=== PATIENT | female | born 1950 | race African-American/Black ===

== ENCOUNTER 2022-04-07 16:56 | Inpatient (IN) | payer OTHER ==
--- NOTE | 2022-04-06 20:16 | R.PREADM ---
PRE-ADMISSION SCREENING FORM SCREENING DATE AND TIME 04/06/2022 10:05 (CDT) ANTICIPATED REHAB ADMISSION DATE 04/08/2022 REFERRING FACILITY [facility] REFERRAL DATE AND TIME 04/06/2022 10:05 (CDT) ACUTE ADMIT DATE 04/01/2022 Previous Rehabilitation(s): No. ACUTE MOLD CHANGER/DC Trudy Allen REFERRING PHYSICIAN Dax Horne REHAB FACILITY [facility] CLINICAL LIAISON Karina Coleman PHYSICIAN REVIEWER Dr. Nelson Milan M.D. MR# [id number] NAME OLIVER ROCHA ADDRESS [address] [place] [address] PHONE [facility] [id number] DATE OF 1950 AGE 71 SSN# [id number] GENDER female MARITAL STATUS unknown race ADMIT FROM 02 - [facility] PRE-HOSPITAL LIVING SETTING 01 - Home (private home/apt. board/care, assisted living, senior living, transitional living) HOME TYPE AND DETAILS Type of home: single family house # of levels in the residence: 1 # of steps within the residence: 0 # of steps to enter the residence: 0 PRE-HOSPITAL LIVING WITH Family/Relatives FAMILY SUPPORT Yes PRIMARY FAMILY CONTACT NAME Wilfrid Rocha PRIMARY FAMILY CONTACT PHONE PRIMARY FAMILY CONTACT RELATIONSHIP Spouse PHONE PRIMARY FAMILY CONTACT ON ADM.? no IS PRIMARY FAMILY CONTACT AUTH. REP.? no 1ST EMERGENCY CONTACT Wilfrid Rocha 1ST CONTACT PHONE 1ST CONTACT RELATIONSHIP Spouse PHONE 1ST CONTACT ON ADM. no IS 1ST CONTACT AUTH. REP.? no PHONE 2ND CONTACT ON ADM.? no PATIENT EMPLOYMENT STATUS Retired (for age) PATIENT EMPLOYER No Employer PAYOR INFORMATION: 1ST PAYOR NAME Frank [employer] 1ST PAYOR INJURY/ILLNESS DUE TO ACCIDENT? No ANOTHER [employer] RESPONSIBLE? No PRIMARY REHAB/ACUTE DIAGNOSIS: I69.398 Other sequelae of cerebral infarction ONSET DATE 04/01/2022 REHAB IMPAIRMENT CATEGORY (JUAN): 01 Stroke (STR) MEETS 60% rule PRIMARY DIAGNOSIS-RELATED SURGERIES: None COMORBID REHAB/ACUTE DIAGNOSES: - Tier 3 Unspecified diastolic (congestive) heart failure (I50.30) Acute respiratory failure with hypoxia (J96.01) - Non-Tiered Primary pulmonary hypertension (I27.0) Atrial fibrillation and flutter (I48) Hyperlipidemia, unspecified (E78.5) Essential (primary) hypertension (I10) Bacteremia (R78.81) Hypothyroidism, unspecified (E03.9) INTERVENTIONS: - Seizure Administer prescribed medications and monitor effectivness Assess/Monitor pt labs Provide safety measures - Acute hypoxemic respiratory failure Administer medications as indicated Provide emotional support to reduce anxiety Provide supplemental o2 and monitor for effectivness Reposition pt frequently to maximise lung expansion - Pulmonary Hypertension Administer prescribed medications Assess pt v/s regularly and observe for s/s of peripheral tissue perfusion Administer supplemental O2 as indicated - Hypertension Assess/ Monitor patient B/P and treat with prescribed medications Increase physical activity Implement healthy diet - Acute on chronic diastolic heart failure Administer medications as indicated by MD and monitor for effectiveness Assess/Monitor pt cardiac status Monitor pt labs daily - Afib Administer prescribed anticoagulants and monitor effectiveness Assess/Monitor pt cardiac and respiratory status regularly Monitor pt labs - Hyperlipidemia Regular physical activity Monitor and control blood pressure Implement healthy diet Monitor LDL level and treat with prescribed medications - Bacteriuria Increase fluid intake Administer medications as indicated by MD Manage pt pain RISK FOR COMPLICATIONS: - DVT Active and Passive ROM exercises Administer medications per MD order Assist patient with frequent position changes Elevate BLE - Skin Breakdown Encourage ambulation as tolerated Repositioning q 2 hours Use of pillows or foam wedges while in bed - Seizure Administer prescribed medications and supplemental O2 Identify risk factors Provide safety measures - Pain Administer prescribed pain medication as needed Anticipate the need for pain medication for optimal pain managment Assess pt for pain and Administer prescribed pain medication as needed Assist patient with frequent position changes at least every 2 hours - Cardiac Failure Assess/Monitor pt cardiac status - Respiratory Failure Assess/ Monitor pt O2 sats Administer supplemental O2 as needed - Stroke Assess/ Monitor and maintain patient pain level Assess/ Monitor patient blood pressure - Falls Assess for medication side effects Maintain call light within patient reach for easy access to nursing assistance Provide assistance getting out of bed and with ambulation Provide assistive devices SUMMARY OF ACUTE HOSPITALIZATION: Pt. is a 71 yo female of unknown race. On 04/01/2022 she was admitted to [facility] with diagnosis I69.398 Other sequelae of cerebral infarction. Her impairment category is Stroke 01 - Other Stroke (.9). Pre-morbidly, Pt. was independent/mod-I in Locomotion and Self-Care; and she had good Balance, Transf ers Control, and Endurance. Currently, she has deficits of Locomotion, Balance, Safety Awareness, Transfers Control, Self-Care, a nd Endurance. Pt. is now referred to [facility] for acute in-patient rehabilitation in order to maximize patient's functional independence in activities of daily living, strength, ROM, and mobi lity. Patient has realistic goal of being discharged at assistance level 6-Mumtaz to reside at Home with Fam sophia/Relatives. Pt is 71 yo female with hx of hemorrhagic CVA of the posterior fossa (2016), which caused obstructive hydrocephalus. She was treated by craniotomy for decompression subsequently developing Left frontotemporal seizures. These were controlled by anti-epileptic medications until patient was unable to maintain compliance with medication. This led to new break through seizures and re-exacerbates of cerebellar CVA symptoms including incoordination, postural and gait instability, which has impaired her functional mobility and self-cares. Re- continuation of medication has controlled seizures currently, however, patient is left with functional deficits of cerebellar nature. Per OT, pt presents with decline in basic ADLs, IADLs, and has decreased ROM, strength and endurance. PT noted deficits in bed mobility, transfer, gait and balance. Pt is at an increased risk for falls as well d/t decreased safety awareness. Prior to onset pt lived with spouse and 2 adult sons in mobile home and was independent with ambulation using AD and was MOD I with BADLs. Due to the decline in the patients condition she is not currently safe to remain in her current living arrangement due to reductions in balance, strength, endurance, and an inability to independently perform the necessary activities of daily living and self-care required. Pt is at risk for skin breakdown, DVT, pain, falls, stroke and seizures. Our goal is for the patient to become stronger in order for her to safely return home and live independently. Patient would most directly benefit from aggressive 3 hours of daily therapy split between physical therapy and occupational therapy as well as speech therapy if warranted in the acute inpatient rehab setting.She is medically stable with relatively stable labs. She will require 24 hour nursing, doctor supervision and oversight current medical condition and PHM. The patient is reasonably expected to participate in 3 hours of therapy a day/15 hours per week and receive care with an intensive interdisciplinary approach. COVID-19 screening performed; Patient denies new onset of fever, cough, difficulty breathing, sore throat, body aches and non-allergy nasal congestion in the past 24 hours. Patient denies travel outside of [place] in the past 14 days. Patient denies any contact with someone who has a confirmed diagnosis of or is under investigation for COVID-19 in the past 14 days. PAST MEDICAL HISTORY Acute respiratory failure with hypoxia (J96.01) Atrial fibrillation and flutter (I48) Bacteremia (R78.81) Essential (primary) hypertension (I10) Hyperlipidemia, unspecified (E78.5) Hypothyroidism, unspecified (E03.9) Primary pulmonary hypertension (I27.0) Unspecified diastolic (congestive) heart failure (I50.30) PAST SURGICAL HISTORY: Craniotomy MEDICATION ALLERGIES: No Known Drug Allergies (NKDA) ENVIRONMENTAL ALLERGIES: - Substance Allergies None Known - Other Allergies None Known CODE STATUS: Full code WEIGHT/HEIGHT/BMI: WEIGHT unknown lbs HEIGHT 5' unknown" BMI N/A DIET: - Diet Type Regular - Diet - Solid Texture Regular - Diet - Liquid Texture Regular - Tube Feed N/A SKIN DIAGRAM: Busby Cath on Genitalia; extent - small; stage - NS(Not Stageable). Treatment - Per Physician's Order s. IV on Right arm; extent - small; stage - NS(Not Stageable). Treatment - Per Physician's Orders. Arterial Line on Left arm; extent - small; stage - NS(Not Stageable). Treatment - Per Physician's Ord ers. REVIEW OF SYSTEMS: - Gen Alert and awake Lying in bed No apparent distress Oriented to: person, time, and place - Vital Signs Temperature: 99.2 F SBP/DBP: 154/97 Pulse: 72 Resp: 20 Vital signs stable, afebrile - CVS RRR VITAL SIGNS Temperature: 99.2 F SBP/DBP: 154/97 Pulse: 72 Resp: 20 Vital signs stable, afebrile MEDICATIONS/TREATMENT: Other- See attached MAR (Medication Administration Record). CURRENT SPHINCTER CONTROL: Pre-hospital bladder status: unspecified # of bladder accidents in the last 7 days prior to screenin Pre-hospital bowel status: unspecified # of bowel accidents in the last 7 days prior to screenin Last Bowel Movement Date: 04/06/2022 CURRENT LOCOMOTION STATUS: distance walked 0 feet DETAILED CURRENT FUNCTIONAL STATUS: - Bladder accident frequency: 7-Ind - No accidents in the past 7 days - Bowel accident frequency: 7-Ind - No accidents in the past 7 days - Walking score based on distance walked: 0(N/A) - Wheelchair score based on distance traveled: 0(N/A) QI SCORES: - Self-Care A. Eating 06-Independent B. Oral hygiene 04-Supervision or touching assistance C. Toileting hygiene 02-Substantial/maximal assistance E. Shower/bathe self 04-Supervision or touching assistance F. Upper body dressing 04-Supervision or touching assistance G. Lower body dressing 02-Substantial/maximal assistance H. Putting on/taking off footwear 02-Substantial/maximal assistance - Mobility A. Roll left and right 03-Partial/moderate assistance B. Sit to lying 03-Partial/moderate assistance C. Lying to sitting on side of bed 03-Partial/moderate assistance D. Sit to stand 03-Partial/moderate assistance E. Chair/hkh-fn-oghvv transfer 03-Partial/moderate assistance F. Toilet transfer 03-Partial/moderate assistance G. Car transfer 88-Not attempted due to medical condition or safety concerns I. Walk 10 feet 88-Not attempted due to medical condition or safety concerns J. Walk 50 feet with two turns 88-Not attempted due to medical condition or safety concerns K. Walk 150 feet 88-Not attempted due to medical condition or safety concerns L. Walking 10 feet on uneven surfaces 88-Not attempted due to medical condition or safety concerns M. 1 step (curb) 88-Not attempted due to medical condition or safety concerns N. 4 steps 88-Not attempted due to medical condition or safety concerns O. 12 steps 88-Not attempted due to medical condition or safety concerns P. Picking up object 88-Not attempted due to medical condition or safety concerns R. Wheel 50 feet with two turns 09-Not applicable S. Wheel 150 feet 09-Not applicable - Bladder and Bowel Bladder continence 9-Not applicable Bowel continence 1-Occasionally incontinent - Endurance Fair - Balance Fair - Safety Awareness Fair CURRENT FUNC. DEFICITS: Mobility, Endurance, Balance, Safety Awareness, and Self-Care CURRENT / PREVIOUS ASSISTIVE DEVICES: Rolling Walker HISTORY OF FALLS. HAS THE PATIENT HAD TWO OR MORE FALLS IN THE PAST YEAR OR ANY FALL WITH INJURY IN T HE PAST YEAR?: No PRIOR SURGERY. DID THE PATIENT HAVE MAJOR SURGERY DURING THE 100 DAYS PRIOR TO ADMISSION?: No THERAPY NOTES FROM ACUTE CARE: Attached. SPECIAL NEEDS: - Safety Concerns Skin breakdown and Fall precautions needed due to skin breakdown risk, Poor balance, Risk of injury, and High fall risk - IV IVF inserted on unknown - Respiratory Supplemental oxygen: 2 liters Nasal Canula - Fall Precautions Due to poor balance PRECAUTIONS: - Fall Precaution Bed alarm TABS alarm Wheel chair alarm - Bleeding Risk Eliquis - DVT Risk due to restricted mobility and age - Incontinence Bowel Incontinence - Skin Breakdown Risk Routine Wound care due to restricted mobility and age - Seizure Precaution Padding of bed rails, bed alarm, monitor seizure medication levels as necessary PATIENT NEEDS ACTIVE AND ONGOING THERAPEUTIC INTERVENTION OF MULTIPLE THERAPY DISCIPLINES, INCLUDING: - Dietary and Nutrition Adequate Nutrition. Nutritional Education. Nutritional Supplements. - Occupational Therapy Cognitive Retraining. Patient needs Occupational Therapy for a daily minimum of 1.5 hours at least 5 out of 7 days, to improve Activities of Daily Living, including: Eating, Grooming, Bathing, Dressing, Toileting, Toilet Transfers, Community Reintegration, Higher functional activities, Adaptive Equipme nt, Splinting, Household Tasks, and Other activities as determined. Visual Perceptual Training. - Speech Therapy Cognitive Training. Expressive Language Skills. Memory Strategies. Patient needs Speech Therapy for a daily minimum of 1.5 hours at least 5 out of 7 days, to improve: Swallowing, Cognition, Language Ski lls, and Compensatory Strategies. Receptive Language Skills. Speech Intelligibility Training. - Physical Therapy Patient needs Physical Therapy for a daily minimum of 1.5 hours at least 5 out of 7 days, to improve: Mobility, Strengthening, Transfers, Stretching, ROM, Endurance, Ability to manage stairs, Gait, and Balance. PATIENT NEEDS CLOSE MEDICAL SUPERVISION BY A REHABILITATION PHYSICIAN FOR: Coordination of Treatment Team Medical and Co-Morbidity Management Respiratory/Airway Management Wound Care Bowel and Bladder Management Pain Management PATIENT REQUIRES 24X7 REHAB NURSING FOR MEDICAL AND FUNCTIONAL MGT. OF THE FOLLOWING DEFICITS: Patient requires 24x7 Rehabilitation Nursing for: Pain Issues, Identifying and preventing risk factor s, Monitoring and reporting current medical conditions, Assisting with ambulation and transfer, Yanet ting with all ADL-s, Teaching patients about disease process and medications, Family teaching, Provid ing safe environment, Bowel and Bladder Issues, Skin Integrity, and Medication Management PATIENT REQUIRES INTENSIVE, COORDINATED INTERDISCIPLINARY APPROACH TO REHAB: Patient needs Dietary and Nutrition Services for: Adequate Nutrition, Nutritional Supplements, and Nu tritional Education Patient needs Skiver Machine Operator and/or Case Management for: Discharge Planning, Arranging Home Equipmen t or Services, and Family Interventions PATIENT REHAB POTENTIAL: Ifrah ROCHA is able and expected to receive 3 hours of individualized therapy daily on at least 5 of every 7 days Ifrah BOOTHEs prognosis for significant practical improvement within a reasonable period of time appe ars Good Expected level of measurable improvement will be of a practical value to Ifrah BOOTHEs functional cap acity or adaptations to impairments Has a viable Discharge Plan Medically appropriate; condition is sufficiently stable to participate in intensive rehab program DISCHARGE PLAN: - Estimated Length of Stay (days) 17. - Consensus on plan Discharge plan has been discussed with primary caregiver. Patient/Family is in agreement with the ag n. Primary caregiver is in agreement with the plan. - Patient/Family Goals Return home independently. - Potential barriers to discharge Any lines must be removed or patient/caregiver needs to be educated on line care. - Planned Living Setting Upon Discharge Home, to live with Family/Relatives. Transitional Living. RECOMMENDED CARE LEVEL: IRF RECOMMENDATION DETAILS: Recommended Admission to Comprehensive Rehabilitation Program to Increase Functional Riley SCREENER'S COMPLETENESS CONFIRMATION: - Screening Confirmation The patient data collection on this preadmission screening form is finished PHYSICIANS REVIEW AND ADMISSION DETERMINATION Admit - Based on my review of the Pre-Admission Screening results, in my medical judgment and experie nce, I concur with the findings and recommend admission to [facility], as this patient requires an IRF level of care. SIGNATURE PANEL: Clinical Liaison - [electronically] signed by Karina Coleman on 04/06/2022 at 15:47 (CDT) Physician Reviewer - [electronically] signed by Dr. Nelson Milan M.D. on 04/06/2022 at 20:15 (CDT )
[2022-04-07] MEDS ORDERED: NIFEdipine 10 MG CAP PO ONE (19:33)
[2022-04-07] MEDS ORDERED: CODEINE 30MG/APAP 300MG TAB PO PRN (19:33)
[2022-04-07] MEDS ORDERED: PHENYTOIN ER 100 MG CAP PO SCH (20:00)
[2022-04-07] MEDS ORDERED: CEPHALEXIN 250 MG CAP PO SCH (20:00)
[2022-04-07] MEDS ORDERED: NIFEdipine 10 MG CAP ONE (21:24)
[2022-04-07] MEDS ORDERED: CEPHALEXIN 250 MG CAP ONE (21:25)
[2022-04-07] MEDS: carvediloL 25 MG TAB PO SCH (21:28)
[2022-04-07] MEDS: APIXABAN 5 MG TABLET PO SCH (21:29)
[2022-04-07] MEDS: ATORVASTATIN 40 MG TAB PO SCH (21:29)
[2022-04-07] MEDS ORDERED: PHENYTOIN ER 100 MG CAP PO ONE (22:58)
[2022-04-07] MEDS: PHENYTOIN ER 100 MG CAP PO SCH (23:06)
[2022-04-08] MEDS: CEPHALEXIN 500 MG CAP PO SCH ×3 (00:57→16:43)
[2022-04-08 04:41] LABS: Absolute Lymphocytes (CBC) 1.5 K/uL (0.7-4.9); Hematocrit 40.1 % (36.0-45.0); MCV 81.4 fL (80-100); RBC Red Blood Cell Count 4.93 M/uL (3.86-4.86)
[2022-04-08 05:09] LABS: Albumin 2.4 g/dL (3.4-5.0); Magnesium 2.3 mg/dL (1.8-2.4); Phenytoin (Dilantin) Level 5.7 ug/mL (10.0-20.0); Potassium 4.1 mmol/L (3.5-5.1); Prealbumin 15.9 mg/dL (20-40)
[2022-04-08] MEDS: carvediloL 25 MG TAB PO SCH ×2 (05:18→16:43)
[2022-04-08] MEDS: FUROSEMIDE 40 MG TABLET PO SCH (07:33)
[2022-04-08] MEDS: SPIRONOLACTONE 25 MG TABLET PO SCH (07:34)
[2022-04-08] MEDS: APIXABAN 5 MG TABLET PO SCH ×2 (07:35→19:52)
[2022-04-08] MEDS: PHENYTOIN ER 100 MG CAP PO SCH ×2 (07:41→19:52)
[2022-04-08 10:28] LABS: Urine Appearance Clear (Clear); Urine Bilirubin Negative (Negative); Urine Blood Negative (Negative); Urine Color Yellow (Yellow); Urine Glucose Negative (Negative); Urine Protein 3+ (Negative); Urine Specific Gravity 1.025 (1.005-1.030); Urine Urobilinogen 0.2 mg/dL (0.2-1.0)
[2022-04-08 10:38] LABS: Urine Bacteria NONE SEEN /HPF (<20); Urine RBC <5 /HPF (NONE SEEN)
--- NOTE | 2022-04-08 17:40 | R.HP ---
HISTORY AND PHYSICAL FACILITY: [facility] ENCOUNTER DATE AND TIME: 04/08/2022 17:34 (CDT) MR#: [id number] NAME OLIVER ROCHA ADDRESS: [address] [place] [address] CITY: [place]IP [id number] PHONE: DATE OF : 1950 AGE: 71 SSN# [id number] GENDER: Female DEXTERITY Unknown dexterity MARITAL STATUS Unknown race PRE-HOSPITAL LIVING SETTING 01 - Home (private home/apt. board/care, assisted living, senior living, transitional living) PRE-HOSPITAL LIVING WITH Family/Relatives ENCOUNTER PHYSICIAN: Dr. Nelson Milan M.D. REFERRING DOCTOR: shi Horne DATE OF ADMISSION: 04/07/2022 18:59 (CDT) REFERRING FACILITY [facility] HOME TYPE AND DETAILS: Type of home: single family house # of levels in the residence: 1 # of steps within the residence: 0 # of steps to enter the residence: 0 ONSET DATE: 04/01/2022 PRIMARY DIAGNOSIS-RELATED SURGERIES: None SECONDARY/COMORBID DIAGNOSES (TIERED): - Non-Tiered Primary pulmonary hypertension (I27.0) Atrial fibrillation and flutter (I48) Hyperlipidemia, unspecified (E78.5) Essential (primary) hypertension (I10) Bacteremia (R78.81) Hypothyroidism, unspecified (E03.9) - Tier 3 Unspecified diastolic (congestive) heart failure (I50.30) Acute respiratory failure with hypoxia (J96.01) HISTORY OF PRESENT ILLNESS (HPI): Pt. is a 71 yo female of unknown race. On 04/01/2022 she was admitted to [facility] with diagnosis I69.398 Other sequelae of cerebral infarction. Her impairment category is Stroke 01 - Other Stroke (01.9). Pre-morbidly, Pt. was independent/mod-I in Locomotion and Self-Care; and she had good Balance, Transf ers Control, and Endurance. Currently, she has deficits of Locomotion, Balance, Safety Awareness, Transfers Control, Self-Care, a nd Endurance. Pt. is now referred to [facility] for acute in-patient rehabilitation in order to maximize patient's functional independence in activities of daily living, strength, ROM, and mobi lity. Patient has realistic goal of being discharged at assistance level 6-Mumtaz to reside at Home with Fam sophia/Relatives. Pt is 71 yo female with hx of hemorrhagic CVA of the posterior fossa (2016), which caused obstructive hydrocephalus. She was treated by craniotomy for decompression subsequently developing Left frontotemporal seizures. These were controlled by anti-epileptic medications until patient was unable to maintain compliance with medication. This led to new break through seizures and re-exacerbates of cerebellar CVA symptoms including incoordination, postural and gait instability, which has impaired her functional mobility and self-cares. Re- continuation of medication has controlled seizures currently, however, patient is left with functional deficits of cerebellar nature. Per OT, pt presents with decline in basic ADLs, IADLs, and has decreased ROM, strength and endurance. PT noted deficits in bed mobility, transfer, gait and balance. Pt is at an increased risk for falls as well d/t decreased safety awareness. Prior to onset pt lived with spouse and 2 adult sons in mobile home and was independent with ambulation using AD and was MOD I with BADLs. Due to the decline in the patients condition she is not currently safe to remain in her current living arrangement due to reductions in balance, strength, endurance, and an inability to independently perform the necessary activities of daily living and self-care required. Pt is at risk for skin breakdown, DVT, pain, falls, stroke and seizures. Our goal is for the patient to become stronger in order for her to safely return home and live independently. Patient would most directly benefit from aggressive 3 hours of daily therapy split between physical therapy and occupational therapy as well as speech therapy if warranted in the acute inpatient rehab setting.She is medically stable with relatively stable labs. She will require 24 hour nursing, doctor supervision and oversight current medical condition and PHM. The patient is reasonably expected to participate in 3 hours of therapy a day/15 hours per week and receive care with an intensive interdisciplinary approach. COVID-19 screening performed; Patient denies new onset of fever, cough, difficulty breathing, sore throat, body aches and non-allergy nasal congestion in the past 24 hours. Patient denies travel outside of [place] in the past 14 days. Patient denies any contact with someone who has a confirmed diagnosis of or is under investigation for COVID-19 in the past 14 days. MEDICATION ALLERGIES: No Known Drug Allergies (NKDA) ENVIRONMENTAL ALLERGIES: - Substance Allergies None Known - Other Allergies None Known PAST MEDICAL HISTORY: Acute respiratory failure with hypoxia (J96.01) Atrial fibrillation and flutter (I48) Bacteremia (R78.81) Essential (primary) hypertension (I10) Hyperlipidemia, unspecified (E78.5) Hypothyroidism, unspecified (E03.9) Primary pulmonary hypertension (I27.0) Unspecified diastolic (congestive) heart failure (I50.30) PAST SURGICAL HISTORY: Craniotomy SOCIAL HISTORY: - Home Living Family/Relatives REVIEW OF SYSTEMS: - Gen No Chills Fatigue No Fever - Eyes No Double Vision No itchiness - ENMT No Difficulty Swallowing - CVS No Chest Discomfort No Chest Pain Fatigue No Weight Gain - Resp No Cough Shortness of Breath - GI Continent No Abdominal Pain No Constipation No Diarrhea - Continent No Kidney Pain No Painful Urination No Urinary Urgency - MSK Joint Pain Muscle Cramps No Stiffness - Skin No Itching No Rash No Suspicious Lesions - Neuro Coordination Difficulty No Difficulty with Concentration No Memory Loss Seizures No Weakness - Psych No Anxiety No Depression No HIV Exposure No Persistent Infections No Seasonal Allergies - Endo No Cold/Heat Intolerance No Excessive Hunger No Excessive Thirst No Excessive Urination PHYSICAL EXAM - Gen Alert and awake Lying in bed No apparent distress Oriented to: person, time, and place - Skin No skin breakdown. Normacephalic - Eyes No abnormalities - ENMT No abnormalities - Neck No abnormalities - CVS RRR - Chest No abnormalities - Resp No wheezing - Abd Soft - GI + bowel sounds Deferred - No abnormalities - Ext No significant edema - MSK 4+/5 weakness in both lower extremities. - Neuro 4/5 strength bilaterally lower extremities. - Psych No abnormalities VITAL SIGNS Temperature: 97.8 F SBP/DBP: 149/72 Pulse: 79 Resp: 16 NURSING: - Shower allowing shower - Bladder care per protocol - Skin care per protocol PRECAUTIONS: - Fall Precaution Bed alarm TABS alarm Wheel chair alarm - Bleeding Risk Eliquis - Incontinence Bowel Incontinence - DVT Risk due to restricted mobility and age - Skin Breakdown Risk Routine Wound care due to restricted mobility and age - Seizure Precaution Padding of bed rails, bed alarm, monitor seizure medication levels as necessary ACTIVITIES OOB only with supervision QI SCORES: - Self-Care A. Eating 06-Independent B. Oral hygiene 04-Supervision or touching assistance C. Toileting hygiene 02-Substantial/maximal assistance E. Shower/bathe self 04-Supervision or touching assistance F. Upper body dressing 04-Supervision or touching assistance G. Lower body dressing 02-Substantial/maximal assistance H. Putting on/taking off footwear 02-Substantial/maximal assistance - Mobility A. Roll left and right 03-Partial/moderate assistance B. Sit to lying 03-Partial/moderate assistance C. Lying to sitting on side of bed 03-Partial/moderate assistance D. Sit to stand 03-Partial/moderate assistance E. Chair/[id number]-[id number] transfer 03-Partial/moderate assistance F. Toilet transfer 03-Partial/moderate assistance G. Car transfer 88-Not attempted due to medical condition or safety concerns I. Walk 10 feet 88-Not attempted due to medical condition or safety concerns J. Walk 50 feet with two turns 88-Not attempted due to medical condition or safety concerns K. Walk 150 feet 88-Not attempted due to medical condition or safety concerns L. Walking 10 feet on uneven surfaces 88-Not attempted due to medical condition or safety concerns M. 1 step (curb) 88-Not attempted due to medical condition or safety concerns N. 4 steps 88-Not attempted due to medical condition or safety concerns O. 12 steps 88-Not attempted due to medical condition or safety concerns P. Picking up object 88-Not attempted due to medical condition or safety concerns R. Wheel 50 feet with two turns 09-Not applicable S. Wheel 150 feet 09-Not applicable - Bladder and Bowel Bladder continence 9-Not applicable Bowel continence 1-Occasionally incontinent - Endurance Fair - Balance Fair - Safety Awareness Fair CURRENT FUNC. DEFICITS: Mobility, Endurance, Balance, Safety Awareness, and Self-Care MEDICATIONS: - Other See attached MAR (Medication Administration Record) ASSESSMENT: Pt. is a 71 yo female of unknown race.On 04/01/2022 she was admitted to [facility] with diagnosis I69.398 O ther sequelae of cerebral infarction.Her impairment category is Stroke 01 - Other Stroke (.9).Pre- morbidly, Pt. was independent/mod-I in Locomotion and Self-Care; and she had good Balance, Transfers Control, and Endurance.Currently, she has deficits of Locomotion, Balance, Safety Awareness, Transfer s Control, Self-Care, and Endurance.Pt. is now referred to [facility] for acut e in-patient rehabilitation in order to maximize patient's functional independence in activities of d aily living, strength, ROM, and mobility.- Rehab Goal Patient has realistic goal of being discharged at assistance level 6-Mumtaz to reside at Home with Fam sophia/Relatives. Pt is 71 yo female with hx of hemorrhagic CVA of the posterior fossa (2016), which caused obstructive hydrocephalus. She was treated by craniotomy for decompression subsequently developing Left frontotemporal seizures. These were controlled by anti-epileptic medications until patient was unable to maintain compliance with medication. This led to new break through seizures and re-exacerbates of cerebellar CVA symptoms including incoordination, postural and gait instability, which has impaired her functional mobility and self-cares. Re- continuation of medication has controlled seizures currently, however, patient is left with functional deficits of cerebellar nature. Per OT, pt presents with decline in basic ADLs, IADLs, and has decreased ROM, strength and endurance. PT noted deficits in bed mobility, transfer, gait and balance. Pt is at an increased risk for falls as well d/t decreased safety awareness. Prior to onset pt lived with spouse and 2 adult sons in mobile home and was independent with ambulation using AD and was MOD I with BADLs. Due to the decline in the patients condition she is not currently safe to remain in her current living arrangement due to reductions in balance, strength, endurance, and an inability to independently perform the necessary activities of daily living and self-care required. Pt is at risk for skin breakdown, DVT, pain, falls, stroke and seizures. Our goal is for the patient to become stronger in order for her to safely return home and live independently. Patient would most directly benefit from aggressive 3 hours of daily therapy split between physical therapy and occupational therapy as well as speech therapy if warranted in the acute inpatient rehab setting.She is medically stable with relatively stable labs. She will require 24 hour nursing, doctor supervision and oversight current medical condition and PHM. The patient is reasonably expected to participate in 3 hours of therapy a day/15 hours per week and receive care with an intensive interdisciplinary approach. COVID-19 screening performed; Patient denies new onset of fever, cough, difficulty breathing, sore throat, body aches and non-allergy nasal congestion in the past 24 hours. Patient denies travel outside of [place] in the past 14 days. Patient denies any contact with someone who has a confirmed diagnosis of or is under investigation for COVID-19 in the past 14 days.REHAB PLAN: for Dementia, TBI, Stroke, or others - Physical Therapy Gait dysfunction - to improve, our physical therapists will perform initial evaluation of pt's status upon admission and devise an individualized program for Gait Training, and Wheel Chair mobility Inability to transfer - to improve, our physical therapists will perform initial evaluation of pt's s tatus upon admission and devise an individualized program for Bed mobility Need for home safety evaluation - to improve, our physical therapists will perform initial evaluation of pt's status upon admission and devise an individualized program for Home Evaluation Need in caregiver upon discharge - to improve, our physical therapists will perform initial evaluatio n of pt's status upon admission and devise an individualized program for Caregiver Training New precaution - to improve, our physical therapists will perform initial evaluation of pt's status u lacey admission and devise an individualized program for Patient precaution education Edema - to improve, our physical therapists will perform initial evaluation of pt's status upon admi ssion and devise an individualized program for Elevation Training, and Lymphedema Therapy Poor balance - to improve, our physical therapists will perform initial evaluation of pt's status upo n admission and devise an individualized program for Balance Training Poor endurance - to improve, our physical therapists will perform initial evaluation of pt's status u lacey admission and devise an individualized program for Endurance Training Weakness - to improve, our physical therapists will perform initial evaluation of pt's status upon ad mission and devise an individualized program for Aquatic Therapy, Neuromuscular Reeducation, and Stre ngthening Achieving independence - to improve, our physical therapists will perform initial evaluation of pt's status upon admission and devise an individualized program for Community Reintegration Activities - Occupational Therapy ADL deficits - to improve, our occupation therapists will perform initial evaluation of pt's status u lacey admission and devise an individualized program for Bathing, Bed mobility, Community Reintegration , Cooking, Dressing, Eating, Fine Motor Skills, Grooming, Homemaking, Kitchen Mobility, Laundry, Vanita ent Education, Safety Awareness, Splinting - Positioning, Transfers(Toilet, Tub, Shower), and Wheel C hair Management Need for early breastfeeding care specialist - to improve, our occupation therapists will perform initial evaluation of pt's s tatus upon admission and devise an individualized program for Caregiver Training Weakness - to improve, our occupation therapists will perform initial evaluation of pt's status upon admission and devise an individualized program for Aquatic Therapy, Balance, Endurance, UE ROM, and U E strengthening MEDICAL PLAN: - Diet Type Start Regular - Diet - Liquid Texture Start Regular - Tube Feed Start N/A - Incontinence Bowel Incontinence - Bleeding Risk Eliquis - Bladder care per protocol - DVT Risk due to restricted mobility and age - Skin Breakdown Risk Routine Wound care due to restricted mobility and age - Seizure Precaution Padding of bed rails, bed alarm, monitor seizure medication levels as necessary - Fall Precaution Bed alarm TABS alarm Wheel chair alarm - Skin care per protocol - Other See attached MAR (Medication Administration Record) - Diet - Solid Texture Regular - Shower shower DISCHARGE PLAN: - Estimated Length of Stay (days) 17. - Consensus on plan Discharge plan has been discussed with primary caregiver. Patient/Family is in agreement with the ag n. Primary caregiver is in agreement with the plan. - Patient/Family Goals Return home independently. - Potential barriers to discharge Any lines must be removed or patient/caregiver needs to be educated on line care. - Planned Living Setting Upon Discharge Home, to live with Family/Relatives. Transitional Living. SIGNATURE PANEL: (CDT)
--- NOTE | 2022-04-08 17:42 | PAPE ---
POST ADMISSION PHYSICIAN EVALUATION PATIENT: [facility] MR# [id number] REFERRING DOCTOR shi Horne EVALUATION DATE AND TIME 04/08/2022 17:39 (CDT) NAME OLIVER ROCHA DATE OF 1950 AGE 71 PHONE N# [id number] GENDER female EVALUATING PHYSICIAN Dr. Nelson Milan M.D. ADMISSION DIAGNOSIS: I69.398 Other sequelae of cerebral infarction ONSET DATE 04/01/2022 SECONDARY/COMORBID DIAGNOSES TIERED: - Non-Tiered Primary pulmonary hypertension (I27.0) Atrial fibrillation and flutter (I48) Hyperlipidemia, unspecified (E78.5) Essential (primary) hypertension (I10) Bacteremia (R78.81) Hypothyroidism, unspecified (E03.9) - Tier 3 Unspecified diastolic (congestive) heart failure (I50.30) Acute respiratory failure with hypoxia (J96.01) POST-ADMISSION FUNCTIONAL/MEDICAL STATUS: - Bladder Same accident frequency: 7-Ind - No accidents in the past 7 days - Bowel Same accident frequency: 7-Ind - No accidents in the past 7 days - Walking Same score based on distance walked: 0(N/A) - Wheelchair Same score based on distance traveled: 0(N/A) STATUS CHANGE EVALUATION: No change in Functional or Medical Status is identified compared with Pre-Admission screening. PATIENT NEEDS CLOSE MEDICAL SUPERVISION BY A REHABILITATION PHYSICIAN FOR: Coordination of Treatment Team Medical and Co-Morbidity Management Respiratory/Airway Management Wound Care Bowel and Bladder Management Pain Management PATIENT REQUIRES 24X7 REHAB NURSING FOR MEDICAL AND FUNCTIONAL MGT. OF THE FOLLOWING DEFICITS: Patient requires 24x7 Rehabilitation Nursing for: Pain Issues, Identifying and preventing risk factor s, Monitoring and reporting current medical conditions, Assisting with ambulation and transfer, Yanet ting with all ADL-s, Teaching patients about disease process and medications, Family teaching, Provid ing safe environment, Bowel and Bladder Issues, Skin Integrity, and Medication Management PATIENT REQUIRES INTENSIVE, COORDINATED INTERDISCIPLINARY APPROACH TO REHAB: Patient needs Dietary and Nutrition Services for: Adequate Nutrition, Nutritional Supplements, and Nu tritional Education Patient needs Glassware Selector and/or Case Management for: Discharge Planning, Arranging Home Equipmen t or Services, and Family Interventions LIST OF IDENTIFIED AND POTENTIAL PROBLEMS: Alteration in air exchange Alteration in leisure activities Bladder, Incontinence Blood Pressure, Hypertension/hypotension Issues Bowel, Incontinence Falls, Actual or Potential Infection, Actual or Potential Mobility Impaired Pain, Alteration in Comfort Self Care Deficit Skin Integrity, Actual or Potential Urinary Tract Infection (UTI), Actual or Potential RISK FOR COMPLICATIONS - DVT Active and Passive ROM exercises. Administer medications per MD order. Assist patient with frequent p osition changes. Elevate BLE. - Skin Breakdown Encourage ambulation as tolerated. Repositioning q 2 hours. Use of pillows or foam wedges while in be d. - Seizure Administer prescribed medications and supplemental O2. Identify risk factors. Provide safety measures . - Pain Administer prescribed pain medication as needed. Anticipate the need for pain medication for optimal pain managment. Assess pt for pain and Administer prescribed pain medication as needed. Assist patien t with frequent position changes at least every 2 hours. - Cardiac Failure Assess/Monitor pt cardiac status. - Respiratory Failure Assess/ Monitor pt O2 sats. Administer supplemental O2 as needed. - Stroke Assess/ Monitor and maintain patient pain level. Assess/ Monitor patient blood pressure. - Falls Assess for medication side effects. Maintain call light within patient reach for easy access to [employer] assistance. Provide assistance getting out of bed and with ambulation. Provide assistive devices. INTERVENTIONS - Seizure Administer prescribed medications and monitor effectivness. Assess/Monitor pt labs. Provide safety me asures. - Acute hypoxemic respiratory failure Administer medications as indicated. Provide emotional support to reduce anxiety. Provide supplementa l o2 and monitor for effectivness. Reposition pt frequently to maximise lung expansion. - Pulmonary Hypertension Administer prescribed medications. Assess pt v/s regularly and observe for s/s of peripheral tissue p erfusion. Administer supplemental O2 as indicated. - Hypertension Assess/ Monitor patient B/P and treat with prescribed medications. Increase physical activity. Implem ent healthy diet. - Acute on chronic diastolic heart failure Administer medications as indicated by MD and monitor for effectiveness. Assess/Monitor pt cardiac st atus. Monitor pt labs daily. - Afib Administer prescribed anticoagulants and monitor effectiveness. Assess/Monitor pt cardiac and respira tory status regularly. Monitor pt labs. - Hyperlipidemia Regular physical activity. Monitor and control blood pressure. Implement healthy diet. Monitor LDL le kelley and treat with prescribed medications. - Bacteriuria Increase fluid intake. Administer medications as indicated by MD. Manage pt pain. PATIENT COULD BE AT RISK FOR COMPLICATIONS FROM ADVERSE MEDICAL CONDITIONS DUE TO HIS/HER COMORBIDITI ES AND THE RIGORS OF THE INTENSIVE REHABILLITATION PROGRAM. METHODS OR INTERVENTIONS TO AVOID COMPLIC ATIONS INCLUDE: - Bleeding Assess lab values and manage abnormalities. Nursing to teach precautions for anti-coagulation therapy . Stroke patients assessed for lethargy or change in status. Wound to be assessed every shift. - Infection Clinical staff to assess and manage the signs and symptoms of infection including fever, redness, war mth, etc. - Urinary Tract Infection - Aspiration Clinical staff will assess and manage coughing, drooling, congestion. - Falls Patient will be evaluated for Fall Precautions and will be placed on Fall Precautions as indicated pe r protocol. - Skin Breakdown Nursing will assess skin daily using assessment tool and will place on Skin Breakdown Precautions as indicated per protocol. - Pain Clinical staff may employ non-medication methods such as massage, distraction, decrease stimulus, etc . as needed. Clinical staff will assess patient's pain level every shift per protocol to assess and e nsure pain management effectiveness. Medications will be given and the pain level re-assessed. PRELIMINARY PLAN OF CARE: - Physical Therapy Patient needs Physical Therapy for a daily minimum of 1.5 hours at least 5 out of 7 days, to improve: Mobility, Strengthening, Transfers, Stretching, ROM, Endurance, Ability to manage stairs, Gait, and Balance. - Speech Therapy Patient needs Speech Therapy for a daily minimum of 0.5 hours at least 5 out of 7 days, to improve: S wallowing, Cognition, Language Skills, and Compensatory Strategies. - Rehabilitation Nursing Patient requires 24x7 Rehabilitation Nursing for: Pain Issues, Identifying and preventing risk factor s, Monitoring and reporting current medical conditions, Assisting with ambulation and transfer, Yanet ting with all ADL-s, Teaching patients about disease process and medications, Family teaching, Provid ing safe environment, Bowel and Bladder Issues, Skin Integrity, and Medication Management. Patient needs Glassware Selector and/or Case Management for: Discharge Planning, Arranging Home Equipmen t or Services, and Family Interventions. - Dietary and Nutrition Services Patient needs Dietary and Nutrition Services for: Adequate Nutrition, Nutritional Supplements, and Nu tritional Education. - Occupational Therapy Patient needs Occupational Therapy for a daily minimum of 1.5 hours at least 5 out of 7 days, to impr ove Activities of Daily Living, including: Eating, Grooming, Bathing, Dressing, Toileting, Toilet Tra nsfers, Community Reintegration, Higher functional activities, Adaptive Equipment, Splinting, Househo ld Tasks, and Other activities as determined. QI SCORES: - Self-Care A. Eating 06-Independent B. Oral hygiene 04-Supervision or touching assistance C. Toileting hygiene 02-Substantial/maximal assistance E. Shower/bathe self 04-Supervision or touching assistance F. Upper body dressing 04-Supervision or touching assistance G. Lower body dressing 02-Substantial/maximal assistance H. Putting on/taking off footwear 02-Substantial/maximal assistance - Mobility A. Roll left and right 03-Partial/moderate assistance B. Sit to lying 03-Partial/moderate assistance C. Lying to sitting on side of bed 03-Partial/moderate assistance D. Sit to stand 03-Partial/moderate assistance E. Chair/mse-zr-lgyff transfer 03-Partial/moderate assistance F. Toilet transfer 03-Partial/moderate assistance G. Car transfer 88-Not attempted due to medical condition or safety concerns I. Walk 10 feet 88-Not attempted due to medical condition or safety concerns J. Walk 50 feet with two turns 88-Not attempted due to medical condition or safety concerns K. Walk 150 feet 88-Not attempted due to medical condition or safety concerns L. Walking 10 feet on uneven surfaces 88-Not attempted due to medical condition or safety concerns M. 1 step (curb) 88-Not attempted due to medical condition or safety concerns N. 4 steps 88-Not attempted due to medical condition or safety concerns O. 12 steps 88-Not attempted due to medical condition or safety concerns P. Picking up object 88-Not attempted due to medical condition or safety concerns R. Wheel 50 feet with two turns 09-Not applicable S. Wheel 150 feet 09-Not applicable - Bladder and Bowel Bladder continence 9-Not applicable Bowel continence 1-Occasionally incontinent - Endurance Fair - Balance Fair - Safety Awareness Fair POTENTIAL FUNCTIONAL GOALS FOR PATIENT TO ACHIEVE BY DISCHARGE: - Safety Precaution Patient will remain free from falls or injury at time of discharge. - Bed Mobility Patient will perform bed mobility at 4-Felipe level of assistance. - Transfers Patient will complete transfers from bed to chair at 4-Felipe level of assistance. - Mobility Patient will ambulate 150 ft with 4-Felipe level of assistance with RW. PATIENT REHAB POTENTIAL Ifrah ROCHA is able and expected to receive 3 hours of individualized therapy daily on at least 5 of every 7 days Ifrah ROCHA's prognosis for significant practical improvement within a reasonable period of time appe ars Good Expected level of measurable improvement will be of a practical value to Ifrah ROCHA's functional cap acity or adaptations to impairments Has a viable Discharge Plan Medically appropriate; condition is sufficiently stable to participate in intensive rehab program DISCHARGE PLAN: - Estimated Length of Stay (days) 17. - Consensus on plan Discharge plan has been discussed with primary caregiver. Patient/Family is in agreement with the ag n. Primary caregiver is in agreement with the plan. - Patient/Family Goals Return home independently. - Potential barriers to discharge Any lines must be removed or patient/caregiver needs to be educated on line care. - Planned Living Setting Upon Discharge Home, to live with Family/Relatives. Transitional Living. CONCLUSION ON REHABILITATION NECESSITY: I have evaluated patient's pre-admission functional status and, comparing it to the patient's post-ad mission functional status now, I conclude that the pre-admission assessment was accurate. Patient's c ondition on admission supports the medical necessity of admission to IRF. It is safe to proceed with patient's therapy program. SIGNATURE PANEL: (CDT)
[2022-04-08] MEDS: ATORVASTATIN 40 MG TAB PO SCH (19:52)
[2022-04-08] MEDS: ENSURE HIGH PROTEIN 237 ML CAN PO SCH (19:53)
[2022-04-08] MEDS ORDERED: NIFEdipine 10 MG CAP ONE (20:42)
[2022-04-08] MEDS ORDERED: NIFEdipine 10 MG CAP PO SCH (21:00)
[2022-04-09] MEDS: carvediloL 25 MG TAB PO SCH ×2 (05:23→17:10)
[2022-04-09] MEDS: APIXABAN 5 MG TABLET PO SCH ×2 (07:55→19:59)
[2022-04-09] MEDS: PHENYTOIN ER 100 MG CAP PO SCH ×2 (08:49→19:59)
[2022-04-09] MEDS: FUROSEMIDE 40 MG TABLET PO SCH (08:50)
[2022-04-09] MEDS: SPIRONOLACTONE 25 MG TABLET PO SCH (08:50)
--- NOTE | 2022-04-09 09:52 | P.RH.PN ---
Estimated Length of Stay: 14 Expected Discharge Date: 04/21/22 Discharge Disposition Plan: Home Family Support: Yes Care Home Goal: Mobility, Transfers, Self Care Vital Signs: Last Vital Signs Temp 97.6 F 04/09/22 07:35 Pulse 68 04/09/22 08:50 Resp 18 04/09/22 07:35 BP 136/61 04/09/22 08:50 Pulse Ox 91 04/09/22 07:35 Laboratory: Laboratory Last Values WBC 9.1 K/uL (4.3-10.9) 04/08/22 04:04 RBC 4.93 M/uL (3.86-4.86) H 04/08/22 04:04 Hgb 13.4 g/dL (12.0-15.0) 04/08/22 04:04 Hct 40.1 % (36.0-45.0) 04/08/22 04:04 MCV 81.4 fL (80-100) D 04/08/22 04:04 MCH 27.2 pg (27.0-35.0) 04/08/22 04:04 MCHC 33.4 g/dL (32.0-36.0) 04/08/22 04:04 RDW 18.3 % (12.1-15.2) H 04/08/22 04:04 Plt Count 582 K/uL (152-406) H 04/08/22 04:04 MPV 7.0 fL (7.6-11.3) L 04/08/22 04:04 Neutrophils % 69.4 % (41.7-73.7) 04/08/22 04:04 Lymphocytes % 16.0 % (15.3-44.8) 04/08/22 04:04 Monocytes % 9.0 % (3.3-12.3) 04/08/22 04:04 Eosinophils % 4.3 % (0-4.4) 04/08/22 04:04 Basophils % 1.3 % (0-1.3) 04/08/22 04:04 Absolute Neutrophils 6.3 K/uL (1.8-8.0) 04/08/22 04:04 Absolute Lymphocytes 1.5 K/uL (0.7-4.9) 04/08/22 04:04 Absolute Monocytes 0.8 K/uL (0.1-1.3) 04/08/22 04:04 Absolute Eosinophils 0.4 K/uL (0-0.5) 04/08/22 04:04 Absolute Basophils 0.1 K/uL (0-0.5) 04/08/22 04:04 Sodium 143 mmol/L (136-145) 04/08/22 04:04 Potassium 4.1 mmol/L (3.5-5.1) 04/08/22 04:04 Chloride 112 mmol/L (98-107) H 04/08/22 04:04 Carbon Dioxide 26 mmol/L (21-32) 04/08/22 04:04 Anion Gap 9.1 mEq/L (5.0-15.0) 04/08/22 04:04 BUN 43 mg/dL (7-18) H 04/08/22 04:04 Creatinine 1.17 mg/dL (0.55-1.3) 04/08/22 04:04 Est GFR (CKD-EPI) 50 ml/min (=/>90) L 04/08/22 04:04 Glucose 111 mg/dL (74-106) H 04/08/22 04:04 POC Glucose 104 mg/dL (65-120) 04/08/22 16:31 Calcium 8.7 mg/dL (8.5-10.1) 04/08/22 04:04 Magnesium 2.3 mg/dL (1.8-2.4) 04/08/22 04:04 Albumin 2.4 g/dL (3.4-5.0) L 04/08/22 04:04 Prealbumin 15.9 mg/dL (20-40) L 04/08/22 04:04 Urine Color Yellow (Yellow) 04/08/22 10:26 Urine Appearance Clear (Clear) 04/08/22 10:26 Urine pH 6.0 (5.0-7.0) 04/08/22 10:26 Ur Specific Tingley 1.025 (1.005-1.030) 04/08/22 10:26 Glucose (UA)(Auto) Negative (Negative) 04/08/22 10:26 Urine Ketones Negative (Negative) 04/08/22 10:26 Urine Blood Negative (Negative) 04/08/22 10:26 Urine Nitrite Negative (Negative) 04/08/22 10:26 Urine Bilirubin Negative (Negative) 04/08/22 10:26 Urine Urobilinogen 0.2 mg/dL (0.2-1.0) 04/08/22 10:26 Ur Leukocyte Esterase Negative (Negative) 04/08/22 10:26 Urine RBC <5 /HPF (NONE SEEN) 04/08/22 10:26 Urine WBC <5 /HPF (<5) 04/08/22 10:26 Ur Squamous Epith Cells 5-10 /HPF (NONE SEEN) H 04/08/22 10:26 Ur Urothelial Cells Cancelled 04/08/22 09:15 Calcium Oxalate Crystal Cancelled 04/08/22 09:15 Uric Acid Crystals Cancelled 04/08/22 09:15 Triple Phos Crystals Cancelled 04/08/22 09:15 Other Crystals Cancelled 04/08/22 09:15 Amorphous Sediment Cancelled 04/08/22 09:15 Glitter Cells Cancelled 04/08/22 09:15 Urine Bacteria None seen /HPF (<20) 04/08/22 10:26 Hyaline Casts Cancelled 04/08/22 09:15 Fine Granular Casts Cancelled 04/08/22 09:15 Coarse Granular Casts Cancelled 04/08/22 09:15 Waxy Casts Cancelled 04/08/22 09:15 RBC Casts Cancelled 04/08/22 09:15 WBC Casts Cancelled 04/08/22 09:15 Urine Mucus Cancelled 04/08/22 09:15 Urine Other Cancelled 04/08/22 09:15 Urine Trichomonas Cancelled 04/08/22 09:15 Urine Yeast Cancelled 04/08/22 09:15 Ur Yeast w Hyphae Cancelled 04/08/22 09:15 Urine Yeast (Budding) Cancelled 04/08/22 09:15 Urine Sperm Cancelled 04/08/22 09:15 Urine Culture Reflexed Not needed 04/08/22 10:26 Urine Total Volume Cancelled 04/08/22 09:15 Urine Total Protein 3+ (Negative) H 04/08/22 10:26 Phenytoin 5.7 ug/mL (10.0-20.0) L 04/08/22 04:04 SARS-CoV-2 Rap RNA(RT-PCR) Negative (NEGATIVE) 04/07/22 19:15 Weight: 200 lb Wound Present: Yes Closed Surgical Incision Present: No Negative Pressure Wound Therapy Present: No Physician Update: Bed mobility is SBA, sit to stand CGA, min assist for trans fers. May have left side neglect. Walked 100' with RW SBA, WC 150' with SBA. Will be evaluated today. She need queing. Comment: noted abrasion rt temporal 1x1 cm Summary: Patient's care plan and fpc goals have been reviewed and revised as necessary. Please see the Rehabilitation Signature page for all necessary signatures.
[2022-04-09] MEDS: NIFEdipine 10 MG CAP PO SCH ×3 (10:36→20:00)
[2022-04-09] MEDS: ENSURE HIGH PROTEIN 237 ML CAN PO SCH ×2 (12:06→20:00)
[2022-04-09] MEDS: ATORVASTATIN 40 MG TAB PO SCH (19:59)
[2022-04-09] MEDS: DOCUSATE NA/SENNA CONC 1 TAB PO PRN (20:00)
[2022-04-09] MEDS: MELATONIN 3 MG TABLET PO PRN (20:02)
[2022-04-10] MEDS: carvediloL 25 MG TAB PO SCH ×2 (05:28→17:10)
[2022-04-10] MEDS: PHENYTOIN ER 100 MG CAP PO SCH ×2 (07:31→20:50)
[2022-04-10] MEDS: SPIRONOLACTONE 25 MG TABLET PO SCH (07:31)
[2022-04-10] MEDS: APIXABAN 5 MG TABLET PO SCH ×2 (07:31→20:49)
[2022-04-10] MEDS: FUROSEMIDE 40 MG TABLET PO SCH (07:32)
[2022-04-10] MEDS: NIFEdipine 10 MG CAP PO SCH ×3 (07:33→20:50)
[2022-04-10] MEDS: ENSURE HIGH PROTEIN 237 ML CAN PO SCH ×2 (07:34→20:49)
[2022-04-10] MEDS: ATORVASTATIN 40 MG TAB PO SCH (20:49)
[2022-04-11] MEDS: carvediloL 25 MG TAB PO SCH ×2 (05:02→17:01)
[2022-04-11] MEDS: SPIRONOLACTONE 25 MG TABLET PO SCH (08:26)
[2022-04-11] MEDS: APIXABAN 5 MG TABLET PO SCH ×2 (08:27→20:17)
[2022-04-11] MEDS: FUROSEMIDE 40 MG TABLET PO SCH (08:27)
[2022-04-11] MEDS: PHENYTOIN ER 100 MG CAP PO SCH ×2 (08:28→20:17)
[2022-04-11] MEDS: ENSURE HIGH PROTEIN 237 ML CAN PO SCH ×2 (08:29→20:18)
[2022-04-11] MEDS: NIFEdipine 10 MG CAP PO SCH ×3 (10:10→20:17)
[2022-04-11] MEDS: ATORVASTATIN 40 MG TAB PO SCH (20:18)
[2022-04-12 04:49] LABS: Absolute Lymphocytes (CBC) 1.3 K/uL (0.7-4.9); Hematocrit 39.3 % (36.0-45.0); Lymphocytes % 16.3 % (15.3-44.8); MCV 82.9 fL (80-100); RBC Red Blood Cell Count 4.74 M/uL (3.86-4.86)
[2022-04-12 05:05] LABS: Potassium 4.5 mmol/L (3.5-5.1)
[2022-04-12] MEDS: carvediloL 25 MG TAB PO SCH ×2 (05:14→17:10)
[2022-04-12] MEDS: APIXABAN 5 MG TABLET PO SCH ×2 (07:22→19:29)
[2022-04-12] MEDS: SPIRONOLACTONE 25 MG TABLET PO SCH (08:32)
[2022-04-12] MEDS: FUROSEMIDE 40 MG TABLET PO SCH (08:33)
[2022-04-12] MEDS: PHENYTOIN ER 100 MG CAP PO SCH ×2 (08:33→19:29)
[2022-04-12] MEDS: ENSURE HIGH PROTEIN 237 ML CAN PO SCH ×2 (08:33→19:30)
[2022-04-12] MEDS: NIFEdipine 10 MG CAP PO SCH ×3 (09:37→19:29)
--- NOTE | 2022-04-12 17:54 | R.PN ---
PROGRESS NOTES ENCOUNTER DATE AND TIME: 04/12/2022 17:45 (CDT) NAME OLIVER ROCHA DATE OF : 1950 DATE OF ADMISSION: 04/07/2022 18:59 (CDT) I69.398 Other sequelae of cerebral infarctionCHIEF COMPLAINT: Stroke with left sided residual weakness. SUBJECTIVE: Pt denied any Shortness of Breath. Pt denied any depression. CBC with differential shows elevated Plt of 603. Prealbumin 15.9, glucose 115, Automatic Presser 1.2. Phenytoin lev el is low at 5.7. Phenytoin was increased to 200 mg twice daily. Ambulated 300' with SBA using a rolling walker. VITAL SIGNS Temperature: 97.8 F SBP/DBP: 149/72 Pulse: 79 Resp: 16 MEDICATION ALLERGIES: No Known Drug Allergies (NKDA) ENVIRONMENTAL ALLERGIES: - Substance Allergies None Known - Other Allergies None Known NURSING: - Shower allowing shower - Bladder care per protocol - Skin care per protocol PRECAUTIONS: - Fall Precaution Bed alarm TABS alarm Wheel chair alarm - Bleeding Risk Eliquis - Incontinence Bowel Incontinence - DVT Risk due to restricted mobility and age - Skin Breakdown Risk Routine Wound care due to restricted mobility and age - Seizure Precaution Padding of bed rails, bed alarm, monitor seizure medication levels as necessary ACTIVITIES OOB only with supervision THERAPIES: - Dietary and Nutrition Adequate Nutrition. Nutritional Education. Nutritional Supplements. - Occupational Therapy Cognitive Retraining. Patient needs Occupational Therapy for a daily minimum of 1.5 hours at least 5 out of 7 days, to improve Activities of Daily Living, including: Eating, Grooming, Bathing, Dressing, Toileting, Toilet Transfers, Community Reintegration, Higher functional activities, Adaptive Equipme nt, Splinting, Household Tasks, and Other activities as determined. Visual Perceptual Training. - Speech Therapy Cognitive Training. Expressive Language Skills. Memory Strategies. Patient needs Speech Therapy for a daily minimum of 1.5 hours at least 5 out of 7 days, to improve: Swallowing, Cognition, Language Ski lls, and Compensatory Strategies. Receptive Language Skills. Speech Intelligibility Training. - Physical Therapy Patient needs Physical Therapy for a daily minimum of 1.5 hours at least 5 out of 7 days, to improve: Mobility, Strengthening, Transfers, Stretching, ROM, Endurance, Ability to manage stairs, Gait, and Balance. PHYSICAL EXAM - Gen Alert and awake Lying in bed No apparent distress Oriented to: person, time, and place - Skin No skin breakdown. Normacephalic - Eyes No abnormalities - ENMT No abnormalities - Neck No abnormalities - CVS RRR - Chest No abnormalities - Resp No wheezing - Abd Soft - GI + bowel sounds Deferred - No abnormalities - Ext No significant edema - MSK 4+/5 weakness in both lower extremities. - Neuro 4/5 strength bilaterally lower extremities. - Psych No abnormalities ASSESSMENT: Pt. is a 71 yo female of unknown race.On 04/01/2022 she was admitted to [facility] with diagnosis I69.398 O ther sequelae of cerebral infarction.Her impairment category is Stroke 01 - Other Stroke (01.9).Pre- morbidly, Pt. was independent/mod-I in Locomotion and Self-Care; and she had good Balance, Transfers Control, and Endurance.Currently, she has deficits of Locomotion, Balance, Safety Awareness, Transfer s Control, Self-Care, and Endurance.Pt. is now referred to [facility] for acut e in-patient rehabilitation in order to maximize patient's functional independence in activities of d aily living, strength, ROM, and mobility.- Rehab Goal Patient has realistic goal of being discharged at assistance level 6-Mumtaz to reside at Home with Fam sophia/Relatives. MDM/PLAN: - Physical Therapy Gait dysfunction - to improve, our physical therapists will perform initial evaluation of pt's statu s upon admission and devise an individualized program for Gait Training, and Wheel Chair mobility Inability to transfer - to improve, our physical therapists will perform initial evaluation of pt's status upon admission and devise an individualized program for Bed mobility Need for home safety evaluation - to improve, our physical therapists will perform initial evaluatio n of pt's status upon admission and devise an individualized program for Home Evaluation Need in caregiver upon discharge - to improve, our physical therapists will perform initial evaluati on of pt's status upon admission and devise an individualized program for Caregiver Training New precaution - to improve, our physical therapists will perform initial evaluation of pt's status upon admission and devise an individualized program for Patient precaution education Edema - to improve, our physical therapists will perform initial evaluation of pt's status upon admis foreign and devise an individualized program for Elevation Training, and Lymphedema Therapy Poor balance - to improve, our physical therapists will perform initial evaluation of pt's status up on admission and devise an individualized program for Balance Training Poor endurance - to improve, our physical therapists will perform initial evaluation of pt's status upon admission and devise an individualized program for Endurance Training Weakness - to improve, our physical therapists will perform initial evaluation of pt's status upon a dmission and devise an individualized program for Aquatic Therapy, Neuromuscular Reeducation, and Str engthening Achieving independence - to improve, our physical therapists will perform initial evaluation of pt's status upon admission and devise an individualized program for Community Reintegration Activities - Occupational Therapy ADL deficits - to improve, our occupation therapists will perform initial evaluation of pt's status upon admission and devise an individualized program for Bathing, Bed mobility, Community Reintegratio n, Cooking, Dressing, Eating, Fine Motor Skills, Grooming, Homemaking, Kitchen Mobility, Laundry, Pat ient Education, Safety Awareness, Splinting - Positioning, Transfers(Toilet, Tub, Shower), and Wheel Chair Management Need for manager of care - to improve, our occupation therapists will perform initial evaluation of pt's status upon admission and devise an individualized program for Caregiver Training Weakness - to improve, our occupation therapists will perform initial evaluation of pt's status upon admission and devise an individualized program for Aquatic Therapy, Balance, Endurance, UE ROM, and UE strengthening - Other See attached MAR (Medication Administration Record) - Diet Type Continue Regular - Diet - Liquid Texture Continue Regular - Tube Feed Continue N/A - Incontinence Bowel Incontinence - Bleeding Risk Eliquis - Bladder care per protocol - DVT Risk due to restricted mobility and age - Skin Breakdown Risk Routine Wound care due to restricted mobility and age - Seizure Precaution Padding of bed rails, bed alarm, monitor seizure medication levels as necessary - Fall Precaution Bed alarm TABS alarm Wheel chair alarm - Skin care per protocol - Diet - Solid Texture Continue Regular - Shower allowing shower for Dementia, TBI, Stroke, or others FUNCTIONAL STATUS: UPDATED AT WEEKLY TEAM CONFERENCE - Bladder Same accident frequency: 7-Ind - No accidents in the past 7 days - Bowel Same accident frequency: 7-Ind - No accidents in the past 7 days - Walking Same score based on distance walked: 0(N/A) - Wheelchair Same score based on distance traveled: 0(N/A) FUNCTIONAL STATUS: - Self-Care A. Eating Ind B. Grooming Ind C. Bathing Mumtaz D. Dressing - Upper sup E. Dressing - Lower modA F. Toileting Mumtaz - Sphincter Control G. Bladder control Mumtaz H. Bowel control Mumtaz - Transfers Control I. Bed/Chair/Wheelchair sup J. Toilet Mumtaz K. Tub/Shower Felipe - Locomotion L. Walk/Wheelchair (B) Felipe M. Stairs modA - Communication N. Comprehension (B) sup O. Expression (B) sup - Social Cognition P. Social Interaction Ind Q. Problem Solving sup R. Memory sup - Endurance Good - Balance Fair - Safety Awareness Fair QI SCORES: - Self-Care A. Eating 06-Independent B. Oral hygiene 04-Supervision or touching assistance C. Toileting hygiene 02-Substantial/maximal assistance E. Shower/bathe self 04-Supervision or touching assistance F. Upper body dressing 04-Supervision or touching assistance G. Lower body dressing 02-Substantial/maximal assistance H. Putting on/taking off footwear 02-Substantial/maximal assistance - Mobility A. Roll left and right 03-Partial/moderate assistance B. Sit to lying 03-Partial/moderate assistance C. Lying to sitting on side of bed 03-Partial/moderate assistance D. Sit to stand 03-Partial/moderate assistance E. Chair/[id number] transfer 03-Partial/moderate assistance F. Toilet transfer 03-Partial/moderate assistance G. Car transfer 88-Not attempted due to medical condition or safety concerns I. Walk 10 feet 88-Not attempted due to medical condition or safety concerns J. Walk 50 feet with two turns 88-Not attempted due to medical condition or safety concerns K. Walk 150 feet 88-Not attempted due to medical condition or safety concerns L. Walking 10 feet on uneven surfaces 88-Not attempted due to medical condition or safety concerns M. 1 step (curb) 88-Not attempted due to medical condition or safety concerns N. 4 steps 88-Not attempted due to medical condition or safety concerns O. 12 steps 88-Not attempted due to medical condition or safety concerns P. Picking up object 88-Not attempted due to medical condition or safety concerns R. Wheel 50 feet with two turns 09-Not applicable S. Wheel 150 feet 09-Not applicable - Bladder and Bowel Bladder continence 9-Not applicable Bowel continence 1-Occasionally incontinent - Endurance Fair - Balance Fair - Safety Awareness Fair CURRENT FUNC. DEFICITS: Mobility, Endurance, Balance, Safety Awareness, and Self-Care SIGNATURE PANEL: (CDT)
[2022-04-12] MEDS: ATORVASTATIN 40 MG TAB PO SCH (19:29)
[2022-04-13] MEDS: carvediloL 25 MG TAB PO SCH ×2 (05:06→17:39)
[2022-04-13] MEDS: PHENYTOIN ER 100 MG CAP PO SCH ×2 (08:36→19:57)
[2022-04-13] MEDS: APIXABAN 5 MG TABLET PO SCH ×2 (08:36→19:58)
[2022-04-13] MEDS: FUROSEMIDE 40 MG TABLET PO SCH (08:37)
[2022-04-13] MEDS: SPIRONOLACTONE 25 MG TABLET PO SCH (08:37)
[2022-04-13] MEDS: ENSURE HIGH PROTEIN 237 ML CAN PO SCH ×2 (08:38→19:58)
[2022-04-13] MEDS: NIFEdipine 10 MG CAP PO SCH ×3 (10:17→19:57)
--- NOTE | 2022-04-13 17:20 | R.PN ---
PROGRESS NOTES ENCOUNTER DATE AND TIME: 04/13/2022 17:17 (CDT) NAME OLIVER ROCHA DATE OF : 1950 DATE OF ADMISSION: 04/07/2022 18:59 (CDT) I69.398 Other sequelae of cerebral infarctionCHIEF COMPLAINT: Stroke with left sided residual weakness. SUBJECTIVE: Pt denied any Shortness of Breath. Pt denied any depression. CBC with differential shows elevated Plt of 603. Prealbumin 15.9, glucose 115, Carpet Layer 1.2. Phenytoin lev el is low at 5.7. Phenytoin was increased to 200 mg twice daily. Ambulated 125' with SBA using a rolling walker. Self-propelled wheelchair 125' with standby assistanc e. VITAL SIGNS Temperature: 98.1 F SBP/DBP: 138/68 Pulse: 80 Resp: 16 MEDICATION ALLERGIES: No Known Drug Allergies (NKDA) ENVIRONMENTAL ALLERGIES: - Substance Allergies None Known - Other Allergies None Known NURSING: - Shower allowing shower - Bladder care per protocol - Skin care per protocol PRECAUTIONS: - Fall Precaution Bed alarm TABS alarm Wheel chair alarm - Bleeding Risk Eliquis - Incontinence Bowel Incontinence - DVT Risk due to restricted mobility and age - Skin Breakdown Risk Routine Wound care due to restricted mobility and age - Seizure Precaution Padding of bed rails, bed alarm, monitor seizure medication levels as necessary ACTIVITIES OOB only with supervision THERAPIES: - Dietary and Nutrition Adequate Nutrition. Nutritional Education. Nutritional Supplements. - Occupational Therapy Cognitive Retraining. Patient needs Occupational Therapy for a daily minimum of 1.5 hours at least 5 out of 7 days, to improve Activities of Daily Living, including: Eating, Grooming, Bathing, Dressing, Toileting, Toilet Transfers, Community Reintegration, Higher functional activities, Adaptive Equipme nt, Splinting, Household Tasks, and Other activities as determined. Visual Perceptual Training. - Speech Therapy Cognitive Training. Expressive Language Skills. Memory Strategies. Patient needs Speech Therapy for a daily minimum of 1.5 hours at least 5 out of 7 days, to improve: Swallowing, Cognition, Language Ski lls, and Compensatory Strategies. Receptive Language Skills. Speech Intelligibility Training. - Physical Therapy Patient needs Physical Therapy for a daily minimum of 1.5 hours at least 5 out of 7 days, to improve: Mobility, Strengthening, Transfers, Stretching, ROM, Endurance, Ability to manage stairs, Gait, and Balance. PHYSICAL EXAM - Gen Alert and awake Lying in bed No apparent distress Oriented to: person, time, and place - Skin No skin breakdown. Normacephalic - Eyes No abnormalities - ENMT No abnormalities - Neck No abnormalities - CVS RRR - Chest No abnormalities - Resp No wheezing - Abd Soft - GI + bowel sounds Deferred - No abnormalities - Ext No significant edema - MSK 4+/5 weakness in both lower extremities. - Neuro 4/5 strength bilaterally lower extremities. - Psych No abnormalities ASSESSMENT: Pt. is a 71 yo female of unknown race.On 04/01/2022 she was admitted to [facility] with diagnosis I69.398 O ther sequelae of cerebral infarction.Her impairment category is Stroke 01 - Other Stroke (01.9).Pre- morbidly, Pt. was independent/mod-I in Locomotion and Self-Care; and she had good Balance, Transfers Control, and Endurance.Currently, she has deficits of Locomotion, Balance, Safety Awareness, Transfer s Control, Self-Care, and Endurance.Pt. is now referred to [facility] for acut e in-patient rehabilitation in order to maximize patient's functional independence in activities of d aily living, strength, ROM, and mobility.- Rehab Goal Patient has realistic goal of being discharged at assistance level 6-Mumtaz to reside at Home with Fam sophia/Relatives. MDM/PLAN: - Physical Therapy Gait dysfunction - to improve, our physical therapists will perform initial evaluation of pt's statu s upon admission and devise an individualized program for Gait Training, and Wheel Chair mobility Inability to transfer - to improve, our physical therapists will perform initial evaluation of pt's status upon admission and devise an individualized program for Bed mobility Need for home safety evaluation - to improve, our physical therapists will perform initial evaluatio n of pt's status upon admission and devise an individualized program for Home Evaluation Need in caregiver upon discharge - to improve, our physical therapists will perform initial evaluati on of pt's status upon admission and devise an individualized program for Caregiver Training New precaution - to improve, our physical therapists will perform initial evaluation of pt's status upon admission and devise an individualized program for Patient precaution education Edema - to improve, our physical therapists will perform initial evaluation of pt's status upon admi ssion and devise an individualized program for Elevation Training, and Lymphedema Therapy Poor balance - to improve, our physical therapists will perform initial evaluation of pt's status up on admission and devise an individualized program for Balance Training Poor endurance - to improve, our physical therapists will perform initial evaluation of pt's status upon admission and devise an individualized program for Endurance Training Weakness - to improve, our physical therapists will perform initial evaluation of pt's status upon a dmission and devise an individualized program for Aquatic Therapy, Neuromuscular Reeducation, and Str engthening Achieving independence - to improve, our physical therapists will perform initial evaluation of pt's status upon admission and devise an individualized program for Community Reintegration Activities - Occupational Therapy ADL deficits - to improve, our occupation therapists will perform initial evaluation of pt's status upon admission and devise an individualized program for Bathing, Bed mobility, Community Reintegratio n, Cooking, Dressing, Eating, Fine Motor Skills, Grooming, Homemaking, Kitchen Mobility, Laundry, Pat ient Education, Safety Awareness, Splinting - Positioning, Transfers(Toilet, Tub, Shower), and Wheel Chair Management Need for human services care specialist - to improve, our occupation therapists will perform initial evaluation of pt's status upon admission and devise an individualized program for Caregiver Training Weakness - to improve, our occupation therapists will perform initial evaluation of pt's status upon admission and devise an individualized program for Aquatic Therapy, Balance, Endurance, UE ROM, and UE strengthening - Other See attached MAR (Medication Administration Record) - Diet Type Continue Regular - Diet - Liquid Texture Continue Regular - Tube Feed Continue N/A - Incontinence Bowel Incontinence - Bleeding Risk Eliquis - Bladder care per protocol - DVT Risk due to restricted mobility and age - Skin Breakdown Risk Routine Wound care due to restricted mobility and age - Seizure Precaution Padding of bed rails, bed alarm, monitor seizure medication levels as necessary - Fall Precaution Bed alarm TABS alarm Wheel chair alarm - Skin care per protocol - Diet - Solid Texture Continue Regular - Shower allowing shower for Dementia, TBI, Stroke, or others FUNCTIONAL STATUS: UPDATED AT WEEKLY TEAM CONFERENCE - Bladder Same accident frequency: 7-Ind - No accidents in the past 7 days - Bowel Same accident frequency: 7-Ind - No accidents in the past 7 days - Walking Same score based on distance walked: 0(N/A) - Wheelchair Same score based on distance traveled: 0(N/A) FUNCTIONAL STATUS: - Self-Care A. Eating Ind B. Grooming Ind C. Bathing Mumtaz D. Dressing - Upper sup E. Dressing - Lower modA F. Toileting Mumtaz - Sphincter Control G. Bladder control Mumtaz H. Bowel control Mumtaz - Transfers Control I. Bed/Chair/Wheelchair sup J. Toilet Mumtaz K. Tub/Shower Fleipe - Locomotion L. Walk/Wheelchair (B) Felipe M. Stairs modA - Communication N. Comprehension (B) sup O. Expression (B) sup - Social Cognition P. Social Interaction Ind Q. Problem Solving sup R. Memory sup - Endurance Good - Balance Fair - Safety Awareness Fair QI SCORES: - Self-Care A. Eating 06-Independent B. Oral hygiene 04-Supervision or touching assistance C. Toileting hygiene 02-Substantial/maximal assistance E. Shower/bathe self 04-Supervision or touching assistance F. Upper body dressing 04-Supervision or touching assistance G. Lower body dressing 02-Substantial/maximal assistance H. Putting on/taking off footwear 02-Substantial/maximal assistance - Mobility A. Roll left and right 03-Partial/moderate assistance B. Sit to lying 03-Partial/moderate assistance C. Lying to sitting on side of bed 03-Partial/moderate assistance D. Sit to stand 03-Partial/moderate assistance E. Chair/[id number] transfer 03-Partial/moderate assistance F. Toilet transfer 03-Partial/moderate assistance G. Car transfer 88-Not attempted due to medical condition or safety concerns I. Walk 10 feet 88-Not attempted due to medical condition or safety concerns J. Walk 50 feet with two turns 88-Not attempted due to medical condition or safety concerns K. Walk 150 feet 88-Not attempted due to medical condition or safety concerns L. Walking 10 feet on uneven surfaces 88-Not attempted due to medical condition or safety concerns M. 1 step (curb) 88-Not attempted due to medical condition or safety concerns N. 4 steps 88-Not attempted due to medical condition or safety concerns O. 12 steps 88-Not attempted due to medical condition or safety concerns P. Picking up object 88-Not attempted due to medical condition or safety concerns R. Wheel 50 feet with two turns 09-Not applicable S. Wheel 150 feet 09-Not applicable - Bladder and Bowel Bladder continence 9-Not applicable Bowel continence 1-Occasionally incontinent - Endurance Fair - Balance Fair - Safety Awareness Fair CURRENT [facility]. DEFICITS: Mobility, Endurance, Balance, Safety Awareness, and Self-Care SIGNATURE PANEL: (CDT)
[2022-04-13] MEDS: ATORVASTATIN 40 MG TAB PO SCH (19:57)
[2022-04-14] MEDS: carvediloL 25 MG TAB PO SCH ×2 (05:24→17:26)
[2022-04-14] MEDS: NIFEdipine 10 MG CAP PO SCH ×3 (07:48→20:08)
[2022-04-14] MEDS: PHENYTOIN ER 100 MG CAP PO SCH ×2 (07:49→20:07)
[2022-04-14] MEDS: SPIRONOLACTONE 25 MG TABLET PO SCH (07:49)
[2022-04-14] MEDS: FUROSEMIDE 40 MG TABLET PO SCH (07:49)
[2022-04-14] MEDS: ENSURE HIGH PROTEIN 237 ML CAN PO SCH ×2 (07:50→20:07)
[2022-04-14] MEDS: APIXABAN 5 MG TABLET PO SCH ×2 (07:50→20:07)
[2022-04-14] MEDS: ATORVASTATIN 40 MG TAB PO SCH (20:07)
[2022-04-14] MEDS: DOCUSATE NA/SENNA CONC 1 TAB PO PRN (20:08)
[2022-04-14] MEDS: MELATONIN 3 MG TABLET PO PRN (20:09)
--- OUTSIDE RECORDS SUMMARY | 2022-04-15 03:22 | XMS REPORT | Continuity of Care Document ---
:1950 Author Organization [facility] Address [address] Dan [address] [place] [id number] Care Team Providers Name Role Phone Asked, Given Primary Care Physician Unavailable Hudson THAKKAR Attending Clinician Unavailable ADAN FERREIRA Attending Clinician Unavailable Singer MOROCHO Attending Clinician Jose Eduardo SHARP Attending Clinician Adan Ferreira MD Attending Clinician Raymundo PT, T Attending Clinician Unavailable Bijan SHRAP, L Attending Clinician Mila VÁSQUEZ, A Attending Clinician Unavailable Hawkins MD Attending Clinician Doctor Unassigned, Name Attending Clinician Unavailable Janie CHAVEZ Attending Clinician Unavailable Neda MALDONADO Attending Clinician Unavailable Glenn SHARP Attending Clinician Daya SHARP Attending Clinician Neda Maldonado MD Attending Clinician Krystian FARRAR Attending Clinician Unavailable Krystian Farrar MD Attending Clinician Vanita SHARP Attending Clinician CAITLYN Attending Clinician Unavailable Heath SHARP Attending Clinician Willis SHARP Attending Clinician Shaikh LILA Attending Clinician Jeevan MOROCHO Attending Clinician Caitlyn SHARP Attending Clinician [place] Mendoza MD Attending Clinician Craig SHARP Attending Clinician [place] MENDOZA Attending Clinician Unavailable SARAH BETH Attending Clinician Unavailable Ige-Oddeion_J_AH Attending Clinician Unavailable JOSE EDUARDO Admitting Clinician Unavailable Jose Eduardo SHARP Admitting Clinician DAYA Admitting Clinician Unavailable Daya SHARP Admitting Clinician Krystian FARRAR Admitting Clinician Unavailable WILLIS Admitting Clinician Unavailable Willis SHARP Admitting Clinician Ige-Oddeion_J_AH Admitting Clinician Unavailable Payers Payer Name Policy Type Policy Number Effective Date Expiration Date S chavez [place] [place] [id number] 2021 CLASSIC NO PREMIUM 00:00:00 HMO AETNA MEDICARE ADV [id number] 2015 00:00:00 [place] - [id number] [place] 00:00:00 (MEDICARE REPLACEMENT/ADVANT AGE - HMO) Problems Condition Condition Condition Status Onset Resolution Last Treating Co mments Source Name Details Category Date Date Treatment Clinician Date Status Status Disease Active Univers epilepticu epilepticu 7-07 it y of s s 00:00: [address] Weakness Weakness Disease Active Unive rs due to due to 6-10 ity of acute acute 00:00: [place] cerebrovas cerebrovas 00 Me dical cular cular Branch accident accident (CVA) (CVA) Impaired Impaired Disease Active Unive rs mobility mobility 6-10 ity of and ADLs and ADLs 00:00: [address] Poor Poor Disease Active Univers balance balance 6-10 ity of 00:00: [address] Breakthrou Breakthrou Disease Active U nivers gh seizure gh seizure 4-28 it y of 00:00: [address] Nonintract Nonintract Disease Recurre Univers able able nce 4-28 ity of generalize generalize [place] Medical idiopathic idiopathic Br anch epilepsy epilepsy without without status status epilepticu epilepticu s s COVID-19 COVID-19 Disease Active 2020-09 Unive rs 2-16 ity of 00:00: [place] 00 Medical Branch AMS AMS Disease Active Univers (altered (altered 5-15 ity of mental mental 00:00: [place] status) status) 00 Medical Branch SUBDURAL Diagnosis Active 2016-08-11 M emoria HEMATOMA 06-09 11:04:00 l SUBDURAL 00:00: [place] n HEMATOMA 00 Active 06/09/2016 [facility] HYPERPARAT Diagnosis Active 2016-07-15 Memoria HYROIDISM 06-09 22:16:00 l 00:00: [place] HYPERPARAT 00 HYROIDISM Active 06/09/2016 [facility] HYPERPARAT Diagnosis Active 2016-06-22 Memoria HYRODISM 06-09 14:57:00 l 00:00: [place] HYPERPARAT 00 HYRODISM Active 06/09/2016 [facility] Constipati Constipati Disease Active U nivers on on 05-18 ity of 00:00: [place] 00 Medical Branch Dysphagia Dysphagia Disease Active Uni vers 05-17 ity of 00:00: [place] 00 Medical Branch Cerebellar Cerebellar Disease Active Overview : Univers hemorrhage hemorrhage 05-16 Formattin ity of , , 00:00: g of this [place] nontraumat nontraumat 00 note Me dical ic ic might be Branch different from the original. acute IVH IVH Disease Active Univers (intravent (intravent 05-16 it y of ricular ricular 00:00: [place] hemorrhage hemorrhage 00 Me dical ) ) Branch Compressio Compressio Disease Active Overview : Univers n of n of 05-16 Formattin ity of brainstem brainstem 00:00: [place] of this [place] 00 note Medical might be Branch different from the original. Acute from cerebella r hemorrhag e Cerebral Cerebral Disease Active Unive rs edema edema 05-16 ity of 00:00: [place] 00 Medical Branch Respirator Respirator Disease Active U nivers y failure y failure 05-16 ity of requiring requiring 00:00[place] intubation intubation 00 Me dical Branch Aftercare Aftercare Disease Active Uni vers following following 8-21 ity of surgery of surgery of [place] the the 00 Medical nervous nervous Branch system system At high At high Disease Active Univers risk for risk for 8-21 ity of hemodynami hemodynami 00:[place] c [place] 00 Medical instabilit instabilit Br anch y y Posterior Posterior Disease Active Uni vers fossa fossa 8-20 ity of hemorrhage hemorrhage [place] Hypertensi Hypertensi Disease Active Overview : Methodi on on 04-[address] 00:00: g of this Hospita note l might be different from the original. On beta blockade for rhythm control with benefit for control of bp which has bee Usually 150/88. Had been on norvasc and clonidine (the latter) which made her bp very labile. 04/13/2016 BP definitel y poorly controlle d.She needs to augment her therapy. Not sure if she is not taking her medicatio ns. Previousl y patient was requiring two or three meds to control her BP but now just on low dose atenolol. Her BP in clinic was SBP>200La st Assessmen t & Plan: Formattin g of this note might be different from the original. Poorly controlle d. Referring her back to Dr Omalley to reassess her for further modificat ion of her regimenRe commended salt ( 2g/day) and water restricti on 91.5 L/day) Dermatomyo Dermatomyo Disease Recurre Alexis w: Methodi sitis sitis nce 04-[address] 00:00: g of this Hospita 00 note l might be different from the original. Patient with longtandi ng dermatomy ositis who had been on multiple immunosup pressives ( mtx, Imuran, adri lcept andpredni sone, ) first seen by us in 2012. 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 04/13/2016 Currently not on any medicatio ns for dermatomy ositis.Sh e states that her disease has disappear ed and she was told not to take any medicatio ns. Interesti ngly she denies any skin rashes on fingers or chest/nec k. Denies any muscle or joint pain. Not following up with any rheumatol ogist.Las t Assessmen t & Plan: Formattin g of this note might be different from the original. Not sure if her disease has gone into remission - Will get a CK, aldolase, LDH, LATRICE to screen her for any autoimmun e process. May require further work up based on the results of initial screening . LEAKING Diagnosis Active 2016-10-06 Me moria PEG TUBE - 10:08:00 l LEAKING 00:00: [place] PEG TUBE 00 Active 10/04/2015 [facility] Pulmonary Pulmonary Disease Active Uni vers hypertensi hypertensi 3-18 it y of on on 00:00: [place] 00 Medical Branch Obesity Obesity Disease Active Univers 3-18 ity of 00:00: [place] Medical Branch Essential Essential Disease Active Uni vers hypertensi hypertensi 3-12 it y of on, benign on, benign 00:[place] Atrial Atrial Disease Active Univers fibrillati fibrillati 3-12 it y of on on 00:00: [place] [facility] Vitamin D Vitamin D Disease Active Overview: Univers deficiency deficiency 3-12 Formattin ity of 00:00: g of this [place] 00 note Medical might be Branch different from the original. 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 Due either to dermatomy ositis or due to drugs for its treatment ( had previusly been on mtx and imuran). These were stopped. 04/13/2016 Unclear current statusPat ient complains abdominal distensio nOn exam: protubera nt abdomen, may have small to moderate ascites. But havent required any intervent ion in last couple of years. Not following with any hepatolog istTakes lasix to keep fluid off her abdomenLa st Assessmen t & Plan: Formattin g of this note might be different from the original. Continue lasixChec k hepatic panelWill need further w/u starting with liver USWill discuss with her during her next visit History of History of Disease Active M ethodi [place] 04-06 st (myocardia (myocardia 00:00: Ho spita l l 00 l infarction infarction ) ) Atrial Atrial Disease Active Overview: Method i fibrillati fibrillati 04-[address] on on 00:00: g of this Hospita 00 note l might be different from the original. Patient Was treated for arrhythia with cardiover foreign by Dr. Omalley. She was treated also with betablock paul. She has been in fib and fib/flutt er and Is seen by Dr. Omalley. Last Assessmen t & Plan: Formattin g of this note might be different from the original. Currently on atenololA ppeared to have rate control but was in AFIB rhythm.Al so on coumadin Pulmonary Pulmonary Disease Active Overview: Methodi hypertensi hypertensi 04-[address] on on 00:00: g of this Hospita 00 note l might be different from the original. Dermatomy ositis, Also had cirrhsosi associate d with either the dermatomy ositis or the therapy thereof. Had a slightly elevated wedge pressure of 1 6, on heart cath Which at diagnosis showed a PA Pressure of 70/30. She was Started on revatio 20 tid. With symptomat ic improveme nt. We have not seen her since move to [facility]. We switched her to adcirca. Once off clonidine . Last echo EF 60-64% RV normal size and function. It is Not clear to me that this patient has been seen since 2013. This echo was done 2012. 04/13/2016 Patient came to clinic today for follow up on PH. She has not followed up with us or with anyone else for PH in the last two years. She states that she is doing well on sildenafi l and doesn't feel the need to come earlier than this. Her previous evaluatio n has indicated that her PH may be multifact orial. Her previous cath done by cardiolog ist which revealed PA pressures of 70/30 with wedge of 16 ( which was an underesti mate)For a period of two years she has not visited our clinic for any further evaluatio n of PH.As per patient she sees Dr Omalley, cardiolog ist in [place] . He is managing her Hypertens ion and Atrial fibrillat ion. I feel, she is noncompli ant with her medicatio ns and follow ups. Today in clinic her BP was 207/116!! She currently denied any symptoms associate d with high BP and stated that she missed her morning dose. She had her meds with her and I asked her to take them while in clinic.My impressio n is that she may have DD or left heart related disease to explain her PH.At this time she needs a thorough and complete evaluatio n for PHLast Assessmen t & Plan: Formattin g of this note might be different from the original. She is definitel y not doing well. She doesn't have an active life styles. She stops to take rest in doing activitie s of daily living. She appears deconditi oned.Does n't do much to exert herselfI requested her to get routine lab work - CBC, CMP, BNP, LATRICE, Aldolase, CK, LDHShe will need an echo, PFT, CT chest and 6MWT.If she agrees to get the work up done then in next step she will need VQ scan and R+LHCShe appeared reluctant to get any further evaluatio n. I suspect if she will return to clinic with test results. Ascites Problem Active 2011-092016-10-07 Kishan neelima (disorder) - 03:41:47 l Ascites 00:00: [place] (disorder) 00 Active 08/03/2012 Problem 10/07/2016 Data migrated from [employer] on 02/24/15. [facility], [facility] Anasarca Problem Active 2011-2016-10-07 Mem oria (finding) 05-19 03:41:47 l Anasarca 00:00: [place] tolentino (finding) 00 Active 05/19/2012 Problem 10/07/2016 Data migrated from [employer] on 02/24/15. [facility] Chronic Problem Active 2016-10-07 Kishan neelima diastolic 8 03:41:47 l heart Chronic 00:00: [place] failure diastolic 00 (disorder) heart failure (disorder) Active 05/19/2012 Problem 10/07/2016 Data migrated from [employer] on 02/24/15. [facility] Mammograph Problem Active 2016-10-07 M emoria y abnormal 05-19 03:41:47 l (finding) 00:00: [place] Mammograph 00 y abnormal (finding) Active 05/19/2012 Problem 10/07/2016 Data migrated from [employer] on 02/24/15. [facility] Proteinuri Problem Active 2016-10-07 M emoria a 8- 03:41:47 l (finding) 00:00: [place] Proteinuri 00 a (finding) Active 05/19/2012 Problem 10/07/2016 Data migrated from [employer] on 02/24/15. [facility] Edema of Problem Active 2016-10-07 Mem oria lower 03-21 03:41:47 l extremity Edema of 00:00: Her damon (finding) lower 00 extremity (finding) Active 03/21/2012 Problem 10/07/2016 Data migrated from [employer] on 02/24/15. [facility] Hypercalce Problem Active 2016-10-07 M emoria symone 6-26 03:41:47 l (disorder) 00:00: [place] Hypercalce 00 symone (disorder) Active 03/21/2012 Problem 10/07/2016 Data migrated from [employer] on 02/24/15. [facility] Cardiomega Problem Active 2016-10-07 M emoria ly 4-03 03:41:47 l (disorder) 00:00: [place] Cardiomega 00 ly (disorder) Active 12/28/2011 Problem 10/07/2016 Data migrated from [employer] on 02/24/15. [facility] Systemic Problem Active 2016-10-07 Mem oria lupus 4-03 03:41:47 l erythemato Systemic 00:00: He rmann indy lupus 00 (disorder) erythemato indy (disorder) Active 12/28/2011 Problem 10/07/2016 Data migrated from [employer] on 02/24/15. [facility] Dermatomyo Problem Active 2016-10-07 M emoria sitis 2- 03:41:47 l (disorder) 00:00: [place] n Dermatomyo 00 sitis (disorder) Active 11/16/2011 Problem 10/07/2016 Data migrated from [employer] on 02/24/15. [facility] Fatigue Problem Active 2016-10-07 Kishan neelima (finding) 10-12 03:41:47 l Fatigue 00:00: [place] (finding) 00 Active 10/12/2011 Problem 10/07/2016 Data migrated from [employer] on 02/24/15. [facility] Antinuclea Problem Active 2010-092016-10-07 M emoria r antibody 10-24 03:41:47 l above 00:00: [place] reference Antinuclea 00 range r antibody (finding) above reference range (finding) Active 08/24/2011 Problem 10/07/2016 Data migrated from [employer] on 02/24/15. [facility] Benign Problem Active 2010-092016-10-07 Memor ia hypertensi 1- 03:41:47 l on Benign 00:00: [place] (disorder) hypertensi 00 on (disorder) Active 07/27/2011 Problem 10/07/2016 Data migrated from [employer] on 02/24/15. 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 ependent disorder category) (context-d ependent category) Active Problem 10/07/2016 [facility] Impaired Problem Active 2016-10-07 Mem oria cognition 03:41:47 l (finding) Impaired Her damon cognition (finding) Active Problem 10/07/2016 [facility] Irregular Problem Active 2016-10-07 Me moria heart beat 03:41:47 l (finding) [place] Irregular heart beat (finding) Active Problem 10/07/2016 History of atrial fibrillati on [facility] Cerebrovas Problem Active 2016-10-07 M emoria cular 03:41:47 l accident [place] (disorder) Cerebrovas cular accident (disorder) Active Problem 10/07/2016 hemorrhag i stroke. [facility] SUBDURAL Diagnosis Active 2016-08-11 M emoria HEMORRHAGE 11:04:00 l DUE TO SUBDURAL Marvin tolentino HEMORRHAGE INJURY DUE TO INJURY Active [facility] ILLNESS, Diagnosis Active 2016-07-15 M emoria UNSPECIFIE 22:16:00 l D ILLNESS, Marvin n UNSPECIFIE D Active [facility] History of Problem Resolve 2016-10-07 2016-10-07 Memoria - surgery d 06-14 03:41:47 03:41:47 l (context-d History 00:00: Her damon ependent of - 00 category) surgery (context-d ependent category) Resolved 06/14/2016 Problem 10/07/2016 [facility] Cellulitis Problem Resolve 2010-092016-10-07 2016-10-07 Memoria (disorder) d 09-26 03:41:47 03:41:47 l 00:00: [place] Cellulitis 00 (disorder) Resolved 07/27/2011 Problem 10/07/2016 [facility] [employer] [facility] [facility] on 04/11/15. [facility] History of Past Illness Condition Condition Condition Status Onset Resolution Last Treating Co mments Source Name Details Category Date Date Treatment Clinician Date Discharge Problem 2016-10-07 2016-10-07 Memoria Diagnosis: 10-04 03:41:47 03:41:47 l Gastrostom 06:00: [place] n y tube Discharge 00 dysfunctio Diagnosis: n Gastrostom y tube dysfunctio n 10/04/2016 10/07/2016 [facility] Allergies, Adverse Reactions, Alerts Allergy Allergy Status Severity Reaction(s) Onset Inactive Treating Comm ents Source Name Type Date Date Clinician LEVETIRA DRUG Active Unknown-Cmnt Un bonita CETAM INGREDI 04-01 ity of 00:00: [place] 00 Medical Branch Levetira Propensi Active Unknown - Reported U nivers cetam ty to See comments 04-01 by EMS ity of adverse 00:00: [place] reaction 00 Medical s Branch MONOSODI DRUG Active Unknown-Cmnt Un bonita UM INGREDI 5-15 ity of GLUTAMAT 00:00: [place] E 00 Medical Branch BARIUM DRUG Active Other-Cmnt Univer s IODIDE INGREDI 5-15 ity of 00:00: [place] 00 Medical Branch Barium Propensi Active Other - See Hypotensi Univers Iodide ty to comments 5-15 on ity of adverse 00:00: [place] reaction 00 Medical s Branch Monosodi Propensi Active Unknown - Uni vers um ty to See comments 5-15 ity of Glutamat adverse 00:00: [place] e reaction 00 Medical s Branch Lisinopr Propensi Active Method i il ty to 6-10 st adverse 00:00: Hospita reaction 00 l s to drug LISINOPR DRUG Active Rash Univers IL INGREDI 3-12 ity of 00:00: [place] 00 Medical Branch Lisinopr Propensi Active Swelling Univ ers il ty to 3-12 ity of adverse 00:00: [place] reaction 00 Medical s Branch lisinopr lisinopr Active Memori a il il l Flo Social History Social Habit Start Date Stop Date Quantity Comments Source Exposure to 2022-03-22 2022-04-01 Unable to assess Univers ity of SARS-CoV-2 00:00:00 15:06:00 [place] [facility] Social History 2016-05-29 2016-05-29 [facility] [place]ano santiago 23:38:10 23:38:10 Alcohol intake 2016-04-13 2016-04-13 [facility] 00:00:00 00:00:00 non-drinker of alcohol (finding) Tobacco use and 2014-12-05 2014-12-05 Smokeless tobacco Un iversity of exposure 00:00:00 00:00:00 non-user [facility] [facility] Sex Assigned At [address] [facility] 00:00:00 00:00:00 Smoking Status Start Date Stop Date Source Never smoked tobacco [facility] Medications Ordered Filled Start Stop Current Ordering Indication Dosage Frequency Signature Comments Components Source Medication Medication Date Date Medication? Clinician (SIG) Name Name atorvastati Yes 40mg Take 40 mg Univers n 40 mg 13 by mouth ity of tablet 18:07: at [place] 13 bedtime. Medical Branch spironolact Yes 50mg 50 mg, Univ ers one - Oral, ity of (CAROSPIR) 14:00: DAILY, [place] 25 mg/5 mL 00 First dose Med ical oral on Tue Branch suspension 04/07/22 at 50 mg 0900, Until Discontinu ed, Routine carvedilol Yes [id number] 25mg Take 20 mL Univers 1.25 mg/mL 04-07 by mouth ity o f oral 00:00: every 12 [place] suspension 00 (twelve) Medic al hours. Branch NIFEdipine Yes 20mg 20 mg, Unive rs 4 mg/mL 04-06 Oral, TID, ity of oral 19:00: First dose [place] suspension 00 (after Medical 20 mg last Branch modificati on) on Tue04/06/22 at 1400, Until Discontinu ed, Routine NIFEdipine 2021- Yes [id number] 20mg Take 1 Univers 20 mg 04-06 08-12 capsule by ity of capsule 00:00: 04:59 mouth in [place] 00 :00 the Medical morning Branch and 1 capsule at noon and 1 capsule in the evening. Do all this for 30 days. cephALEXin 2021- Yes [id number] 500mg Take 2 Univers 250 mg 04-06 07-15 capsules ity of capsule 00:00: 04:59 by mouth [place] 00 :00 every 8 Medical (eight) Branch hours for 2 days. carvedilol 2021- No [id number] 25mg Take 20 mL Univers 1.25 mg/mL 7-12 07-13 by mouth ity of oral 00:00: 00:00 every 12 [place] suspension 00 :00 (twelve) Medic al hours for Branch 30 days. carvedilol Yes 25mg 25 mg, Unive rs (COREG) 04-05 Oral, ity of 1.25 mg/mL 11:00: Q12HA2, [place] oral 00 First dose Medical suspension (after Branch 25 mg last modificati on) on 04/05/22 at 0600, Until Discontinu ed, Routine carvedilol 2021- No 12.5mg 12.5 mg, Univers (COREG) 04-05 Oral, ONCE ity o f 1.25 mg/mL 04:45: 04:05 NOW, 1 [place] oral 00 :00 dose, On Medical suspension Sun Branch 12.5 mg 04/04/22 at 2345, Routine labetaloL Yes 10mg 10 mg, Univer s (NORMODYNE) 04-05 Slow IV ity o f injection 03:41: Push, [place] 10 mg 04 Q20MIN Medical PRN, 5 Branch doses, Starting on 04/04/22 at 2241, Until Discontinu ed, Routine, MAP > 100 phenytoin 2021- Yes [id number] 150mg Take 5 Extended 30 04-04 08-10 capsules ity of mg capsule 00:00: 04:59 by mouth 2 [place] 00 :00 (two) Medical times Branch daily for 30 days. carvedilol 2021- No 12.5mg 12.5 mg, Univers (COREG) 04-03 Oral, ity of 1.25 mg/mL 23:00: 03:43 Q12HA2, Baldev as oral 00 :18 First dose Medical suspension (after Branch 12.5 mg last modificati on) on 04/03/22 at 1800, Until Discontinu ed, Routine sennosides- Yes 1{tbl} 1 tablet, Univers docusate 04-03 Oral, ity of sodium 14:00: DAILY, [place] (SENOKOT-S) 00 First dose Me dical 8.6-50 mg (after Branch per tablet last 1 tablet modificati on) on 04/03/22 at 0900, Until Discontinu ed, Routine pantoprazol Yes 40mg 40 mg, Univ ers e 04-03 Oral, ity of (PROTONIX) 14:00: DAILY, [place] 2 mg/mL 00 First dose Medica l oral (after Branch suspension last 40 mg modificati on) on 04/03/22 at 0900, Until Discontinu ed, Routine phenytoin 0 Yes 150mg 150 mg, Univ ers Extended 04-03 Oral, ity of (DILANTIN) 13:00: Q12H, [place] capsule 150 00 First dose Me dical mg on Sat Branch 04/03/22 at 0800, Until Discontinu ed, Routine ipratropium Yes 3mL 3 mL, Unive rs -albuteroL 04-03 Inhalation ity of (DUONEB) 13:00: , QID, [place] 0.5 mg-3 00 First dose Medic al mg(2.5 mg on Sat Branch base)/3 mL 04/03/22 at nebulizer 0800, solution 3 Until mL Discontinu ed, Routine cefTRIAXone Yes 1000mg 1,000 mg, Univers (ROCEPHIN) 04-03 Intravenou ity of 1,000 mg in 12:30: s, Q24H Baldev as NaCl 0.9% 00 ABX, First Medi mary (NS) 50 mL dose Branch MINI-BAG (after last modificati on) on 04/03/22 at 0730, Until Discontinu ed, Administer over 30 Minutes, 50 mL
Reas on for Anti-Infec tive: Empiric Therapy for Suspected Infection< br>Empiric Therapy Site: Urine
D uration of therapy: 72 hours acetaminoph 2021- No 1000mg 1,000 mg, Univers en ADULT 04-03 IV ity of (OFIRMEV) 12:30: 13:02 Infusion, [place] injection 00 :00 at 400 Medical 1,000 mg mL/hr Branch Administer over 15 Minutes, ONCE, 1 dose, On 04/03/22 at 0730, Routine
Indicatio n: Non-periop erative Patient
Approved by: Per Policy (NPO Status) acetaminoph 0 Yes 650mg 650 mg, [facility] bonita en 04-03 Oral, ity of (TYLENOL) 11:26: Q6HPRN, [place] 160 mg/5 mL 16 Starting Medi mary oral liquid on Sat Branch 650 mg 04/03/22 at 0626, Until Discontinu ed, Routine, Pain (scale 4-6), Temp > 38.5 C atorvastati Yes 40mg 40 mg, Univ ers n (LIPITOR) 04-03 Oral, QHS, it y of tablet 40 02:00: First dose [place] mg 00 on Tue Medical 04/02/22 at Branch 2100, Until Discontinu ed, Routine labetaloL 2021- No 10mg 10 mg, Unive rs (NORMODYNE) 04-03 Slow IV ity of injection 01:16: 03:28 Push, [place] 10 mg 10 :00 Q20MIN Medical PRN, 5 Branch doses, Starting on Tue04/02/22 at 2016, Until Discontinu ed, Routine, MAP > 100 carvedilol No 12.5mg 12.5 mg, Univers (COREG) 04-02 Enteral, ity of 1.25 mg/mL 23:00: 11:25 Q12HA2, [place] as oral 00 :59 First dose Medical suspension on Tue Branch 12.5 mg 04/02/22 at 1800, Until Discontinu ed, Routine NIFEdipine No 10mg 10 mg, Univ ers 4 mg/mL 04-02 Oral, TID, ity o f oral 21:15: 17:20 First dose [place] suspension 00 :06 (after Medical 10 mg last Branch modificati on) on Tue04/02/22 at 1615, Until Discontinu ed, Routine hydralAZINE 2021- No 10mg 10 mg, Uni vers (APRESOLINE 04-02 Slow IV ity of ) injection 17:00: 11:25 Push, Q4H, [place] 10 mg 00 :59 First dose Medical (after Branch last modificati on) on Tue04/02/22 at 1200, Until Discontinu ed, Routine acetaminoph No 650mg 650 mg, U nivers en 04-02 Enteral, ity of (TYLENOL) 16:12: 21:57 Q6HPRN, [place] 160 mg/5 mL 18 :23 Starting Medi mary oral liquid on Tue Branch 650 mg 04/02/22 at 1112, Until Tue04/02/22 at 1657, Routine, Temp > 38.5 C sulfur 2021- No [id number] 5mL 5 mL, [place] [facility] ers hexafluorid 04-02 Intravenou i ty of e microsphr 15:00: 15:00 s, ONCE, 1 [place] (LUMASON) 00 :00 dose, On Medica l injection 5 Tue04/02/22 Br anch mL at 1000, Routine
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 approving Restricted medication : GOVINDKARLA INGA furosemide Yes 20mg 20 mg, Unive rs (LASIX) 04-02 Slow IV ity of injection 14:00: Push, [place] 20 mg 00 DAILY, Medical First dose Branch on Tue04/02/22 at 0900, Until Discontinu ed, Routine sennosides- 2021- No 1{tbl} 1 tablet, [facility] docusate 04-02 Enteral, ity of sodium 14:00: 11:25 DAILY, [place] (SENOKOT-S) 00 :59 First dose Me dical 8.6-50 mg on Tue Branch per tablet 04/02/22 at 1 tablet 0900, Until Discontinu ed, Routine amLODIPine 2021- No 10mg 10 mg, [place] [facility] ers (NORVASC) 1 04-02 Enteral, ity of mg/mL oral 14:00: 19:42 DAILY, [place] suspension 00 :10 First dose Med ical 10 mg on Tue Branch 04/02/22 at 0900, Until Discontinu ed, Routine apixaban Yes 5mg 5 mg, Univers (ELIQUIS) 04-02 Oral, BID, ity of tablet 5 mg 13:00: First dose [place] 00 on Tue Medical 04/02/22 at Branch 0800, Until Discontinu ed, Routine
Indicatio ns: Non-Valvul ar Atrial Fibrillati on phenytoin 2021- No 150mg 150 mg, Uni vers (DILANTIN) 04-02 Intravenou it y of injection 13:00: 11:25 s, Q12H, [place] as 150 mg 00 :59 First dose Medical (after [facility] last modificati on) on Tue04/02/22 at 0800, Until Discontinu ed, Routine hydralAZINE 2021- No 5mg 5 mg, Slow Univers (APRESOLINE 04-02 IV Push, ity of ) injection 11:49: 15:56 Q4HPRN, [place] 5 mg 12 :13 Starting Medical on Tue04/02/22 at 0649, Until Tue04/02/22 at 1056, Routine, Other, MAP > 100 furosemide 2021- No 10mg 10 mg, Univ ers (LASIX) 04-02 Slow IV ity of injection 10:30: 09:24 Push, [place] 10 mg 00 :00 ONCE, 1 Medical dose, On Branch Tue04/02/22 at 0530, Routine heparin 2021- No 15U/kg/ 15 Univer s 25,000 04-02 h Units/kg/h ity of Units/250 02:59: 11:29 r ?96.2 kg [place] mL in NS 38 :24 (14.43 Medical mL/hr), IV Branch Infusion, TITRATE, Parameters in Admin. Instr., Starting on Tue04/01/22 at 2159
CA UTION - Must program rate using programmab le infusion pump. Check with the ordering provider first prior to any administra tion should the patient be on existing/a dditional anticoagul ant therapy.&n bsp; Range, Dosing and Testing: FOR [place], [facility], AND [facility] ONLY - aPTT < 35: Increase rate by 400 units/hr - aPTT 35-49: Increase rate by 200 units/hr - aPTT 50-70: NO CHANGE&nbs p;- aPTT 71-100: Decrease rate by 100 units/hr - aPTT 101-150: Hold 30 minutes, decrease rate by 300 units/hr - aPTT > 150: Hold 60 minutes, decrease rate by 400 units/hr If aPTT > 100 twice, notify HO HEMAL YBi &n bsp;Check aPTT 4 hours after initiation , then Q4H after every change, when therapeuti c range of aPTT of 50-70 reached, check Q4H until 2 consecutiv e values within therapeuti c range, then check Q12H.
LORazepam 2021- No 2mg 2 mg, Slow U nivers (ATIVAN) 04-02 IV Push, ity of injection 2 02:15: 02:15 ONCE, 1 [place] mg 00 :00 dose, On Medical [place] 04/01/22 Branch at 2115, STAT
Is the medication being used for status epilepticu s? Yes labetaloL 2021- No 20mg 20 mg, Unive rs (NORMODYNE) 04-02 Slow IV ity of injection 02:04: 11:29 Push, [place] 20 mg 46 :25 Q20MIN Medical PRN, Branch Starting on Tue04/01/22 at 2104, Until Tue04/02/22 at 0629, Routine, Only if SBP > 190 or Diastolic > 100 mm of Hg NaCl 0.9% 2021- No 1000mL at 999 Uni vers (NS) bolus 04-01 mL/hr, ity of infusion 23:52: 23:52 1,000 mL, [place] as 1,000 mL 00 :00 IV Medical Piggyback, Branch ONCE, 1 dose, On [place] 04/01/22 at 1900, STAT glycopyrrol No .2mg 0.2 mg, Un bonita ate 04-01 Slow IV ity of (ROBINUL) 22:00: 20:54 Push, [place] injection 00 :00 ONCE, 1 Medical 0.2 mg dose, On Branch [facility] 04/01/22 at 1700, Routine fentaNYL PF 2021- No 25ug/h 25-200 U nivers (SUBLIMAZE) 04-01 mcg/hr ity o f STD 2,500 21:32: 02:37 (2.5-20 [place] mcg in NaCl 46 :56 mL/hr), IV Me dical 0.9% (NS) Infusion, Branc h 250 mL TITRATE, infusion CPOT/Pain RTU Scale Goals Determined by Provider, Starting on [place] 04/01/22 at 1632
In itiate infusion at 25 mcg/hr. Titrate by 50 mcg/hr every 1 minute to 15 minutes to identified goal pain and/or sedation scores. Maximum dose = 300 mcg/hr. If goal not maintained at maximum allowed dose, contact prescriber .
FENTanyl PF No 100ug 100 mcg, Univers (SUBLIMAZE 04-01 Slow IV ity o f (PF)) 21:30: 20:29 Push, [place] injection 00 :00 ONCE, 1 Medical 100 mcg dose, On Branch [place] 04/01/22 at 1630, Routine propofoL IV No 60mg 60 mg, Uni vers infusion 60 04-01 Slow IV ity of mg 21:30: 20:32 Push, [place] 00 :00 ONCE, On Medical [place] 04/01/22 Branch at 1630, For 1 dose propofoL IV No 5ug/kg/ 5-50 Un bonita infusion 04-01 min mcg/kg/min ity of 21:24: 19:46 ?96.2 kg [place] 14 :29 (2.886-28. Medical 86 mL/hr, Branch rounded to 2.89-28.86 mL/hr), IV Infusion, TITRATE, Sedation-R ASS score (0 to -1), Starting on [place] 04/01/22 at 1624
In itiate infusion at 5 mcg/kg/min and titrate by 5 mcg/kg/min every 30 seconds to 10 minutes to goal sedation score. Maximum dose = 50 mcg/kg/min . If goal not maintained at maximum allowed dose, contact prescriber . &nbs p;Tubing and unused portions of vials should be discarded after 12 hours.
fosphenytoi 2021- No 20mg{ph 1,924 mg Univers n (CEREBYX) 04-01 enytoin PE (20 mg ity of 1,924 mg PE 20:45: 21:01 'equiva PE/kg [place] in NaCl 00 :00 lent}/k ?96.2 kg), Med ical 0.9% (NS) g Slow IV Branch 100 mL [place], ONCE, 1 dose, On [place] 04/01/22 at 1545, EDGAR etomidate 2021- No 30mg 30 mg, Unive rs (AMIDATE) 04-01 Slow IV ity of injection 20:15: 20:14 Push, [place] 30 mg 00 :00 ONCE, 1 Medical dose, On Branch [place] 04/01/22 at 1515, STAT succinylcho 2021- No 100mg 100 mg, IV Univers line 04-01 Push, ity of (QUELICIN) 20:15: 20:15 ONCE, 1 [place] injection 00 :00 dose, On Medica l 100 mg [facility] 04/01/22 Branch at 1515, STAT furosemide 2021- Yes [id number] 40mg Take 1 Univers (LASIX) 40 02-25-30 tablet by ity of mg tablet 00:00: 05:59 mouth [place] 00 :00 daily for Medical 180 days. Branch furosemide 2021- Yes [id number] 40mg Take 1 Univers (LASIX) 40 02-25-30 tablet by ity of mg tablet 00:00: 05:59 mouth [place] 00 :00 daily for Medical 180 days. Branch furosemide 2021- Yes [id number] 40mg Take 1 Univers (LASIX) 40 6- 11-30 tablet by ity of mg tablet 00:00: 05:59 mouth [place] 00 :00 daily for Medical 180 days. Branch furosemide 2021- Yes [id number] 40mg Take 1 Univers (LASIX) 40 6- 11-30 tablet by ity of mg tablet 00:00: 05:59 mouth [place] 00 :00 daily for Medical 180 days. Branch furosemide 2021- Yes [id number] 40mg Take 1 Univers (LASIX) 40 6- 11-30 tablet by ity of mg tablet 00:00: 05:59 mouth [place] 00 :00 daily for Medical 180 days. Branch furosemide 2021- Yes [id number] 40mg Take 1 Univers (LASIX) 40 6- 11-30 tablet by ity of mg tablet 00:00: 05:59 mouth [place] 00 :00 daily for Medical 180 days. Branch furosemide 2021- Yes [id number] 40mg Take 1 Univers (LASIX) 40 602 11-30 tablet by ity of mg tablet 00:00: 05:59 mouth [place] 00 :00 daily for Medical 180 days. Branch spironolact 0 Yes 50mg 50 mg, Univ ers one 5-07 Oral, ity of (ALDACTONE) 14:00: DAILY, [place] tablet 50 00 First dose Medi mary mg (after Branch last modificati on) on 01/30/22 at 0900, Until Discontinu ed, Routine phenytoin Yes [id number] 300mg Take 6 Univers 50 mg 5-07 tablets by ity of chewable 00:00: mouth [place] tablet 00 daily. [facility] phenytoin Yes [id number] 300mg Take 6 Univers 50 mg 5-07 tablets by ity of chewable 00:00: mouth [place] tablet 00 daily. [facility] phenytoin 2021-0 Yes [id number] 300mg Take 6 Univers 50 mg 5-07 tablets by ity of chewable 00:00: mouth [place] tablet 00 daily. [facility] phenytoin 0 Yes [id number] 300mg Take 6 Univers 50 mg 5-07 tablets by ity of chewable 00:00: mouth [place] tablet 00 daily. [facility] phenytoin 0 Yes [id number] 300mg Take 6 Univers 50 mg 5-07 tablets by ity of chewable 00:00: mouth [place] tablet 00 daily. [facility] phenytoin 2021-0 Yes [id number] 300mg Take 6 Univers 50 mg 5-07 tablets by ity of chewable 00:00: mouth [place] tablet 00 daily. [facility] phenytoin 0 Yes [id number] 300mg Take 6 Univers 50 mg 5-07 tablets by ity of chewable 00:00: mouth [place] tablet 00 daily. [facility] phenytoin 2021-0 Yes [id number] 300mg Take 6 Univers 50 mg 5-07 tablets by ity of chewable 00:00: mouth [place] tablet 00 daily. [facility] phenytoin 2021-0 Yes [id number] 300mg Take 6 Univers 50 mg 5-07 tablets by ity of chewable 00:00: mouth [place] tablet 00 daily. [facility] phenytoin 2021-0 Yes [id number] 300mg Take 6 Univers 50 mg 5-07 tablets by ity of chewable 00:00: mouth [place] tablet 00 daily. Medical Branch spironolact 2021- Yes [id number] 50mg Take 1 Univers one 50 mg 5-07 08-06 tablet by ity of tablet 00:00: 04:59 mouth [place] 00 :00 daily for Medical 90 days. Branch spironolact 2021- Yes [id number] 50mg Take 1 Univers one 50 mg 5-07 08-06 tablet by ity of tablet 00:00: 04:59 mouth [place] 00 :00 daily for Medical 90 days. Branch spironolact 2021- Yes [id number] 50mg Take 1 Univers one 50 mg 5-07 08-06 tablet by ity of tablet 00:00: 04:59 mouth [place] 00 :00 daily for Medical 90 days. Branch spironolact 2021- Yes [id number] 50mg Take 1 Univers one 50 mg 5-07 08-06 tablet by ity of tablet 00:00: 04:59 mouth [place] 00 :00 daily for Medical 90 days. Branch spironolact 2021- Yes [id number] 50mg Take 1 Univers one 50 mg 5-07 08-06 tablet by ity of tablet 00:00: 04:59 mouth [place] 00 :00 daily for Medical 90 days. Branch spironolact 2021- Yes [id number] 50mg Take 1 Univers one 50 mg 5-07 08-06 tablet by ity of tablet 00:00: 04:59 mouth [place] 00 :00 daily for Medical 90 days. Branch spironolact 2021- Yes [id number] 50mg Take 1 Univers one 50 mg 5-07 08-06 tablet by ity of tablet 00:00: 04:59 mouth [place] 00 :00 daily for Medical 90 days. Branch spironolact 2021- Yes [id number] 50mg Take 1 Univers one 50 mg 5-07 08-06 tablet by ity of tablet 00:00: 04:59 mouth [place] 00 :00 daily for Medical 90 days. Branch spironolact 2021- Yes [id number] 50mg Take 1 Univers one 50 mg 5-07 08-06 tablet by ity of tablet 00:00: 04:59 mouth [place] 00 :00 daily for Medical 90 days. Branch spironolact 2021- Yes [id number] 50mg Take 1 Univers one 50 mg 5- 08-06 tablet by ity of tablet 00:00: 04:59 mouth [place] 00 :00 daily for Medical 90 days. Branch spironolact 2021- Yes [id number] 50mg Take 1 Univers one 50 mg 5- 08-06 tablet by ity of tablet 00:00: 04:59 mouth [place] 00 :00 daily for Medical 90 days. Branch phenytoin 2021-2021- No [id number] 300mg Take 6 Univers 50 mg 5- 07-10 tablets by ity of chewable 00:00: 00:00 mouth [place] tablet 00 :00 daily. Medical Branch phenytoin 2021-2021- No [id number] 300mg Take 6 Univers 50 mg 5- 05-06 tablets by ity of chewable 00:00: 00:00 mouth [place] tablet 00 :00 daily for Medical 180 days. Branch spironolact 2021- No 25mg 25 mg, Uni vers one 5-06 05-06 Oral, ONCE ity of (ALDACTONE) 19:30: 20:35 NOW, 1 [facility] [facility] tablet 25 00 :00 dose, On Medica l mg 01/29/22 Branch at 1430, Routine atorvastati Yes 40mg Take 40 mg Univers n 40 mg 5-06 by mouth ity of tablet 19:28: at [place] [address] bedtime. Medical Branch atorvastati Yes 40mg Take 40 mg Univers n 40 mg 5-06 by mouth ity of tablet 19:28: at [place] [address] bedtime. Medical Branch atorvastati 0 Yes 40mg Take 40 mg Univers n 40 mg 5-06 by mouth ity of tablet 19:28: at [place] [address] bedtime. Medical Branch atorvastati 0 Yes 40mg Take 40 mg Univers n 40 mg 5-06 by mouth ity of tablet 19:28: at [place] [address] bedtime. Medical Branch atorvastati 0 Yes 40mg Take 40 mg Univers n 40 mg 5-06 by mouth ity of tablet 19:28: at [place] [address] bedtime. Medical Branch atorvastati Yes 40mg Take 40 mg Univers n 40 mg 5-06 by mouth ity of tablet 19:28: at [place] 16 bedtime. Medical Branch atorvastati Yes 40mg Take 40 mg Univers n 40 mg 5-06 by mouth ity of tablet 19:28: at [place] 16 bedtime. Medical Branch atorvastati Yes 40mg Take 40 mg Univers n 40 mg 5-06 by mouth ity of tablet 19:28: at [place] 16 bedtime. Medical Branch atorvastati Yes 40mg Take 40 mg Univers n 40 mg 5-06 by mouth ity of tablet 19:28: at [place] 16 bedtime. Medical Branch atorvastati Yes 40mg Take 40 mg Univers n 40 mg 5-06 by mouth ity of tablet 19:28: at [place] 16 bedtime. Medical Branch naproxen Yes 250mg 250 mg, Unive rs (NAPROSYN) 5-04 Oral, BID ity of tablet 250 22:00: MEALS, [place] mg 00 First dose Medical on Tue01/27/22 at 1700, Until Discontinu ed, Routine phenytoin Yes 300mg 300 mg, Univ ers (DILANTIN) 5- Oral, ity of chewable 14:00: DAILY, [place] tablet 300 00 First dose Med ical mg on Tue01/27/22 at 0900, Until Discontinu ed, Routine spironolact 2021- No [id number] 25mg Take 1 Univers one 25 mg 01-27 05-06 tablet by ity of tablet 00:00: 00:00 mouth [place] 00 :00 daily for Medical 180 days. Branch levETIRAcet No 500mg 500 mg, U nivers am (KEPPRA) 01-26-03 Oral, BID, i ty of tablet 500 13:00: 22:33 First dose [place] mg 00 :46 (after Medical last Branch modificati on) on Tue01/26/22 at 0800, Until Discontinu ed, Routine levETIRAcet 2021- No 500mg 500 mg, U nivers am (KEPPRA) 01-26 05-03 Oral, ity of tablet 500 02:15: 01:18 ONCE, 1 [facility] mg 00 :00 dose, On Medical 01/25/22 Branch at 2115, Routine phenytoin 0 Yes [id number] 300mg Take 6 Univers 50 mg 5-03 tablets by ity of chewable 00:00: mouth [place] tablet 00 daily. [facility] phenytoin 2021-0 Yes [id number] 300mg Take 6 Univers 50 mg 5-03 tablets by ity of chewable 00:00: mouth [place] tablet 00 daily. [facility] phenytoin 0 Yes [id number] 300mg Take 6 Univers 50 mg 5-03 tablets by ity of chewable 00:00: mouth [place] tablet 00 daily. [facility] phenytoin 0 Yes [id number] 300mg Take 6 Univers 50 mg 5-03 tablets by ity of chewable 00:00: mouth [place] tablet 00 daily. [facility] phenytoin 0 Yes [id number] 300mg Take 6 Univers 50 mg 5-03 tablets by ity of chewable 00:00: mouth [place] tablet 00 daily. [facility] phenytoin 0 Yes [id number] 300mg Take 6 Univers 50 mg 5-03 tablets by ity of chewable 00:00: mouth [place] tablet 00 daily. [facility] phenytoin 0 Yes [id number] 300mg Take 6 Univers 50 mg 5-03 tablets by ity of chewable 00:00: mouth [place] tablet 00 daily. [facility] phenytoin 0 Yes [id number] 300mg Take 6 Univers 50 mg 5-03 tablets by ity of chewable 00:00: mouth [place] tablet 00 daily. [facility] phenytoin 2021-0 Yes [id number] 300mg Take 6 Univers 50 mg 5-03 tablets by ity of chewable 00:00: mouth [place] tablet 00 daily. [facility] phenytoin 2021-0 Yes [id number] 300mg Take 6 Univers 50 mg 5-03 tablets by ity of chewable 00:00: mouth [place] tablet 00 daily. [facility] phenytoin 2021- No [id number] 300mg Take 6 Univers 50 mg 5-03 07-10 tablets by ity of chewable 00:00: 00:00 mouth [place] tablet 00 :00 daily. [facility] iopamidol 2021-2021- No [id number] 100mL 100 mL, Univers (ISOVUE 5-02 05-02 Intravenou ity o f 370-500 mL) 18:53: 18:53 s, ONCE, 1 [place] injection 00 :00 dose, On Medica l 100 mL [facility] 01/25/22 Branch at 1415, Routine melatonin 2021- No 3mg 3 mg, Univer s (MELATIN) 01-25 Oral, ity of tablet 3 mg 06:30: 05:21 ONCE, 1 [place] 00 :[place] dose, On [facility] 01/25/22 Branch at 0130, Routine levETIRAcet No 500mg 500 mg, U nivers am (KEPPRA) 01-25 Oral, ONCE i ty of tablet 500 02:45: 02:07 NOW, 1 [place] mg 00 :00 dose, On [facility] 01/24/22 Branch at 2145, Routine carvediloL Yes 25mg 25 mg, Unive rs (COREG) 01-24 Oral, BID ity of tablet 25 22:00: MEALS, [place] mg 00 First dose Medical (after Branch last modificati on) on [place] 01/24/22 at 1700, Until Discontinu ed, Routine gadoteridol 2021- No [id number] .2mL/kg 19.24 mL Univers (PROHANCE-2 01-24 (0.2 mL/kg i ty of 0 mL) 19:45: 19:13 ?96.2 kg), [place] injection 00 :00 Intravenou Medi mary 19.24 mL s, ONCE, 1 Branc h dose, On [place] 01/24/22 at 1445, Routine levETIRAcet 2021- No 750mg 750 mg, U nivers am (KEPPRA) 01-24 0503 Oral, BID, i ty of tablet 750 14:15: 11:49 First dose [place] mg 00 :14 on [facility] 01/24/22 at Branch 0915, Until Discontinu ed, Routine carvediloL No 12.5mg 12.5 mg, Univers (COREG) 01-24 Oral, BID ity of tablet 12.5 13:00: 19:58 MEALS, [facility] mg 00 :29 First dose Medical (after Branch last modificati on) on 01/24/22 at 0800, Until Discontinu ed, Routine hydralAZINE Yes 10mg 10 mg, Univ ers (APRESOLINE 01-24 Slow IV ity o f ) injection 02:24: Push, [place] 10 mg 04 Q6HPRN, Medical Starting Branch on 01/23/22 at 2124, Until Discontinu ed, Routine, DBP=>10 0; SBP=>180 furosemide Yes 40mg 40 mg, Unive rs (LASIX) 01-23 Oral, ity of tablet 40 14:00: DAILY, [place] mg 00 First dose Medical on Sat Branch 01/23/22 at 0900, Until Discontinu ed, Routine spironolact No 25mg 25 mg, Uni vers one 01-2306 Oral, ity of (ALDACTONE) 14:00: 18:17 DAILY, [facility] tablet 25 00 :11 First dose Medi mary mg on Sat Branch 01/23/22 at 0900, Until Discontinu ed, Routine apixaban Yes 5mg 5 mg, Univers (ELIQUIS) 01-23 Oral, BID, ity of tablet 5 mg 01:00: First dose [place] 00 on Tue Medical 01/22/22 at Branch 2000, Until Discontinu ed, Routine
Indicatio ns: Non-Valvul ar Atrial Fibrillati on amLODIPine Yes 10mg 10 mg, Unive rs (NORVASC) 01-22 Oral, ity of tablet 10 22:00: DAILY AT [place] mg 00 1700, Medical First dose Branch on Tue01/22/22 at 1700, Until Discontinu ed, Routine carvediloL 2021- No 6.25mg 6.25 mg, Univers (COREG) 01-22 Oral, BID ity of tablet 6.25 22:00: 02:24 MEALS, [place] mg 00 :42 First dose Medical on Fri Branch 01/22/22 at 1700, Until Discontinu ed, Routine magnesium 2021- No 4g 4 g, IV Univ ers sulfate in 01-22 Piggyback, it y of water 4 12:00: 11:41 ONCE, 1 [place] gram/50 mL 00 :00 dose, On Medic al (8 %) IV Fri Branch Piggyback 4 01/22/22 at g 0700, Routine chlorhexidi Yes 15mL 15 mL, [facility] ers ne 01-21 Oral ity of (PERIDEX) 17:00: ([place] 0.12 % 00 Spit Out), Medical mouthwash Q6H, First Bran ch 15 mL dose on [place] 01/21/22 at 1200, Until Discontinu ed, Routine enoxaparin 2021- No 1mg/kg 111 mg [facility] (LOVENOX) 01-21 (rounded ity o f injection 14:30: 21:11 from 108.9 [place] 111 mg 00 :20 mg = 1 Medical mg/kg Branch ?108.9 kg), Subcutaneo us, DAILY, First dose (after last modificati on) on [place] 01/21/22 at 0930, Until Discontinu ed, Routine furosemide 2021- No 40mg 40 mg, [place] [facility] ers (LASIX) 01-21 Slow IV ity of injection 14:00: 21:10 Push, [place] 40 mg 00 :04 DAILY, Medical First dose Branch on [place] 01/21/22 at 0900, Until Discontinu ed, Routine NaCl 0.9% 2021- No 1000mL at 100 Uni vers (NS) IV 01-21 05-01 mL/hr, IV ity of infusion 13:15: 19:57 Infusion, [facility] 1,000 mL 00 :26 CONTINUOUS Medic al , Starting Branch on [place] 01/21/22 at 0815, Until 01/24/22 at 1457, Routine pantoprazol Yes 40mg 40 mg, [place] [facility] ers e 01-21 Slow IV ity of (PROTONIX) 13:00: Push, [place] injection 00 Q12H, Medical 40 mg First dose Branch on [place] 01/21/22 at 0800, Until Discontinu ed phenytoin 2021- No 200mg 200 mg, Uni vers (DILANTIN) 01-21 Intravenou it y of injection 13:00: 21:40 s, Q12H, [place] 200 mg 00 :59 First dose Medical on [place] Branch 01/21/22 at 0800, Until Discontinu ed, Routine LORazepam No 1mg 1 mg, Slow U nivers (ATIVAN) 01-21 IV Push, ity of injection 1 09:33: 09:35 ONCE, 1 [place] mg 00 :00 dose, On [facility] 01/21/22 at 0445, STAT levETIRAcet 2021- No 500mg 500 mg, IV Univers am (KEPPRA) 01-21 Piggyback, i ty of in NACL 09:30: 09:02 ONCE, 1 [place] (ISO-OS) 00 :00 dose, On Medical 500 mg/100 [place] Branch mL RTU 01/21/22 at 0430, Administer over 15 Minutes, 100 mL LORazepam No 1mg 1 mg, Slow U nivers (ATIVAN) 01-21 IV Push, ity of injection 1 09:15: 08:13 ONCE, 1 [place] mg 00 :00 dose, On [facility] 01/21/22 at 0415, STAT levETIRAcet 2021- No 1500mg 1,500 mg, Univers am (KEPPRA) 01-21 IV ity of in NACL 09:15: 08:41 Piggyback, [facility] as (ISO-OS) 00 :00 ONCE, 1 Medical 1,500 dose, On Branch mg/100 mL [place] RTU 01/21/22 at 0415, Administer over 15 Minutes, 100 mL FENTanyl PF No 50ug 50 mcg, [facility] (SUBLIMAZE 01-10 Slow IV ity o f (PF)) 11:00: 10:45 Push, [place] injection 00 :00 ONCE, 1 Medical 50 mcg dose, On [facility] 01/10/22 at 0600, Routine furosemide No 40mg 40 mg, IV U nivers (LASIX) 01-10 Push, ity of injection 10:30: 10:47 ONCE, 1 [place] 40 mg 00 :00 dose, On [facility] 01/10/22 at 0545, EDGAR acetaminoph Yes 4647 1{tbl} Take 1 [facility] en-codeine 4-17 tablet by ity of (TYLENOL-CO 00:00: mouth [place] DEINE #3) 00 every 4 Medical 300-30 mg (four) Branch tablet hours as needed for Pain (scale 7-10). Indication s: acute pain acetaminoph 2022-0 Yes 4647 1{tbl} Take 1 [place] en-codeine 4-17 tablet by ity of (TYLENOL-CO 00:00: mouth [place] DEINE #3) 00 every 4 Medical 300-30 mg (four) Branch tablet hours as needed for Pain (scale 7-10). Indication s: acute pain acetaminoph 2-0 Yes 4647 1{tbl} Take 1 [facility] [place] en-codeine 4-17 tablet by ity of (TYLENOL-CO 00:00: mouth [place] DEINE #3) 00 every 4 Medical 300-30 mg (four) Branch tablet hours as needed for Pain (scale 7-10). Indication s: acute pain acetaminoph 2021-0 Yes 4647 1{tbl} Take 1 [facility] [place] en-codeine 4-17 tablet by ity of (TYLENOL-CO 00:00: mouth [place] DEINE #3) 00 every 4 Medical 300-30 mg (four) Branch tablet hours as needed for Pain (scale 7-10). Indication s: acute pain acetaminoph 2-0 Yes 4647 1{tbl} Take 1 [facility] en-codeine 4-17 tablet by ity of (TYLENOL-CO 00:00: mouth [place] DEINE #3) 00 every 4 Medical 300-30 mg (four) Branch tablet hours as needed for Pain (scale 7-10). Indication s: acute pain acetaminoph 2-0 Yes 4647 1{tbl} Take 1 [facility] en-codeine 4-17 tablet by ity of (TYLENOL-CO 00:00: mouth [place] DEINE #3) 00 every 4 Medical 300-30 mg (four) Branch tablet hours as needed for Pain (scale 7-10). Indication s: acute pain furosemide 2-0 Yes [id number] 40mg Take 1 Univers (LASIX) 40 4-17 tablet by ity of mg tablet 00:00: mouth [place] 00 daily. Medical Branch acetaminoph 2022-0 Yes [id number] 1{tbl} Take 1 [facility] en-codeine 4-17 tablet by ity of (TYLENOL-CO 00:00: mouth [place] DEINE #3) 00 every 4 Medical 300-30 mg (four) Branch tablet hours as needed for Pain (scale 7-10). Indication s: acute pain furosemide Yes [id number] 40mg Take 1 [facility] (LASIX) 40 4-17 tablet by ity of mg tablet 00:00: mouth [place] 00 daily. Medical Branch acetaminoph Yes 4647 1{tbl} Take 1 [facility] en-codeine 4-17 tablet by ity of (TYLENOL-CO 00:00: mouth [place] DEINE #3) 00 every 4 Medical 300-30 mg (four) Branch tablet hours as needed for Pain (scale 7-10). Indication s: acute pain furosemide Yes [id number] 40mg Take 1 [facility] (LASIX) 40 4-17 tablet by ity of mg tablet 00:00: mouth [place] 00 daily. Medical Branch acetaminoph Yes 4647 1{tbl} Take 1 [facility] en-codeine 4-17 tablet by ity of (TYLENOL-CO 00:00: mouth [place] DEINE #3) 00 every 4 Medical 300-30 mg (four) Branch tablet hours as needed for Pain (scale 7-10). Indication s: acute pain furosemide Yes [id number] 40mg Take 1 [facility] (LASIX) 40 4-17 tablet by ity of mg tablet 00:00: mouth [place] 00 daily. Medical Branch acetaminoph Yes 4647 1{tbl} Take 1 [facility] en-codeine 4-17 tablet by ity of (TYLENOL-CO 00:00: mouth [place] DEINE #3) 00 every 4 Medical 300-30 mg (four) Branch tablet hours as needed for Pain (scale 7-10). Indication s: acute pain acetaminoph Yes 4647 1{tbl} Take 1 [facility] en-codeine 4-17 tablet by ity of (TYLENOL-CO 00:00: mouth [place] DEINE #3) 00 every 4 Medical 300-30 mg (four) Branch tablet hours as needed for Pain (scale 7-10). Indication s: acute pain acetaminoph Yes 4647 1{tbl} Take 1 [facility] en-codeine 4-17 tablet by ity of (TYLENOL-CO 00:00: mouth [place] DEINE #3) 00 every 4 Medical 300-30 mg (four) Branch tablet hours as needed for Pain (scale 7-10). Indication s: acute pain furosemide 2021- No [id number] 40mg Take 1 [facility] (LASIX) 40 4-17 06-02 tablet by ity of mg tablet 00:00: 00:00 mouth [place] 00 :00 daily. Medical Branch amLODIPine 0 Yes [id number] 10mg Take 1 [facility] nivers 10 mg 1-01 tablet by ity of tablet 00:00: mouth [place] 00 daily. Medical Branch amLODIPine 0 Yes [id number] 10mg Take 1 U nivers 10 mg 1-01 tablet by ity of tablet 00:00: mouth [place] 00 daily. Medical Branch amLODIPine 2021-0 Yes [id number] 10mg Take 1 U nivers 10 mg 1-01 tablet by ity of tablet 00:00: mouth [place] 00 daily. Medical Branch amLODIPine 0 Yes [id number] 10mg Take 1 U nivers 10 mg 1-01 tablet by ity of tablet 00:00: mouth [place] 00 daily. Medical Branch amLODIPine 2021-0 Yes [id number] 10mg Take 1 U nivers 10 mg 1-01 tablet by ity of tablet 00:00: mouth [place] 00 daily. Medical Branch furosemide 2021-0 Yes [id number] 40mg Take 1 U nivers 40 mg 1-01 tablet by ity of tablet 00:00: mouth [place] 00 daily. Medical Branch amLODIPine 2021-0 Yes [id number] 10mg Take 1 U nivers 10 mg 1-01 tablet by ity of tablet 00:00: mouth [place] 00 daily. Medical Branch furosemide 2021-0 Yes [id number] 40mg Take 1 [facility] 40 mg 1-01 tablet by ity of tablet 00:00: mouth [place] 00 daily. Medical Branch amLODIPine 2021-0 Yes [id number] 10mg Take 1 U nivers 10 mg 1-01 tablet by ity of tablet 00:00: mouth [place] 00 daily. Medical Branch furosemide 2021-0 Yes [id number] 40mg Take 1 [facility] 40 mg 1-01 tablet by ity of tablet 00:00: mouth [place] 00 daily. Medical Branch amLODIPine 2021-0 Yes [id number] 10mg Take 1 U nivers 10 mg 1-01 tablet by ity of tablet 00:00: mouth [place] 00 daily. Medical Branch furosemide 2021-0 Yes [id number] 40mg Take 1 U n[facility] 40 mg 1-01 tablet by ity of tablet 00:00: mouth [place] 00 daily. Medical Branch amLODIPine 2021-0 Yes [id number] 10mg Take 1 U nivers 10 mg 1-01 tablet by ity of tablet 00:00: mouth [place] 00 daily. Medical Branch amLODIPine 2021-0 Yes [id number] 10mg Take 1 U nivers 10 mg 1-01 tablet by ity of tablet 00:00: mouth [place] 00 daily. Medical Branch amLODIPine 2021-0 Yes [id number] 10mg Take 1 U nivers 10 mg 1-01 tablet by ity of tablet 00:00: mouth [place] 00 daily. Medical Branch amLODIPine 2021-0 Yes [id number] 10mg Take 1 U nivers 10 mg 1-01 tablet by ity of tablet 00:00: mouth [place] 00 daily. Medical Branch amLODIPine 2021-0 Yes [id number] 10mg Take 1 U nivers 10 mg 1-01 tablet by ity of tablet 00:00: mouth [place] 00 daily. Medical Branch amLODIPine 0 Yes [id number] 10mg Take 1 U nivers 10 mg 1-01 tablet by ity of tablet 00:00: mouth [place] 00 daily. Medical Branch amLODIPine 2021-0 2021- No [id number] 10mg Take 1 [facility] 10 mg 1-01 07-12 tablet by ity of tablet 00:00: 00:00 mouth [place] 00 :00 daily. Medical Branch furosemide 2021-0 2021- No [id number] 40mg Take 1 [facility] 40 mg 1-01 05-03 tablet by ity of tablet 00:00: 00:00 mouth [place] 00 :00 daily. Medical Branch amLODIPine 2021-0 2020- No [id number] 10mg Take 1 [facility] 10 mg 1-01 12-31 tablet by ity of tablet 00:00: 00:00 mouth [place] 00 :00 daily for Medical 30 days. Branch furosemide 2021-0 2020- No [id number] 40mg Take 1 [facility] 40 mg 09-26 tablet by ity of tablet 00:00: 00:00 mouth [place] 00 :00 daily for Medical 30 days. Branch pneumococca 2020-09- No .5mL 0.5 mL, [facility] l vac 09-25 Intramuscu ity of polyvalent 21:00: 21:12 lar, ONCE, [place] (PNEUMOVAX- 00 :00 1 dose, On Me dical 23) Fri Branch injection 09/25/21 0.5 mL at 1500, Routine atorvastati 2020-09 Yes 40mg Take 40 mg [facility] n 40 mg 2-31 by mouth ity of tablet 18:46: at [place] 57 bedtime. Medical Branch atorvastati 2020-09 Yes 40mg Take 40 mg [facility] n 40 mg 2-31 by mouth ity of tablet 18:46: at [place] 57 bedtime. Medical Branch atorvastati 2020-09 Yes 40mg Take 40 mg [facility] n 40 mg 2-31 by mouth ity of tablet 18:46: at [place] 57 bedtime. Medical Branch atorvastati 2020-09 Yes 40mg Take 40 mg [facility] n 40 mg 2-31 by mouth ity of tablet 16:46: at [place] 54 bedtime. Medical Branch NIFEdipine 2020-09- No 90mg Take 90 mg [facility] ER 30 mg 09-25 by mouth ity of tablet 09:24: 00:00 daily. [place] 19 :00 Medical Branch cloNIDine 2020-09- No .1mg Take 0.1 Uni vers 0.1 mg - 12-31 mg by ity of tablet 09:24: 00:00 mouth [place] 19 :00 now. Medical Branch furosemide 2020-09- No 20mg Take 20 mg [facility] 20 mg - 12- by mouth ity of tablet 09:24: 00:00 daily. [place] 19 :00 Medical Branch KCL 10 mEq 2020-09- No 20meq Take 20 [facility] tablet 12-31 mEq by ity of 09:24: 00:00 mouth [place] 19 :00 daily. Medical Branch methIMAzole 2020-09- No 5mg Take 5 mg [facility] 5 mg tablet 09-25 by mouth 3 i ty of 09:24: 00:00 (three) [place] 19 :00 times Medical daily. Branch apixaban 2020-09 Yes 1358 5mg Take 1 Unive rs mg tablet 2-31 tablet by ity o f 00:00: mouth (two) Medical times Branch daily. Indication s: atrial fibrillati on carvediloL 2020-09 Yes [id number] 12.5mg Take 1 [facility] 12.5 mg 2-31 tablet by ity of tablet 00:00: mouth (two) Medical times Branch daily with meals. apixaban 2020-09 Yes 1358 5mg Take 1 [facility] rs mg tablet 2-31 tablet by ity o f 00:00: mouth (two) Medical times Branch daily. Indication s: atrial fibrillati on carvediloL 2020-09 Yes [id number] 12.5mg Take 1 [facility] 12.5 mg 2-31 tablet by ity of tablet 00:00: mouth (two) Medical times Branch daily with meals. apixaban 2020-09 Yes 1358 5mg Take 1 [facility] rs mg tablet 2-31 tablet by ity o f 00:00: mouth (two) Medical times Branch daily. Indication s: atrial fibrillati on carvediloL 2020-09 Yes [id number] 12.5mg Take 1 [facility] 12.5 mg 2-31 tablet by ity of tablet 00:00: mouth (two) Medical times Branch daily with meals. apixaban 2020-09 Yes 1358 5mg Take 1 [facility] rs mg tablet 2-31 tablet by ity o f 00:00: mouth (two) Medical times Branch daily. Indication s: atrial fibrillati on carvediloL 2020-09 Yes [id number] 12.5mg Take 1 [facility] 12.5 mg 2-31 tablet by ity of tablet 00:00: mouth (two) Medical times Branch daily with meals. apixaban 2020-09 Yes 1358 5mg Take 1 [facility] rs mg tablet 2-31 tablet by ity o f 00:00: mouth 2 (two) Medical times Branch daily. Indication s: atrial fibrillati on carvediloL 2020-09 Yes [id number] 12.5mg Take 1 [facility] 12.5 mg 2-31 tablet by ity of tablet 00:00: mouth 2 (two) Medical times Branch daily with meals. apixaban 5 2020-09 Yes 1358 5mg Take 1 [facility] rs mg tablet 2-31 tablet by ity o f 00:00: mouth 2 (two) Medical times Branch daily. Indication s: atrial fibrillati on levETIRAcet 2020-09 Yes [id number] 750mg Take 1 [facility] am 750 mg 2-31 tablet by ity o f tablet 00:00: mouth 2 (two) Medical times Branch daily. apixaban 5 2020-09 Yes 1358 5mg Take 1 [facility] rs mg tablet 2-31 tablet by ity o f 00:00: mouth 2 (two) Medical times Branch daily. Indication s: atrial fibrillati on carvediloL 2020-09 Yes [id number] 12.5mg Take 1 [facility] 12.5 mg 2-31 tablet by ity of tablet 00:00: mouth 2 (two) Medical times Branch daily with meals. phenytoin 2020-09 Yes [id number] 200mg Take 4 [facility] 50 mg 2-31 tablets by ity of chewable 00:00: mouth 2 [place] tablet 00 (two) Medical times Branch daily. levETIRAcet 2020-09 Yes [id number] 750mg Take 1 [facility] am 750 mg 2-31 tablet by ity o f tablet 00:00: mouth 2 (two) Medical times Branch daily. apixaban 2020-09 Yes 1358 5mg Take 1 [facility] rs mg tablet 2-31 tablet by ity o f 00:00: mouth 2 (two) Medical times Branch daily. Indication s: atrial fibrillati on carvediloL 2020-09 Yes [id number] 12.5mg Take 1 [facility] 12.5 mg 2-31 tablet by ity of tablet 00:00: mouth 2 (two) Medical times Branch daily with meals. phenytoin 2020-09 Yes [id number] 200mg Take 4 [facility] 50 mg 2-31 tablets by ity of chewable 00:00: mouth 2 [place] tablet 00 (two) Medical times Branch daily. levETIRAcet 2020-09 Yes [id number] 750mg Take 1 [facility] am 750 mg 2-31 tablet by ity o f tablet 00:00: mouth 2 (two) Medical times Branch daily. apixaban 2020-09 Yes 1358 5mg Take 1 [facility] rs mg tablet 2-31 tablet by ity o f 00:00: mouth 2 (two) Medical times Branch daily. Indication s: atrial fibrillati on carvediloL 2020-09 Yes [id number] 12.5mg Take 1 [facility] 12.5 mg 2-31 tablet by ity of tablet 00:00: mouth 2 (two) Medical times Branch daily with meals. phenytoin 2020-09 Yes [id number] 200mg Take 4 [facility] 50 mg 2-31 tablets by ity of chewable 00:00: mouth 2 [place] tablet 00 (two) Medical times Branch daily. levETIRAcet 2020-09 Yes [id number] 750mg Take 1 [facility] am 750 mg 2-31 tablet by ity o f tablet 00:00: mouth 2 (two) Medical times Branch daily. apixaban 2020-09 Yes 1358 5mg Take 1 [facility] rs mg tablet 2-31 tablet by ity o f 00:00: mouth (two) Medical times Branch daily. Indication s: atrial fibrillati on carvediloL 2020-09 Yes [id number] 12.5mg Take 1 [facility] 12.5 mg 2-31 tablet by ity of tablet 00:00: mouth (two) Medical times Branch daily with meals. phenytoin 2020-09 Yes [id number] 200mg Take 4 [facility] 50 mg 2-31 tablets by ity of chewable 00:00: mouth 2 [place] tablet 00 (two) Medical times Branch daily. apixaban 2020-09 Yes 1358 5mg Take 1 [facility] rs mg tablet 2-31 tablet by ity o f 00:00: mouth 2 (two) Medical times Branch daily. Indication s: atrial fibrillati on carvediloL 2020-09 Yes [id number] 12.5mg Take 1 [facility] 12.5 mg 2-31 tablet by ity of tablet 00:00: mouth 2 (two) Medical times Branch daily with meals. apixaban 2020-09 Yes 1358 5mg Take 1 [facility]ive rs mg tablet 2-31 tablet by ity o f 00:00: mouth 2 [place] 00 (two) Medical times Branch daily. Indication s: atrial fibrillati on carvediloL 2020-09 Yes [id number] 12.5mg Take 1 [facility] 12.5 mg 2-31 tablet by ity of tablet 00:00: mouth (two) Medical times Branch daily with meals. apixaban 5 2020-09 Yes 1358 5mg Take 1 [facility] rs mg tablet 2-31 tablet by ity o f 00:00: mouth 2 (two) Medical times Branch daily. Indication s: atrial fibrillati on carvediloL 2020-09 Yes [id number] 12.5mg Take 1 [facility] 12.5 mg 2-31 tablet by ity of tablet 00:00: mouth (two) Medical times Branch daily with meals. apixaban 5 2020-09 Yes 1358 5mg Take 1 [facility] rs mg tablet 2-31 tablet by ity o f 00:00: mouth (two) Medical times Branch daily. Indication s: atrial fibrillati on carvediloL 2020-09 Yes [id number] 12.5mg Take 1 [facility] 12.5 mg 2-31 tablet by ity of tablet 00:00: mouth (two) Medical times Branch daily with meals. apixaban 5 2020-09 Yes 1358 5mg Take 1 [facility] rs mg tablet 2-31 tablet by ity o f 00:00: mouth (two) Medical times Branch daily. Indication s: atrial fibrillati on carvediloL 2020-09 Yes [id number] 12.5mg Take 1 [facility] 12.5 mg 2-31 tablet by ity of tablet 00:00: mouth (two) Medical times Branch daily with meals. carvediloL 2020-09- No [id number] 12.5mg Take 1 [facility] 12.5 mg 2-31 07-13 tablet by ity of tablet 00:00: 00:00 mouth 2 [place] 00 :00 (two) Medical times Branch daily with meals. levETIRAcet 2020-09- No [id number] 750mg Take 1 [facility] am 750 mg 2-31 05-03 tablet by ity of tablet 00:00: 00:00 mouth 2 [place] 00 :00 (two) Medical times Branch daily. phenytoin 2020-09- No [id number] 200mg Take 4 [facility] 50 mg 2- 05-03 tablets by ity of chewable 00:00: 00:00 mouth 2 [place] tablet 00 :00 (two) Medical times Branch daily. phenytoin 2020-09- No [id number] 200mg Take 4 [facility] 50 mg -25 09- tablets by ity of chewable 00:00: 00:00 mouth 2 [place] tablet 00 :00 (two) Medical times Branch daily for 30 days. carvediloL 2020-09- No [id number] 12.5mg Take 1 [facility] 12.5 mg 09-25 tablet by ity of tablet 00:00: 00:00 mouth 2 [place] 00 :00 (two) Medical times Branch daily with meals for 30 days. levETIRAcet 2020-09- No [id number] 750mg Take 1 [facility] am 750 mg 09-25 tablet by ity of tablet 00:00: 00:00 mouth 2 [place] 00 :00 (two) Medical times Branch daily for 30 days. apixaban 5 2020-09- No 1358 5mg Take 1 Univ ers mg tablet 09-25 tablet by ity of 00:00: 00:00 mouth 2 [place] 00 :00 (two) Medical times Branch daily. Indication s: atrial fibrillati on dexAMETHaso 2020-09- No 6mg 6 mg, Univ ers ne 11-20 Oral, ity of (DECADRON) 13:52: 17:15 QNOON, 3 [place] tablet 6 mg 22 :00 doses, Medica l First dose Branch (after last modificati on) on 09/19/21 at 1200, Last dose on 09/21/21 at 1200, Routine furosemide 2020-09 Yes 40mg 40 mg, Unive rs (LASIX) 2-24 Oral, ity of tablet 40 15:00: DAILY, [place] mg 00 First dose Medical on Fri Branch 09/18/21 at 0900, Until Discontinu ed, Routine carvediloL 2020-09 Yes 12.5mg 12.5 mg, U nivers (COREG) 2-23 Oral, BID ity of tablet 12.5 23:00: MEALS, [place] mg 00 First dose Medical on [place] Branch 09/17/21 at 1700, Until Discontinu ed, Routine apixaban 2020-09 Yes 5mg 5 mg, [facility] (ELIQUIS) 11-18 Oral, BID, ity of tablet 5 mg 02:00: First dose [place] 00 on Tue Medical 09/16/21 Branch at 2000, Until Discontinu ed, Routine
Indicatio ns: VTE Prophylaxi s (For Total Hip Arthroplas ty Only) furosemide 2020-09- No 40mg 40 mg, Univ ers (LASIX) 11-18 Slow IV ity of injection 02:00: 16:27 Push, [place] 40 mg 00 :30 Q12H, Medical First dose Branch (after last modificati on) on Tue09/16/21 at 2000, Until Discontinu ed, Routine metoprolol 2020-09- No 25mg 25 mg, Univ ers tartrate 11-17 Oral, Q8H, ity of (LOPRESSOR) 16:45: 16:27 First dose [place] tablet 25 00 :30 on Tue Medical mg 09/16/21 Branch at 1045, Until Discontinu ed, Routine remdesivir 2020-09- No 100mg 100 mg, IV [facility] 100 mg in 11-16 Infusion, ity of NaCl 0.9% 22:00: 13:40 DAILY AT [place] as (NS) 100 mL 00 :46 1600, 5 Medic al MINI-BAG doses, Branch First dose (after last reorder) on Tue09/15/21 at 1600, Last dose on Tue09/19/21 at 1600, Administer over 60 Minutes, 100 mL
Is the patient mechanical ly ventilated ? NO
Is the patient requiring supplement al oxygen? YES phenytoin 2020-09 Yes 200mg 200 mg, Univ ers (DILANTIN) 11-16 Oral, BID, ity of chewable 19:30: First dose [place] tablet 200 00 on Tue Medical mg 09/15/21 Branch at 1330, Until Discontinu ed, Routine furosemide 2020-09- No 40mg 40 mg, Univ ers (LASIX) 11-16 Slow IV ity of injection 14:00: 16:18 Push, [place] 40 mg 00 :11 Q12H, Medical First dose Branch on Tue09/15/21 at 0800, Until Discontinu ed, Routine levETIRAcet 2020-09 Yes 750mg 750 mg, Un bonita am (KEPPRA) 220 Oral, BID, it y of tablet 750 02:00: First dose [place] mg 00 on [facility] 09/13/21 Branch at 2000, Until Discontinu ed, Routine amLODIPine 2020-09 Yes 10mg 10 mg, Unive rs (NORVASC) 11-14 Oral, ity of tablet 10 15:00: DAILY, [place] mg 00 First dose Medical on [place] Branch 09/13/21 at 0900, Until Discontinu ed, Routine magnesium 2020-09- No 1g 1 g, IV Univ ers sulfate in 11-12 Piggyback, it y of D5W 1 17:15: 19:19 ONCE, 1 [place] gram/100 mL 00 :00 dose, On [facility] RTU IV Fri Branch Piggyback 1 09/11/21 g at 1115, Administer over 60 Minutes, 100 mL enoxaparin 2020-09- No 1mg/kg 90 mg Uni vers (LOVENOX) 11-12 (rounded ity o f injection 02:00: 18:56 from 90.7 [place] 90 mg 00 :48 mg = 1 Medical mg/kg Branch ?90.7 kg), Subcutaneo us, Q12H, First dose on [facility] 09/10/21 at 2000, Until Discontinu ed, Routine dexAMETHaso 2020-09- No 6mg 6 mg, Univ ers ne 11-11 Oral, ity of (DECADRON) 21:15: 13:52 QNOON, 10 [place] tablet 6 mg 00 :34 doses, Medica l First dose Branch on [place] 09/10/21 at 1515, Last dose on 09/19/21 at 1200, Routine hydralAZINE 2020-09 Yes 10mg 10 mg, Univ ers (APRESOLINE 11-11 Slow IV ity o f ) injection 18:08: Push, [place] 10 mg 40 Q6HPRN, Medical Starting Branch on [facility] 09/10/21 at 1208, Until Discontinu ed, Routine, DBP=>10 0; SBP=>180<b r>Indicati on: Hypertensi ve Emergency levETIRAcet 2020-09- No 1000mg 1,000 mg, Univers am (KEPPRA) 11-11 IV ity of in NACL 16:45: 15:56 Infusion, [place] (ISO-OS) 00 :00 ONCE, 1 Medical 1,000 dose, On Branch mg/100 mL [place] RTU 09/10/21 at 1045, Administer over 15 Minutes, 100 mL levoFLOXaci 2020-09- No 750mg 750 mg, IV Univers n in D5W 11-11 Piggyback, ity of (LEVAQUIN) 13:15: 13:53 ONCE, 1 [place] 750 mg/150 00 :00 dose, On Medic al mL [place] Branch Piggyback 09/10/21 750 mg at 0715, Administer over 90 Minutes, 150 mL
Reas on for Anti-Infec tive: Documented Infection< br>Documen lazaro Infection Site: Respirator y
Du ration of Therapy: Other (see Comments) iopamidol 2020-09- No [id number] 100mL 100 mL, Univers (ISOVUE 11-11 Intravenou ity o f 370-500 mL) 11:45: 10:31 s, ONCE, 1 [place] injection 00 :00 dose, On Medica l 100 mL [place] Branch 09/10/21 at 0545, Routine NaCl 0.9% 2020-09 Yes 5mL 5 mL, Slow Un bonita (NS) 11-11 IV Push, ity of injection 5 10:08: PRN - SEE [place] mL 02 [facility] Medical NS, Branch Starting on [place] 09/10/21 at 0408, Until Discontinu ed, 10 mL amLODIPine Yes [id number] 10mg Take 1 U nivers 10 mg 5-22 tablet ity of tablet 00:00: through [place] 00 enteral Medical tube Branch daily. amLODIPine Yes [id number] 10mg Take 1 U nivers 10 mg 5-22 tablet ity of tablet 00:00: through [place] 00 enteral Medical tube Branch daily. amLODIPine 2020- No [id number] 10mg Take 1 [facility] 10 mg 5-22 09-10 tablet ity of tablet 00:00: 00:00 through [place] 00 :00 enteral Medical tube Branch daily. apixaban 5 Yes 1358 5mg Take 1 Unive rs mg tablet 5-19 tablet by ity o f 00:00: mouth 2 [place] 00 (two) Medical times Branch daily. Indication s: atrial fibrillati on apixaban 5 Yes 1358 5mg Take 1 Unive rs mg tablet 5-19 tablet by ity o f 00:00: mouth 2 [place] 00 (two) Medical times Branch daily. Indication s: atrial fibrillati on levETIRAcet 2021- No [id number] 750mg Take 1 [facility] am 750 mg 5-19 05-20 tablet by ity of tablet 00:00: 04:59 mouth 2 [place] 00 :00 (two) Medical times Branch daily. levETIRAcet 2020-2021- No [id number] 750mg Take 1 [facility] am 750 mg 5-19 05-20 tablet by ity of tablet 00:00: 04:59 mouth 2 [place] 00 :00 (two) Medical times Branch daily. apixaban 5 2020- No 1358 5mg Take 1 Univ ers mg tablet 5-19 12-31 tablet by ity of 00:00: 00:00 mouth 2 [place] 00 :00 (two) Medical times Branch daily. Indication s: atrial fibrillati on levETIRAcet 2020- No [id number] 750mg Take 1 [facility] am 750 mg 5-19 12-31 tablet by ity of tablet 00:00: 00:00 mouth 2 [place] 00 :00 (two) Medical times Branch daily. torsemide 2015-09 No Notes: Memori a -18 (Same As: l 14:30: Demadex) Warfarin 2015-09 No Notes: [place] 1-17 Nurse to l 23:00: ensure documentat ion of patient education per anticoagul ation policy. Avoid large intake of vitamin-K containing foods diet. WASTE: F/P - P Waste Black; E - P Waste Black (Same As: Coumadin) sildenafil 2015-09 Yes 20 mg = 1 Me moria 20 MG Oral 1-17 tab, PEG, l Tablet 22:41: TID, # 90 Marvin n 00 tab, 2 Refill(s) modafinil 2015-09 Yes 50 mg = Memor ia 100 mg oral 1-17 0.5 tab, l tablet 22:41: PO, QAM, # Indira nn 00 15 tab, 2 Refill(s) Hydralazine 2015-09 Yes 100 mg = 1 Memoria Hydrochlori 1-17 tab, PO, l de 100 MG 22:41: Q8H, # 90 Her damon Oral Tablet 00 tab, 2 Refill(s) enoxaparin 2015-09 Yes 30 mg = Kishan neelima 30 mg/0.3 -17 0.3 mL, l mL 22:41: SUB-Q, Flo subcutaneou 00 Daily, # 9 s solution mL, 1 Refill(s) torsemide 2015-09 Yes 100 mg = 5 Me moria 20 mg oral 1-17 tab, PO, l tablet 22:41: BID, # 60 [place] n 00 tab, 2 Refill(s) Clonidine 2015-09 Yes 0.1 mg = 1 Me moria Hydrochlori -17 tab, PO, l de 0.1 MG 22:41: TID, # 90 Her damon Oral Tablet 00 tab, 2 Refill(s) Vitamin D3 2015-09 Yes 1,000 Memori a 1000 intl -17 IntlUnit = l units oral 22:41: 1 tab, PO, H ermann tablet 00 Daily, # 30 tab, 3 Refill(s) polyethylen 2015-09 Yes 17 gm, PO, Memoria e glycol -17 Daily, # l 3350 oral 22:41: 527 gm, 0 Her damon powder for 00 Refill(s) reconstitut ion simethicone 2015-09 Yes 80 mg = 1 M emoria 80 mg oral 1-17 tab, PO, l tablet, 22:41: TID-After Indira nn chewable 00 Meals, # 90 tab, 1 Refill(s) Potassium 2015-09 Yes 20 mEq = 1 Me moria Chloride 20 1-17 tab, PO, l MEQ 22:41: Daily, # [place] Extended 00 30 tab, 2 Release Refill(s) Tablet Docusate 2015-09 Yes 2 tab, Memoria Sodium 50 1-17 PEG, l MG / 22:41: Daily-12N, Flo sennosides, 00 # 60 tab, [facility] 8.6 MG 1 Oral Tablet Refill(s) Atenolol 50 2015-09 Yes 50 mg = 1 M emoria MG Oral -17 tab, PEG, l Tablet 22:41: BID, # 60 Marvin n [Tenormin] 00 tab, 2 Refill(s) 24 HR 2015-09 Yes 90 mg = 1 Memoria Nifedipine -17 tab, PO, l 90 MG 22:41: Bedtime, # Marvin n Extended 00 30 tab, 2 Release Refill(s) Tablet ocular 2015-09 Yes 1 drp, Memoria lubricant 10-12 BOTH EYES, l solution 22:41: PRN, PRN Indira nn 00 as needed for dry eyes, # 15 mL, 0 Refill(s) amantadine 2015-09 Yes 100 mg = Mem oria 50 mg/5 mL 17 10 mL, PO, l oral syrup 22:41: Q48H, # Herm wesley 00 1,500 mL, 0 Refill(s) warfarin 5 2015-09 Yes 10 mg = 2 Me moria mg oral -17 tab, PO, l tablet 22:41: Q5PM, # 60 Indira nn 00 tab, 2 Refill(s) ubiquinone 2015-09 Yes 200 mg = 1 M emoria 200 mg oral -17 tab, PO, l tablet 22:41: Daily, # [place] 00 30 tab, 0 Refill(s) benzocaine- 2015-09 Yes 5 mL, [place], M emoria docusate 20 10-12 Bedtime, # l mg-283 mg 22:41: 30 ea, 0 Herm wesley rectal 00 Refill(s) enema [place] Enema 2015-09 No 133 mL, Mem oria Extra 10-12 Route: [place], l 02:00: Drug Form: [place] 00 LILLIE, Dosing Weight 99.773, kg, ONCE, Start date: 08/11/16 20:00:00 JANITORIAL TECH, Stop date: 08/11/16 20:00:00 JANITORIAL TECH Albuterol 2015-09 No Notes: Memori a 0.833 MG/ML 10-11 (Same as: l / 01:30: Duoneb) Flo Ipratropium 00 [place] 0.167 MG/ML Inhalant Solution [DuoNeb] Coumadin 2015-09 No Notes: Memoria -15 Nurse to l 23:00: ensure [place] 00 documentat ion of patient education per anticoagul ation policy. Avoid large intake of vitamin-K containing foods diet. WASTE: F/P - P Waste Black; E - P Waste Black (Same As: Coumadin) Warfarin 2015-09 No 7 mg, Memoria 1-15 Route: PO, l 23:00: Drug form: [place] 00 TAB, Q5PM, Dosing Weight 99.773, kg, Start date: 08/10/16 17:00:00 JANITORIAL TECH, Duration: 60 day, Stop date: 10/08/16 17:00:00 JANITORIAL TECH Albuterol 2015-09 No Notes: Memori a 0.833 MG/ML 1-15 (Same as: l 18:30: Duoneb) Flo Ipratropium 00 [place] 0.167 MG/ML Inhalant Solution [DuoNeb] 24 HR 2015-09 No Notes: Memoria Nifedipine 1-15 (Same as: l 30 MG 03:00: Procardia [place] Extended 00 XL) "Do Release Not Crush" Tablet "Avoid grapefruit and grapefruit juice" Potassium 2015-09 No Notes: Memori a Chloride 20 1-15 (Same as: l MEQ 02:01: K-Dur 20) [place] Extended 00 "Do Not Release Crush" Tablet With food and full glass of water Albuterol 2015-09 No Notes: Memori a 0.833 MG/ML 1-12 (Same as: l / 01:30: Duoneb) [place] Ipratropium 00 [place] 0.167 MG/ML Inhalant Solution [DuoNeb] Warfarin 2015-09 No Notes: Memoria 1-11 Nurse to l 23:00: ensure [place] 00 documentat ion of patient education per anticoagul ation policy. Avoid large intake of vitamin-K containing foods diet. (Same As: Coumadin) WASTE: F/P - P Waste Black; E - P Waste Black 24 HR 2015-09 No Notes: Memoria Nifedipine 1-11 (Same as: l 30 MG 03:00: Procardia [place] Extended 00 XL) "Do Release Not Crush" Tablet "Avoid grapefruit and grapefruit juice" Miralax 2015-09 No Notes: Memoria 1-10 Dissolve l 14:30: in 8 oz of [place] 00 water or juice. (Same as: Miralax) Potassium 2015-09 No Notes: Memori a Chloride 20 1-10 (Same as: l MEQ 14:04: K-Dur 20) Flo Extended 00 "Do Not Release Crush" Tablet With food and full glass of water torsemide 2015-09 No Notes: Memori a 1-10 (Same As: l 03:00: Demadex) [place] 00 Potassium 2015-09 No Notes: Memori a Chloride 20 -09 (Same as: l MEQ 15:11: K-Dur 20) [place] Extended 00 "Do Not Release Crush" Tablet With food and full glass of water Potassium 2015-09 No Notes: Memori a Chloride 20 -09 (Same as: l MEQ 01:02: K-Dur 20) Flo Extended 00 "Do Not Release Crush" Tablet With food and full glass of water torsemide 2015-09 No Notes: Memori a 1-08 (Same As: l 14:30: Demadex) [place] 00 24 HR 2015-09 No Notes: Memoria Nifedipine -08 (Same as: l 30 MG 03:00: Procardia Flo Extended 00 XL) "Do Release Not Crush" Tablet "Avoid grapefruit and grapefruit juice" 24 HR 2015-09 No Notes: Memoria Nifedipine 1-07 (Same as: l 30 MG 22:08: Procardia Flo Extended 00 XL) "Do Release Not Crush" Tablet "Avoid grapefruit and grapefruit juice" Clonidine 2015-09 No Notes: Memori a Hydrochlori -06 (Same As: l de 0.1 MG 19:00: Catapres) Her damon Oral Tablet 00 Atenolol 25 2015-09 No Notes: Kishan neelima MG Oral 05 (Same l Tablet 14:43: As:Tenormi Indira nn 00 n) Iohexol 2015-09 No Notes: Memoria -03 (Same l 18:29: as:Omnipaq Flo 00 ue 300). WASTE: F/P - Black; E - Municipal Trash Bin pancrelipas 2015-09 No Notes: Kishan neelima e 09-28 Lipase l 17:21: 15,000, Flo 00 Protease 51,000, Amylase 82,000 units Same as: Zenpep Dexamethaso 2015-09 No Notes: Kishan neelima ne 09-28 Give with l 04:00: food. [place] 00 (Same As: Decadron) Lasix 2015-09 No Notes: Memoria - (Same as: l 13:30: Lasix) [place] 00 May cause GI upset. Give with food or milk. Provigil 2015-09 No Notes: Memoria 09-27 (Same l 11:30: as:Provigi [place] 00 l) Irrigation 2015-09 No Notes: For M frankyria w/ Normal 09-26 irrigation l Saline 01:00: only. [place] 00 Lasix 2015-09 No Notes: Memoria 0-31 (Same as: l 20:57: Lasix) [place] MEDICATION WASTE Product Size: 40 mg Product Wasted: ___ mg sodium 2015-09 No Notes: Memoria chloride 0-31 (sodium l 0.9% 1000 20:54: bicarb Marvin n ml INJ 00 8.4% (1 1,000 mL + mEq/ml) 50 sodium ml bicarbonate syringe) 8.4% additive 100 mEq Kayexalate 2015-09 No Notes: Memor ia 0-31 (sodium l 18:57: polystyren [place] 00 e sulfonate 15 gm/60 ml INDY) Shake well before use. (Same as: Kayexalate , SPS) Symmetrel 2015-09 No Notes: Memori a 0-31 (Same as: l 12:00: Symmetrel) [place] Amoxicillin 2015-09 No Notes: Kishan neelima 500 MG / 0-29 With food. l Clavulanate 19:00: (Same as: H ermann 125 MG Oral 00 Augmentin Tablet 500) [Augmentin 500-mg] Sodium 2015-09 No 500 mL, Memoria Chloride 0-29 500 ml/hr, l 0.154 18:46: Infuse Flo MEQ/ML 00 Over: 1 Injectable hr, Route: Solution IV, 500, Drug form: INJ, ONCE, Priority: STAT, Dosing Weight 99.773 kg, Start date: 07/24/16 13:46:00 CDT, Duration: 1 doses or times, Stop date: 07/24/16 13:46:00 CDT Minoxidil 2015-09 No Notes: Memori a 0-29 (Same l 13:30: as:Loniten [place] 00 ) Lovenox 2015-09 No Notes: Memoria 0-29 (Same as: l 13:30: Lovenox) Flo Zofran 2015-09 No Notes: Memoria 0-29 (Same as: l 03:27: Zofran) [place] 00 Warfarin 2015-09 No Notes: Memoria 0-28 Nurse to l 22:00: ensure documentat ion of patient education per [facility] ation policy. Avoid large intake of vitamin-K containing foods diet. WASTE: F/P - P Waste Black; E - P Waste Black (Same As: Coumadin) Furosemide 2015-09 No Notes: Memor ia 20 MG Oral 0-26 (Same as: l Tablet 13:30: Lasix) [place] [Lasix] 00 May cause GI upset. Give with food or milk. Coenzyme 2015-09 No Notes: Memoria Q10 0-26 (Same As: l 13:30: Co-Enzyme Q10) Non-Formul malika Drug Iohexol 2015-09 No Notes: Memoria 0-26 (same l 12:54: as:Omnipaq [place] 00 ue 350). WASTE: F/P - Black; E - Municipal Trash Bin Symmetrel 2015-09 No Notes: Memori a 0-26 (Same as: l 12:00: Symmetrel) Flo Minoxidil 2015-09 No Notes: Memori a 0-26 (Same l 02:00: as:Loniten Flo ) Clonidine 2015-09 No Notes: Memori a Hydrochlori 0-25 (Same As: l de 0.1 MG 02:00: Catapres) Her damon Oral Tablet 00 Levetiracet 2015-09 No Notes: Kishan neelima am 500 MG 0-24 Same as: l Oral Tablet 02:00: Keppra [facility] [Keppra] 00 Nystatin 2015-09 No Notes: Memoria 100 UNT/MG 0-24 (Same l Topical 02:00: as:Mycosta [facility] w[facility]ley Powder 00 tin, Nilstat) For external use only. Furosemide 2015-09 No Notes: Memor ia 20 MG Oral 0-23 (Same as: l Tablet 02:00: Lasix) [place] [Lasix] 00 May cause GI upset. Give with food or milk. Aldactone 2015-09 No 25 mg, Memori a 0-22 Route: PO, l 16:50: Drug form: Flo 00 TAB, Daily, Dosing Weight 99.773, kg, Start date: 07/17/16 11:50:00 CDT, Duration: 30 day, Stop date: 08/16/16 8:30:00 JANITORIAL TECH Provigil 2015-09 No Notes: Memoria 0-20 (Same l 18:00: as:Provigi [place] 00 l) Clonidine 2015-09 No Notes: Memori a Hydrochlori 0-18 (Same As: l de 0.1 MG 20:47: Catapres) Her damon Oral Tablet 00 Clonidine 2015-09 No Notes: Memori a Hydrochlori 0-18 (Same As: l de 0.1 MG 14:00: Catapres) Her damon Oral Tablet 00 Albuterol 2015-09 No Notes: Memori a 0.833 MG/ML 0-18 (Same as: l / 00:30: Duoneb) Flo Ipratropium 00 [place] 0.167 MG/ML Inhalant Solution [DuoNeb] Zofran 2015-09 No Notes: Memoria 0-17 (Same as: l 21:00: Zofran) [place] 00 Levetiracet 2015-09 No Notes: Kishan neelima am 500 MG 0-15 Same as: l Oral Tablet 02:00: Keppra [facility] [Keppra] 00 Vitamin D3 2015-09 No Notes: Memor ia 1000 intl 0-14 Same as : l units oral 13:30: Vitamin D3 H ermann tablet 00 Valium 2015-09 No Notes: Memoria 0-12 (Same as: l 23:00: Valium) [place] 00 chlorhexidi 2015-09 No Notes: Kishan neelima ne 0-12 (Same As: l gluconate 02:00: Peridex) [facility] 1.2 MG/ML 00 Mouthwash Levetiracet 2015-09 No Notes: Kishan neelima am 500 MG 0-12 (Same l Oral Tablet 02:00: as:Keppra) Flo [Keppra] 00 Furosemide 2015-09 No Notes: Memor ia 20 MG Oral 0-10 (Same as: l Tablet 21:00: Lasix) Flo [Lasix] 00 May cause GI upset. Give with food or milk. Hydralazine 2015-09 No Notes: Kishan neelima Hydrochlori 0-10 (Same as: l de 25 MG 02:00: Apresoline Her damon Oral Tablet 00 ) May interfere w/enteral feedings - Take With Food Furosemide 2015-09 No Notes: Memor ia 20 MG Oral 0-08 (Same as: l Tablet 16:30: Lasix) [place] [Lasix] 00 May cause GI upset. Give with food or milk. Levetiracet 2015-09 No Notes: Kishan neelima am 500 MG 0-08 (Same l Oral Tablet 14:00: as:Keppra) [place] [Keppra] 00 benzocaine- 2015-09 No Notes: Kishan neelima docusate 0-05 Same as: l 02:00: (Enemeez Flo 00 Plus) benzocaine -docusate 20 mg-283 mg tube Non Formulary Valium 2015-09 No Notes: Memoria 0-04 (Same as: l 23:00: Valium) [place] 00 sodium 2015-09 No 1,000 mL, Memori a chloride 0-03 Rate: 100 l 0.9% 1000 22:00: ml/hr, Marvin n ml INJ 00 Infuse 1,000 mL over: 10 hr, Route: IV, Dosing Weight 99.773 kg, Total Volume: 1,000, Start date: 06/28/16 17:00:00 CDT, Duration: 1 doses or times, Stop date: 06/29/16 2:59:00 CDT Provigil 2015-09 No Notes: Memoria 0-01 (Same l 13:00: as:Provigi [place] 00 l) Simethicone No Notes: Kishan neelima 9-30 (Same as: l 23:00: Mylicon) [place] 00 Nystatin No Notes: Memoria [id number] 9-30 (Same l UNT/ML Oral 18:00: as:Mycosta [place] Suspension 00 tin) Shake well. Albuterol No Notes: Memori a 0.833 MG/ML 9-30 (Same as: l / 00:30: Duoneb) [place] Ipratropium 00 [place] 0.167 MG/ML Inhalant Solution [DuoNeb] Zofran No Notes: Memoria 06-24 (Same as: l 18:41: Zofran) [place] 00 MEDICATION WASTE Product Size: 4 mg Product Wasted: ___ mg Provigil No Notes: Memoria 06-24 (Same l 13:00: as:Provigi [place] 00 l) Lovenox No Notes: Memoria 06-23 (Same as: l 13:30: Lovenox) [place] 00 Norvasc No Notes: Memoria 06-23 (Same as: l 13:30: Norvasc) [place] 00 Hydralazine No Notes: Kishan neelima Hydrochlori 06-23 (Same as: l de 25 MG 05:00: Apresoline Her damon Oral Tablet ) May interfere w/enteral feedings Take With Food. Tylenol No Notes: Max Kishan neelima 06-23 acetaminop l 05:00: hen = [place] 00 4000mg/day (4 gm/day). (Same as: Tylenol) Albuterol No Notes: Memori a 0.833 MG/ML 06-23 (Same as: l / 02:00: Duoneb) Ipratropium 00 [place] 0.167 MG/ML Inhalant Solution [DuoNeb] Atenolol 50 No Notes: Kishan neelima MG Oral 06-23 (Same l Tablet 02:00: As:Tenormi Indira nn [Tenormin] 00 n) SENOKOT-S No Notes: Memori a 06-23 (Same as l 02:00: Senokot-S) [place] 00 Equiv. to [place] e. Miralax No Notes: Memoria - Dissolve l 02:00: in 8 oz of [place] 00 water or juice. (Same as: Miralax) sildenafil No Notes: Memor ia 20 MG Oral 06-23 (Same as: l Tablet 02:00: Revatio) [place] 00 heparin No 5,000 Memoria - unit, l 02:00: Route: [place] 00 SUB-Q, Q12H, Dosing Weight 100.909, kg, Start date: 06/22/16 21:00:00 CDT, Duration: 30 day, Stop date: 07/22/16 9:00:00 CDT Tylenol No Notes: Max Kishan neelima 06-23 acetaminop l 00:44: hen = [place] 00 4000mg/day (4 gm/day). (Same as: Tylenol) Methocarbam No Notes: Kishan neelima ol 06-23 (Same l 00:26: as:Robaxin ) Trazodone No Notes: Memori a Hydrochlori 06-23 (Same As: l de 50 MG 00:25: Desyrel) Indira nn Oral Tablet 00 Dulcolax No Notes: Memoria Laxative 06-23 (Same As: l 00:24: Dulcolax, [place]isco-Lax) Artificial No 1 drp, Memor ia Tears 06-23 Route: l 00:24: BOTH EYES, PRN, Drug form: SOLN, PRN as needed for dry eyes, Start date: 06/22/16 19:24:00 CDT, Duration: 60 day, Stop date: 09/17/16 15:14:00 JANITORIAL TECH Midazolam No 40 kg Memori a 06-23 l 00:17: Levetiracet No Notes: Kishan neelima am 06-23 Same as l 00:17: Keppra Mix with 100 mL NS, LR or D5W MEDICATION WASTE Product Size: 500 mg Product Wasted: ___ mg Saline No Notes: Memoria Flush 0.9% 06-23 (Same as: l 00:17: BD [place] 00 Posiflush) Hydralazine Yes 50 mg = 2 M emoria Hydrochlori 06-22 tab, PO, l de 25 MG 20:23: Q6H, # 240 Her damon Oral Tablet 00 tab, 0 Refill(s) Atenolol 50 Yes 100 mg = 2 Memoria MG Oral 06-22 tab, PEG, l Tablet 20:23: BID, # 120 Indira nn [Tenormin] 00 tab, 0 Refill(s) Metoclopram 2016-0 Yes 5 mg = 1 Me moria thomas 5 MG 06-22 tab, PO, l Oral Tablet 20:23: TID-Before [place] [Reglan] 00 Meals, X 30 day, # 90 tab, 0 Refill(s) Trazodone Yes 50 mg = 1 Mem oria Hydrochlori -27 tab, PO, l de 50 MG 20:23: Bedtime, Indira nn Oral Tablet 00 PRN Insomnia, # 30 tab, 0 Refill(s) methocarbam Yes 1,000 mg = Memoria ol 500 mg 06-22 2 tab, PO, l oral tablet 20:23: Q8H, PRN [place] 00 Muscle Spasms, X 14 day, # 84 tab, 0 Refill(s) pneumococca No Notes: Kishan neelima l 13-valent 06-19 Lightly l vaccine 14:00: roll vial Indira nn 00 (DO NOT SHAKE) before administra tion. (Same as: Prevnar 13) pneumococca No Notes: Kishan neelima l 13-valent 06-18 Lightly l vaccine 14:00: roll vial Indira nn 00 (DO NOT SHAKE) before administra tion. (Same as: Prevnar 13) Ondansetron No 4 mg, Memor ia 06-14 Route: l 19:31: IVP, ONCE, Dosing Weight 94.091, kg, PRN Nausea & Vomiting, Start date: 06/14/16 14:31:00 CDT Flumazenil No 0.2 mg, Kishan neelima 06-14 Route: l 19:31: IVP, PRN, Dosing Weight 94.091, kg, PRN Benzodiaze pine Reversal, Initial dose, Start date: 06/14/16 14:31:00 CDT, Duration: 30 day, Stop date: 07/14/16 14:30:00 CDT Naloxone No 0.4 mg, Memori a 06-14 Route: l 19:31: IVP, [place] 00 Q2MIN, Dosing Weight 94.091, kg, PRN Narcotic Reversal, Start date: 06/14/16 14:31:00 CDT, Duration: 8 doses or times, Stop date: Limited # of times Labetalol No 10 mg, Memori a 06-14 Route: l 19:31: IVP, [place] 00 Q5Min, Dosing Weight 94.091, kg, PRN Elevated BP, Start date: 06/14/16 14:31:00 CDT, Duration: 5 doses or times, Stop date: Limited # of times Hydralazine No 10 mg, Kishan neelima 06-14 Route: l 19:31: IVP, [place] 00 Q20Min, Dosing Weight 94.091, kg, PRN Elevated BP, Start date: 06/14/16 14:31:00 CDT, Duration: 2 doses or times, Stop date: Limited # of times Acetaminoph No 1,000 mg, M emoria en 06-14 Route: PO, l 19:31: Drug form: [place] 00 TAB, ONCE, Dosing Weight 94.091, kg, PRN Pain Score 1-3, Start date: 06/14/16 14:31:00 CDT, Duration: 1 doses or times, Stop date: Limited # of times Ancef 0 No 2 gm, Memoria 06-14 Route: l 17:15: IVPB, [place] 00 ONCE, Dosing Weight 94.091, kg, Start date: 06/14/16 12:15:00 CDT, Duration: 1 doses or times, Stop date: 06/14/16 12:15:00 CDT, Surgical Prophylaxi s Only; For patients < 120 kg Hydralazine 2015-0 No Notes: Kishan neelima 06-13 (Same as: l 01:24: Apresoline ) Push over 5 minutes Trazodone 0 No Notes: Memori a 06-12 (Same As: l 06:20: Desyrel) [place] 00 25 mg = 1/2 x 50 mg TAB cinacalcet 2015-0 No 60 mg, Memor ia 06-11 Route: PO, l 22:00: Drug form: [place] 00 TAB, BID, Dosing Weight 94.091, kg, Start date: 06/11/16 17:00:00 CDT, Duration: 30 day, Stop date: 07/11/16 9:00:00 CDT cinacalcet 2016-0 No Notes: Memor ia 06-11 Non-Formul l 19:30: malika Drug. [place] 00 (Same as: Sensipar) cinacalcet No Notes: Memor ia 16 (Same as: l 15:37: Sensipar) iodixanol No Notes: Memori a 16 (Same as: l 13:54: Visipaque) . WASTE: F/P - Black; E - Municipal Trash Bin sodium No 1,000 mL, Memori a chloride 06-11 Rate: 100 l 0.9% 1000 13:17: ml/hr, Marvin n ml INJ 00 Infuse 1,000 mL over: 10 hr, Route: IV, Dosing Weight 94.091 kg, Total Volume: 1,000, Start date: 06/11/16 8:17:00 CDT, Stop date: 07/11/16 8:16:00 CDT Beneprotein No Notes: Kishan neelima 7 gm pkt 06-10 (Same as: l 22:00: Beneprotei [place] 00 n) Furosemide No Notes: Memor ia 20 MG Oral 15 (Same as: l Tablet 14:00: Lasix) [place] [Lasix] 00 May cause GI upset. Give with food or milk. SENOKOT-S No Notes: Memori a -15 (Same as l 14:00: Senokot-S) Equiv. to [place] e. Atenolol 50 No Notes: Kishan neelima MG Oral 15 (Same l Tablet 14:00: As:Tenormi Indira nn [Tenormin] 00 n) POLYETHYLEN No 17 gm, Kishan neelima E GLYCOL 15 Route: PO, l 3350 14:00: Daily, Dosing Weight 94.091, kg, Start date: 06/10/16 9:00:00 CDT, Duration: 30 day, Stop date: 07/09/16 9:00:00 CDT Docusate No 100 mg, Memori a 15 Route: PO, l 14:00: Drug form: CAP, BID, Dosing Weight 94.091, kg, Start date: 06/10/16 9:00:00 CDT, Duration: 30 day, Stop date: 07/09/16 17:00:00 CDT Norvasc No Notes: Memoria 9-15 (Same as: l 14:00: Norvasc) Albuterol No 3 mL, Memoria 0.833 MG/ML -15 Route: l / 14:00: INHALATION Flo Ipratropium 00 , Drug [place] Form: 0.167 MG/ML SOLN, Inhalant Dosing Solution Weight [DuoNeb] 94.091, kg, QID, Start date: 06/10/16 9:00:00 CDT, Duration: 30 day, Stop date: 07/09/16 21:00:00 CDT Streptococc Yes Notes: Kishan neelima us 9-15 Lightly l pneumoniae 14:00: roll vial He rmann serotype 1 00 (DO NOT capsular SHAKE) antigen before diphtheria administra [id number] tion. protein (Same as: conjugate Prevnar vaccine / 13) Streptococc us pneumoniae serotype 14 capsular antigen diphtheria [id number] protein conjugate vaccine / Streptococc us pneumoniae serotype 18C capsular antigen d sildenafil No Notes: Memor ia 20 MG Oral 9-15 (Same as: l Tablet 14:00: Revatio) Miralax No Notes: Memoria 9-15 Dissolve l 14:00: in 8 oz of [place] 00 water or juice. (Same as: Miralax) Metoclopram No Notes: Kishan neelima thomas 5 MG 9-15 (Same as: l Oral Tablet 12:30: Reglan) Her damon [Reglan] 00 Take 30 min before meals Lovenox No Notes: Memoria 9-15 (Same as: l 11:00: Lovenox) Glucose 50 No 1,000 mL, Me moria MG/ML / -15 Rate: 40 l Sodium 10:16: ml/hr, Chloride 00 Infuse 0.0769 over: 25 MEQ/ML hr, Route: Injectable IV, Dosing Solution Weight 94.091 kg, Total Volume: 1,000, Start date: 06/10/16 5:16:00 CDT, Duration: 30 day, Stop date: 07/10/16 5:15:00 CDT Hydralazine No Notes: Kishan neelima Hydrochlori 06-10 (Same as: l de 25 MG 05:00: Apresoline Her damon Oral Tablet 00 ) May interfere w/enteral feedings Take With Food. Albuterol No Notes: Memori a 0.833 MG/ML 06-10 (Same as: l / 03:18: Duoneb) Ipratropium 00 [place] 0.167 MG/ML Inhalant Solution [DuoNeb] Artificial No Notes: Memor ia Tears 06-10 (Same as: l 03:14: Aquasite) Flo 00 Al No Notes: Memoria hydroxide/M 06-10 (aluminum l g 03:11: hydroxide- Flo hydroxide/s 00 magnesium imethicone hyd-simeth 200 mg-200 icone mg-20 mg/5 200-200-20 mL oral mg/5ml 30 suspension ml ud INDY) Bisacodyl No Notes: Memori a 06-10 (Same As: l 03:11: Dulcolax, [place] 00 Bisco-Lax) Methocarbam No Notes: Kishan neelima ol 06-10 (Same l 03:11: as:Robaxin ) Trazodone No Notes: Memori a 06-10 (Same As: l 03:11: Desyrel) Diphenhydra No Notes: Kishan neelima mine 06-10 (Same as: l 03:11: Benadryl) Acetaminoph No Notes: Do M emoria en 06-10 not exceed l 03:11: 4 gm/day. [place] 00 (Same as: Tylenol) Ondansetron No Notes: Kishan neelima 06-10 (Same as: l 03:11: Zofran) MEDICATION WASTE Product Size: 4 mg Product Wasted: ___ mg furosemide Yes 40mg Q.5D Take 40 mg M ethodi (LASIX) 40 6-[address] MG tablet 14:17: (two) [facility]osp[facility] 38 times a l day. sildenafil Yes 20mg Q.[id number] Take 20 mg [facility] (REVATIO) 6-10 [id number] [address] mouth [address] 20 mg 14:17: 3D (three) [facility]ospita tablet 38 times a l day. warfarin 2016-0 Yes 5mg QD Take 5 mg Meth aleisha (COUMADIN) 6-[address] 5 MG tablet 14:17: daily. Hosp zion 38 Take 1 l tablet (5mg) by mouth daily for 30 days. folic acid 2016-0 Yes 1mg QD Take 1 mg Me thodi (FOLVITE) 1 6-[address] MG tablet 14:17: daily. Hospit a 38 l clonAZEPAM 2016-0 Yes 1mg Q.5D Take 1 mg Me thodi (KlonoPIN) 6-[address] 1 MG tablet 14:17: (two) Hospi ta 38 times a l day as needed for seizures. furosemide 2016-0 Yes 40mg Q.5D Take 40 mg M ethodi (LASIX) 40 6-[address] MG tablet 14:17: (two) [facility]ospita 38 times a l day. sildenafil 2016-0 Yes 20mg Q.[id number] Take 20 mg [facility] (REVATIO) 6-10 [id number] mouth [address] 20 mg 14:17: 3D (three) [facility]ospita tablet 38 times a l day. warfarin 2016-0 Yes 5mg QD Take 5 mg Meth aleisha (COUMADIN) 6-[address] 5 MG tablet 14:17: daily. Hosp zion 38 Take 1 l tablet (5mg) by mouth daily for 30 days. folic acid 2016-0 Yes 1mg QD Take 1 mg Me thodi (FOLVITE) 1 6-[address] MG tablet 14:17: daily. Hospit a 38 l clonAZEPAM 2016-0 Yes 1mg Q.5D Take 1 mg Me thodi (KlonoPIN) 6-[address] 1 MG tablet 14:17: (two) Hospi ta 38 times a l day as needed for seizures. Immunizations Ordered Filled Immunization Date Status Comments [facility] e Immunization Name Name Pneumococcal 2021-09-25 Completed [place] o f Polysaccharide, 00:00:00 [facility] ica PPSV23 (PNEUMOVAX) Branch Pneumococcal 2021-09-25 Completed [place] o f Polysaccharide, 00:00:00 [place] [facility] PPSV23 (PNEUMOVAX) Branch Pneumococcal 2021-09-25 Completed [facility] o f Polysaccharide, 00:00:00 [place] [facility] PPSV23 (PNEUMOVAX) Branch Pneumococcal 2021-09-25 Completed [facility] o f Polysaccharide, 00:00:00 [place] [facility] PPSV23 (PNEUMOVAX) Branch Pneumococcal 2021-09-25 Completed [facility] o f Polysaccharide, 00:00:00 [place] [facility] PPSV23 (PNEUMOVAX) Branch Pneumococcal 2021-09-25 Completed [facility] o f Polysaccharide, 00:00:00 [place] [facility] PPSV23 (PNEUMOVAX) Branch Pneumococcal 2021-09-25 Completed [facility] o f Polysaccharide, 00:00:00 [place] [facility] PPSV23 (PNEUMOVAX) Branch Pneumococcal 2021-09-25 Completed [facility] o f Polysaccharide, 00:00:00 [place] [facility] PPSV23 (PNEUMOVAX) Branch Pneumococcal 2021-09-25 Completed [facility] o f Polysaccharide, 00:00:00 [place] [facility] PPSV23 (PNEUMOVAX) Branch Pneumococcal 2021-09-25 Completed [facility] o f Polysaccharide, 00:00:00 [place] [facility] PPSV23 (PNEUMOVAX) Branch Pneumococcal 2021-09-25 Completed [facility] o f Polysaccharide, 00:00:00 [place] [facility] PPSV23 (PNEUMOVAX) Branch Pneumococcal 2021-09-25 Completed [facility] o f Polysaccharide, 00:00:00 [place] [facility] PPSV23 (PNEUMOVAX) Branch Pneumococcal 2021-09-25 Completed [facility] o f Polysaccharide, 00:00:00 [place] [facility] PPSV23 (PNEUMOVAX) Branch Pneumococcal 2021-09-25 Completed [facility] o f Polysaccharide, 00:00:00 [place] [facility] PPSV23 (PNEUMOVAX) Branch Pneumococcal 2021-09-25 Completed [facility] o f Polysaccharide, 00:00:00 [place] [facility] PPSV23 (PNEUMOVAX) Branch Vital Signs Vital Name Observation Time Observation Value Comments Source Systolic blood 2022-04-07 21:30:00 152 mm[Hg] Un[facility] of pressure [facility] Diastolic blood 2022-04-07 21:30:00 90 mm[Hg] Unive rsity of pressure [facility] Heart rate 2022-04-07 21:30:00 65 /min [facility] Respiratory rate 2022-04-07 21:30:00 20 /min [facility] Body temperature 2022-04-07 20:54:00 37.5 Adri [facility] Oxygen saturation in 2022-04-07 20:54:00 91 /min [facility] of Arterial blood by [place] [employer] mayr Pulse oximetry Branch Body height 2022-04-02 01:35:00 162.6 cm [facility] Body weight 2022-04-02 01:35:00 95.2 kg [facility] BMI 2022-04-02 01:35:00 36.03 kg/m2 [facility] Systolic blood 2022-01-29 20:03:00 142 mm[Hg] [facility] pressure [facility] Diastolic blood 2022-01-29 20:03:00 70 mm[Hg] Unive rsity of pressure [facility] Heart rate 2022-01-29 20:03:00 63 /min [facility] Body temperature 2022-01-29 20:03:00 36.39 Adri [facility] Respiratory rate 2022-01-29 20:03:00 18 /min [facility] Oxygen saturation in 2022-01-29 20:03:00 98 /min [facility] Arterial blood by [facility] Pulse oximetry Branch Body height 2022-01-22 21:56:00 162.6 cm [facility] Body weight 2022-01-22 21:56:00 96.163 kg [facility] BMI 2022-01-22 21:56:00 36.39 kg/m2 [facility] Systolic blood 2022-01-10 10:00:00 140 mm[Hg] [facility] of pressure [facility] Diastolic blood 2022-01-10 10:00:00 82 mm[Hg] Unive rsity of pressure [facility] Heart rate 2022-01-10 10:00:00 73 /min [facility] Respiratory rate 2022-01-10 10:00:00 19 /min [facility] Oxygen saturation in 2022-01-10 10:00:00 96 /min [facility] Arterial blood by [facility] Pulse oximetry Branch Body temperature 2022-01-10 07:48:00 36.83 Adri [facility] ersity of [facility] Body height 2022-01-10 07:48:00 162.6 cm [facility] ty of [facility] Body weight 2022-01-10 07:48:00 108.863 kg Universi ty [facility] BMI 2022-01-10 07:48:00 41.20 kg/m2 Univers[facility] ty [facility] Systolic blood 2021-09-25 17:24:00 143 mm[Hg] Univer sity of pressure [facility] Diastolic blood 2021-09-25 17:24:00 80 mm[Hg] Unive rsity of pressure [facility] Heart rate 2021-09-25 17:24:00 85 /min Universi ty [facility] Body temperature 2021-09-25 17:24:00 36.94 Adri [facility] Respiratory rate 2021-09-25 17:24:00 18 /min [facility] Oxygen saturation in 2021-09-25 17:24:00 93 /min [place] of Arterial blood by [facility] Pulse oximetry [place] Body weight 2021-09-25 09:58:00 99.973 kg [facility] BMI 2021-09-25 09:58:00 39.04 kg/m2 [facility] Body height 2021-09-18 22:02:00 160 cm [facility] Weight 2016-10-04 11:24:00 [facility] [place] BMI Calculated 2016-10-04 11:24:00 [facility] [place] Heart Rate 2016-10-04 11:24:00 [facility] Respitory Rate 2016-10-04 11:24:00 [facility] al [place] Systolic (mm Hg) 2016-10-04 11:24:00 Kishan snider [place] Diastolic (mm Hg) 2016-10-04 11:24:00 [facility] [place] Height 2016-10-04 11:24:00 162.56 cm [facility] [place] Temperature Oral (F) 2016-10-04 11:24:00 97.8 F [facility] [place] Heart Rate 2016-08-13 19:30:00 [facility] [place] Systolic (mm Hg) 2016-08-13 19:30:00 Kishan rial [place] Respitory Rate 2016-08-13 19:30:00 [facility] [place] Diastolic (mm Hg) 2016-08-13 19:30:00 Mem o[facility] Systolic (mm Hg) 2016-08-13 18:35:00 Kishan rial [place] Diastolic (mm Hg) 2016-08-13 18:35:00 [facility] [place] Systolic (mm Hg) 2016-08-13 17:58:00 Kishan rial Flo Diastolic (mm Hg) 2016-08-13 17:58:00 [facility] [place] Heart Rate 2016-08-13 13:30:00 [facility] [place] Respitory Rate 2016-08-13 13:30:00 Memori al [facility] Heart Rate 2016-08-13 10:45:00 [facility] [place] Respitory Rate 2016-08-13 01:30:00 [facility] [place] Height 2016-07-14 13:40:00 162.56 cm [facility] Weight 2016-06-26 00:21:00 [facility] [place] Weight 2016-06-22 22:55:00 [facility] [place] BMI Calculated 2016-06-22 22:55:00 [facility] [place] Height 2016-06-22 22:55:00 162.56 cm [facility] [place] Respitory Rate 2016-06-22 20:52:00 [facility] [place] Heart Rate 2016-06-22 20:52:00 [facility] [place] Systolic (mm Hg) 2016-06-22 20:52:00 Kishan rial Flo Diastolic (mm Hg) 2016-06-22 20:52:00 Mem [facility] Heart Rate 2016-06-22 17:06:00 [facility] Respitory Rate 2016-06-22 17:06:00 [facility] [place] Systolic (mm Hg) 2016-06-22 17:06:00 Kishan rial Flo Diastolic (mm Hg) 2016-06-22 17:06:00 Mem orial [place] Heart Rate 2016-06-22 12:53:00 [facility] [place] Respitory Rate 2016-06-22 12:53:00 [facility] [place] Systolic (mm Hg) 2016-06-22 12:53:00 Kishan rial Flo Diastolic (mm Hg) 2016-06-22 12:53:00 [facility] [place] Temperature Oral (F) 2016-06-21 04:30:00 99.1 F [facility] Temperature Oral (F) 2016-06-21 00:48:00 99.6 F [facility] [place] Temperature Oral (F) 2016-06-20 16:59:00 99.0 F [facility] Flo BMI Calculated 2016-06-10 02:36:00 Hiram Courtney Weight 2016-06-10 02:36:00 [facility] 2016-06-10 02:36:00 162.56 cm [facility] Procedures Procedure Date / Time Performing Source Performed Clinician COVID-19 (ID NOW RAPID 2022-04-07 Dorota Curtis [facility] TESTING) 20:49:00 Medical Branch LAB ONLY COVID INTERPRETATION 2022-04-07 Dorota Curtis [facility] 20:49:00 Medical Branch AC PANEL 20 + LACTIC ACID 2022-04-03 [facility] 13:41:00 [facility] MAGNESIUM 2022-04-03 [facility] 09:03:00 [facility] BASIC METABOLIC PANEL (NA, K, 2022-04-03 Julia Ayala, [facility] CL, CO2, GLUCOSE, BUN, 09:03:00 [facility] CREATININE, CA) CBC WITH DIFF 2022-04-03 [facility] 09:03:00 [facility] FREE T3 2022-04-03 seth [facility] 09:03:00 Medical Branch AC PANEL 20 + LACTIC ACID 2022-04-02 [facility] 23:38:00 [facility] ACUTE CARE ARTERIAL BLOOD GAS 2022-04-02 Li Plata [facility] 20:44:00 Medical Branch FREE T4 2022-04-02 Patricia [facility] 20:03:00 [facility] PHENYTOIN 2022-04-02 Mariia [facility] 20:03:00 Medical Branch PHENYTOIN FREE 2022-04-02 [facility] 20:03:00 [facility] URINALYSIS 2022-04-[address] [facility] exas 18:00:00 [facility] URINE CULTURE 2022-04-02 [facility] 18:00:00 [facility] TRANSTHORACIC ECHO (TTE) 2022-04-02 Sherlyn [facility] COMPLETE W/ CONTRAST 14:56:08 Medical Bra nch XR KUB 2022-04-02 [facility] 12:06:00 [facility] ACTIVATED PARTIAL THRMPLAS 2022-04-02 [facility] 11:19:00 Medical Branch XR CHEST 1 VW 2022-04-02 Sherlyn [facility] xas 07:37:00 Medical Branch PHOSPHORUS 2022-04-02 Sherlyn [facility] xas 07:13:00 Medical Branch MAGNESIUM 2022-04-02 Sherlyn [facility] xas 07:13:00 Medical Branch BASIC METABOLIC PANEL (NA, K, 2022-04-02 Sherlyn [facility] CL, CO2, GLUCOSE, BUN, 07:13:00 Medical ran CREATININE, CA) CBC WITH DIFF 2022-04-02 Sherlyn [facility] xas 07:13:00 Medical Branch ACTIVATED PARTIAL THRMPLAS 2022-04-02 [facility] 07:13:00 Medical Branch XR KUB 2022-04-02 Sherlyn [facility] xas 03:45:00 Medical Branch HB ECG ROUTINE & RHYTHM STRIP 2022-04-02 Sherlyn [facility] 03:15:37 Medical Branch MAGNESIUM 2022-04-02 [facility] 02:58:00 Medical Branch FREE T4 2022-04-02 Sherlyn [facility] xas 02:58:00 Medical Branch THYROID STIMULATING HORMONE 2022-04-02 [facility] 02:58:00 Medical Branch HEPATIC FUNCTION PANEL 2022-04-02 [facility] ([id number]) (ALB,T.PRO,BILI 02:58:00 Medical Branch T,BU/BC,ALT,AST,ALK PHOS) BASIC METABOLIC PANEL (NA, K, 2022-04-02 Li Plata [facility] CL, CO2, GLUCOSE, BUN, 02:58:00 [facility] CREATININE, CA) PHENYTOIN 2022-04-02 [facility] ex[facility] 02:58:00 Veronica [facility] PHENYTOIN FREE 2022-04-02 Sherlyn [facility] xas 02:58:00 Medical Branch AMMONIA, PLASMA 2022-04-02 Sherlyn [facility] xas 02:57:00 [facility] ACUTE CARE ARTERIAL BLOOD GAS 2022-04-02 [facility] 02:57:00 Medical Branch CBC WITH DIFF 2022-04-02 Sherlyn [facility] xas 02:57:00 Medical Branch SPUTUM CULTURE 2022-04-02 Sherlyn [facility] xas 02:57:00 Medical Branch MRSA / MSSA SCREEN BY PCR, 2022-04-02 Li Plata [facility] NARES 02:57:00 Medical Branch ELECTROENCEPHALOGRAM 2022-04-02 Sherlyn [facility] 00:00:00 Medical Branch BLOOD CULTURE SCREEN 2022-04-01 Rani Guo [facility] 22:14:00 Medical Branch COVID-19 (ID NOW RAPID 2022-04-01 [facility] TESTING) 22:13:00 Medical Branch LAB ONLY COVID INTERPRETATION 2022-04-01 [facility] 22:13[facility] CERVICAL SPINE WO CONTRAST 2022-04-01 [facility] 21[facility]27:[address] HEAD WO CONTRAST 2022-04-01 Rani Guo [facility] 21:27:35 Medical Branch HB ECG ROUTINE & RHYTHM STRIP 2022-04-01 [facility] 20:56:53 Medical Branch AC PANEL 20 + LACTIC ACID 2022-04-01 [facility] 20:55:00 Medical Branch URINALYSIS 2022-04-01 Rani Guo [facility] 20:47:00 [facility] URINE CULTURE 2022-04-01 Rani Guo [facility] 20:47:00 Medical Branch XR CHEST 1 VW 2022-04-01 Rani Guo [facility] 20:44:21 [facility] [place] INSERT EMERGENCY ENDOTRACH 2022-04-01 [facility] AIRWAY 20:34:06 [facility] CONSENT/REFUSAL FOR DIAGNOSIS 2022-04-01 Doctor Unassigned, [facility] AND TREATMENT 20:21:20 [place] [facility] LACTIC ACID WHOLE BLOOD 2022-04-01 Rani Guo [facility] 20:21:00 [facility] BLOOD CULTURE SCREEN 2022-04-01 Rani Guo [facility] 20:20:00 [facility] TROPONIN I 2022-04-01 Rani Guo [facility] 20:20:00 [facility] COMP. METABOLIC PANEL ([id number]) 2022-04-01 Rani Guo [facility] 20:20:00 [facility] PHENYTOIN 2022-04-01 Singer [facility] xas 20:20:00 [facility] CBC WITH DIFF 2022-04-01 Rani Guo [facility] 20:20:00 [facility] PROTHROMBIN TIME / INR 2022-04-01 Rani Guo [facility] 20:20:00 [facility] ACTIVATED PARTIAL THRMPLAS 2022-04-01 Rani Guo [facility] FRANCA 20:20:00 [facility] N-TERMINAL PRO-BNP 2022-04-01 Rani Guo [facility] 20:20:00 [facility] CRITICAL CARE 2022-04-01 Singer [facility] xas 20:03:00 [facility] AGREEMENTS AUTHORIZATIONS AND 2022-04-01 Doctor Nhi, [facility] IRREVOCABLE ASSIGNMENTS (FORM 05:01:00 [place] Id dical Branch 2000) REFERRAL- REQUEST/RESPONSE 2022-02-16 Doctor Paytonsschitra, [facility] 05:01:00 [place] [facility] DUPLEX VENOUS LEGS BILATERAL 2022-01-26 Jacey Hawkins [facility] - BY VASCULAR LAB 14:42:[address] [facility]GIOGRAM HEAD 2022-01-25 [facility] 18:59:[address] ANGIOGRAM NECK 2022-01-25 [facility] 18:59:42 [facility] MR BRAIN W WO CONTRAST 2022-01-24 [facility] 19:22:00 [facility] Branch MAGNESIUM 2022-01-23 [facility] 08:28:00 [facility] BASIC METABOLIC PANEL (NA, K, 2022-01-23 [facility], CO2, GLUCOSE, BUN, 08:28:00 Medical B ran CREATININE, CA) AC PANEL 20 + LACTIC ACID 2022-01-23 Ruma [facility] 07:30:00 Medical Branch CBC WITH DIFF 2022-01-23 [facility] 07:19:00 [facility] TRANSTHORACIC ECHO (TTE) 2022-01-22 [facility] COMPLETE 19:56:00 Medical Branch AC PANEL 20 + LACTIC ACID 2022-01-22 Ruma [facility] 08:57:00 Medical Branch MAGNESIUM 2022-01-22 [facility] 08:04:00 [facility] BASIC METABOLIC PANEL (NA, K, 2022-01-22 [facility], CO2, GLUCOSE, BUN, 08:04:00 Medical B ran CREATININE, CA) PHENYTOIN FREE 2022-01-22 Sherlyn [facility] xa 08:04:00 Medical Branch CBC WITH DIFF 2022-01-22 [facility] 08:04:00 [facility] N-TERMINAL PRO-BNP 2022-01-22 [facility] 08:04:00 [facility] AC PANEL 20 + LACTIC ACID 2022-01-22 [facility] 02:00:00 [facility] BLOOD CULTURE SCREEN 2022-01-21 [facility] 22:52:00 Medical Branch PHOSPHORUS 2022-01-21 [facility] 19:05:00 Medical Branch MAGNESIUM 2022-01-21 Sherlyn [facility] xas 19:05:00 Medical Branch AMMONIA, PLASMA 2022-01-21 Sherlyn [facility] xas 19:05:00 Medical Branch TROPONIN I 2022-01-21 Sherlyn [facility] xas 19:05:00 Medical Branch THYROID STIMULATING HORMONE 2022-01-21 Sherlyn [facility] 19:05:00 Medical Branch HEPATIC FUNCTION PANEL 2022-01-21 [facility] ([id number]) (ALB,T.PRO,BILI 19:05:00 Medical Branch T,BU/BC,ALT,AST,ALK PHOS) BASIC METABOLIC PANEL (NA, K, 2022-01-21 Sherlyn [facility] CL, CO2, GLUCOSE, BUN, 19:05:00 Medical ran CREATININE, CA) BLOOD CULTURE SCREEN 2022-01-21 Sherlyn [facility] 17:35:00 Medical Branch FREE T4 2022-01-21 Sherlyn [facility] xas 17:11:00 Medical Branch PHENYTOIN FREE 2022-01-21 Sherlyn [facility] xas 17:11:00 Medical Branch CBC WITH DIFF 2022-01-21 Sherlyn [facility] xas 16:54:00 Medical Branch MRSA / MSSA SCREEN BY PCR, 2022-01-21 Sherlyn [facility] NARES 16:52:[address] HEAD WO CONTRAST 2022-01-21 Sherlyn [facility] [place] 15:01:17 [facility] ACUTE CARE ARTERIAL BLOOD GAS 2022-01-21 Li Plata [facility] 12:07:00 Medical Branch XR CHEST 1 VW 2022-01-21 Sherlyn [facility] xas 11:51:55 Medical Branch HB ECG ROUTINE & RHYTHM STRIP 2022-01-21 Li Plata [facility] 11:26:36 Medical Branch KEPPRA (LEVETIRACETAM) 2022-01-21 Glenn [facility] 08:17:00 Medical Branch XR CHEST 1 VW 2022-01-21 Glenn [facility] xa 06:49:00 Medical Branch TROPONIN I 2022-01-21 Glenn [facility] xa 06:05:00 Medical Branch COMP. METABOLIC PANEL ([id number]) 2022-01-21 Tony Elizabeth [facility] 06:05:00 Medical Branch N-TERMINAL PRO-BNP 2022-01-21 Glenn [facility] 06:05:00 [facility] URINALYSIS 2022-01-21 Glenn [facility] xa 04:54:00 [facility] URINE CULTURE 2022-01-21 Glenn [facility] xa 04:54:00 Medical Branch CBC WITH DIFF 2022-01-21 Glenn [facility] 04:53:00 [facility] HB ECG ROUTINE & RHYTHM STRIP 2022-01-21 Tony Elizabeth [facility] 04:43:38 [facility] POCT GLUCOSE (AUTOMATED) 2022-01-21 Doctor Unassigned, [facility] 04:43:00 [place] [facility] ELECTROENCEPHALOGRAM 2022-01-21 Li Plata [facility] 00:00:00 [facility] EMERGENCY DEPARTMENT 2022-01-20 Doctor Unassigned, [facility] DOCUMENTS 05:01:00 [place] [facility] HOSPITAL ADMISSION 2022-01-20 Doctor Unassigned, [facility] 05:01:00 [place] [facility] XR CHEST 1 VW 2022-01-[address] [facility] ex 08:31:58 Medical Branch LIPASE 2022-01-10 Owen Farrar [facility] ex 08:27:00 Medical Branch TROPONIN I 2022-01-10 [facility] ex 08:27:00 Medical Branch COMP. METABOLIC PANEL ([id number]) 2022-01-10 Owen Farrar [facility] 08:27:00 Medical Branch CBC WITH DIFF 2022-01-[address] [facility] ex 08:27:00 Medical Branch PROTHROMBIN TIME / INR 2022-01-10 Owen Farrar [facility] 08:27:00 Medical Branch ACTIVATED PARTIAL THRMPLAS 2022-01-10 [facility] FRANCA 08:27:00 Medical Branch N-TERMINAL PRO-BNP 2022-01-10 Owen Farrar [facility] [place] 08:27:00 Medical Branch BASIC METABOLIC PANEL (NA, K, 2021-09-23 Laith T[facility]a [facility], CO2, GLUCOSE, BUN, 20:00:00 Medical B ranch CREATININE, CA) CBC WITH DIFF 2021-09-23 Ayse [facility] xas 20:00:00 Medical Branch COVID-19 (MOLECULAR TESTING 2021-09-21 [facility] NUCLEIC [facility]PLIFICATION) 19:22:00 Med ical Branch LAB ONLY COVID INTERPRETATION 2021-09-21 Laith Tavera [facility] 19:22:00 Medical Branch BASIC METABOLIC PANEL (NA, K, 2021-09-20 AleksJesika hanson Un [facility] CL, CO2, GLUCOSE, BUN, 08:17:00 Medical B ran CREATININE, CA) BASIC METABOLIC PANEL (NA, K, 2021-09-17 Jorge Aj [facility] CL, CO2, GLUCOSE, BUN, 10:06:00 Medical B ran CREATININE, CA) US RETROPERITONEAL COMPLETE 2021-09-16 Jorge Aj [facility] 21:51:27 [facility] ELECTROPHORESIS, SERUM 2021-09-16 Jorge Aj [facility] 21:36:00 [facility] HEPATITIS B SURFACE ANTIBODY 2021-09-16 Jorge Aj [facility] 21:36:00 [facility] HBC ANTIBODY (IGM & IGG) 2021-09-[address] [facility] 21:36:00 [facility] RPR (QUANTITATIVE) 2021-09-16 Jorge Aj [facility] 21:36:00 [facility] HEPATITIS C VIRUS (HCV) BY 2021-09-16 Jorge Aj [facility] QUANTITATIVE NAAT 21:36:00 [facility] MICROALBUMIN URINE 2021-09-16 Kourtney [facility] 11:24:00 Medical Branch PHOSPHORUS 2021-09-16 Sparks [facility] ex 11:17:00 Medical Branch PROTEIN TOTAL 2021-09-16 [facility] 11:17:00 [facility] ALBUMIN 2021-09-16 [facility] 11:17:00 [facility] LACTATE DEHYDROGENASE 2021-09-16 [facility] 11:17:00 Medical Branch MAGNESIUM 2021-09-16 [facility] 11:17:00 Medical Branch FERRITIN SERUM 2021-09-16 [facility] ex 11:17:00 [facility] C-REACTIVE PROTEIN 2021-09-16 [facility] [place] 11:17:00 [facility] HEPATIC FUNCTION PANEL 2021-09-16 Luis [facility] ([id number]) (ALB,T.PRO,BILI 11:17:00 [facility] T,BU/BC,ALT,AST,ALK PHOS) BASIC METABOLIC PANEL (NA, K, 2021-09-16 [facility] CL, CO2, GLUCOSE, BUN, 11:17:00 [facility] ranch CREATININE, CA) CBC WITH DIFF 2021-09-16 [facility] exas 11:17:00 [facility] GLYCOSYLATED HEMOGLOBIN (A1C) 2021-09-16 Jorge Aj [facility] 11:17:00 [facility] D-DIMER 2021-09-16 [facility] 11:17:00 [facility] HEPATITIS B SURFACE ANTIGEN 2021-09-16 Jorge Aj [facility] 11:17:00 [facility] HCV ANTIBODY 2021-09-16 Jean Marie [facility] xas 11:17:00 [facility] HIV 1/2 AG-AB WITH REFLEX 2021-09-16 Jorge Aj [facility] 11:17:00 [facility] MAGNESIUM 2021-09-15 [facility] 11:22:00 Medical Branch PROTEIN CREAT RATIO URINE 2021-09-15 [facility] RANDOM 03:14:00 [facility] PHOSPHORUS 2021-09-14 [facility] 18:31:00 Medical Branch BASIC METABOLIC PANEL (NA, K, 2021-09-14 [facility] CL, CO2, GLUCOSE, BUN, 18:31:00 Medical B ranch CREATININE, CA) CBC WITH DIFF 2021-09-14 [facility] 18:31:00 Medical Branch LACTATE DEHYDROGENASE 2021-09-14 [facility], [facility] 11:11:00 Medical Branch FERRITIN SERUM 2021-09-14 [facility] 11:11:00 [facility] C-REACTIVE PROTEIN 2021-09-14 [facility] 11:11:00 [facility] D-DIMER 2021-09-14 [facility] 11:11:00 [facility] N-TERMINAL PRO-BNP 2021-09-14 [facility] 11:11:00 Medical Branch XR CHEST 1 VW 2021-09-13 [facility] 16:07:00 Medical Branch URINALYSIS 2021-09-13 [facility] 15:40:00 Medical Branch CREATININE, URINE RANDOM 2021-09-13 [facility] 15:40:00 Medical Branch SODIUM, URINE RANDOM 2021-09-13 [facility] 15:40:00 Medical Branch MAGNESIUM 2021-09-13 [facility] xas 10:44:00 Medical Branch BASIC METABOLIC PANEL (NA, K, 2021-09-13 [facility], CO2, GLUCOSE, BUN, 10:44:00 [facility] CREATININE, CA) CBC WITH DIFF 2021-09-13 Joe [facility] xas 10:44:00 Medical Branch PHOSPHORUS 2021-09-12 [facility] 09:43:00 Medical Branch MAGNESIUM 2021-09-12 [facility] 09:43:00 Medical Branch BASIC METABOLIC PANEL (NA, K, 2021-09-12 Jacqueline Shyam [facility] CL, CO2, GLUCOSE, BUN, 09:43:00 [facility] CREATININE, CA) CBC WITH DIFF 2021-09-12 Rehanaenrike [facility] xas 09:43:00 Medical Branch ACUTE CARE ARTERIAL BLOOD GAS 2021-09-11 [facility] 11:29:21 Medical Branch PHENYTOIN FREE 2021-09-11 [facility] 10:49:00 Medical Branch ANTI-NUCLEAR ANTIBODY SCREEN 2021-09-11 Jean Marie Txchad [facility] 10:49:00 [facility] ANTI-NUCLEAR ANTIBODY TITER 2021-09-11 Jean Marie Txchad [facility] 10:49:00 Medical Branch PHOSPHORUS 2021-09-11 [facility] 10:44:00 [facility] LACTATE DEHYDROGENASE 2021-09-11 [facility], [facility] 10:44:00 Medical Branch MAGNESIUM 2021-09-11 [facility], [facility] 10:44:00 Medical Branch FERRITIN SERUM 2021-09-11 [facility], [facility] 10:44:00 [facility] C-REACTIVE PROTEIN 2021-09-11 [facility] 10:44:00 [facility] BASIC METABOLIC PANEL (NA, K, 2021-09-11 [facility] CL, CO2, GLUCOSE, BUN, 10:44:00 [facility] CREATININE, CA) CBC WITH DIFF 2021-09-11 [facility] 10:44:00 [facility] D-DIMER 2021-09-11 [facility] 10:44:00 [facility] URINE CULTURE 2021-09-11 [facility], [facility] 08:59:00 [facility] MRSA / MSSA SCREEN BY PCR, 2021-09-11 [facility] NARES 08:59:00 [facility] TRANSTHORACIC ECHO (TTE) 2021-09-10 [facility] COMPLETE 21:40:56 Medical Branch BLOOD CULTURE SCREEN 2021-09-10 [facility] 21:35:00 Medical Branch BLOOD CULTURE SCREEN 2021-09-10 [facility] 21:34:00 Medical Branch KEPPRA (LEVETIRACETAM) 2021-09-10 [facility] 21:34:[address] HEAD WO CONTRAST 2021-09-[address] 19:20:[address] THORAX WO CONTRAST 2021-09-10 [facility] 19:20:49 [facility] D-DIMER 2021-09-10 [facility] 18:54:00 Medical Branch POCT GLUCOSE (AUTOMATED) 2021-09-10 [facility] 18:12:00 [facility] INTERLEUKIN 6 2021-09-10 [facility] 18:10:00 [facility] LACTATE DEHYDROGENASE 2021-09-10 [facility] 18:09:00 [facility] C-REACTIVE PROTEIN 2021-09-10 [facility] 18:08:00 [facility] HB ECG ROUTINE & RHYTHM STRIP 2021-09-10 Laith Tavera [facility] 17:56:02 [facility] AC ABG + LACTIC ACID 2021-09-[facility] 17:53:00 [facility] DUPLEX VENOUS LEGS BILATERAL 2021-09-10 [facility] - BY VASCULAR LAB 17:06:00 [facility] URINALYSIS 2021-09-10 Owen Farrar [facility] 12:01:00 [facility] ACUTE CARE ARTERIAL BLOOD GAS 2021-09-10 Owen Farrar [facility] 11:27:00 Medical Branch POCT GLUCOSE (AUTOMATED) 2021-09-10 Owen Farrar [facility] 11:27:00 [facility] XR STROKE CHEST 1 VW 2021-09-10 Owen Farrar [facility] 11:10:00 [facility] LACTIC ACID WHOLE BLOOD 2021-09-[address] [facility] 11:04:00 [facility] PHOSPHORUS 2021-09-10 [facility] 11:01:00 Medical Branch MAGNESIUM 2021-09-10 [facility] 11:01:00 [facility] FERRITIN SERUM 2021-09-10 [facility] 11:01:00 Medical Branch TROPONIN I 2021-09-10 Owen Farrar [facility] exas 11:01:00 Medical Branch BASIC METABOLIC PANEL (NA, K, 2021-09-10 Owen Farrar [facility] CL, CO2, GLUCOSE, BUN, 11:01:00 [facility] ran CREATININE, CA) CBC WITHOUT DIFF 2021-09-10 Owen Farrar [facility] 11:01:00 Medical Branch PROTHROMBIN TIME / INR 2021-09-10 Owen Farrar [facility] 11:01:00 Medical Branch ACTIVATED PARTIAL THRMPLAS 2021[facility] Branch N-TERMINAL PRO-BNP 2021-09-10 Owen Farrar [place] [facility] 11:01:00 Medical Branch COVID-19 (ID NOW RAPID 2021-09-10 Owen Farrar [facility] TESTING) 11:01:00 Medical Branch LAB ONLY COVID INTERPRETATION 2021-09-10 Owen Farrar [facility] 11:01:00 Medical Branch HB ECG ROUTINE & RHYTHM STRIP 2021-09-10 Owen Farrar [facility] 10:48:[address] STROKE ANGIOGRAM HEAD 2021-09-10 Owen Farrar [facility] 10:37:[address] STROKE ANGIOGRAM NECK 2021-09-10 Owen Farrar [facility] 10:37:[address] STROKE HEAD WO CONTRAST 2021-09-10 [facility] 10:19:00 Medical Branch NOTICE OF PRIVACY PRACTICES 2021-09-10 Doctor Unassigned, [facility] 10:01:42 [place] [facility] CONSENT/REFUSAL FOR DIAGNOSIS 2021-09-10 Doctor Unassigned, [facility] AND TREATMENT 10:01:14 [place] [facility] EMERGENCY DEPARTMENT 2021-09-10 Doctor Unassigned, [facility] DOCUMENTS 06:01:00 [place] [facility] Parathyroid extract 2016-06-09 Josephine damon 05:00:00 Craniotomy [facility] Plan of Care Planned Activity Planned Date Details Comments Source Future Scheduled 2021-09-16 COVID-19 VACCINE (1) Met [facility] Test 06:00:37 [code = COVID-19 VACCINE (1)] Future Scheduled 2021-09-16 BREAST CANCER [facility] Hospital Test 06:00:37 SCREENING [code = BREAST CANCER SCREENING] Future Scheduled 2021-09-16 COLONOSCOPY SCREENING [facility] Test 06:00:37 [code = COLONOSCOPY SCREENING] Future Scheduled 2021-09-16 SHINGLES VACCINES (#1) M [facility] Hospital Test 06:00:37 [code = SHINGLES VACCINES (#1)] Future Scheduled 2021-09-16 65+ [facility]OCOCCAL [facility] Test 06:00:37 VACCINE (1 of 1 - PPSV23) [code = 65+ PNEUMOCOCCAL VACCINE (1 of 1 - PPSV23)] Future Scheduled 2021-09-16 INFLUENZA VACCINE [facility] Test 06:00:37 [code = INFLUENZA VACCINE] Future Scheduled 2021-09-16 COVID-19 VACCINE (1) Met [facility] Hospital Test 06:00:37 [code = COVID-19 VACCINE (1)] Future Scheduled 2021-09-16 BREAST CANCER [facility] Hospital Test 06:00:37 SCREENING [code = BREAST CANCER SCREENING] Future Scheduled 2021-09-16 COLONOSCOPY SCREENING [facility] Test 06:00:37 [code = COLONOSCOPY SCREENING] Future Scheduled 2021-09-16 SHINGLES VACCINES (#1) M [facility] Hospital Test 06:00:37 [code = SHINGLES VACCINES (#1)] Future Scheduled 2021-09-16 65+ PNEUMOCOCCAL [facility] Test 06:00:37 VACCINE (1 of 1 - PPSV23) [code = 65+ PNEUMOCOCCAL VACCINE (1 of 1 - PPSV23)] Future Scheduled 2021-09-16 INFLUENZA VACCINE [facility] Test 06:00:37 [code = INFLUENZA VACCINE] Encounters Start End Encounter Admission Attending Care Care Encounter Source Date/Time Date/Time Type Type Clinicians Facility Department ID 2022-04-15 2022-04-15 Outpatient R [facility] [id number] Univers 15:15:00 15:15:00 [id number] ity of [facility] 2022-04-15 2022-04-15 Outpatient R BIJAN [facility] [id number] Univers 15:15:00 15:15:00 JESSICA ity of [facility] 2022-04-13 2022-04-13 Outpatient R [facility] [id number] Univers 15:15:00 15:15:00 [id number] ity of [facility] 2022-04-08 2022-04-08 Outpatient [facility] [id number] Univers 15:15:00 15:15:00 [id number] ity of [facility] 2022-04-01 2022-04-07 [facility] [id number] Univers 15:05:00 17:45:00 [facility] it o f [facility] 2022-04-01 2022-04-07 Hospital [facility] 1.2.840.1 14 [id number] Univers 15:05:00 17:45:00 Encounter Alverto Stern 350.1.13.10 ity of [facility] 4.2.7.2.686 [place] [id number] [facility] 0[address] Pavilion 2022-04-06 2022-04-06 Outpatient R [facility] [id number] Univers 15:15:00 15:15:00 [id number] ity of [facility] 2022-04-01 2022-04-01 Outpatient R [facility] [id number] Univers 15:15:00 15:15:00 [id number] ity of [facility] 2022-03-30 2022-03-30 Ancillary Kamini Fonseca [facility] 1.2.84 0.114 [id number] Univers 15:15:00 15:56:19 Visit Jessica Thakkar 350.1.13.10 ity of [place] 4.2.7.2.686 [facility] krystian PROFESSIO [id number] Id dical NAL 179 Branch [facility] 2022-03-30 2022-03-30 Outpatient R [facility] [id number] Univers 15:15:00 15:15:00 [id number] ity [facility] 2022-03-18 2022-03-18 Ancillary Aidee Zaragoza [facility] 1.2. 840.114 [id number] Univers 15:15:00 16:00:00 Visit Jessica Thakkar 350.1.13.10 ity of [facility] [place] [id number] Id dical NAL 179 [facility] 2022-03-18 2022-03-18 Outpatient [facility] [id number] Univers 15:15:00 15:15:00 [id number] ity of [facility] 2022-03-18 2022-03-18 [facility] [id number] Univers 15:15:00 15:15:00 [facility]22-[facility]-16 2022-03-16 Ancillary Aidee Zaragoza [facility] 1.2. 840.114 [id number] Univers 15:15:00 16:00:00 Visit Jessica Thakkar 350.1.13.10 ity of [facility] [place] [id number] Id dical NAL 179 [facility] 2022-03-16 2022-03-16 Outpatient [facility] [id number] Univers 15:15:00 15:15:00 [id number] ity [facility] 2022-03-11 2022-03-11 Ancillary Kamini Fonseca [facility] 1.2.84 0.114 [id number] Univers 14:30:00 15:15:00 Visit Jessica Thakkar 350.1.13.10 ity of [facility] [place] [id number] Id dical NAL 179 [facility] 2022-03-11 2022-03-11 Outpatient [facility] [id number] Univers 14:30:00 14:30:00 [id number] ity [facility] 2022-03-09 2022-03-09 Outpatient R [facility] [id number] Univers 16:00:00 16:00:00 [id number] ity of [facility] 2022-03-04 2022-03-04 Ancillary Kamini Fonseca [facility] 1.2.84 0.114 [id number] Univers 15:15:00 17:15:21 Visit ThakkarJessica 350.1.13.10 ity of [place] [id number] Id dical NAL 179 [facility] 2022-03-04 2022-03-04 Outpatient R [facility] [id number] Univers 15:15:00 15:15:00 [id number] ity of [facility] 2022-02-25 2022-02-25 Telephone KRISTI Hawkins 1.2.840.114 [id number] Univers 00:00:00 00:00:00 Jacey MCCULLOUGH 350.1.13.10 i ty of HOSPITAL 4.2.7.2.686 Baldev as [id number] [facility] 012 Branch 2022-02-23 2022-02-23 [facility] 1.2.408.438 [id number] Univers 00:00:00 00:00:00 Dax PRIMARY 350.1.13.10 i ty of [facility] [place] [phone] Id dical 092 Branch 2022-02-16 2022-02-16 Orders Doctor KRISTI 1.2.840.114 [id number] Univers 00:00:00 00:00:00 Only Unassigned, SADIA 350.1.13.10 ity of [place] [facility] 4.2.7.2.686 Baldev as [id number] [facility] 009 Branch 2022-02-01 2022-02-01 Transition SHERI Lima 1.2.840.114 [id number] Univers 00:00:00 00:00:00 of Care Kesha DOBSON 350.1.13.10 [place] [id number] [facility] 403 Branch 2022-01-20 2022-01-29 Inpatient X CHRISTIANO MALDONADO [facility] [place] [id number] Univers 23:55:00 19:27:00 ity of [facility] 2022-01-20 2022-01-29 Hospital Tony Elizabeth 1.2.840.1 14 [id number] Univers 23:55:00 19:27:00 Encounter Derrick Stapleton 350.1.13.10 ity of Christiano Maldonado [facility] 4.2.7.2.686 [place] [id number] [facility] 098 Branch 2022-01-10 2022-01-10 Emergency X [facility] ERT [id number] Univers 02:47:00 06:46:00 IDFRED [facility] 2022-01-10 2022-01-10 Emergency [facility] 1.2.138.151 [id number] Univers 02:47:00 06:46:00 [facility] MAGNO 350.1.13.10 ity of [place] 4.2.7.2.686 [facility] [id number] [facility] 084 Branch 2021-11-02 2021-11-02 [facility] 1.2.840.114 [id number] Univers 00:00:00 00:00:00 Kishan HEALTH 350.1.13.10 it y of CANCER 4.2.7.2.686 [facility] - [id number] Med ical [facility] 196 Branch 2021-09-28 2021-09-28 Transition SHERI Lima 1.2.840.114 [id number] Univers 00:00:00 00:00:00 of Care Kesha DOBSON 350.1.13.10 it y of [place] 4.2.7.2.686 [facility] [id number] [facility] 403 Branch 2021-09-10 2021-09-25 Inpatient X VALDERRAMA, [facility] ANA [id number] Univers 04:02:00 16:46:00 LAVELLE ity of [facility] 2021-09-10 2021-09-25 [facility] GricelalOwen [facility] 1.2.840. 114 [id number] Univers 04:02:00 16:46:00 Encounter Jose Alfredo Joe [facility] 350.1.13.10 ity of [place] 4.2.7.2.686 [facility] [id number] [facility] 113 [facility] ([facility]) 2021-06-29 2021-06-29 [facility]phone [facility] 1.2.840.114 [id number] Univers 00:00:00 00:00:00 Kip [facility] 350.1.13.10 it y of [place] 4.2.7.2.686 Baldev as Puneet?Blea [id number] Id shielaramesh waters [address] [facility] 2021-06-22 2021-06-22 Telephone [facility] 1.2.840.114 [id number] Univers 00:00:00 00:00:00 [facility] 350.1.13.10 it y of Wing 4.2.7.2.686 Baldev as Puneet?Blea [id number] Id deandre davey 044 [facility] Office [facility] 2021-06-15 2021-06-15 Outpatient Mikie MENDOZA [facility] [id number] Univers 15:00:00 15:00:00 KIP [id number] [facility] 2021-06-15 2021-06-15 Outpatient Mikie MENDOZA [facility] [id number] Univers 00:00:00 00:00:00 KIP coleman [facility] 2021-06-08 2021-06-08 Outpatient Mikie MENDOZA [facility] [id number] Univers 00:00:00 00:00:00 KIP [id number] mark [facility] 2021-06-08 2021-06-08 Outpatient Mikie MENDOZA [facility] [id number] Univers 00:00:00 00:00:00 KIP coleman [facility] 2021-05-29 2021-05-29 Outpatient Mikie MENDOZA [facility] [id number] Univers 14:00:00 14:00:00 KIP coleman [facility] 2021-02-14 2021-02-14 Emergency X [facility] ERT [id number] Univers 18:01:00 18:01:00 ity [facility] 2021-02-07 2021-02-07 Emergency X BURLESON, [facility] ERT [id number] Univers 01:01:00 01:01:00 DILAN itmark [facility] 2019-11-14 2019-11-14 Outpatient Ige-Odunandrea [facility] [id number] [facility] 07:14:00 07:14:00 _J_ [id number] Family Practic e 2016-11-29 2016-11-29 Outpatient MHIE MHIE [id number] Memoria 15:00:00 15:00:00 00 l [place] 2016-10-04 2016-10-04 Emergency [facility] [id number] [facility] 11:10:00 12:54:00 r [place] 02 l [facility] 2016-06-22 2016-08-14 Inpatient nullFlavo TIRR [id number] Memoria 22:37:00 01:20:00 Rehab r [facility] 01 l [facility] 2016-06-10 2016-06-22 Inpatient [facility]Flavo [facility] [id number] Memoria 02:20:00 22:20:00 r [place] 58 [facility] Results Test Description Test Time Test Comments Results Result Comments Source BLOOD CULTURE SCREEN 2022-04-06 23:01:48 Test Item Value Reference Range Interpretation Comme nts Blood Culture-Aerobic (test No organisms isolated No growth Previous preliminary code = 12337-4) verified res ult was Culture In Prog ress on 04/01/2022 at 210 2 CDTPrevious pre liminary verified result was No growth at 24 ho urs on 04/02/2022 at 180 1 CDTPrevious pre liminary verified result was No growth at 48 ho urs on 04/03/2022 at 180 1 CDTPrevious pre liminary verified result was No growth at 72 ho urs on 04/04/2022 at 18 01 CDT Blood Culture-Anaerobic No organisms isolated No growth Previous preliminary (test code = 97412-8) verifi ed result was Culture In Prog ress on 04/01/2022 at 210 2 CDTPrevious pre liminary verified result was No growth at 24 ho urs on 04/02/2022 at 180 1 CDTPrevious pre liminary verified result was No growth at 48 ho urs on 04/03/2022 at 180 1 CDTPrevious pre liminary verified result was No growth at 72 ho urs on 04/04/2022 at 18 01 CDT Lab Interpretation (test Normal code = 92577-6) [facility] [id number] 21:01:45 Test Item Value Reference Range Interpretation Comments Blood Culture-Aerobic No organisms No growth Previo us (test code = 04342-6) isolated prelim inary verified result was Culture In Progress on 04/01/2022 at 190 1 CDTPrevious preliminary verified result was No growth a t 24 hours on 04/02/2022 at 160 1 CDTPrevious preliminary verified result was No growth a t 48 hours on 04/03/2022 at 160 1 CDTPrevious preliminary verified result was No growth a t 72 hours on 04/04/2022 at 16 01 CDT Blood No organisms No growth Previous Culture-Anaerobic isolated preliminar y (test code = 90943-1) verifi ed result was Culture In Progress on 04/01/2022 at 190 1 CDTPrevious preliminary verified result was No growth a t 24 hours on 04/02/2022 at 160 1 CDTPrevious preliminary verified result was No growth a t 48 hours on 04/03/2022 at 160 1 CDTPrevious preliminary verified result was No growth a t 72 hours on 04/04/2022 at 16 01 CDT Lab Interpretation Normal (test code = 11157-1) [id number] 12:41:08 Test Item Value Reference Range Interpretation Comments SPUTUM CULTURE 2+ Respiratory martha: (test code = 622-1) Commensal upper respiratory microorganisms only. Gram stain (test Few Epithelial cells code = 664-3) PANKAJ (test code = Bacterial pathogens PANKAJ) associated with lower respiratory infections were not identified, which include Pseudomonas aeruginosa and Staphylococcus aureus (MRSA or MSSA). General acute hospital [id number] 20:51:28 Test Item Value Reference Range Interpretation Comments FREE T3 (test code = 5393351543) 3.42 pg/mL 2.77-5.27 Lab Interpretation (test code = Normal 48212-0) General acute hospital [id number] 15:56:06 Test Item Value Reference Range Interpretation Comments FREE T4 (test code = See_Comment [Autom ated message] 1483608636) The system whic h generated this result transmitted ref erence range: 0.78 - 2 .20 ng/dL:. The ref erence range was not u sed to interpret this result as normal/abnor mal. Lab Interpretation (test Normal code = 51004-7) [facility] 20 + Lactic [id number] 13:47:01 Test Item Value Reference Range Interpretation Comments PH (test code = 2) 7.35-7.45 PCO2 (test code = See_Comment [Automat ed 8712692442) message] The sy stem which generated this result transmitted reference range : 35 - 45 mmHg. The reference range was not used to interpret this result as normal/abnormal . PO2 (test code = See_Comment H [Automated 2601713456) message] The sy stem which generated this result transmitted reference range : 80 - 100 mmHg. The reference range was not used to interpret this result as normal/abnormal . HCO3 (test code = See_Comment [Automate d 0867876210) message] The sy stem which generated this result transmitted reference range : 22 - 26 mEq/L. The reference range was not used to interpret this result as normal/abnormal . BE (test code = See_Comment [Automated 6311401550) message] The sy stem which generated this result transmitted reference range : -3.0 - 3.0 mEq/ L. The reference r coty was not used to interpret this result as normal/abnormal . THB (test code = 14.7 g/dL 12-16 6196863488) %O2HB (test code = 97.6 % 94-99 8626383390) %COHB ART (test code = 0.8 % 0-1.5 1046182974) %METHB ART (test code = 0.1 % 0.4-1.5 L 1251125726) VOL%O2 ART (test code = 20.3 % 15-23 5854211332) NA (test code = 141 mmol/L 135-145 5407903929) K+ (test code = 3.9 mmol/L 3.5-5 4643882245) AC CA IONZ (test code = 4.70 mg/dL 4.5-5.3 5122315004) GLUCOSE (test code = 127 mg/dL 70-110 H 2302209765) LACTIC ACID (test code 1.19 mmol/L 0.5-2.2 = 1921909986) Lab Interpretation Abnormal (test code = 01033-0) [facility] METABOLIC PANEL (NA, K, CL, CO2, GLUCOSE, BUN, CREATININE, CA)2022-04-03 10:01:00 Test Item Value Reference Range Interpretation Comments NA (test code = 143 mmol/L 135-145 1338893316) K (test code = 3.8 mmol/L 3.5-5 0013392628) CL (test code = 111 mmol/L 98-108 H 1537001043) CO2 TOTAL (test code = 28 mmol/L 23-31 0957063542) AGAP (test code = 2-16 0226644164) BUN (test code = 22 mg/dL 7-23 2001285259) GLUCOSE (test code = 144 mg/dL 70-110 H 1847528538) CREATININE (test code = 1.14 mg/dL 0.5-1.04 H 8435821056) CALCIUM (test code = 8.4 mg/dL 8.6-10.6 L 2382155318) eGFR (test code = mL/min/1.73m2 1268493821) PANKAJ (test code = PANKAJ) Association of Glomerular Filtration Rate (GFR) and Staging of Kidney Disease* + --+ --+ ------+| GFR (mL/min/1.73 m2) ?| With Kidney Damage ?| ?Without Kidney Damage+ --------+ --------+ +| ?>90 ?| ?Stage one ?| ? Normal ?+ ---+ ---+ -------+| ?60-89 ?| ?Stage two ?| ? Decreased GFR ? + --+ --+ ------+| ?30-59 ?| ?Stage three ?| ? Stage three ? + --+ --+ ------+| ?15-29 ?| ?Stage four ? | ? Stage four ?+ ---+ ---+ -------+| ?<15 (or dialysis) ? ?| ?Stage five ? | ? Stage five ?+ ---+ ---+ -------+ *Each stage assumes the associated GFR level has been in effect for at least three months. ?Stages 1 to 5, with or without kidney disease, indicate chronic kidney disease. Notes: Determination of stages one and two (with eGFR >59mL/min/1.73 m2) requires estimation of kidney damage for at least three months as defined by structural or functional abnormalities of the kidney, manifested by either:Pathological abnormalities or Markers of kidney damage (including abnormalities in the composition of the blood or urine or abnormalities in imaging tests). Lab Interpretation Abnormal (test code = 30019-8) [facility] 10:01:00 Test Item Value Reference Range Interpretation Comments MAGNESIUM (test code = 0466372775) 2.0 mg/dL 1.7-2.4 Lab Interpretation (test code = Normal 21744-9) [facility] WITH [id number] 09:44:18 Test Item Value Reference Range Interpretation Comments WBC (test code = See_Comment H [Automated 6690-2) message] The system which generated this result transmit lazaro reference range : 4.30 - 11.10 10*3/?L. The reference range was not used to interpret this result as normal/abnormal . RBC (test code = See_Comment H [Automated 789-8) message] The system which generated this result transmit lazaro reference range : 3.93 - 5.25 10*6/?L. The reference range was not used to interpret this result as normal/abnormal . HGB (test code = 14.7 g/dL 11.6-15 718-7) HCT (test code = 46.1 % 35.7-45.2 H 4544-3) MCV (test code = 83.8 fL 80.6-95.5 787-2) MCH (test code = 26.7 pg 25.9-32.8 785-6) MCHC (test code = 31.9 g/dL 31.6-35.1 786-4) RDW-SD (test code = 54.5 fL 39-49.9 H 40313-2) RDW-CV (test code = 18.6 % 12-15.5 H 788-0) PLT (test code = See_Comment H [Automated 777-3) message] The system which generated this result transmit lazaro reference range : 166 - 358 10*3/ ?L. The reference range was not u sed to interpret th is result as normal/abnormal . MPV (test code = 9.4 fL 9.5-12.9 L 88335-9) NRBC/100 WBC (test See_Comment [Automat ed code = 4292507411) message] The system which generated this result transmit lazaro reference range : 0.0 - 10.0 /100 WBCs. The reference range was not used to interpret this result as normal/abnormal . NRBC x10^3 (test code See_Comment [Auto mated = 9535600610) message] The system which generated this result transmit lazaro reference range : 10*3/?L. The reference range was not used to interpret this result as normal/abnormal . GRAN MAT (NEUT) % 80.5 % (test code = 770-8) IMM GRAN % (test code 0.60 % = 1753785667) LYMPH % (test code = 8.7 % 736-9) MONO % (test code = 8.8 % 5905-5) EOS % (test code = 0.8 % 713-8) BASO % (test code = 0.6 % 706-2) GRAN MAT x10^3(ANC) 10.41 10*3/uL 1.88-7.09 H (test code = 1543645659) IMM GRAN x10^3 (test 0.08 10*3/uL 0-0.06 H code = 9715855953) LYMPH x10^3 (test code 1.13 10*3/uL 1.32-3.29 L = 731-0) MONO x10^3 (test code 1.14 10*3/uL 0.33-0.92 H = 742-7) EOS x10^3 (test code = 0.10 10*3/uL 0.03-0.39 711-2) BASO x10^3 (test code 0.08 10*3/uL 0.01-0.07 H = 704-7) Lab Interpretation Abnormal (test code = 53369-9) [facility] 20 + Lactic [id number] 01:11:18 Test Item Value Reference Range Interpretation Comments PH (test code = 2) 7.35-7.45 PCO2 (test code = See_Comment [Automat ed 5391039238) message] The sy stem which generated this result transmitted reference range : 35 - 45 mmHg. The reference range was not used to interpret this result as normal/abnormal . PO2 (test code = See_Comment [Automated 4068473615) message] The sy stem which generated this result transmitted reference range : 80 - 100 mmHg. The reference range was not used to interpret this result as normal/abnormal . HCO3 (test code = See_Comment [Automate d 1801010811) message] The sy stem which generated this result transmitted reference range : 22 - 26 mEq/L. The reference range was not used to interpret this result as normal/abnormal . BE (test code = See_Comment [Automated 2051951496) message] The sy stem which generated this result transmitted reference range : -3.0 - 3.0 mEq/ L. The reference r coty was not used to interpret this result as normal/abnormal . THB (test code = 17.8 g/dL 12-16 H 8673026122) %O2HB (test code = 95.0 % 94-99 4962106743) %COHB ART (test code = 0.3 % 0-1.5 9652120833) %METHB ART (test code = 0.1 % 0.4-1.5 L 5006140812) VOL%O2 ART (test code = 23.8 % 15-23 H 6933974674) NA (test code = 143 mmol/L 135-145 7563213932) K+ (test code = 3.5 mmol/L 3.5-5 5415950189) AC CA IONZ (test code = 4.80 mg/dL 4.5-5.3 9704357851) GLUCOSE (test code = 141 mg/dL 70-110 H 3434348115) LACTIC ACID (test code 2.41 mmol/L 0.5-2.2 H = 2546713432) Lab Interpretation Abnormal (test code = 59483-5) [facility] 00:36:17 Test Item Value Reference Range Interpretation Comments PHENYTOIN (test code = 21.1 ug/mL 10-20 H 2902923014) PANKAJ (test code = PANKAJ) Toxic Range: ? 0-3 Months ? Greater than 14 ug/mL ? ? 3 Months - 150 Years ? ? Greater than 20 ug/mL Lab Interpretation (test Abnormal code = 86735-1) [facility] [id number] 00:31:14 Test Item Value Reference Range Interpretation Comments PHENY FREE (test code 2.0 ug/mL 1-2 = 6344297497) PANKAJ (test code = PANKAJ) Toxic Range: ? Greater than 2.5 ug/mL Test developed and characteristics determined by [facility] Laboratory Services. Lab Interpretation Normal (test code = 91348-6) [facility] [id number] 00:24:55 Test Item Value Reference Range Interpretation Comments PHENY FREE (test code 2.9 ug/mL 1-2 H = 3912334092) PANKAJ (test code = PANKAJ) Toxic Range: ? Greater than 2.5 ug/mL Test developed and characteristics determined by [facility] Laboratory Services. Lab Interpretation Abnormal (test code = 86580-5) [facility] 21:43:05 Test Item Value Reference Range Interpretation Comments PHENYTOIN (test code = 16.4 ug/mL 10-20 7399714313) PANKAJ (test code = PANKAJ) Toxic Range: ? 0-3 Months ? Greater than 14 ug/mL ? ? 3 Months - 150 Years ? ? Greater than 20 ug/mL Lab Interpretation (test Normal code = 68144-8) [facility] Ar[facility]ial Blood Gas. [id number] 20:47:43 Test Item Value Reference Range Interpretation Comments PH (test code = 2) 7.35-7.45 PCO2 (test code = See_Comment [Automat ed message] 8259435724) The system [employer] h generated this result transmitted ref erence range: 35 - 45 mmHg. The reference r coty was not used to interpret this result as normal/abnor mal. PO2 (test code = See_Comment [Automated message] 4599424861) The system [employer] h generated this result transmitted ref erence range: 80 - 100 mmHg. The reference r coty was not used to interpret this result as normal/abnor mal. HCO3 (test code = See_Comment [Automate d message] 8899073724) The system [employer] generated this result transmitted ref erence range: 22 - 26 mEq/L. The reference r coty was not used to interpret this result as normal/abnor mal. BE (test code = See_Comment [Automated message] 0677561875) The system [employer] generated this result transmitted ref erence range: -3.0 - 3 .0 mEq/L. The refe rence range was not u sed to interpret this result as normal/abnor mal. Lab Interpretation (test Normal code = 39802-5) [facility] (TTE)2022-04-02 17:36:36 Test Item Value Reference Range Interpretation Comments Height (test code = in 5251073486) Weight (test code = lbs 8977903095) Systolic BP (test code = mmHg 2065172481) Diastolic BP (test code mmHg = 7790487514) Heart Rate (test code = bpm 0763630822) LVOT stroke volume (test 45.40 cm3 code = 6357311949) EF(Teich) (test code = 51.90 % 0024805841) LVIDD (test code = 4.70 cm 6606029962) LVIDS (test code = 3.50 cm 0242948406) IVS (test code = 1.18 cm 0897755284) LVPWD (test code = 1.21 cm 6773279905) LVOT diameter (test code 2.19 cm = 9310682539) FS (test code = 27 % 4086317375) MV Peak E Kelley (test code 101.5 cm/s = 6893574626) E wave decelartion time 0.13 s (test code = 6644474363) MV E/e' septal (test 6.3 cm/s code = 1729371173) LA Volume Index (BP) 88.8 mL/m2 (test code = 8595513325) LA volume (BP) (test 177.3 mL code = 8655237913) LVOT peak kelley (test code 67.7 cm/s = 2735044690) LVOT mn grad (test code mmHg = 8076382313) BSA (test code = 2.00 m2 3879793423) LA size (test code = 5.6 cm 3521019331) LAV(MOD-sp2) (test code 200.50 mL = 8236061923) LAV(MOD-sp4) (test code 147.90 mL = 7884126792) Tapse (test code = 1.75 cm 7043154294) AV LVOT peak gradient mmHg (test code = 8984733514) LVOT peak VTI (test code 12.0 cm = 5028700356) LV V1 mean (test code = 45.70 cm/s 3320816820) MV Prop V (test code = 66.90 cm/s 6440115102) TR Peak Kelley (test code = 446.1 cm/s 0594353431) Triscuspid Valve mmHg Regurgitation Peak Gradient (test code = 8439815151) Ao root annulus (test 3.4 cm code = 9467725915) Ao root diam (test code 3.40 cm = 7753131316) Aortic root (test code = 3.4 cm 6443295591) PW (test code = 1.21 cm 0.6-1.3 6174502658) EF - 2D (test code = 51.90 % 72086548) Interventricular Septum 1.18 cm Diastolic Thickness by 2D (test code = 5254668) PV PHT (test code = 504.5 ms 1151244159) PV mean gradient (test mmHg code = 0019106353) PV PEAK VELOCITY (test 245.7 cm/s code = 5370011284) PV peak gradient (test mmHg code = 1761108529) Pulmonic Valve Systolic 99.1 cm Velocity Time Integral (test code = 8840324) PV Mean Kelley (test code = 194.4 cm/s 7328436480) Radiology Study observation (narrative) (test code = 33959-1) PANKAJ (test code = PANKAJ) ?Left?Ventricle: Left ventricle size is normal. Normal wall thickness. There is severe concentric hypertrophy. Reduced systolic function with a visually estimated EF of 55 - 60%. Diastolic dysfunction. Elevated left ventricular filling pressure. DD cannot be graded due to afib ?Pulmonic?Valve: Pulmonic valve is normal in structure and function. ?Tricuspid?Valve: Tricuspid valve is normal size and function. Left VentricleLeft ventricle size is normal. Normal wall thickness. There is severe concentric hypertrophy. Moderate global hypokinesis present. Reduced systolic function with a visually estimated EF of 55 - 60%. Diastolic dysfunction. Elevated left ventricular filling pressure. DD cannot be graded due to afibRight VentricleRight ventricle is severely dilated. Reduced systolic function. TAPSE is 1.75 cm. mildly reduced by TAPSE by eyeballing at least moderately reduced.Left AtriumLeft atrium is severely dilated.Right AtriumRight atrium is dilated.IVC/SVCIVC diameter is greater than 21 mm and decreases less than 50% during inspiration; therefore the estimated right atrial pressure is elevated (~15 mmHg).Mitral ValveMild mitral annular calcification. Mild transvalvular regurgitation.Tricusp id ValveTricuspid valve is normal size and function. Mild transvalvular regurgitation. There is severe pulmonary hypertension. Right ventricular systolic pressure is greater than 60 mmHg.Aortic ValveAortic valve structure is normal.Pulmonic ValveNot well visualized. Pulmonic valve is normal in structure and function. Mild transvalvular regurgitation.Ascendi ng AortaAorta is normal in size.PericardiumThe pericardium is normal.Study DetailsA complete echocardiogram was performed using 2D, color flow Doppler and spectral Doppler. 5 mL of Lumason ultrasound enhancing agent used. [facility]aP[facility] (for use with heparin drip)2022-04-02 11:59:34 Test Item Value Reference Range Interpretation Comments APTT Patient (test code See_Comment H [Au tomated message] = 3173-2) The system [employer] generated this result transmitted ref erence range: 26 - 36 Seconds. The reference range was not used to int erpret this result as normal/abnormal . Lab Interpretation (test Abnormal code = 42318-5) [facility]osph[facility]2022-07-08 08:03:14 Test Item Value Reference Range Interpretation Comments PHOSPHORUS (test code = 0376632475) 3.4 mg/dL 2.5-5 Lab Interpretation (test code = Normal 50895-4) [facility]ownBasi Metabolic Panel (BMP) (NA, K, CL, CO2, GLUCOSE, BUN, CREATININE, CA)2022-04-02 08:03:14 Test Item Value Reference Range Interpretation Comments NA (test code = 142 mmol/L 135-145 5053931787) K (test code = 3.9 mmol/L 3.5-5 9049580966) CL (test code = 113 mmol/L 98-108 H 8580881186) CO2 TOTAL (test code = 23 mmol/L 23-31 0295534440) AGAP (test code = 2-16 3470404552) BUN (test code = 21 mg/dL 7-23 9745593034) GLUCOSE (test code = 118 mg/dL 70-110 H 0143144839) CREATININE (test code = 1.15 mg/dL 0.5-1.04 H 2901028747) CALCIUM (test code = 8.7 mg/dL 8.6-10.6 2270113683) eGFR (test code = mL/min/1.73m2 4342218844) PANKAJ (test code = PANKAJ) Association of Glomerular Filtration Rate (GFR) and Staging of Kidney Disease* + --+ --+ ------+| GFR (mL/min/1.73 m2) ?| With Kidney Damage ?| ?Without Kidney Damage+ --------+ --------+ +| ?>90 ?| ?Stage one ?| ? Normal ?+ ---+ ---+ -------+| ?60-89 ?| ?Stage two ?| ? Decreased GFR ? + --+ --+ ------+| ?30-59 ?| ?Stage three ?| ? Stage three ? + --+ --+ ------+| ?15-29 ?| ?Stage four ? | ? Stage four ?+ ---+ ---+ -------+| ?<15 (or dialysis) ? ?| ?Stage five ? | ? Stage five ?+ ---+ ---+ -------+ *Each stage assumes the associated GFR level has been in effect for at least three months. ?Stages 1 to 5, with or without kidney disease, indicate chronic kidney disease. Notes: Determination of stages one and two (with eGFR >59mL/min/1.73 m2) requires estimation of kidney damage for at least three months as defined by structural or functional abnormalities of the kidney, manifested by either:Pathological abnormalities or Markers of kidney damage (including abnormalities in the composition of the blood or urine or abnormalities in imaging tests). Lab Interpretation Abnormal (test code = 98702-5) [facility] [id number] 08:03:14 Test Item Value Reference Range Interpretation Comments MAGNESIUM (test code = 6204596292) 1.9 mg/dL 1.7-2.4 Lab Interpretation (test code = Normal 74572-1) [facility] (for use with heparin drip)2022-04-02 07:55:51 Test Item Value Reference Range Interpretation Comments APTT Patient (test code See_Comment H [Au tomated message] = 9223-2) The system [employer] generated this result transmitted ref erence range: 26 - 36 Seconds. The reference range was not used to int erpret this result as normal/abnormal . Lab Interpretation (test Abnormal code = 78737-6) [facility]ownCB With [id number] 07:36:08 Test Item Value Reference Range Interpretation Comments WBC (test code = See_Comment [Automated 3690-2) message] The sy stem which generated this result transmitted reference range : 4.30 - 11.10 10*3/?L. The reference range was not used to interpret this result as normal/abnormal . RBC (test code = See_Comment H [Automated 789-8) message] The sy stem which generated this result transmitted reference range : 3.93 - 5.25 10*6/?L. The reference range was not used to interpret this result as normal/abnormal . HGB (test code = 14.9 g/dL 11.6-15 718-7) HCT (test code = 45.7 % 35.7-45.2 H 4544-3) MCV (test code = 82.3 fL 80.6-95.5 787-2) MCH (test code = 26.8 pg 25.9-32.8 785-6) MCHC (test code = 32.6 g/dL 31.6-35.1 786-4) RDW-SD (test code = 51.8 fL 39-49.9 H 31302-1) RDW-CV (test code = 17.9 % 12-15.5 H 788-0) PLT (test code = See_Comment H [Automated 777-3) message] The sy stem which generated this result transmitted reference range : 166 - 358 10*3/ ?L. The reference r coty was not used to interpret this result as normal/abnormal . MPV (test code = 9.3 fL 9.5-12.9 L 19154-3) NRBC/100 WBC (test See_Comment [Automat ed code = 4656182301) message] The system which generated this result transmitted reference range : 0.0 - 10.0 /100 WBCs. The refer ence range was not u sed to interpret th is result as normal/abnormal . NRBC x10^3 (test code See_Comment [Auto mated = 7209762457) message] The s ystem which generated this result transmitted reference range : 10*3/?L. The reference range was not used to interpret this result as normal/abnormal . GRAN MAT (NEUT) % 80.2 % (test code = 770-8) IMM GRAN % (test code 0.20 % = 6578100521) LYMPH % (test code = 9.5 % 736-9) MONO % (test code = 8.5 % 5905-5) EOS % (test code = 0.8 % 713-8) BASO % (test code = 0.8 % 706-2) GRAN MAT x10^3(ANC) 6.73 10*3/uL 1.88-7.09 (test code = 2994978932) IMM GRAN x10^3 (test 0-0.06 code = 7062535820) LYMPH x10^3 (test code 0.80 10*3/uL 1.32-3.29 L = 731-0) MONO x10^3 (test code 0.71 10*3/uL 0.33-0.92 = 742-7) EOS x10^3 (test code = 0.07 10*3/uL 0.03-0.39 711-2) BASO x10^3 (test code 0.07 10*3/uL 0.01-0.07 = 704-7) Lab Interpretation Abnormal (test code = 99875-8) [facility]ownThyroid Stimulating [id number] 05:07:16 Test Item Value Reference Range Interpretation Comments TSH (test code = See_Comment [Automated message] 1644374436) The system whic h generated this result transmitted ref erence range: 0.45 - 4 .70 mIU/L. The refe rence range was not u sed to interpret this result as normal/abnor mal. Lab Interpretation (test Normal code = 29059-0) [place] [address] [id number] 04:53:36 Test Item Value Reference Range Interpretation Comments FREE T4 (test code = See_Comment [Autom ated message] 3460663938) The system [employer] generated this result transmitted ref erence range: 0.78 - 2 .20 ng/dL:. The ref erence range was not u sed to interpret this result as normal/abnor mal. Lab Interpretation (test Normal code = 94283-4) [facility] Metabolic Panel (NA, K, CL, CO2, GLUCOSE, BUN, CREATININE, CA)2022-04-02 04:37:15 Test Item Value Reference Range Interpretation Comments NA (test code = 143 mmol/L 135-145 5547755934) K (test code = 4.3 mmol/L 3.5-5 7792749059) CL (test code = 114 mmol/L 98-108 H 1628242408) CO2 TOTAL (test code = 25 mmol/L 23-31 5791471893) AGAP (test code = 2-16 0272102427) BUN (test code = 21 mg/dL 7-23 9732063457) GLUCOSE (test code = 91 mg/dL 70-110 4827431118) CREATININE (test code = 1.21 mg/dL 0.5-1.04 H 4552050208) CALCIUM (test code = 8.6 mg/dL 8.6-10.6 4223435834) eGFR (test code = mL/min/1.73m2 4271556605) PANKAJ (test code = PANKAJ) Association of Glomerular Filtration Rate (GFR) and Staging of Kidney Disease* + --+ --+ ------+| GFR (mL/min/1.73 m2) ?| With Kidney Damage ?| ?Without Kidney Damage+ --------+ --------+ +| ?>90 ?| ?Stage one ?| ? Normal ?+ ---+ ---+ -------+| ?60-89 ?| ?Stage two ?| ? Decreased GFR ? + --+ --+ ------+| ?30-59 ?| ?Stage three ?| ? Stage three ? + --+ --+ ------+| ?15-29 ?| ?Stage four ? | ? Stage four ?+ ---+ ---+ -------+| ?<15 (or dialysis) ? ?| ?Stage five ? | ? Stage five ?+ ---+ ---+ -------+ *Each stage assumes the associated GFR level has been in effect for at least three months. ?Stages 1 to 5, with or without kidney disease, indicate chronic kidney disease. Notes: Determination of stages one and two (with eGFR >59mL/min/1.73 m2) requires estimation of kidney damage for at least three months as defined by structural or functional abnormalities of the kidney, manifested by either:Pathological abnormalities or Markers of kidney damage (including abnormalities in the composition of the blood or urine or abnormalities in imaging tests). Lab Interpretation Abnormal (test code = 16223-4) [facility]ownMagnesium2022-07-08 04:37:15 Test Item Value Reference Range Interpretation Comments MAGNESIUM (test code = 5527544811) 1.9 mg/dL 1.7-2.4 Lab Interpretation (test code = Normal 31726-6) [facility]ownHEPATIC FUNCTION PANEL (43496) (ALB,T.PRO,BILI T,BU/BC,ALT,AST,ALK PHOS)2022-04-02 04:37:15 Test Item Value Reference Range Interpretation Comments TOTAL BILI (test code = 5837151064) 0.4 mg/dL 0.1-1.1 BILI UNCON (test code = 6398768738) 0.3 mg/dL 0.1-1.1 BILI CONJ (test code = 9547197213) 0.0 mg/dL 0-0.3 T PROTEIN (test code = 7716807973) 5.7 g/dL 6.3-8.2 L ALBUMIN (test code = 4744962629) 3.2 g/dL 3.5-5 L ALK PHOS (test code = 7864351910) 122 U/L 34-122 ALTv (test code = 1742-6) 25 U/L 5-35 AST(SGOT) (test code = 1834014586) 37 U/L 13-40 Lab Interpretation (test code = Abnormal 99069-1) [facility]ownAmmonia2022-07-08 03:32:38 Test Item Value Reference Range Interpretation Comments AMMONIA (test code = 5575205484) 9-33 L Lab Interpretation (test code = Abnormal 48190-2) [facility] Care Arterial Blood Gas. [id number] 03:15:27 Test Item Value Reference Range Interpretation Comments PH (test code = 2) 7.35-7.45 PCO2 (test code = See_Comment [Automat ed message] 4963919285) The system [employer] generated this result transmitted ref erence range: 35 - 45 mmHg. The reference r coty was not used to interpret this result as normal/abnor mal. PO2 (test code = See_Comment H [Automated message] 9420240438) The system [employer] generated this result transmitted ref erence range: 80 - 100 mmHg. The reference r coty was not used to interpret this result as normal/abnor mal. HCO3 (test code = See_Comment [Automate d message] 9490550968) The system [employer] generated this result transmitted ref erence range: 22 - 26 mEq/L. The reference r coty was not used to interpret this result as normal/abnor mal. BE (test code = See_Comment [Automated message] 6731977337) The system [employer] generated this result transmitted ref erence range: -3.0 - 3 .0 mEq/L. The refe rence range was not u sed to interpret this result as normal/abnor mal. Lab Interpretation (test Abnormal code = 20382-2) [facility] With [id number] 03:10:31 Test Item Value Reference Range Interpretation Comments WBC (test code = See_Comment [Automated 6690-2) message] The sy stem which generated this result transmitted reference range : 4.30 - 11.10 10*3/?L. The reference range was not used to interpret this result as normal/abnormal . RBC (test code = See_Comment H [Automated 889-8) message] The sy stem which generated this result transmitted reference range : 3.93 - 5.25 10*6/?L. The reference range was not used to interpret this result as normal/abnormal . HGB (test code = 14.6 g/dL 11.6-15 718-7) HCT (test code = 44.5 % 35.7-45.2 4544-3) MCV (test code = 82.7 fL 80.6-95.5 787-2) MCH (test code = 27.1 pg 25.9-32.8 785-6) MCHC (test code = 32.8 g/dL 31.6-35.1 786-4) RDW-SD (test code = 51.8 fL 39-49.9 H 29040-2) RDW-CV (test code = 17.7 % 12-15.5 H 788-0) PLT (test code = See_Comment H [Automated 777-3) message] The sy stem which generated this result transmitted reference range : 166 - 358 10*3/ ?L. The reference r coty was not used to interpret this result as normal/abnormal . MPV (test code = 9.1 fL 9.5-12.9 L 55798-5) NRBC/100 WBC (test See_Comment [Automat ed code = 0555163062) message] The system which generated this result transmitted reference range : 0.0 - 10.0 /100 WBCs. The refer ence range was not u sed to interpret th is result as normal/abnormal . NRBC x10^3 (test code See_Comment [Auto mated = 6979185761) message] The s ystem which generated this result transmitted reference range : 10*3/?L. The reference range was not used to interpret this result as normal/abnormal . GRAN MAT (NEUT) % 73.2 % (test code = 770-8) IMM GRAN % (test code 0.20 % = 2421977391) LYMPH % (test code = 16.1 % 736-9) MONO % (test code = 8.0 % 5905-5) EOS % (test code = 1.4 % 713-8) BASO % (test code = 1.1 % 706-2) GRAN MAT x10^3(ANC) 5.88 10*3/uL 1.88-7.09 (test code = 7888776935) IMM GRAN x10^3 (test 0-0.06 code = 6090327596) LYMPH x10^3 (test code 1.29 10*3/uL 1.32-3.29 L = 731-0) MONO x10^3 (test code 0.64 10*3/uL 0.33-0.92 = 742-7) EOS x10^3 (test code = 0.11 10*3/uL 0.03-0.39 711-2) BASO x10^3 (test code 0.09 10*3/uL 0.01-0.07 H = 704-7) Lab Interpretation Abnormal (test code = 20919-3) [facility] 21:09:14 Test Item Value Reference Range Interpretation Comments PHENYTOIN (test code = 4.2 ug/mL 10-20 L 6250025996) PANKAJ (test code = PANKAJ) Toxic Range: ? 0-3 Months ? Greater than 14 ug/mL ? ? 3 Months - 150 Years ? ? Greater than 20 ug/mL Lab Interpretation (test Abnormal code = 11842-5) [facility]ownTROPONIN [id number] 21:00:32 Test Item Value Reference Interpretation Comments Range TROPONIN I (test 0.029 ng/mL See_Comment [Automated code = 7019296044) message] The system which generated this result transmitted reference range : <=0.034. The reference range was not used to interpret this result as normal/abnormal . PANKAJ (test code = Reference (Normal) PANKAJ) Range (defined by the 99th percentile reference limit): <= 0.034 ng/mL Note: Cardiac troponin begins to rise 3-4 hours after the onset of ischemia. Repeat in 4-6 hours if the sample was drawn within 3-4 hours of the onset of the symptom and found normal. Diagnosis of myocardial injury is made with acute changes in cTn concentrations with at least one serial sample above the 99th percentile upper reference limit (URL), taken together with the patient's clinical presentation. Biotin has been reported to cause a negative bias, interpret results relative to patient's use of biotin. Lab Interpretation Normal (test code = 90730-3) [facility]ownN-TERMINAL [id number] 20:57:10 Test Item Value Reference Range Interpretation Comments NT-proBNP (test code 4720 pg/mL See_Comment H [Autom ated = 3572596378) message] The system which generated this result transmitted reference range : <=125. The reference range was not used to interpret this result as normal/abnormal . PANKAJ (test code = PANKAJ) Biotin has been reported to cause a negative bias, interpret results relative to patient's use of biotin. Lab Interpretation Abnormal (test code = 12141-3) [facility]. METABOLIC PANEL (73985)2022-04-01 20:49:11 Test Item Value Reference Range Interpretation Comments NA (test code = 143 mmol/L 135-145 5414561190) K (test code = 4.5 mmol/L 3.5-5 7494127906) CL (test code = 107 mmol/L 98-108 5732946640) CO2 TOTAL (test code = 26 mmol/L 23-31 5313927789) AGAP (test code = 2-16 7798692405) BUN (test code = 21 mg/dL 7-23 3862432752) GLUCOSE (test code = 150 mg/dL 70-110 H 4426309933) CREATININE (test code = 1.04 mg/dL 0.5-1.04 7258426721) TOTAL BILI (test code = 0.4 mg/dL 0.1-1.4 3999343908) CALCIUM (test code = 9.0 mg/dL 8.6-10.6 2344022939) T PROTEIN (test code = 6.5 g/dL 6.3-8.2 8561219667) ALBUMIN (test code = 3.9 g/dL 3.5-5 2135280380) ALK PHOS (test code = 137 U/L 34-122 H 2112741464) ALTv (test code = 30 U/L 5-35 1742-6) AST(SGOT) (test code = 36 U/L 13-40 3458688108) eGFR (test code = mL/min/1.73m2 1080363165) PANKAJ (test code = PANKAJ) Association of Glomerular Filtration Rate (GFR) and Staging of Kidney Disease* + --+ --+ ------+| GFR (mL/min/1.73 m2) ?| With Kidney Damage ?| ?Without Kidney Damage+ --------+ --------+ +| ?>90 ?| ?Stage one ?| ? Normal ?+ ---+ ---+ -------+| ?60-89 ?| ?Stage two ?| ? Decreased GFR ? + --+ --+ ------+| ?30-59 ?| ?Stage three ?| ? Stage three ? + --+ --+ ------+| ?15-29 ?| ?Stage four ? | ? Stage four ?+ ---+ ---+ -------+| ?<15 (or dialysis) ? ?| ?Stage five ? | ? Stage five ?+ ---+ ---+ -------+ *Each stage assumes the associated GFR level has been in effect for at least three months. ?Stages 1 to 5, with or without kidney disease, indicate chronic kidney disease. Notes: Determination of stages one and two (with eGFR >59mL/min/1.73 m2) requires estimation of kidney damage for at least three months as defined by structural or functional abnormalities of the kidney, manifested by either:Pathological abnormalities or Markers of kidney damage (including abnormalities in the composition of the blood or urine or abnormalities in imaging tests). Lab Interpretation Abnormal (test code = 58764-5) [facility]ownACTIVATED PARTIAL THRMPLAS [id number] 20:48:30 Test Item Value Reference Range Interpretation Comments APTT Patient (test See_Comment [Automat ed code = 3173-2) message] The system which generated this result transmitted reference range : 23 - 38 Seconds . The reference range was not used to interpr et this result as normal/abnormal . PANKAJ (test code = PANKAJ) The [facility] patient population mean normal value for aPTT is 30 seconds. Lab Interpretation Normal (test code = 13555-9) [facility]ownProthrombin Time / [id number] 20:46:10 Test Item Value Reference Range Interpretation Comments PROTIME PATIENT (test See_Comment [Auto mated message] code = 5964-2) The system wh ich generated this result transmitted ref erence range: 12.0 - 1 4.7 Seconds. The re ference range was not u sed to interpret this result as normal/abnor mal. INR (test code = 6301-6) Nor mal INR <1.1; Warfarin Therap eutic range 2.0 to 3. 0 or 2.5 to 3.5, dep ending upon the indica tions. Lab Interpretation (test Normal code = 90822-5) [facility] WITH [id number] 20:37:07 Test Item Value Reference Range Interpretation Comments WBC (test code = See_Comment [Automated 6690-2) message] The sy stem which generated this result transmitted reference range : 4.30 - 11.10 10*3/?L. The reference range was not used to interpret this result as normal/abnormal . RBC (test code = See_Comment H [Automated 789-8) message] The sy stem which generated this result transmitted reference range : 3.93 - 5.25 10*6/?L. The reference range was not used to interpret this result as normal/abnormal . HGB (test code = 16.0 g/dL 11.6-15 H 718-7) HCT (test code = 50.8 % 35.7-45.2 H 4544-3) MCV (test code = 84.8 fL 80.6-95.5 787-2) MCH (test code = 26.7 pg 25.9-32.8 785-6) MCHC (test code = 31.5 g/dL 31.6-35.1 L 786-4) RDW-SD (test code = 52.8 fL 39-49.9 H 84498-6) RDW-CV (test code = 18.0 % 12-15.5 H 788-0) PLT (test code = See_Comment H [Automated 777-3) message] The sy stem which generated this result transmitted reference range : 166 - 358 10*3/ ?L. The reference r ctoy was not used to interpret this result as normal/abnormal . MPV (test code = 9.3 fL 9.5-12.9 L 03579-3) NRBC/100 WBC (test See_Comment [Automat ed code = 0008794189) message] The system which generated this result transmitted reference range : 0.0 - 10.0 /100 WBCs. The refer ence range was not u sed to interpret th is result as normal/abnormal . NRBC x10^3 (test code See_Comment [Auto mated = 7846856298) message] The s ystem which generated this result transmitted reference range : 10*3/?L. The reference range was not used to interpret this result as normal/abnormal . GRAN MAT (NEUT) % 80.7 % (test code = 770-8) IMM GRAN % (test code 0.50 % = 1335032702) LYMPH % (test code = 8.6 % 736-9) MONO % (test code = 4.5 % 5905-5) EOS % (test code = 4.5 % 713-8) BASO % (test code = 1.2 % 706-2) GRAN MAT x10^3(ANC) 6.28 10*3/uL 1.88-7.09 (test code = 3655008331) IMM GRAN x10^3 (test 0.04 10*3/uL 0-0.06 code = 1595573753) LYMPH x10^3 (test code 0.67 10*3/uL 1.32-3.29 L = 731-0) MONO x10^3 (test code 0.35 10*3/uL 0.33-0.92 = 742-7) EOS x10^3 (test code = 0.35 10*3/uL 0.03-0.39 711-2) BASO x10^3 (test code 0.09 10*3/uL 0.01-0.07 H = 704-7) Lab Interpretation Abnormal (test code = 04109-4) [facility] [id number] 20:25:20 Test Item Value Reference Range Interpretation Comments LACTIC ACID (test code = 1.32 mmol/L 0.5-2.2 6921321016) Lab Interpretation (test code = Normal 01930-2) [facility] [id number] 00:01:34 Test Item Value Reference Range Interpretation Comments Blood Culture-Aerobic No organisms No growth Previo us (test code = 72464-7) isolated prelim inary verified result was Culture In Progress on 01/21/2022 at 22 01 CDTPrevious preliminary verified result was No growth a t 24 hours on 01/22/2022 at 19 01 CDTPrevious preliminary verified result was No growth a t 48 hours on 01/23/2022 at 19 01 CDTPrevious preliminary verified result was No growth a t 72 hours on 01/24/2022 at 190 1 CDT Blood No organisms No growth Previous Culture-Anaerobic isolated preliminar y (test code = 88834-0) verifi ed result was Culture In Progress on 01/21/2022 at 22 01 CDTPrevious preliminary verified result was No growth a t 24 hours on 01/22/2022 at 19 01 CDTPrevious preliminary verified result was No growth a t 48 hours on 01/23/2022 at 19 01 CDTPrevious preliminary verified result was No growth a t 72 hours on 01/24/2022 at 190 1 CDT Lab Interpretation Normal (test code = 50917-1) [facility] [id number] 19:01:29 Test Item Value Reference Range Interpretation Comments Blood Culture-Aerobic No organisms No growth Previo us (test code = 49076-6) isolated prelim inary verified result was Culture In Progress on 01/21/2022 at 17 01 CDTPrevious preliminary verified result was No growth a t 24 hours on 01/22/2022 at 14 01 CDTPrevious preliminary verified result was No growth a t 48 hours on 01/23/2022 at 14 01 CDTPrevious preliminary verified result was No growth a t 72 hours on 01/24/2022 at 140 1 CDT Blood No organisms No growth Previous Culture-Anaerobic isolated preliminar y (test code = 20090-3) verifi ed result was Culture In Progress on 01/21/2022 at 17 01 CDTPrevious preliminary verified result was No growth a t 24 hours on 01/22/2022 at 14 01 CDTPrevious preliminary verified result was No growth a t 48 hours on 01/23/2022 at 14 01 CDTPrevious preliminary verified result was No growth a t 72 hours on 01/24/2022 at 140 1 CDT Lab Interpretation Normal (test code = 09289-8) [facility] MET[facility]OLIC PANEL (NA, K, CL, CO2, GLUCOSE, BUN, CREATININE, CA)2022-01-23 09:19:54 Test Item Value Reference Range Interpretation Comments NA (test code = 141 mmol/L 135-145 5441409214) K (test code = 3.6 mmol/L 3.5-5.0 2108291599) CL (test code = 107 mmol/L 98-108 1224151400) CO2 TOTAL (test code = 27 mmol/L 23-31 1460397866) AGAP (test code = 2-16 4577978632) BUN (test code = 22 mg/dL 7-23 8735567005) GLUCOSE (test code = 77 mg/dL 70-110 7039308127) CREATININE (test code = 1.01 mg/dL 0.50-1.04 7184331835) CALCIUM (test code = 8.3 mg/dL 8.6-10.6 L 9705976463) eGFR (test code = mL/min/1.73m2 5672180396) PANKAJ (test code = PANKAJ) Association of Glomerular Filtration Rate (GFR) and Staging of Kidney Disease* + --+ --+ ------+| GFR (mL/min/1.73 m2) ?| With Kidney Damage ?| ?Without Kidney Damage+ --------+ --------+ +| ?>90 ?| ?Stage one ?| ? Normal ?+ ---+ ---+ -------+| ?60-89 ?| ?Stage two ?| ? Decreased GFR ? + --+ --+ ------+| ?30-59 ?| ?Stage three ?| ? Stage three ? + --+ --+ ------+| ?15-29 ?| ?Stage four ? | ? Stage four ?+ ---+ ---+ -------+| ?<15 (or dialysis) ? ?| ?Stage five ? | ? Stage five ?+ ---+ ---+ -------+ *Each stage assumes the associated GFR level has been in effect for at least three months. ?Stages 1 to 5, with or without kidney disease, indicate chronic kidney disease. Notes: Determination of stages one and two (with eGFR >59mL/min/1.73 m2) requires estimation of kidney damage for at least three months as defined by structural or functional abnormalities of the kidney, manifested by either:Pathological abnormalities or Markers of kidney damage (including abnormalities in the composition of the blood or urine or abnormalities in imaging tests). Lab Interpretation Abnormal (test code = 57535-7) [facility]MAGN[facility]IUM2022-04-30 09:19:54 Test Item Value Reference Range Interpretation Comments MAGNESIUM (test code = 9784147606) 2.0 mg/dL 1.7-2.4 Lab Interpretation (test code = Normal 79190-7) [facility] WITH [id number] 07:28:12 Test Item Value Reference Range Interpretation Comments WBC (test code = See_Comment [Automated 6690-2) message] The sy stem which generated this result transmitted reference range : 4.30 - 11.10 10*3/?L. The reference range was not used to interpret this result as normal/abnormal . RBC (test code = See_Comment [Automated 789-8) message] The sy stem which generated this result transmitted reference range : 3.93 - 5.25 10*6/?L. The reference range was not used to interpret this result as normal/abnormal . HGB (test code = 13.5 g/dL 11.6-15.0 718-7) HCT (test code = 42.8 % 35.7-45.2 4544-3) MCV (test code = 82.9 fL 80.6-95.5 787-2) MCH (test code = 26.2 pg 25.9-32.8 785-6) MCHC (test code = 31.5 g/dL 31.6-35.1 L 786-4) RDW-SD (test code = 44.8 fL 39.0-49.9 03932-8) RDW-CV (test code = 15.0 % 12.0-15.5 788-0) PLT (test code = See_Comment H [Automated 777-3) message] The sy stem which generated this result transmitted reference range : 166 - 358 10*3/ ?L. The reference r coty was not used to interpret this result as normal/abnormal . MPV (test code = 9.3 fL 9.5-12.9 L 07614-1) NRBC/100 WBC (test See_Comment [Automat ed code = 6554008030) message] The system which generated this result transmitted reference range : 0.0 - 10.0 /100 WBCs. The refer ence range was not u sed to interpret th is result as normal/abnormal . NRBC x10^3 (test code <0.01 See_Comment [Auto mated = 9402683922) message] The s ystem which generated this result transmitted reference range : 10*3/?L. The reference range was not used to interpret this result as normal/abnormal . GRAN MAT (NEUT) % 72.4 % (test code = 770-8) IMM GRAN % (test code 0.30 % = 2367650172) LYMPH % (test code = 14.6 % 736-9) MONO % (test code = 7.4 % 5905-5) EOS % (test code = 4.5 % 713-8) BASO % (test code = 0.8 % 706-2) GRAN MAT x10^3(ANC) 5.74 10*3/uL 1.88-7.09 (test code = 8015128096) IMM GRAN x10^3 (test <0.03 0.00-0.06 code = 8175856135) LYMPH x10^3 (test code 1.16 10*3/uL 1.32-3.29 L = 731-0) MONO x10^3 (test code 0.59 10*3/uL 0.33-0.92 = 742-7) EOS x10^3 (test code = 0.36 10*3/uL 0.03-0.39 711-2) BASO x10^3 (test code 0.06 10*3/uL 0.01-0.07 = 704-7) Lab Interpretation Abnormal (test code = 11120-1) [facility]ownTransthoracic echo (TTE)2022-01-22 22:47:07 Test Item Value Reference Range Interpretation Comments LVOT stroke volume (test 49.70 cm3 code = 6609392368) EF(Teich) (test code = 56.40 % 0590637169) LVIDD (test code = 4.80 cm 3409334226) LVIDS (test code = 3.40 cm 5537955197) IVS (test code = 1.42 cm 7092535467) LVPWD (test code = 1.39 cm 3004627760) LVOT diameter (test code 2.35 cm = 0147944533) FS (test code = 30 % 1746359998) MV Peak E Kelley (test code 93.8 cm/s = 8847672857) E wave decelartion time 0.17 s (test code = 2352323291) LA Volume Index (BP) 61.2 mL/m2 (test code = 2724521711) LA volume (BP) (test 122.8 mL code = 2109490833) LVOT peak kelley (test code 70.3 cm/s = 6671983914) LVOT mn grad (test code mmHg = 5437493634) LA size (test code = 4.9 cm 1377695524) LAV(MOD-sp2) (test code 102.10 mL = 6584495749) LAV(MOD-sp4) (test code 109.20 mL = 4290774444) Tapse (test code = 1.73 cm 4024217143) Ao peak kelley (test code = 104.1 cm/s 8594327345) AV LVOT peak gradient mmHg (test code = 1061892830) LVOT peak VTI (test code 11.5 cm = 9801611937) AV area peak kelley (test 2.9 cm2 code = 6802893427) LV V1 mean (test code = 40.70 cm/s 7423256284) Ao max PG (test code = 4.30 mm[Hg] 9398270294) MR max PG (test code = 168.50 mm[Hg] 9487255685) MR max kelley (test code = 649.10 cm/s 2694176082) MV Prop V (test code = 31.50 cm/s 3130417731) TR Peak Kelley (test code = 402.0 cm/s 4370774313) Triscuspid Valve mmHg Regurgitation Peak Gradient (test code = 2473906103) Ao root annulus (test 3.3 cm code = 2080894746) Ao root diam (test code 3.30 cm = 6363910223) AV peak gradient (test mmHg code = 4741185627) Mr max kelley (test code = 649.1 m/s 0456480696) Aortic root (test code = 3.3 cm 4770709905) PW (test code = 1.39 cm 0.6-1.9 7048436958) EF - 2D (test code = 56.40 % 52298406) Interventricular Septum 1.42 cm Diastolic Thickness by 2D (test code = 8551224) Radiology Study observation (narrative) (test code = 02397-8) PANKAJ (test code = PANKAJ) ?Left?Ventricle: Left ventricle size is normal. Increased wall thickness. There is moderate concentric hypertrophy. LV Mass index 132 g/m^2, RWT 0.58 Normal wall motion. Septal motion is normal. Normal systolic function with a visually estimated EF of 55 - 60%. Diastolic dysfunction. Elevated left ventricular filling pressure. ?Tricuspid?Valve: Moderate transvalvular regurgitation. There is severe pulmonary hypertension. ?Right ventricular systolic pressure is greater than 60 mmHg. ?RA pressure is 5-10 mmHg. ?Left?Atrium: Left atrium is severely dilated. Carl Castrejon MD [facility] Weight BSA (Calculated - sq m) BP Pulse 5' 4" (1.626 m) 212 lb (96.2 kg) 2.08 sq meters 169/100 85 [facility]ownN-TERMINAL [id number] 12:17:32 Test Item Value Reference Range Interpretation Comments NT-proBNP (test code 2730 pg/mL See_Comment H [Autom ated = 1501537789) message] The system which generated this result transmitted reference range : <=125. The reference range was not used to interpret this result as normal/abnormal . PANKAJ (test code = PANKAJ) Biotin has been reported to cause a negative bias, interpret results relative to patient's use of biotin. Lab Interpretation Abnormal (test code = 50507-1) [facility]ownPHENYTOIN [id number] 10:10:32 Test Item Value Reference Range Interpretation Comments PHENY FREE (test code <0.5 1.0-2.0 L = 2398936143) PANKAJ (test code = PANKAJ) Toxic Range: ? Greater than 2.5 ug/mL Test developed and characteristics determined by [facility] Laboratory Services. Lab Interpretation Abnormal (test code = 53996-6) [facility]BAS[facility] METABOLIC PANEL (NA, K, CL, CO2, GLUCOSE, BUN, CREATININE, CA)2022-01-22 09:21:52 Test Item Value Reference Range Interpretation Comments NA (test code = 143 mmol/L 135-145 3983052718) K (test code = 3.9 mmol/L 3.5-5.0 9686851964) CL (test code = 109 mmol/L 98-108 H 8299590518) CO2 TOTAL (test code = 28 mmol/L 23-31 8888114481) AGAP (test code = 2-16 1732978792) BUN (test code = 21 mg/dL 7-23 3925057778) GLUCOSE (test code = 72 mg/dL 70-110 8292443128) CREATININE (test code = 0.90 mg/dL 0.50-1.04 2777316522) CALCIUM (test code = 8.0 mg/dL 8.6-10.6 L 3053516113) eGFR (test code = mL/min/1.73m2 6058340821) PANKAJ (test code = PANKAJ) Association of Glomerular Filtration Rate (GFR) and Staging of Kidney Disease* + --+ --+ ------+| GFR (mL/min/1.73 m2) ?| With Kidney Damage ?| ?Without Kidney Damage+ --------+ --------+ +| ?>90 ?| ?Stage one ?| ? Normal ?+ ---+ ---+ -------+| ?60-89 ?| ?Stage two ?| ? Decreased GFR ? + --+ --+ ------+| ?30-59 ?| ?Stage three ?| ? Stage three ? + --+ --+ ------+| ?15-29 ?| ?Stage four ? | ? Stage four ?+ ---+ ---+ -------+| ?<15 (or dialysis) ? ?| ?Stage five ? | ? Stage five ?+ ---+ ---+ -------+ *Each stage assumes the associated GFR level has been in effect for at least three months. ?Stages 1 to 5, with or without kidney disease, indicate chronic kidney disease. Notes: Determination of stages one and two (with eGFR >59mL/min/1.73 m2) requires estimation of kidney damage for at least three months as defined by structural or functional abnormalities of the kidney, manifested by either:Pathological abnormalities or Markers of kidney damage (including abnormalities in the composition of the blood or urine or abnormalities in imaging tests). Lab Interpretation Abnormal (test code = 91208-3) [facility]ownMAGN[facility]UM2022-04-29 09:21:52 Test Item Value Reference Range Interpretation Comments MAGNESIUM (test code = 0570723562) 1.6 mg/dL 1.7-2.4 L Lab Interpretation (test code = Abnormal 62672-2) [facility] WITH [id number] 08:19:05 Test Item Value Reference Range Interpretation Comments WBC (test code = See_Comment [Automated 6690-2) message] The sy stem which generated this result transmitted reference range : 4.30 - 11.10 10*3/?L. The reference range was not used to interpret this result as normal/abnormal . RBC (test code = See_Comment [Automated 789-8) message] The sy stem which generated this result transmitted reference range : 3.93 - 5.25 10*6/?L. The reference range was not used to interpret this result as normal/abnormal . HGB (test code = 13.3 g/dL 11.6-15.0 718-7) HCT (test code = 42.9 % 35.7-45.2 4544-3) MCV (test code = 84.4 fL 80.6-95.5 787-2) MCH (test code = 26.2 pg 25.9-32.8 785-6) MCHC (test code = 31.0 g/dL 31.6-35.1 L 786-4) RDW-SD (test code = 45.0 fL 39.0-49.9 47055-8) RDW-CV (test code = 14.7 % 12.0-15.5 788-0) PLT (test code = See_Comment H [Automated 777-3) message] The sy stem which generated this result transmitted reference range : 166 - 358 10*3/ ?L. The reference r coty was not used to interpret this result as normal/abnormal . MPV (test code = 8.9 fL 9.5-12.9 L 88493-0) NRBC/100 WBC (test See_Comment [Automat ed code = 7228726373) message] The system which generated this result transmitted reference range : 0.0 - 10.0 /100 WBCs. The refer ence range was not u sed to interpret th is result as normal/abnormal . NRBC x10^3 (test code <0.01 See_Comment [Auto mated = 6435978304) message] The s ystem which generated this result transmitted reference range : 10*3/?L. The reference range was not used to interpret this result as normal/abnormal . GRAN MAT (NEUT) % 76.2 % (test code = 770-8) IMM GRAN % (test code 0.40 % = 4166995936) LYMPH % (test code = 12.3 % 736-9) MONO % (test code = 6.3 % 5905-5) EOS % (test code = 4.2 % 713-8) BASO % (test code = 0.6 % 706-2) GRAN MAT x10^3(ANC) 5.31 10*3/uL 1.88-7.09 (test code = 0149088311) IMM GRAN x10^3 (test 0.03 10*3/uL 0.00-0.06 code = 6949224743) LYMPH x10^3 (test code 0.86 10*3/uL 1.32-3.29 L = 731-0) MONO x10^3 (test code 0.44 10*3/uL 0.33-0.92 = 742-7) EOS x10^3 (test code = 0.29 10*3/uL 0.03-0.39 711-2) BASO x10^3 (test code 0.04 10*3/uL 0.01-0.07 = 704-7) Lab Interpretation Abnormal (test code = 01509-4) [facility]ownAC Panel 20 + Lactic [id number] 02:06:13 Test Item Value Reference Range Interpretation Comments PH (test code = 2) 7.35-7.45 PCO2 (test code = See_Comment [Automat ed 2894098595) message] The sy stem which generated this result transmitted reference range : 35 - 45 mmHg. The reference range was not used to interpret this result as normal/abnormal . PO2 (test code = See_Comment [Automated 4258709983) message] The sy stem which generated this result transmitted reference range : 80 - 100 mmHg. The reference range was not used to interpret this result as normal/abnormal . HCO3 (test code = See_Comment [Automate d 3788924489) message] The sy stem which generated this result transmitted reference range : 22 - 26 mEq/L. The reference range was not used to interpret this result as normal/abnormal . BE (test code = See_Comment [Automated 4829477244) message] The sy stem which generated this result transmitted reference range : -3.0 - 3.0 mEq/ L. The reference r coty was not used to interpret this result as normal/abnormal . THB (test code = 14.7 g/dL 12.0-16.0 1450381140) %O2HB (test code = 96.4 % 94.0-99.0 4751990952) %COHB ART (test code = 0.9 % 0.0-1.5 8813467176) %METHB ART (test code = 0.0 % 0.4-1.5 L 0704347866) VOL%O2 ART (test code = 20.0 % 15.0-23.0 2390222430) NA (test code = 143 mmol/L 135-145 5766636874) K+ (test code = 3.9 mmol/L 3.5-5.0 6197742723) AC CA IONZ (test code = 4.80 mg/dL 4.50-5.30 9821411536) GLUCOSE (test code = 93 mg/dL 70-110 3838311562) LACTIC ACID (test code 0.70 mmol/L 0.50-2.20 = 4841626595) Lab Interpretation Abnormal (test code = 88897-5) [facility]PHENY[facility]IN [id number] 20:25:10 Test Item Value Reference Range Interpretation Comments PHENY FREE (test code <0.5 1.0-2.0 L = 9706086255) PANKAJ (test code = PANKAJ) Toxic Range: ? Greater than 2.5 ug/mL Test developed and characteristics determined by [facility] Laboratory Services. Lab Interpretation Abnormal (test code = 25519-5) [facility]ptownThyroid Stimulating [id number] 20:19:50 Test Item Value Reference Range Interpretation Comments TSH (test code = See_Comment H [Automated message] 1843904203) The system [employer] generated this result transmitted ref erence range: 0.45 - 4 .70 mIU/L. The refe rence range was not u sed to interpret this result as normal/abnor mal. Lab Interpretation (test Abnormal code = 15508-1) [facility]ownBasi Metabolic Panel (NA, K, CL, CO2, GLUCOSE, BUN, CREATININE, CA)2022-01-21 20:10:06 Test Item Value Reference Range Interpretation Comments NA (test code = 141 mmol/L 135-145 5867250160) K (test code = 4.5 mmol/L 3.5-5.0 3429694965) CL (test code = 107 mmol/L 98-108 5705136311) CO2 TOTAL (test code = 30 mmol/L 23-31 0948745650) AGAP (test code = 2-16 1117057774) BUN (test code = 25 mg/dL 7-23 H 0153341372) GLUCOSE (test code = 99 mg/dL 70-110 9458998385) CREATININE (test code = 0.98 mg/dL 0.50-1.04 2442311173) CALCIUM (test code = 8.3 mg/dL 8.6-10.6 L 6508907053) eGFR (test code = mL/min/1.73m2 2802693402) PANKAJ (test code = PANKAJ) Association of Glomerular Filtration Rate (GFR) and Staging of Kidney Disease* + --+ --+ ------+| GFR (mL/min/1.73 m2) ?| With Kidney Damage ?| ?Without Kidney Damage+ --------+ --------+ +| ?>90 ?| ?Stage one ?| ? Normal ?+ ---+ ---+ -------+| ?60-89 ?| ?Stage two ?| ? Decreased GFR ? + --+ --+ ------+| ?30-59 ?| ?Stage three ?| ? Stage three ? + --+ --+ ------+| ?15-29 ?| ?Stage four ? | ? Stage four ?+ ---+ ---+ -------+| ?<15 (or dialysis) ? ?| ?Stage five ? | ? Stage five ?+ ---+ ---+ -------+ *Each stage assumes the associated GFR level has been in effect for at least three months. ?Stages 1 to 5, with or without kidney disease, indicate chronic kidney disease. Notes: Determination of stages one and two (with eGFR >59mL/min/1.73 m2) requires estimation of kidney damage for at least three months as defined by structural or functional abnormalities of the kidney, manifested by either:Pathological abnormalities or Markers of kidney damage (including abnormalities in the composition of the blood or urine or abnormalities in imaging tests). Lab Interpretation Abnormal (test code = 06474-9) [facility]ownMagnesium2022-04-28 20:10:06 Test Item Value Reference Range Interpretation Comments MAGNESIUM (test code = 3656395050) 1.8 mg/dL 1.7-2.4 Lab Interpretation (test code = Normal 97002-7) [facility]ownPhosphorous - [id number] 20:10:06 Test Item Value Reference Range Interpretation Comments PHOSPHORUS (test code = 8975375903) 4.1 mg/dL 2.5-5.0 Lab Interpretation (test code = Normal 43890-9) [facility]ownHEPATIC FUNCTION PANEL (98283) (ALB,T.PRO,BILI T,BU/BC,ALT,AST,ALK PHOS)2022-01-21 20:10:06 Test Item Value Reference Range Interpretation Comments TOTAL BILI (test code = 0.8 mg/dL 0.1-1.9 8267750791) BILI UNCON (test code = 0.4 mg/dL 0.1-1.9 3936834033) BILI CONJ (test code = 0.0 mg/dL 0.0-0.3 1535152094) T PROTEIN (test code = 6.7 g/dL 6.3-8.2 0652257418) ALBUMIN (test code = 3.6 g/dL 3.5-5.0 4856394184) ALK PHOS (test code = 70 U/L 34-122 Slight hemolysis 3674370175) ALTv (test code = 1742-6) 15 U/L 5-35 AST(SGOT) (test code = 52 U/L 13-40 H Sligh t hemolysis 0403017664) Lab Interpretation (test Abnormal code = 84192-8) [facility]ptownTroponin [id number] 20:01:23 Test Item Value Reference Interpretation Comments Range TROPONIN I (test 0.013 ng/mL See_Comment [Automated code = 7102434872) message] The system which generated this result transmitted reference range : <=0.034. The reference range was not used to interpret this result as normal/abnormal . PANKAJ (test code = Reference (Normal) PANKAJ) Range (defined by the 99th percentile reference limit): <= 0.034 ng/mL Note: Cardiac troponin begins to rise 3-4 hours after the onset of ischemia. Repeat in 4-6 hours if the sample was drawn within 3-4 hours of the onset of the symptom and found normal. Diagnosis of myocardial injury is made with acute changes in cTn concentrations with at least one serial sample above the 99th percentile upper reference limit (URL), taken together with the patient's clinical presentation. Biotin has been reported to cause a negative bias, interpret results relative to patient's use of biotin. Lab Interpretation Normal (test code = 47323-8) [facility] UptownT4 [id number] 19:24:33 Test Item Value Reference Range Interpretation Comments FREE T4 (test code = See_Comment [Autom ated message] 9263484874) The system [employer] generated this result transmitted ref erence range: 0.78 - 2 .20 ng/dL:. The ref erence range was not u sed to interpret this result as normal/abnor mal. Lab Interpretation (test Normal code = 81957-5) [facility]ownAmmonia2022-04-28 19:24:02 Test Item Value Reference Range Interpretation Comments AMMONIA (test code = <9 9-33 L Slight hemolysis 9626978087) Lab Interpretation (test Abnormal code = 12145-8) [facility] With [id number] 17:27:12 Test Item Value Reference Range Interpretation Comments WBC (test code = See_Comment [Automated 6690-2) message] The sy stem which generated this result transmitted reference range : 4.30 - 11.10 10*3/?L. The reference range was not used to interpret this result as normal/abnormal . RBC (test code = See_Comment H [Automated 059-8) message] The sy stem which generated this result transmitted reference range : 3.93 - 5.25 10*6/?L. The reference range was not used to interpret this result as normal/abnormal . HGB (test code = 14.6 g/dL 11.6-15.0 718-7) HCT (test code = 48.6 % 35.7-45.2 H 4544-3) MCV (test code = 87.9 fL 80.6-95.5 787-2) MCH (test code = 26.4 pg 25.9-32.8 785-6) MCHC (test code = 30.0 g/dL 31.6-35.1 L 786-4) RDW-SD (test code = 50.1 fL 39.0-49.9 H 51169-2) RDW-CV (test code = 19.3 % 12.0-15.5 H 788-0) PLT (test code = See_Comment H [Automated 777-3) message] The sy stem which generated this result transmitted reference range : 166 - 358 10*3/ ?L. The reference r coty was not used to interpret this result as normal/abnormal . MPV (test code = 9.4 fL 9.5-12.9 L 55302-6) NRBC/100 WBC (test See_Comment [Automat ed code = 2669688491) message] The system which generated this result transmitted reference range : 0.0 - 10.0 /100 WBCs. The refer ence range was not u sed to interpret th is result as normal/abnormal . NRBC x10^3 (test code <0.01 See_Comment [Auto mated = 2780796470) message] The s ystem which generated this result transmitted reference range : 10*3/?L. The reference range was not used to interpret this result as normal/abnormal . GRAN MAT (NEUT) % 81.9 % (test code = 770-8) IMM GRAN % (test code 0.30 % = 5785917177) LYMPH % (test code = 10.9 % 736-9) MONO % (test code = 5.7 % 5905-5) EOS % (test code = 0.2 % 713-8) BASO % (test code = 1.0 % 706-2) GRAN MAT x10^3(ANC) 7.02 10*3/uL 1.88-7.09 (test code = 5194081487) IMM GRAN x10^3 (test 0.03 10*3/uL 0.00-0.06 code = 4257561600) LYMPH x10^3 (test code 0.94 10*3/uL 1.32-3.29 L = 731-0) MONO x10^3 (test code 0.49 10*3/uL 0.33-0.92 = 742-7) EOS x10^3 (test code = <0.03 0.03-0.39 L 711-2) BASO x10^3 (test code 0.09 10*3/uL 0.01-0.07 H = 704-7) Lab Interpretation Abnormal (test code = 00704-3) [facility]-21 15:36:10 Test Item Value Reference Range Interpretation Comments KEPPRA (test code = <2 12-46 L 1132428164) PANKAJ (test code = PANKAJ) Therapeutic range: 12-46 ?g/mL ? ?Toxic: Not well established.Test developed and characteristics determined by [facility] Laboratory Services. Lab Interpretation Abnormal (test code = 05509-0) [facility] Care Arterial Blood Gas. [id number] 12:27:12 Test Item Value Reference Range Interpretation Comments PH (test code = 2) 7.35-7.45 PCO2 (test code = See_Comment H [Automat ed message] 4260507360) The system Sarata generated this result transmitted ref erence range: 35 - 45 mmHg. The reference r coty was not used to interpret this result as normal/abnor mal. PO2 (test code = See_Comment H [Automated message] 0483282919) The system Sarata generated this result transmitted ref erence range: 80 - 100 mmHg. The reference r coty was not used to interpret this result as normal/abnor mal. HCO3 (test code = See_Comment H [Automate d message] 0791658859) The system Sarata generated this result transmitted ref erence range: 22 - 26 mEq/L. The reference r coty was not used to interpret this result as normal/abnor mal. BE (test code = See_Comment [Automated message] 3059708958) The system Sarata generated this result transmitted ref erence range: -3.0 - 3 .0 mEq/L. The refe rence range was not u sed to interpret this result as normal/abnor mal. Lab Interpretation (test Abnormal code = 17614-9) [facility] [id number] 06:55:11 Test Item Value Reference Interpretation Comments Range TROPONIN I (test 0.019 ng/mL See_Comment [Automated code = 7393952632) message] The system which generated this result transmitted reference range : <=0.034. The reference range was not used to interpret this result as normal/abnormal . PANKAJ (test code = Reference (Normal) PANKAJ) Range (defined by the 99th percentile reference limit): <= 0.034 ng/mL Note: Cardiac troponin begins to rise 3-4 hours after the onset of ischemia. Repeat in 4-6 hours if the sample was drawn within 3-4 hours of the onset of the symptom and found normal. Diagnosis of myocardial injury is made with acute changes in cTn concentrations with at least one serial sample above the 99th percentile upper reference limit (URL), taken together with the patient's clinical presentation. Biotin has been reported to cause a negative bias, interpret results relative to patient's use of biotin. Lab Interpretation Normal (test code = 67377-4) [facility] [id number] 06:52:09 Test Item Value Reference Range Interpretation Comments NT-proBNP (test code 3020 pg/mL See_Comment H [Autom ated = 6477159690) message] The system which generated this result transmitted reference range : <=125. The reference range was not used to interpret this result as normal/abnormal . PANKAJ (test code = PANKAJ) Biotin has been reported to cause a negative bias, interpret results relative to patient's use of biotin. Lab Interpretation Abnormal (test code = 08309-5) [facility]COMP[facility] METABOLIC PANEL ([id number])2022-01-21 06:23:43 Test Item Value Reference Range Interpretation Comments NA (test code = 143 mmol/L 135-145 2511027847) K (test code = 4.8 mmol/L 3.5-5.0 8783805948) CL (test code = 104 mmol/L 98-108 4178790801) CO2 TOTAL (test code = 28 mmol/L 23-31 4539162148) AGAP (test code = 2-16 4496649697) BUN (test code = 29 mg/dL 7-23 H 8938145392) GLUCOSE (test code = 135 mg/dL 70-110 H 9158936340) CREATININE (test code = 1.10 mg/dL 0.50-1.04 H 4069230157) TOTAL BILI (test code = 0.6 mg/dL 0.1-1.9 8040995760) CALCIUM (test code = 9.4 mg/dL 8.6-10.6 0350784894) T PROTEIN (test code = 7.3 g/dL 6.3-8.2 9540048440) ALBUMIN (test code = 4.2 g/dL 3.5-5.0 8292130696) ALK PHOS (test code = 100 U/L 34-122 0673604184) ALTv (test code = 13 U/L 5-35 1742-6) AST(SGOT) (test code = 27 U/L 13-40 0256334467) eGFR (test code = mL/min/1.73m2 3980415197) PANKAJ (test code = PANKAJ) Association of Glomerular Filtration Rate (GFR) and Staging of Kidney Disease* + --+ --+ ------+| GFR (mL/min/1.73 m2) ?| With Kidney Damage ?| ?Without Kidney Damage+ --------+ --------+ +| ?>90 ?| ?Stage one ?| ? Normal ?+ ---+ ---+ -------+| ?60-89 ?| ?Stage two ?| ? Decreased GFR ? + --+ --+ ------+| ?30-59 ?| ?Stage three ?| ? Stage three ? + --+ --+ ------+| ?15-29 ?| ?Stage four ? | ? Stage four ?+ ---+ ---+ -------+| ?<15 (or dialysis) ? ?| ?Stage five ? | ? Stage five ?+ ---+ ---+ -------+ *Each stage assumes the associated GFR level has been in effect for at least three months. ?Stages 1 to 5, with or without kidney disease, indicate chronic kidney disease. Notes: Determination of stages one and two (with eGFR >59mL/min/1.73 m2) requires estimation of kidney damage for at least three months as defined by structural or functional abnormalities of the kidney, manifested by either:Pathological abnormalities or Markers of kidney damage (including abnormalities in the composition of the blood or urine or abnormalities in imaging tests). Lab Interpretation Abnormal (test code = 76284-4) [facility] WITH [id number] 05:20:14 Test Item Value Reference Range Interpretation Comments WBC (test code = See_Comment [Automated 6690-2) message] The sy stem which generated this result transmitted reference range : 4.30 - 11.10 10*3/?L. The reference range was not used to interpret this result as normal/abnormal . RBC (test code = See_Comment H [Automated 789-8) message] The sy stem which generated this result transmitted reference range : 3.93 - 5.25 10*6/?L. The reference range was not used to interpret this result as normal/abnormal . HGB (test code = 15.7 g/dL 11.6-15.0 H 718-7) HCT (test code = 49.5 % 35.7-45.2 H 4544-3) MCV (test code = 83.6 fL 80.6-95.5 787-2) MCH (test code = 26.5 pg 25.9-32.8 785-6) MCHC (test code = 31.7 g/dL 31.6-35.1 786-4) RDW-SD (test code = 45.4 fL 39.0-49.9 87553-4) RDW-CV (test code = 15.2 % 12.0-15.5 788-0) PLT (test code = See_Comment H [Automated 777-3) message] The sy stem which generated this result transmitted reference range : 166 - 358 10*3/ ?L. The reference r coty was not used to interpret this result as normal/abnormal . MPV (test code = 9.4 fL 9.5-12.9 L 06226-1) NRBC/100 WBC (test See_Comment [Automat ed code = 4021538099) message] The system which generated this result transmitted reference range : 0.0 - 10.0 /100 WBCs. The refer ence range was not u sed to interpret th is result as normal/abnormal . NRBC x10^3 (test code <0.01 See_Comment [Auto mated = 7088328837) message] The s ystem which generated this result transmitted reference range : 10*3/?L. The reference range was not used to interpret this result as normal/abnormal . GRAN MAT (NEUT) % 82.7 % (test code = 770-8) IMM GRAN % (test code 0.40 % = 0778951353) LYMPH % (test code = 8.6 % 736-9) MONO % (test code = 3.2 % 5905-5) EOS % (test code = 4.1 % 713-8) BASO % (test code = 1.0 % 706-2) GRAN MAT x10^3(ANC) 7.53 10*3/uL 1.88-7.09 H (test code = 6083194314) IMM GRAN x10^3 (test 0.04 10*3/uL 0.00-0.06 code = 1352408280) LYMPH x10^3 (test code 0.78 10*3/uL 1.32-3.29 L = 731-0) MONO x10^3 (test code 0.29 10*3/uL 0.33-0.92 L = 742-7) EOS x10^3 (test code = 0.37 10*3/uL 0.03-0.39 711-2) BASO x10^3 (test code 0.09 10*3/uL 0.01-0.07 H = 704-7) Lab Interpretation Abnormal (test code = 24076-9) [facility] GLUCOSE (AUTOMATED)2022-01-21 04:55:01 Test Item Value Reference Range Interpretation Comments POCT GLU (test code = 1059927924) 127 mg/dL 70-110 H Lab Interpretation (test code = Abnormal 64493-4) [facility]ownN-TERMINAL [id number] 09:33:12 Test Item Value Reference Range Interpretation Comments NT-proBNP (test code 3850 pg/mL See_Comment H [Autom ated = 5674335585) message] The system which generated this result transmitted reference range : <=125. The reference range was not used to interpret this result as normal/abnormal . PANKAJ (test code = PANKAJ) Biotin has been reported to cause a negative bias, interpret results relative to patient's use of biotin. Lab Interpretation Abnormal (test code = 18609-2) [facility]ownTROP[facility]IN [id number] 08:58:09 Test Item Value Reference Interpretation Comments Range TROPONIN I (test 0.019 ng/mL See_Comment [Automated code = 1432211543) message] The system which generated this result transmitted reference range : <=0.034. The reference range was not used to interpret this result as normal/abnormal . PANKAJ (test code = Reference (Normal) PANKAJ) Range (defined by the 99th percentile reference limit): <= 0.034 ng/mL Note: Cardiac troponin begins to rise 3-4 hours after the onset of ischemia. Repeat in 4-6 hours if the sample was drawn within 3-4 hours of the onset of the symptom and found normal. Diagnosis of myocardial injury is made with acute changes in cTn concentrations with at least one serial sample above the 99th percentile upper reference limit (URL), taken together with the patient's clinical presentation. Biotin has been reported to cause a negative bias, interpret results relative to patient's use of biotin. Lab Interpretation Normal (test code = 43112-9) [facility]ownaPTT2022-04-17 08:55:49 Test Item Value Reference Range Interpretation Comments APTT Patient (test See_Comment H [Automat ed code = 3173-2) message] The system which generated this result transmitted reference range : 23 - 38 Seconds . The reference range was not used to interpr et this result as normal/abnormal . PANKAJ (test code = PANKAJ) The [facility] patient population mean normal value for aPTT is 30 seconds. Lab Interpretation Abnormal (test code = 45873-0) [facility]ownPROTHROMBIN TIME / [id number] 08:53:28 Test Item Value Reference Range Interpretation Comments PROTIME PATIENT (test See_Comment H [Auto mated message] code = 5964-2) The system wh ich generated this result transmitted ref erence range: 12.0 - 1 4.7 Seconds. The reference range was not used to int erpret this result as normal/abnormal . INR (test code = 6301-6) Nor mal INR <1.1; Warfarin Therap eutic range 2.0 to 3. 0 or 2.5 to 3.5, dep ending upon the indica tions. Lab Interpretation (test Abnormal code = 35419-2) [facility]ownCOMP. METABOLIC PANEL ([id number])2022-01-10 08:46:31 Test Item Value Reference Range Interpretation Comments NA (test code = 141 mmol/L 135-145 7169018052) K (test code = 5.7 mmol/L 3.5-5.0 H 1630350540) CL (test code = 103 mmol/L 98-108 1219564055) CO2 TOTAL (test code = 25 mmol/L 23-31 9814976143) AGAP (test code = 2-16 6246866284) BUN (test code = 41 mg/dL 7-23 H 7512002146) GLUCOSE (test code = 131 mg/dL 70-110 H 0665885482) CREATININE (test code = 1.33 mg/dL 0.50-1.04 H 5711354217) TOTAL BILI (test code = 1.0 mg/dL 0.1-1.3 9973898567) CALCIUM (test code = 9.0 mg/dL 8.6-10.6 7431420802) T PROTEIN (test code = 7.4 g/dL 6.3-8.2 2062914795) ALBUMIN (test code = 4.2 g/dL 3.5-5.0 8836742873) ALK PHOS (test code = 104 U/L 34-122 0148386614) ALTv (test code = 17 U/L 5-35 1742-6) AST(SGOT) (test code = 43 U/L 13-40 H 8569789652) eGFR (test code = mL/min/1.73m2 4905759388) PANKAJ (test code = PANKAJ) Association of Glomerular Filtration Rate (GFR) and Staging of Kidney Disease* + --+ --+ ------+| GFR (mL/min/1.73 m2) ?| With Kidney Damage ?| ?Without Kidney Damage+ --------+ --------+ +| ?>90 ?| ?Stage one ?| ? Normal ?+ ---+ ---+ -------+| ?60-89 ?| ?Stage two ?| ? Decreased GFR ? + --+ --+ ------+| ?30-59 ?| ?Stage three ?| ? Stage three ? + --+ --+ ------+| ?15-29 ?| ?Stage four ? | ? Stage four ?+ ---+ ---+ -------+| ?<15 (or dialysis) ? ?| ?Stage five ? | ? Stage five ?+ ---+ ---+ -------+ *Each stage assumes the associated GFR level has been in effect for at least three months. ?Stages 1 to 5, with or without kidney disease, indicate chronic kidney disease. Notes: Determination of stages one and two (with eGFR >59mL/min/1.73 m2) requires estimation of kidney damage for at least three months as defined by structural or functional abnormalities of the kidney, manifested by either:Pathological abnormalities or Markers of kidney damage (including abnormalities in the composition of the blood or urine or abnormalities in imaging tests). Lab Interpretation Abnormal (test code = 83048-4) [facility]ptownLIPASE, [id number] 08:46:31 Test Item Value Reference Range Interpretation Comments LIPASE (test code = 3355448721) 74 U/L 0-220 Lab Interpretation (test code = Normal 41829-0) [facility]ownCB WITH [id number] 08:34:08 Test Item Value Reference Range Interpretation Comments WBC (test code = See_Comment [Automated 8790-2) message] The sy stem which generated this result transmitted reference range : 4.30 - 11.10 10*3/?L. The reference range was not used to interpret this result as normal/abnormal . RBC (test code = See_Comment H [Automated 919-8) message] The sy stem which generated this result transmitted reference range : 3.93 - 5.25 10*6/?L. The reference range was not used to interpret this result as normal/abnormal . HGB (test code = 14.6 g/dL 11.6-15.0 718-7) HCT (test code = 46.1 % 35.7-45.2 H 4544-3) MCV (test code = 83.8 fL 80.6-95.5 787-2) MCH (test code = 26.5 pg 25.9-32.8 785-6) MCHC (test code = 31.7 g/dL 31.6-35.1 786-4) RDW-SD (test code = 46.3 fL 39.0-49.9 92913-8) RDW-CV (test code = 15.2 % 12.0-15.5 788-0) PLT (test code = See_Comment H [Automated 777-3) message] The sy stem which generated this result transmitted reference range : 166 - 358 10*3/ ?L. The reference r coty was not used to interpret this result as normal/abnormal . MPV (test code = 9.0 fL 9.5-12.9 L 09291-1) NRBC/100 WBC (test See_Comment [Automat ed code = 5231729937) message] The system which generated this result transmitted reference range : 0.0 - 10.0 /100 WBCs. The refer ence range was not u sed to interpret th is result as normal/abnormal . NRBC x10^3 (test code <0.01 See_Comment [Auto mated = 3402895171) message] The s ystem which generated this result transmitted reference range : 10*3/?L. The reference range was not used to interpret this result as normal/abnormal . GRAN MAT (NEUT) % 76.6 % (test code = 770-8) IMM GRAN % (test code 0.50 % = 8648042668) LYMPH % (test code = 10.6 % 736-9) MONO % (test code = 8.3 % 5905-5) EOS % (test code = 3.3 % 713-8) BASO % (test code = 0.7 % 706-2) GRAN MAT x10^3(ANC) 7.24 10*3/uL 1.88-7.09 H (test code = 2571922058) IMM GRAN x10^3 (test 0.05 10*3/uL 0.00-0.06 code = 8109231051) LYMPH x10^3 (test code 1.00 10*3/uL 1.32-3.29 L = 731-0) MONO x10^3 (test code 0.78 10*3/uL 0.33-0.92 = 742-7) EOS x10^3 (test code = 0.31 10*3/uL 0.03-0.39 711-2) BASO x10^3 (test code 0.07 10*3/uL 0.01-0.07 = 704-7) Lab Interpretation Abnormal (test code = 07426-0) [facility]ownELECTROPHORESIS, [id number] 17:36:11 Test Item Value Reference Range Interpretation Comments T PROTEIN (test code = 6.1 g/dL 6.3-8.2 L 1951894040) ALBUMIN (test code = 3.3 g/dL 3.0-4.8 0428693623) ALPHA 1 (test code = 0.2 g/dL 0.2-0.4 0763993912) ALPHA 2 (test code = 1.0 g/dL 0.6-1.2 6412610625) BETA (test code = 0.8 g/dL 0.7-1.4 7293553918) GAMMA (test code = 0.8 g/dL 1.0-1.8 L 2459816412) Electrophoresis Hypogammaglobulinem Interpretation (test code ia. Non-selective = 2817583793) proteinuria.No M spike present in serum or urine. Lab Interpretation (test Abnormal code = 76429-7) [facility] (NA, K, CL, CO2, GLUCOSE, BUN, CREATININE, CA)2021-09-23 21:37:28 Test Item Value Reference Range Interpretation Comments NA (test code = 139 mmol/L 135-145 5050450765) K (test code = 4.5 mmol/L 3.5-5.0 0853833042) CL (test code = 102 mmol/L 98-108 4878533561) CO2 TOTAL (test code = 31 mmol/L 23-31 0371032515) AGAP (test code = 2-16 2181843079) BUN (test code = 49 mg/dL 7-23 H 4565475303) GLUCOSE (test code = 103 mg/dL 70-110 7776873219) CREATININE (test code = 1.28 mg/dL 0.50-1.04 H 6954501667) CALCIUM (test code = 9.1 mg/dL 8.6-10.6 7346996734) eGFR (test code = mL/min/1.73m2 2994936533) PANKAJ (test code = PANKAJ) Association of Glomerular Filtration Rate (GFR) and Staging of Kidney Disease* + --+ --+ ------+| GFR (mL/min/1.73 m2) ?| With Kidney Damage ?| ?Without Kidney Damage+ --------+ --------+ +| ?>90 ?| ?Stage one ?| ? Normal ?+ ---+ ---+ -------+| ?60-89 ?| ?Stage two ?| ? Decreased GFR ? + --+ --+ ------+| ?30-59 ?| ?Stage three ?| ? Stage three ? + --+ --+ ------+| ?15-29 ?| ?Stage four ? | ? Stage four ?+ ---+ ---+ -------+| ?<15 (or dialysis) ? ?| ?Stage five ? | ? Stage five ?+ ---+ ---+ -------+ *Each stage assumes the associated GFR level has been in effect for at least three months. ?Stages 1 to 5, with or without kidney disease, indicate chronic kidney disease. Notes: Determination of stages one and two (with eGFR >59mL/min/1.73 m2) requires estimation of kidney damage for at least three months as defined by structural or functional abnormalities of the kidney, manifested by either:Pathological abnormalities or Markers of kidney damage (including abnormalities in the composition of the blood or urine or abnormalities in imaging tests). Lab Interpretation Abnormal (test code = 76377-6) [facility] WITH [id number] 20:22:49 Test Item Value Reference Range Interpretation Comments WBC (test code = See_Comment [Automated 9491-2) message] The sy stem which generated this result transmitted reference range : 4.30 - 11.10 10*3/?L. The reference range was not used to interpret this result as normal/abnormal . RBC (test code = See_Comment H [Automated 829-8) message] The sy stem which generated this result transmitted reference range : 3.93 - 5.25 10*6/?L. The reference range was not used to interpret this result as normal/abnormal . HGB (test code = 13.8 g/dL 11.6-15.0 718-7) HCT (test code = 45.3 % 35.7-45.2 H 4544-3) MCV (test code = 81.3 fL 80.6-95.5 787-2) MCH (test code = 24.8 pg 25.9-32.8 L 785-6) MCHC (test code = 30.5 g/dL 31.6-35.1 L 786-4) RDW-SD (test code = 51.1 fL 39.0-49.9 H 62437-9) RDW-CV (test code = 18.6 % 12.0-15.5 H 788-0) PLT (test code = See_Comment H [Automated 777-3) message] The sy stem which generated this result transmitted reference range : 166 - 358 10*3/ ?L. The reference r coty was not used to interpret this result as normal/abnormal . MPV (test code = 9.0 fL 9.5-12.9 L 11641-2) NRBC/100 WBC (test See_Comment [Automat ed code = 3066693307) message] The system which generated this result transmitted reference range : 0.0 - 10.0 /100 WBCs. The refer ence range was not u sed to interpret th is result as normal/abnormal . NRBC x10^3 (test code <0.01 See_Comment [Auto mated = 2939688794) message] The s ystem which generated this result transmitted reference range : 10*3/?L. The reference range was not used to interpret this result as normal/abnormal . GRAN MAT (NEUT) % 68.4 % (test code = 770-8) IMM GRAN % (test code 0.90 % = 5114239562) LYMPH % (test code = 15.0 % 736-9) MONO % (test code = 8.3 % 5905-5) EOS % (test code = 6.5 % 713-8) BASO % (test code = 0.9 % 706-2) GRAN MAT x10^3(ANC) 7.14 10*3/uL 1.88-7.09 H (test code = 3503445786) IMM GRAN x10^3 (test 0.09 10*3/uL 0.00-0.06 H code = 0976101906) LYMPH x10^3 (test code 1.56 10*3/uL 1.32-3.29 = 731-0) MONO x10^3 (test code 0.86 10*3/uL 0.33-0.92 = 742-7) EOS x10^3 (test code = 0.68 10*3/uL 0.03-0.39 H 711-2) BASO x10^3 (test code 0.09 10*3/uL 0.01-0.07 H = 704-7) Lab Interpretation Abnormal (test code = 77116-1) [facility] METABOLIC PANEL (NA, K, CL, CO2, GLUCOSE, BUN, CREATININE, CA)2021-09-20 09:27:40 Test Item Value Reference Range Interpretation Comments NA (test code = 137 mmol/L 135-145 0558409403) K (test code = 4.4 mmol/L 3.5-5.0 3859620995) CL (test code = 101 mmol/L 98-108 4438788929) CO2 TOTAL (test code = 31 mmol/L 23-31 8456171014) AGAP (test code = 2-16 8067779044) BUN (test code = 56 mg/dL 7-23 H 0328228030) GLUCOSE (test code = 142 mg/dL 70-110 H 9348296521) CREATININE (test code = 1.28 mg/dL 0.50-1.04 H 7005515868) CALCIUM (test code = 8.7 mg/dL 8.6-10.6 4057446480) eGFR (test code = mL/min/1.73m2 9339372963) PANKAJ (test code = PANKAJ) Association of Glomerular Filtration Rate (GFR) and Staging of Kidney Disease* + --+ --+ ------+| GFR (mL/min/1.73 m2) ?| With Kidney Damage ?| ?Without Kidney Damage+ --------+ --------+ +| ?>90 ?| ?Stage one ?| ? Normal ?+ ---+ ---+ -------+| ?60-89 ?| ?Stage two ?| ? Decreased GFR ? + --+ --+ ------+| ?30-59 ?| ?Stage three ?| ? Stage three ? + --+ --+ ------+| ?15-29 ?| ?Stage four ? | ? Stage four ?+ ---+ ---+ -------+| ?<15 (or dialysis) ? ?| ?Stage five ? | ? Stage five ?+ ---+ ---+ -------+ *Each stage assumes the associated GFR level has been in effect for at least three months. ?Stages 1 to 5, with or without kidney disease, indicate chronic kidney disease. Notes: Determination of stages one and two (with eGFR >59mL/min/1.73 m2) requires estimation of kidney damage for at least three months as defined by structural or functional abnormalities of the kidney, manifested by either:Pathological abnormalities or Markers of kidney damage (including abnormalities in the composition of the blood or urine or abnormalities in imaging tests). Lab Interpretation Abnormal (test code = 57322-8) [facility]AT[facility]IR[facility] (HCV) BY QUANTITATIVE NAAT 2021-09-18 19:47:02 Test Item Value Reference Range Interpretation Comments HCV Quantitative Not Detected Not Detected Interpretation (test code = 4464823653) PANKAJ (test code = PANKAJ) The [employer]ptima HCV Quant Dx assay is an FDA-approved real-time extractor operator helper-mediated amplification (TMA) test used for both detection and quantitation of hepatitis C virus (HCV) RNA in human serum and plasma from HCV-infected individuals. ?It is intended for use as an aid in the diagnosis of active HCV infection and the management of HCV-infected patients undergoing HCV antiviral drug therapy. ?It is not approved for use as a screening test for the presence of HCV RNA in blood or blood products. The quantitative range of this assay is 1.00 - 8.00 log IU/mL or 10 - 100,000,000 IU/mL. An interpretation of "Not Detected" does not rule out the presence of inhibitors in the patient specimen or HCV RNA concentration below the level of detection of the test. ?Care should be taken when interpreting any single viral load determination. Detected, not Quantifiable: HCV RNA detected, but at a level below 10 IU/mL (1.0 log IU/mL). ?HCV RNA concentration is below the lower limit of quantitation of the assay. Indeterminate: Error indicated in the generation of the result. ?Please submit a new specimen for repeat testing if clinically indicated. Lab Interpretation Normal (test code = 53977-9) [facility] [id number] 18:48:16 Test Item Value Reference Range Interpretation Comments LATRICE Titer by 1:160 Speckled Patter n IFA (test code = 3778742564) PANKAJ (test code Anti-nuclear = PANKAJ) antibodies are seen in a variety of autoimmune diseases and may also be seen in low titers in otherwise normal individuals without evidence of autoimmune disease. In general, a titer greater than or equal to 1:160 is considered significant. For further information, contact the appropriate Specialist. For additional LATRICE tests, refer to the Laboratory Test Directory. The specimen will be held for 7 days. [facility] ANTIB[facility] [id number] 20:11:40 Test Item Value Reference Range Interpretation Comments LATRICE (test code = Positive Negative A 6683402227) PANKAJ (test code = PANKAJ) Negative - No Anti-Nuclear Antibodies detected by IFA.Positive - LATRICE IFA screen performed with a 1:80 dilution in adults and a 1:40 dilution in pediatrics. Any LATRICE "Positive" will have titer performed and reported separately.Negative - No Anti-Nuclear Antibodies detected by IFA.Positive - LATRICE IFA screen performed with a 1:80 dilution in adults and a 1:40 dilution in pediatrics. Any LATRICE "Positive" will have titer performed and reported separately. Lab Interpretation (test Abnormal code = 08434-2) [facility]PR (QUANTITATIVE)2021-09-17 18:33:33 Test Item Value Reference Range Interpretation Comments RPR (Quantitative) (test code = Nonreactive Nonreactive 14673-6) Lab Interpretation (test code = Normal 29104-6) [facility] METABOLIC PANEL (NA, K, CL, CO2, GLUCOSE, BUN, CREATININE, CA)2021-09-17 10:54:43 Test Item Value Reference Range Interpretation Comments NA (test code = 136 mmol/L 135-145 3040953894) K (test code = 4.4 mmol/L 3.5-5.0 2958043408) CL (test code = 100 mmol/L 98-108 1736227158) CO2 TOTAL (test code = 32 mmol/L 23-31 H 4184822453) AGAP (test code = 2-16 7226834660) BUN (test code = 59 mg/dL 7-23 H 9385813156) GLUCOSE (test code = 110 mg/dL 70-110 8287576965) CREATININE (test code = 1.41 mg/dL 0.50-1.04 H 0828839899) CALCIUM (test code = 8.7 mg/dL 8.6-10.6 6762111964) eGFR (test code = mL/min/1.73m2 2639550864) PANKAJ (test code = PANKAJ) Association of Glomerular Filtration Rate (GFR) and Staging of Kidney Disease* + --+ --+ ------+| GFR (mL/min/1.73 m2) ?| With Kidney Damage ?| ?Without Kidney Damage+ --------+ --------+ +| ?>90 ?| ?Stage one ?| ? Normal ?+ ---+ ---+ -------+| ?60-89 ?| ?Stage two ?| ? Decreased GFR ? + --+ --+ ------+| ?30-59 ?| ?Stage three ?| ? Stage three ? + --+ --+ ------+| ?15-29 ?| ?Stage four ? | ? Stage four ?+ ---+ ---+ -------+| ?<15 (or dialysis) ? ?| ?Stage five ? | ? Stage five ?+ ---+ ---+ -------+ *Each stage assumes the associated GFR level has been in effect for at least three months. ?Stages 1 to 5, with or without kidney disease, indicate chronic kidney disease. Notes: Determination of stages one and two (with eGFR >59mL/min/1.73 m2) requires estimation of kidney damage for at least three months as defined by structural or functional abnormalities of the kidney, manifested by either:Pathological abnormalities or Markers of kidney damage (including abnormalities in the composition of the blood or urine or abnormalities in imaging tests). Lab Interpretation Abnormal (test code = 41877-5) [facility]ATIT[facility] SURFACE [id number] 04:21:10 Test Item Value Reference Range Interpretation Comments HBsAB (test code = Negative 0735189363) HBsAb mIU/mL Semi-Quantitative (test code = 6217861254) PANKAJ (test code = Interpretation: PANKAJ) ?Hepatitis B Surface Antibody ? Negative - Patient is considered to be not immune to infection with HBV. ? ? Positive - Anti-HBs detected at greater than or equal to 12 mIU/mL. ?Patient is considered to be immune to infection with HBV. ? [facility]ownHBC ANTIBODY (IGM & IGG)2021-09-17 04:21:10 Test Item Value Reference Range Interpretation Comments HBC (test code = 8197729986) Negative HBC Semi-Quantitative (test code = 5839548158) [facility]ownHCV [id number] 21:54:09 Test Item Value Reference Range Interpretation Comments HCV Ab (test code = 51868-7) Negative HCV Semi-Quantitative (test code = 61597-2) [facility]ownHIV 1/2 AG-AB WITH [id number] 21:26:00 Test Item Value Reference Range Interpretation Comments HIV Negative Negative Semi-quantitative (test code = 40362-5) PANKAJ (test code = Non-reactive for HIV-1 PANKAJ) antigen and HIV-1/HIV-2 antibodies. ?No laboratory evidence of HIV infection. ?Repeat in 2-4 weeks if acute HIV infection is suspected. [facility]HEPATITIS B SURFACE [id number] 21:16:41 Test Item Value Reference Range Interpretation Comments HBsAg Semi-Quantitative (test code = Negative Negative 5195-3) [facility]ownGLYCOSYLATED HEMOGLOBIN (A1C)2021-09-16 20:57:38 Test Item Value Reference Range Interpretation Comments HGB A1C (test code = 5.9 % 4.0-5.7 H 4548-4) PANKAJ (test code = PANKAJ) Reference RangesNormal: <5.7%Prediabetes: 5.7 - 6.4%Diabetes: > 6.5% Lab Interpretation (test Abnormal code = 21780-1) [facility]ownC-REACTIVE [id number] 20:27:53 Test Item Value Reference Range Interpretation Comments CRP (test code = 0128325706) 0.8 mg/dL <0.8 H Lab Interpretation (test code = Abnormal 46147-4) [facility]ownHEPATIC FUNCTION PANEL (30940) (ALB,T.PRO,BILI T,BU/BC,ALT,AST,ALK PHOS)2021-09-16 14:54:15 Test Item Value Reference Range Interpretation Comments TOTAL BILI (test code = 0.4 mg/dL 0.1-1.6 9113739875) BILI UNCON (test code = 0.1 mg/dL 0.1-1.1 2006195432) BILI CONJ (test code = 0.0 mg/dL 0.0-0.3 6109741217) T PROTEIN (test code = 6.2 g/dL 6.3-8.2 L 1814627378) ALBUMIN (test code = 3.3 g/dL 3.5-5.0 L 4778751162) ALK PHOS (test code = 76 U/L 34-122 Slight hemolysis 6711740210) ALTv (test code = 1742-6) 23 U/L 5-35 AST(SGOT) (test code = 68 U/L 13-40 H Sligh t hemolysis 2335760041) Lab Interpretation (test Abnormal code = 81749-5) [facility] UptownD-[id number] 13:05:44 Test Item Value Reference Interpretation Comments Range D-DIMER (test code = <0.21 See_Comment [Autom ated 6760691559) message] The system which generated this result transmitted reference range : <0.50 ?g/mL (FEU). The reference range was not used to interpret this result as normal/abnormal . PANKAJ (test code = This test may be PANKAJ) used in conjunction with a clinical pretest probability (PTP) assessment model to exclude venous thromboembolism (VTE) in patients suspected of deep venous thrombosis (DVT) and pulmonary embolism (PE) A D-Dimer value less than 0.50 ?g/ml (FEU) has a negative predicative value of 96 to 100% (95% CI)and 97 to 100% (95% CI) as an aid in the diagnosis of deep vein thrombosis (DVT) and pulmonary embolism when there is low or moderate pretest probability of PE or DVT. D-Dimer values are expressed in initial fibrinogen equivalent units (FEU)" The assay results should be used with other information, including the clinical context, in forming a diagnosis. Lab Interpretation Normal (test code = 83998-7) [facility]ownFERRITIN [id number] 12:56:10 Test Item Value Reference Range Interpretation Comments FERRITIN (test code = 46.4 ng/mL 11.0-264.0 2608735793) PANKAJ (test code = PANKAJ) Biotin has been reported to cause a negative bias, interpret results relative to patient's use of biotin. Lab Interpretation (test Normal code = 39621-6) [facility]ownLACTATE [id number] 12:50:07 Test Item Value Reference Range Interpretation Comments LDH (test code = 0026749838) 855 U/L 300-600 H Slight hemolysis Lab Interpretation (test Abnormal code = 54419-2) [facility] METABOLIC PANEL (NA, K, CL, CO2, GLUCOSE, BUN, CREATININE, CA)2021-09-16 12:23:23 Test Item Value Reference Range Interpretation Comments NA (test code = 136 mmol/L 135-145 0830602846) K (test code = 4.2 mmol/L 3.5-5.0 Slight 9954351553) hemolysis CL (test code = 100 mmol/L 98-108 4047215132) CO2 TOTAL (test code 30 mmol/L 23-31 = 4179405987) AGAP (test code = 2-16 8573572438) BUN (test code = 63 mg/dL 7-23 H Slight 2792146454) hemolysis GLUCOSE (test code = 141 mg/dL 70-110 H 5213858252) CREATININE (test code 1.42 mg/dL 0.50-1.04 H = 5803487210) CALCIUM (test code = 8.4 mg/dL 8.6-10.6 L 9131489105) eGFR (test code = mL/min/1.73m2 5300285251) PANKAJ (test code = PANKAJ) Association of Glomerular Filtration Rate (GFR) and Staging of Kidney Disease* + -----+ --------+ +| GFR (mL/min/1.73 m2) ?| With Kidney Damage ?| ?Without Kidney Damage+ +------- +---- --+| ?>90 ?| ?Stage one ?| ? Normal ?+ ------+ ---------+--------- +| ?60-89 ?| ?Stage two ?| ? Decreased GFR ? + -----+ --------+ +| ?30-59 ?| ?Stage three ?| ? Stage three ? + -----+ --------+ +| ?15-29 ?| ?Stage four ? | ? Stage four ?+ ------+ ---------+--------- +| ?<15 (or dialysis) ? ?| ?Stage five ? | ? Stage five ?+ ------+ ---------+--------- + *Each stage assumes the associated GFR level has been in effect for at least three months. ?Stages 1 to 5, with or without kidney disease, indicate chronic kidney disease. Notes: Determination of stages one and two (with eGFR >59mL/min/1.73 m2) requires estimation of kidney damage for at least three months as defined by structural or functional abnormalities of the kidney, manifested by either:Pathological abnormalities or Markers of kidney damage (including abnormalities in the composition of the blood or urine or abnormalities in imaging tests). Lab Interpretation Abnormal (test code = 87400-8) [facility]ownMAGNESIUM2021-12-22 12:23:23 Test Item Value Reference Range Interpretation Comments MAGNESIUM (test code = 1415879023) 2.2 mg/dL 1.7-2.4 Lab Interpretation (test code = Normal 56708-0) [facility]ownPHOSPHORUS2021-12-22 12:23:23 Test Item Value Reference Range Interpretation Comments PHOSPHORUS (test code = 4894644505) 4.5 mg/dL 2.5-5.0 Lab Interpretation (test code = Normal 59137-0) [facility]ownPROTEIN [id number] 12:23:23 Test Item Value Reference Range Interpretation Comments T PROTEIN (test code = 4534534846) 6.2 g/dL 6.3-8.2 L Lab Interpretation (test code = Abnormal 66996-0) [facility]ownALBUMIN2021-12-22 12:23:23 Test Item Value Reference Range Interpretation Comments ALBUMIN (test code = 5892096938) 3.2 g/dL 3.5-5.0 L Lab Interpretation (test code = Abnormal 21882-4) [facility] UptownCBC WITH [id number] 11:52:57 Test Item Value Reference Range Interpretation Comments WBC (test code = See_Comment H [Automated 4490-2) message] The system which generated this result transmit lazaro reference range : 4.30 - 11.10 10*3/?L. The reference range was not used to interpret this result as normal/abnormal . RBC (test code = See_Comment H [Automated 689-8) message] The system which generated this result transmit lazaro reference range : 3.93 - 5.25 10*6/?L. The reference range was not used to interpret this result as normal/abnormal . HGB (test code = 13.5 g/dL 11.6-15.0 718-7) HCT (test code = 43.9 % 35.7-45.2 4544-3) MCV (test code = 80.8 fL 80.6-95.5 787-2) MCH (test code = 24.9 pg 25.9-32.8 L 785-6) MCHC (test code = 30.8 g/dL 31.6-35.1 L 786-4) RDW-SD (test code = 49.1 fL 39.0-49.9 91201-9) RDW-CV (test code = 17.1 % 12.0-15.5 H 788-0) PLT (test code = See_Comment H [Automated 777-3) message] The system which generated this result transmit lazaro reference range : 166 - 358 10*3/ ?L. The reference range was not u sed to interpret th is result as normal/abnormal . MPV (test code = 9.4 fL 9.5-12.9 L 00279-4) NRBC/100 WBC (test See_Comment [Automat ed code = 6108963626) message] The system which generated this result transmit lazaro reference range : 0.0 - 10.0 /100 WBCs. The reference range was not used to interpret this result as normal/abnormal . NRBC x10^3 (test code <0.01 See_Comment [Auto mated = 9994826133) message] The system which generated this result transmit lazaro reference range : 10*3/?L. The reference range was not used to interpret this result as normal/abnormal . GRAN MAT (NEUT) % 84.9 % (test code = 770-8) IMM GRAN % (test code 0.40 % = 4362280247) LYMPH % (test code = 7.1 % 736-9) MONO % (test code = 6.9 % 5905-5) EOS % (test code = 0.1 % 713-8) BASO % (test code = 0.6 % 706-2) GRAN MAT x10^3(ANC) 10.03 10*3/uL 1.88-7.09 H (test code = 3573934295) IMM GRAN x10^3 (test 0.05 10*3/uL 0.00-0.06 code = 5211042095) LYMPH x10^3 (test code 0.84 10*3/uL 1.32-3.29 L = 731-0) MONO x10^3 (test code 0.82 10*3/uL 0.33-0.92 = 742-7) EOS x10^3 (test code = <0.03 0.03-0.39 L 711-2) BASO x10^3 (test code 0.07 10*3/uL 0.01-0.07 = 704-7) Lab Interpretation Abnormal (test code = 60822-9) [facility] CULTURE [id number] 23:01:36 Test Item Value Reference Range Interpretation Comments Blood Culture-Aerobic No organisms No growth Previo us (test code = 21143-3) isolated prelim inary verified result was Culture In Progress on 09/10/2021 at 2000 CSTPreviou s preliminary verified result was No growth a t 24 hours on 09/11/2021 at 1701 CSTPreviou s preliminary verified result was No growth a t 48 hours on 09/12/2021 at 1701 CSTPreviou s preliminary verified result was No growth a t 72 hours on 09/13/2021 at 1701 JANITORIAL TECH Blood No organisms No growth Previous Culture-Anaerobic isolated preliminar y (test code = 44966-9) verifi ed result was Culture In Progress on 09/10/2021 at 2000 CSTPreviou s preliminary verified result was No growth a t 24 hours on 09/11/2021 at 1701 CSTPreviou s preliminary verified result was No growth a t 48 hours on 09/12/2021 at 1701 CSTPreviou s preliminary verified result was No growth a t 72 hours on 09/13/2021 at 1701 JANITORIAL TECH Lab Interpretation Normal (test code = 48195-6) [facility] [id number] 23:01:36 Test Item Value Reference Range Interpretation Comments Blood Culture-Aerobic No organisms No growth Previo us (test code = 64814-9) isolated prelim inary verified result was Culture In Progress on 09/10/2021 at 2000 CSTPreviou s preliminary verified result was No growth a t 24 hours on 09/11/2021 at 1701 CSTPreviou s preliminary verified result was No growth a t 48 hours on 09/12/2021 at 1701 CSTPreviou s preliminary verified result was No growth a t 72 hours on 09/13/2021 at 1701 JANITORIAL TECH Blood No organisms No growth Previous Culture-Anaerobic isolated preliminar y (test code = 31064-2) verifi ed result was Culture In Progress on 09/10/2021 at 2001 CSTPreviou s preliminary verified result was No growth a t 24 hours on 09/11/2021 at 1701 CSTPreviou s preliminary verified result was No growth a t 48 hours on 09/12/2021 at 1701 CSTPreviou s preliminary verified result was No growth a t 72 hours on 09/13/2021 at 1701 JANITORIAL TECH Lab Interpretation Normal (test code = 66336-7) [facility]MAGNES[facility]UM2021-12-21 11:50:52 Test Item Value Reference Range Interpretation Comments MAGNESIUM (test code = 3505114070) 2.4 mg/dL 1.7-2.4 Lab Interpretation (test code = Normal 19540-9) [facility]ownN-TERMINAL [id number] 20:27:19 Test Item Value Reference Range Interpretation Comments NT-proBNP (test code 4530 pg/mL See_Comment H [Autom ated = 6102176886) message] The system which generated this result transmitted reference range : <=125. The reference range was not used to interpret this result as normal/abnormal . PANKAJ (test code = PANKAJ) Biotin has been reported to cause a negative bias, interpret results relative to patient's use of biotin. Lab Interpretation Abnormal (test code = 84491-6) [facility]PHOSPHORUS2021-12-20 18:57:46 Test Item Value Reference Range Interpretation Comments PHOSPHORUS (test code = 3893673964) 3.4 mg/dL 2.5-5.0 Lab Interpretation (test code = Normal 79173-9) [facility]ownBASIC METABOLIC PANEL (NA, K, CL, CO2, GLUCOSE, BUN, CREATININE, CA)2021-09-14 18:57:46 Test Item Value Reference Range Interpretation Comments NA (test code = 137 mmol/L 135-145 6183028025) K (test code = 4.1 mmol/L 3.5-5.0 2703922886) CL (test code = 103 mmol/L 98-108 6943347384) CO2 TOTAL (test code = 26 mmol/L 23-31 5433583782) AGAP (test code = 2-16 9103538141) BUN (test code = 53 mg/dL 7-23 H 2665990746) GLUCOSE (test code = 141 mg/dL 70-110 H 9660267203) CREATININE (test code = 1.30 mg/dL 0.50-1.04 H 9822644377) CALCIUM (test code = 8.6 mg/dL 8.6-10.6 5710991618) eGFR (test code = mL/min/1.73m2 5708066142) PANKAJ (test code = PANKAJ) Association of Glomerular Filtration Rate (GFR) and Staging of Kidney Disease* + --+ --+ ------+| GFR (mL/min/1.73 m2) ?| With Kidney Damage ?| ?Without Kidney Damage+ --------+ --------+ +| ?>90 ?| ?Stage one ?| ? Normal ?+ ---+ ---+ -------+| ?60-89 ?| ?Stage two ?| ? Decreased GFR ? + --+ --+ ------+| ?30-59 ?| ?Stage three ?| ? Stage three ? + --+ --+ ------+| ?15-29 ?| ?Stage four ? | ? Stage four ?+ ---+ ---+ -------+| ?<15 (or dialysis) ? ?| ?Stage five ? | ? Stage five ?+ ---+ ---+ -------+ *Each stage assumes the associated GFR level has been in effect for at least three months. ?Stages 1 to 5, with or without kidney disease, indicate chronic kidney disease. Notes: Determination of stages one and two (with eGFR >59mL/min/1.73 m2) requires estimation of kidney damage for at least three months as defined by structural or functional abnormalities of the kidney, manifested by either:Pathological abnormalities or Markers of kidney damage (including abnormalities in the composition of the blood or urine or abnormalities in imaging tests). Lab Interpretation Abnormal (test code = 38085-3) [facility] WITH [id number] 18:42:44 Test Item Value Reference Range Interpretation Comments WBC (test code = See_Comment H [Automated 6690-2) message] The sy stem which generated this result transmitted reference range : 4.30 - 11.10 10*3/?L. The reference range was not used to interpret this result as normal/abnormal . RBC (test code = See_Comment H [Automated 789-8) message] The sy stem which generated this result transmitted reference range : 3.93 - 5.25 10*6/?L. The reference range was not used to interpret this result as normal/abnormal . HGB (test code = 15.0 g/dL 11.6-15.0 718-7) HCT (test code = 49.1 % 35.7-45.2 H 4544-3) MCV (test code = 80.5 fL 80.6-95.5 L 787-2) MCH (test code = 24.6 pg 25.9-32.8 L 785-6) MCHC (test code = 30.5 g/dL 31.6-35.1 L 786-4) RDW-SD (test code = 49.1 fL 39.0-49.9 82812-0) RDW-CV (test code = 17.6 % 12.0-15.5 H 788-0) PLT (test code = See_Comment H [Automated 777-3) message] The sy stem which generated this result transmitted reference range : 166 - 358 10*3/ ?L. The reference r coty was not used to interpret this result as normal/abnormal . MPV (test code = 9.5 fL 9.5-12.9 96839-2) NRBC/100 WBC (test See_Comment [Automat ed code = 1855551552) message] The system which generated this result transmitted reference range : 0.0 - 10.0 /100 WBCs. The refer ence range was not u sed to interpret th is result as normal/abnormal . NRBC x10^3 (test code <0.01 See_Comment [Auto mated = 7873787054) message] The s ystem which generated this result transmitted reference range : 10*3/?L. The reference range was not used to interpret this result as normal/abnormal . GRAN MAT (NEUT) % 78.2 % (test code = 770-8) IMM GRAN % (test code 0.40 % = 7814774661) LYMPH % (test code = 11.0 % 736-9) MONO % (test code = 8.7 % 5905-5) EOS % (test code = 0.8 % 713-8) BASO % (test code = 0.9 % 706-2) GRAN MAT x10^3(ANC) 9.31 10*3/uL 1.88-7.09 H (test code = 4620570014) IMM GRAN x10^3 (test 0.05 10*3/uL 0.00-0.06 code = 9862170463) LYMPH x10^3 (test code 1.31 10*3/uL 1.32-3.29 L = 731-0) MONO x10^3 (test code 1.04 10*3/uL 0.33-0.92 H = 742-7) EOS x10^3 (test code = 0.09 10*3/uL 0.03-0.39 711-2) BASO x10^3 (test code 0.11 10*3/uL 0.01-0.07 H = 704-7) Lab Interpretation Abnormal (test code = 16403-2) [facility]C-REACTIVE [id number] 18:24:52 Test Item Value Reference Range Interpretation Comments CRP (test code = 0282059115) 1.6 mg/dL <0.8 H Lab Interpretation (test code = Abnormal 16622-1) [facility]ownFERRITIN [id number] 12:15:11 Test Item Value Reference Range Interpretation Comments FERRITIN (test code = 54.9 ng/mL 11.0-264.0 4709732834) PANKAJ (test code = PANKAJ) Biotin has been reported to cause a negative bias, interpret results relative to patient's use of biotin. Lab Interpretation (test Normal code = 94903-0) [facility]ptownD-[id number] 11:52:57 Test Item Value Reference Interpretation Comments Range D-DIMER (test code = <0.21 See_Comment [Autom ated 4498048199) message] The system which generated this result transmitted reference range : <0.50 ?g/mL (FEU). The reference range was not used to interpret this result as normal/abnormal . PANKAJ (test code = This test may be PANKAJ) used in conjunction with a clinical pretest probability (PTP) assessment model to exclude venous thromboembolism (VTE) in patients suspected of deep venous thrombosis (DVT) and pulmonary embolism (PE) A D-Dimer value less than 0.50 ?g/ml (FEU) has a negative predicative value of 96 to 100% (95% CI)and 97 to 100% (95% CI) as an aid in the diagnosis of deep vein thrombosis (DVT) and pulmonary embolism when there is low or moderate pretest probability of PE or DVT. D-Dimer values are expressed in initial fibrinogen equivalent units (FEU)" The assay results should be used with other information, including the clinical context, in forming a diagnosis. Lab Interpretation Normal (test code = 12555-6) [facility]ownLACTATE [id number] 11:39:07 Test Item Value Reference Range Interpretation Comments LDH (test code = 3438157785) 772 U/L 300-600 H Lab Interpretation (test code = Abnormal 73513-0) [facility] UptownINTERLEUKIN 22:10:16 Test Item Value Reference Range Interpretation Comments IL6 (test code = 4.6 pg/mL See_Comment H INTERPRETIV E 02842-3) INFORMATION: CytokinesResult s are used to underst and the pathophysiology of immune, infecti ous, or inflammatory di sorders, or may be used for research purpos es. This test was develo ped and its performance characteristics determined by [facility]. I t has not been cleare d or approved by the [place] Food and Drug Administration. This test was perfor med in a CLIA certified laboratory and is intended for cl inical purposes.Perfor med By: [facility] [place] [id number] Director: Ernestina Santos MD [Aut omated message] The sy stem which generated this result transmit lazaro reference range : <=2.0. The reference r coty was not used to int erpret this result as normal/abnormal . Lab Interpretation Abnormal (test code = 25769-1) [facility]ownBASI METABOLIC PANEL (NA, K, CL, CO2, GLUCOSE, BUN, CREATININE, CA)2021-09-13 12:00:20 Test Item Value Reference Range Interpretation Comments NA (test code = 137 mmol/L 135-145 5674817485) K (test code = 4.4 mmol/L 3.5-5.0 4870173960) CL (test code = 106 mmol/L 98-108 3757615752) CO2 TOTAL (test code = 26 mmol/L 23-31 4701864296) AGAP (test code = 2-16 8776847766) BUN (test code = 51 mg/dL 7-23 H 6438182184) GLUCOSE (test code = 94 mg/dL 70-110 2098219760) CREATININE (test code = 1.40 mg/dL 0.50-1.04 H 3591321499) CALCIUM (test code = 9.3 mg/dL 8.6-10.6 1395140016) eGFR (test code = mL/min/1.73m2 9408312052) PANKAJ (test code = PANKAJ) Association of Glomerular Filtration Rate (GFR) and Staging of Kidney Disease* + --+ --+ ------+| GFR (mL/min/1.73 m2) ?| With Kidney Damage ?| ?Without Kidney Damage+ --------+ --------+ +| ?>90 ?| ?Stage one ?| ? Normal ?+ ---+ ---+ -------+| ?60-89 ?| ?Stage two ?| ? Decreased GFR ? + --+ --+ ------+| ?30-59 ?| ?Stage three ?| ? Stage three ? + --+ --+ ------+| ?15-29 ?| ?Stage four ? | ? Stage four ?+ ---+ ---+ -------+| ?<15 (or dialysis) ? ?| ?Stage five ? | ? Stage five ?+ ---+ ---+ -------+ *Each stage assumes the associated GFR level has been in effect for at least three months. ?Stages 1 to 5, with or without kidney disease, indicate chronic kidney disease. Notes: Determination of stages one and two (with eGFR >59mL/min/1.73 m2) requires estimation of kidney damage for at least three months as defined by structural or functional abnormalities of the kidney, manifested by either:Pathological abnormalities or Markers of kidney damage (including abnormalities in the composition of the blood or urine or abnormalities in imaging tests). Lab Interpretation Abnormal (test code = 30578-4) [facility] 12[facility]:20 Test Item Value Reference Range Interpretation Comments MAGNESIUM (test code = 7313742804) 2.2 mg/dL 1.7-2.4 Lab Interpretation (test code = Normal 97299-2) [facility] WITH [id number] 11:45:05 Test Item Value Reference Range Interpretation Comments WBC (test code = See_Comment [Automated 6690-2) message] The sy stem which generated this result transmitted reference range : 4.30 - 11.10 10*3/?L. The reference range was not used to interpret this result as normal/abnormal . RBC (test code = See_Comment H [Automated 789-8) message] The sy stem which generated this result transmitted reference range : 3.93 - 5.25 10*6/?L. The reference range was not used to interpret this result as normal/abnormal . HGB (test code = 14.4 g/dL 11.6-15.0 718-7) HCT (test code = 47.1 % 35.7-45.2 H 4544-3) MCV (test code = 79.8 fL 80.6-95.5 L 787-2) MCH (test code = 24.4 pg 25.9-32.8 L 785-6) MCHC (test code = 30.6 g/dL 31.6-35.1 L 786-4) RDW-SD (test code = 50.1 fL 39.0-49.9 H 33236-0) RDW-CV (test code = 18.1 % 12.0-15.5 H 788-0) PLT (test code = See_Comment H [Automated 777-3) message] The sy stem which generated this result transmitted reference range : 166 - 358 10*3/ ?L. The reference r coty was not used to interpret this result as normal/abnormal . MPV (test code = 8.8 fL 9.5-12.9 L 87854-0) NRBC/100 WBC (test See_Comment [Automat ed code = 2580129773) message] The system which generated this result transmitted reference range : 0.0 - 10.0 /100 WBCs. The refer ence range was not u sed to interpret th is result as normal/abnormal . NRBC x10^3 (test code <0.01 See_Comment [Auto mated = 6898507309) message] The s ystem which generated this result transmitted reference range : 10*3/?L. The reference range was not used to interpret this result as normal/abnormal . GRAN MAT (NEUT) % 79.0 % (test code = 770-8) IMM GRAN % (test code 0.40 % = 9934739187) LYMPH % (test code = 10.9 % 736-9) MONO % (test code = 8.9 % 5905-5) EOS % (test code = 0.2 % 713-8) BASO % (test code = 0.6 % 706-2) GRAN MAT x10^3(ANC) 8.45 10*3/uL 1.88-7.09 H (test code = 3240229814) IMM GRAN x10^3 (test 0.04 10*3/uL 0.00-0.06 code = 4958347786) LYMPH x10^3 (test code 1.17 10*3/uL 1.32-3.29 L = 731-0) MONO x10^3 (test code 0.95 10*3/uL 0.33-0.92 H = 742-7) EOS x10^3 (test code = <0.03 0.03-0.39 L 711-2) BASO x10^3 (test code 0.06 10*3/uL 0.01-0.07 = 704-7) Lab Interpretation Abnormal (test code = 08490-6) [facility] 10:40:04 Test Item Value Reference Range Interpretation Comments MAGNESIUM (test code = 2150533466) 2.0 mg/dL 1.7-2.4 Lab Interpretation (test code = Normal 94129-4) [facility]21-[facility]-18 10:40:04 Test Item Value Reference Range Interpretation Comments PHOSPHORUS (test code = 9634299006) 4.0 mg/dL 2.5-5.0 Lab Interpretation (test code = Normal 74642-3) [facility] METABOLIC PANEL (NA, K, CL, CO2, GLUCOSE, BUN, CREATININE, CA)2021-09-12 10:40:04 Test Item Value Reference Range Interpretation Comments NA (test code = 138 mmol/L 135-145 5118414448) K (test code = 4.2 mmol/L 3.5-5.0 7130792927) CL (test code = 105 mmol/L 98-108 6830664163) CO2 TOTAL (test code = 26 mmol/L 23-31 5377628895) AGAP (test code = 2-16 8587085996) BUN (test code = 34 mg/dL 7-23 H 1911315360) GLUCOSE (test code = 104 mg/dL 70-110 2825873149) CREATININE (test code = 1.24 mg/dL 0.50-1.04 H 1055157810) CALCIUM (test code = 9.4 mg/dL 8.6-10.6 2241417529) eGFR (test code = mL/min/1.73m2 9408424118) PANKAJ (test code = PANKAJ) Association of Glomerular Filtration Rate (GFR) and Staging of Kidney Disease* + --+ --+ ------+| GFR (mL/min/1.73 m2) ?| With Kidney Damage ?| ?Without Kidney Damage+ --------+ --------+ +| ?>90 ?| ?Stage one ?| ? Normal ?+ ---+ ---+ -------+| ?60-89 ?| ?Stage two ?| ? Decreased GFR ? + --+ --+ ------+| ?30-59 ?| ?Stage three ?| ? Stage three ? + --+ --+ ------+| ?15-29 ?| ?Stage four ? | ? Stage four ?+ ---+ ---+ -------+| ?<15 (or dialysis) ? ?| ?Stage five ? | ? Stage five ?+ ---+ ---+ -------+ *Each stage assumes the associated GFR level has been in effect for at least three months. ?Stages 1 to 5, with or without kidney disease, indicate chronic kidney disease. Notes: Determination of stages one and two (with eGFR >59mL/min/1.73 m2) requires estimation of kidney damage for at least three months as defined by structural or functional abnormalities of the kidney, manifested by either:Pathological abnormalities or Markers of kidney damage (including abnormalities in the composition of the blood or urine or abnormalities in imaging tests). Lab Interpretation Abnormal (test code = 77469-3) [facility] WITH [id number] 09:53:18 Test Item Value Reference Range Interpretation Comments WBC (test code = See_Comment [Automated 6690-2) message] The sy stem which generated this result transmitted reference range : 4.30 - 11.10 10*3/?L. The reference range was not used to interpret this result as normal/abnormal . RBC (test code = See_Comment H [Automated 789-8) message] The sy stem which generated this result transmitted reference range : 3.93 - 5.25 10*6/?L. The reference range was not used to interpret this result as normal/abnormal . HGB (test code = 15.6 g/dL 11.6-15.0 H 718-7) HCT (test code = 48.9 % 35.7-45.2 H 4544-3) MCV (test code = 80.6 fL 80.6-95.5 787-2) MCH (test code = 25.7 pg 25.9-32.8 L 785-6) MCHC (test code = 31.9 g/dL 31.6-35.1 786-4) RDW-SD (test code = 49.6 fL 39.0-49.9 65033-8) RDW-CV (test code = 18.3 % 12.0-15.5 H 788-0) PLT (test code = See_Comment H [Automated 777-3) message] The sy stem which generated this result transmitted reference range : 166 - 358 10*3/ ?L. The reference r coty was not used to interpret this result as normal/abnormal . MPV (test code = 8.8 fL 9.5-12.9 L 60075-5) NRBC/100 WBC (test See_Comment [Automat ed code = 5501669600) message] The system which generated this result transmitted reference range : 0.0 - 10.0 /100 WBCs. The refer ence range was not u sed to interpret th is result as normal/abnormal . NRBC x10^3 (test code <0.01 See_Comment [Auto mated = 2357500066) message] The s ystem which generated this result transmitted reference range : 10*3/?L. The reference range was not used to interpret this result as normal/abnormal . GRAN MAT (NEUT) % 80.2 % (test code = 770-8) IMM GRAN % (test code 0.40 % = 7908560883) LYMPH % (test code = 10.1 % 736-9) MONO % (test code = 8.5 % 5905-5) EOS % (test code = 0.0 % 713-8) BASO % (test code = 0.8 % 706-2) GRAN MAT x10^3(ANC) 8.41 10*3/uL 1.88-7.09 H (test code = 9354076639) IMM GRAN x10^3 (test 0.04 10*3/uL 0.00-0.06 code = 5139296703) LYMPH x10^3 (test code 1.06 10*3/uL 1.32-3.29 L = 731-0) MONO x10^3 (test code 0.89 10*3/uL 0.33-0.92 = 742-7) EOS x10^3 (test code = <0.03 0.03-0.39 L 711-2) BASO x10^3 (test code 0.08 10*3/uL 0.01-0.07 H = 704-7) Lab Interpretation Abnormal (test code = 64914-4) [facility] [id number] 19:59:26 Test Item Value Reference Range Interpretation Comments CRP (test code = 8971116659) 0.6 mg/dL <0.8 Lab Interpretation (test code = Normal 51823-2) [facility]EN[facility] [id number] 19:39:20 Test Item Value Reference Range Interpretation Comments PHENY FREE (test code <0.5 1.0-2.0 L = 2039808072) PANKAJ (test code = PANKAJ) Toxic Range: ? Greater than 2.5 ug/mL Test developed and characteristics determined by [facility] Laboratory Services. Lab Interpretation Abnormal (test code = 24565-8) [facility]ownFERRITIN [id number] 12:01:28 Test Item Value Reference Range Interpretation Comments FERRITIN (test code = 63.7 ng/mL 11.0-264.0 1938342920) PANKAJ (test code = PANKAJ) Biotin has been reported to cause a negative bias, interpret results relative to patient's use of biotin. Lab Interpretation (test Normal code = 66136-1) [facility]ownD-[id number] 11:55:43 Test Item Value Reference Interpretation Comments Range D-DIMER (test code = <0.21 See_Comment [Autom ated 0782981330) message] The system which generated this result transmitted reference range : <0.50 ?g/mL (FEU). The reference range was not used to interpret this result as normal/abnormal . PANKAJ (test code = This test may be PANKAJ) used in conjunction with a clinical pretest probability (PTP) assessment model to exclude venous thromboembolism (VTE) in patients suspected of deep venous thrombosis (DVT) and pulmonary embolism (PE) A D-Dimer value less than 0.50 ?g/ml (FEU) has a negative predicative value of 96 to 100% (95% CI)and 97 to 100% (95% CI) as an aid in the diagnosis of deep vein thrombosis (DVT) and pulmonary embolism when there is low or moderate pretest probability of PE or DVT. D-Dimer values are expressed in initial fibrinogen equivalent units (FEU)" The assay results should be used with other information, including the clinical context, in forming a diagnosis. Lab Interpretation Normal (test code = 99350-1) [facility] Care Arterial Blood Gas.2021-09-11 11:29:21 Test Item Value Reference Range Interpretation Comments PH (test code = 2) 7.35-7.45 PCO2 (test code = See_Comment [Automat ed message] 2203323441) The system [employer] generated this result transmitted ref erence range: 35 - 45 mmHg. The reference r coty was not used to interpret this result as normal/abnor mal. PO2 (test code = See_Comment [Automated message] 7583552701) The system [employer] generated this result transmitted ref erence range: 80 - 100 mmHg. The reference r coty was not used to interpret this result as normal/abnor mal. HCO3 (test code = See_Comment [Automate d message] 6180325373) The system [employer] generated this result transmitted ref erence range: 22 - 26 mEq/L. The reference r coty was not used to interpret this result as normal/abnor mal. BE (test code = See_Comment [Automated message] 6812374091) The system [employer] generated this result transmitted ref erence range: -3.0 - 3 .0 mEq/L. The refe rence range was not u sed to interpret this result as normal/abnor mal. Lab Interpretation (test Normal code = 46498-1) [facility] METABOLIC PANEL (NA, K, CL, CO2, GLUCOSE, BUN, CREATININE, CA)2021-09-11 11:28:46 Test Item Value Reference Range Interpretation Comments NA (test code = 140 mmol/L 135-145 9505789250) K (test code = 4.1 mmol/L 3.5-5.0 5653129181) CL (test code = 107 mmol/L 98-108 7633616967) CO2 TOTAL (test code = 24 mmol/L 23-31 4072899963) AGAP (test code = 2-16 2152229344) BUN (test code = 30 mg/dL 7-23 H 2448854257) GLUCOSE (test code = 94 mg/dL 70-110 2030157681) CREATININE (test code = 1.09 mg/dL 0.50-1.04 H 5426043035) CALCIUM (test code = 9.7 mg/dL 8.6-10.6 5964993908) eGFR (test code = mL/min/1.73m2 4594338039) PANKAJ (test code = PANKAJ) Association of Glomerular Filtration Rate (GFR) and Staging of Kidney Disease* + --+ --+ ------+| GFR (mL/min/1.73 m2) ?| With Kidney Damage ?| ?Without Kidney Damage+ --------+ --------+ +| ?>90 ?| ?Stage one ?| ? Normal ?+ ---+ ---+ -------+| ?60-89 ?| ?Stage two ?| ? Decreased GFR ? + --+ --+ ------+| ?30-59 ?| ?Stage three ?| ? Stage three ? + --+ --+ ------+| ?15-29 ?| ?Stage four ? | ? Stage four ?+ ---+ ---+ -------+| ?<15 (or dialysis) ? ?| ?Stage five ? | ? Stage five ?+ ---+ ---+ -------+ *Each stage assumes the associated GFR level has been in effect for at least three months. ?Stages 1 to 5, with or without kidney disease, indicate chronic kidney disease. Notes: Determination of stages one and two (with eGFR >59mL/min/1.73 m2) requires estimation of kidney damage for at least three months as defined by structural or functional abnormalities of the kidney, manifested by either:Pathological abnormalities or Markers of kidney damage (including abnormalities in the composition of the blood or urine or abnormalities in imaging tests). Lab Interpretation Abnormal (test code = 46486-7) [facility]ownLACTATE [id number] 11:28:46 Test Item Value Reference Range Interpretation Comments LDH (test code = 5858661553) 819 U/L 300-600 H Lab Interpretation (test code = Abnormal 30607-2) [facility]2021-[facility]-17 11:28:46 Test Item Value Reference Range Interpretation Comments MAGNESIUM (test code = 9673088922) 1.8 mg/dL 1.7-2.4 Lab Interpretation (test code = Normal 50831-3) [facility]2021-12-17 11:28:46 Test Item Value Reference Range Interpretation Comments PHOSPHORUS (test code = 8096720135) 4.3 mg/dL 2.5-5.0 Lab Interpretation (test code = Normal 45648-0) [facility]CB WITH [id number] 11:12:00 Test Item Value Reference Range Interpretation Comments WBC (test code = See_Comment [Automated 4190-2) message] The sy stem which generated this result transmitted reference range : 4.30 - 11.10 10*3/?L. The reference range was not used to interpret this result as normal/abnormal . RBC (test code = See_Comment H [Automated 275-8) message] The sy stem which generated this result transmitted reference range : 3.93 - 5.25 10*6/?L. The reference range was not used to interpret this result as normal/abnormal . HGB (test code = 15.0 g/dL 11.6-15.0 718-7) HCT (test code = 48.0 % 35.7-45.2 H 4544-3) MCV (test code = 81.8 fL 80.6-95.5 787-2) MCH (test code = 25.6 pg 25.9-32.8 L 785-6) MCHC (test code = 31.3 g/dL 31.6-35.1 L 786-4) RDW-SD (test code = 50.4 fL 39.0-49.9 H 20622-0) RDW-CV (test code = 18.0 % 12.0-15.5 H 788-0) PLT (test code = See_Comment H [Automated 777-3) message] The sy stem which generated this result transmitted reference range : 166 - 358 10*3/ ?L. The reference r coty was not used to interpret this result as normal/abnormal . MPV (test code = 9.2 fL 9.5-12.9 L 75869-9) NRBC/100 WBC (test See_Comment [Automat ed code = 5139738730) message] The system which generated this result transmitted reference range : 0.0 - 10.0 /100 WBCs. The refer ence range was not u sed to interpret th is result as normal/abnormal . NRBC x10^3 (test code <0.01 See_Comment [Auto mated = 8900632492) message] The s ystem which generated this result transmitted reference range : 10*3/?L. The reference range was not used to interpret this result as normal/abnormal . GRAN MAT (NEUT) % 80.4 % (test code = 770-8) IMM GRAN % (test code 0.40 % = 3194684902) LYMPH % (test code = 11.1 % 736-9) MONO % (test code = 7.2 % 5905-5) EOS % (test code = 0.1 % 713-8) BASO % (test code = 0.8 % 706-2) GRAN MAT x10^3(ANC) 6.81 10*3/uL 1.88-7.09 (test code = 2747972260) IMM GRAN x10^3 (test 0.03 10*3/uL 0.00-0.06 code = 5940518836) LYMPH x10^3 (test code 0.94 10*3/uL 1.32-3.29 L = 731-0) MONO x10^3 (test code 0.61 10*3/uL 0.33-0.92 = 742-7) EOS x10^3 (test code = <0.03 0.03-0.39 L 711-2) BASO x10^3 (test code 0.07 10*3/uL 0.01-0.07 = 704-7) Lab Interpretation Abnormal (test code = 69661-7) [facility]ownKEPPRA (LEVETIRACETAM)2021-09-11 06:59:49 Test Item Value Reference Range Interpretation Comments KEPPRA (test code = 42 ug/mL 12-46 7544537963) PANKAJ (test code = PANKAJ) Therapeutic range: 12-46 ?g/mL ? ?Toxic: Not well established.Test developed and characteristics determined by [facility] Laboratory Services. Lab Interpretation Normal (test code = 77366-0) [facility] [id number] 21:21:35 Test Item Value Reference Range Interpretation Comments CRP (test code = 3977152133) 0.3 mg/dL <0.8 Lab Interpretation (test code = Normal 44083-8) [facility]ownD-[id number] 19:20:38 Test Item Value Reference Interpretation Comments Range D-DIMER (test code = See_Comment [Autom ated 1674201797) message] The system which generated this result transmitted reference range : <0.50 ?g/mL (FEU). The reference range was not used to interpret this result as normal/abnormal . PANKAJ (test code = This test may be PANKAJ) used in conjunction with a clinical pretest probability (PTP) assessment model to exclude venous thromboembolism (VTE) in patients suspected of deep venous thrombosis (DVT) and pulmonary embolism (PE) A D-Dimer value less than 0.50 ?g/ml (FEU) has a negative predicative value of 96 to 100% (95% CI)and 97 to 100% (95% CI) as an aid in the diagnosis of deep vein thrombosis (DVT) and pulmonary embolism when there is low or moderate pretest probability of PE or DVT. D-Dimer values are expressed in initial fibrinogen equivalent units (FEU)" The assay results should be used with other information, including the clinical context, in forming a diagnosis. Lab Interpretation Normal (test code = 87586-1) [facility]ownLAMAATE [id number] 18:47:56 Test Item Value Reference Range Interpretation Comments LDH (test code = 0221763078) 851 U/L 300-600 H Lab Interpretation (test code = Abnormal 81489-6) [facility]ownPOMA GLUCOSE (AUTOMATED)2021-09-10 18:14:28 Test Item Value Reference Range Interpretation Comments POCT GLU (test code = 7804936953) 110 mg/dL 70-110 Lab Interpretation (test code = Normal 35471-4) [facility]ownAC ABG + LACTIC [id number] 18:04:00 Test Item Value Reference Range Interpretation Comments PH (test code = 2) 7.35-7.45 PCO2 (test code = See_Comment H [Automat ed 8821914908) message] The sy stem which generated this result transmitted reference range : 35 - 45 mmHg. The reference range was not used to interpret this result as normal/abnormal . PO2 (test code = See_Comment L [Automated 1502446236) message] The sy stem which generated this result transmitted reference range : 80 - 100 mmHg. The reference range was not used to interpret this result as normal/abnormal . HCO3 (test code = See_Comment [Automate d 3777818858) message] The sy stem which generated this result transmitted reference range : 22 - 26 mEq/L. The reference range was not used to interpret this result as normal/abnormal . BE (test code = See_Comment [Automated 7897682212) message] The sy stem which generated this result transmitted reference range : -3.0 - 3.0 mEq/ L. The reference r coty was not used to interpret this result as normal/abnormal . LACTIC ACID (test code 0.92 mmol/L 0.50-2.20 = 1640819666) Lab Interpretation Abnormal (test code = 50849-2) [facility]ownFERRITIN [id number] 17:20:22 Test Item Value Reference Range Interpretation Comments FERRITIN (test code = 63.5 ng/mL 11.0-264.0 8811590313) PANKAJ (test code = PANKAJ) Biotin has been reported to cause a negative bias, interpret results relative to patient's use of biotin. Lab Interpretation (test Normal code = 69814-6) [facility]2021-12-16 16:44:28 Test Item Value Reference Range Interpretation Comments MAGNESIUM (test code = 9500499352) 2.0 mg/dL 1.7-2.4 Lab Interpretation (test code = Normal 57505-3) [facility]2021-12-16 16:44:28 Test Item Value Reference Range Interpretation Comments PHOSPHORUS (test code = 4.5 mg/dL 2.5-5.0 Slig ht hemolysis 3595180756) Lab Interpretation (test Normal code = 31454-2) [facility]ownN-TERMINAL [id number] 12:08:26 Test Item Value Reference Range Interpretation Comments NT-proBNP (test code 2530 pg/mL See_Comment H [Autom ated = 1782885771) message] The system which generated this result transmitted reference range : <=125. The reference range was not used to interpret this result as normal/abnormal . PANKAJ (test code = PANKAJ) Biotin has been reported to cause a negative bias, interpret results relative to patient's use of biotin. Lab Interpretation Abnormal (test code = 10606-4) [facility]ownTroponin I - Code [id number] 11:49:37 Test Item Value Reference Interpretation Comments Range TROPONIN I (test 0.013 ng/mL See_Comment [Automated code = 6554654439) message] The system which generated this result transmitted reference range : <=0.034. The reference range was not used to interpret this result as normal/abnormal . PANKAJ (test code = Reference (Normal) PANKAJ) Range (defined by the 99th percentile reference limit): <= 0.034 ng/mL Note: Cardiac troponin begins to rise 3-4 hours after the onset of ischemia. Repeat in 4-6 hours if the sample was drawn within 3-4 hours of the onset of the symptom and found normal. Diagnosis of myocardial injury is made with acute changes in cTn concentrations with at least one serial sample above the 99th percentile upper reference limit (URL), taken together with the patient's clinical presentation. Biotin has been reported to cause a negative bias, interpret results relative to patient's use of biotin. Lab Interpretation Normal (test code = 30584-7) [facility] Metabolic Panel (NA, K, CL, CO2, Glucose, BUN, Creatinine, CA) - Code [id number] 11:37:36 Test Item Value Reference Range Interpretation Comments NA (test code = 141 mmol/L 135-145 8397658753) K (test code = 5.4 mmol/L 3.5-5.0 H 5696648374) CL (test code = 105 mmol/L 98-108 8418974367) CO2 TOTAL (test code = 29 mmol/L 23-31 9628178627) AGAP (test code = 2-16 3111995749) BUN (test code = 47 mg/dL 7-23 H 9692984866) GLUCOSE (test code = 136 mg/dL 70-110 H 3977605526) CREATININE (test code = 1.38 mg/dL 0.50-1.04 H 4088098573) CALCIUM (test code = 9.7 mg/dL 8.6-10.6 1366939578) eGFR (test code = mL/min/1.73m2 7610805265) PANKAJ (test code = PANKAJ) Association of Glomerular Filtration Rate (GFR) and Staging of Kidney Disease* + --+ --+ ------+| GFR (mL/min/1.73 m2) ?| With Kidney Damage ?| ?Without Kidney Damage+ --------+ --------+ +| ?>90 ?| ?Stage one ?| ? Normal ?+ ---+ ---+ -------+| ?60-89 ?| ?Stage two ?| ? Decreased GFR ? + --+ --+ ------+| ?30-59 ?| ?Stage three ?| ? Stage three ? + --+ --+ ------+| ?15-29 ?| ?Stage four ? | ? Stage four ?+ ---+ ---+ -------+| ?<15 (or dialysis) ? ?| ?Stage five ? | ? Stage five ?+ ---+ ---+ -------+ *Each stage assumes the associated GFR level has been in effect for at least three months. ?Stages 1 to 5, with or without kidney disease, indicate chronic kidney disease. Notes: Determination of stages one and two (with eGFR >59mL/min/1.73 m2) requires estimation of kidney damage for at least three months as defined by structural or functional abnormalities of the kidney, manifested by either:Pathological abnormalities or Markers of kidney damage (including abnormalities in the composition of the blood or urine or abnormalities in imaging tests). Lab Interpretation Abnormal (test code = 17213-3) [facility].2021-09-10 11:31:22 Test Item Value Reference Range Interpretation Comments PH (test code = 2) 7.35-7.45 PCO2 (test code = See_Comment H [Automat ed message] [id number]) The system [employer] generated this result transmitted ref erence range: 35 - 45 mmHg. The reference r coty was not used to interpret this result as normal/abnor mal. PO2 (test code = See_Comment H [Automated message] [id number]) The system [employer] generated this result transmitted ref erence range: 80 - 100 mmHg. The reference r coty was not used to interpret this result as normal/abnor mal. HCO3 (test code = See_Comment [Automate d message] [id number]) The system [employer] generated this result transmitted ref erence range: 22 - 26 mEq/L. The reference r coty was not used to interpret this result as normal/abnor mal. BE (test code = See_Comment [Automated message] [id number]) The system [employer] generated this result transmitted ref erence range: -3.0 - 3 .0 mEq/L. The refe rence range was not u sed to interpret this result as normal/abnor mal. Lab Interpretation (test Abnormal code = 01722-6) [facility]2021-09-10 11:29:11 Test Item Value Reference Range Interpretation Comments POCT GLU (test code = 129 mg/dL 70-110 H Notifi ed Provider [id number]) Lab Interpretation (test Abnormal code = 85922-8) [facility] - Code Mkjinb4090-05-82 11:24:54 Test Item Value Reference Range Interpretation Comments APTT Patient (test See_Comment [Automat ed code = 3173-2) message] The system which generated this result transmitted reference range : 23 - 38 Seconds . The reference range was not used to interpr et this result as normal/abnormal . PANKAJ (test code = PANKAJ) The [facility] patient population mean normal value for aPTT is 30 seconds. Lab Interpretation Normal (test code = 29742-9) [facility]th[facility] Time / INR - Code Eivmzh5987-21-19 11:22:38 Test Item Value Reference Range Interpretation Comments PROTIME PATIENT (test See_Comment H [Auto mated message] code = 5964-2) The system [employer] generated this result transmitted ref erence range: 12.0 - 1 4.7 Seconds. The reference range was not used to int erpret this result as normal/abnormal . INR (test code = 6301-6) Nor mal INR <1.1; Warfarin Therap eutic range 2.0 to 3. 0 or 2.5 to 3.5, dep ending upon the indica tions. Lab Interpretation (test Abnormal code = 22777-4) [facility] without Diff - Code [id number] 11:12:53 Test Item Value Reference Range Interpretation Comments WBC (test code = 6690-2) See_Comment [A utomated message] The system [employer] generated this result transmit lazaro reference range : 4.30 - 11.10 10*3/?L. The reference range was not used to interpret this result as normal/abnormal . RBC (test code = 789-8) See_Comment H [Au tomated message] The system [employer] generated this result transmit lazaro reference range : 3.93 - 5.25 10* 6/?L. The reference r coty was not used to interpret this result as normal/abnormal . HGB (test code = 718-7) 14.0 g/dL 11.6-15.0 HCT (test code = 4544-3) 45.5 % 35.7-45.2 H MCH (test code = 785-6) 25.3 pg 25.9-32.8 L MCV (test code = 787-2) 82.1 fL 80.6-95.5 MCHC (test code = 786-4) 30.8 g/dL 31.6-35.1 L PLT (test code = 777-3) See_Comment H [Au tomated message] The system [employer] generated this result transmit lazaro reference range : 166 - 358 10*3/?L. The reference range was not used to interpret this result as normal/abnormal . MPV (test code = 9.0 fL 9.5-12.9 L 04006-8) RDW-CV (test code = 17.3 % 12.0-15.5 H 788-0) RDW-SD (test code = 51.1 fL 39.0-49.9 H 45737-4) NRBC x10^3 (test code = <0.01 See_Comment [Au tomated message] [id number]) The system [employer] generated this result transmit lazaro reference range : 10*3/?L. The reference range was not used to interpret this result as normal/abnormal . NRBC/100 WBC (test code See_Comment [Au tomated message] = [id number]) The system [employer] generated this result transmit lazaro reference range : 0.0 - 10.0 /100 WBC s. The reference r coty was not used to interpret this result as normal/abnormal . IPF % (test code = [id number]) Lab Interpretation (test Abnormal code = 25848-1) [facility] Whole Jgmwv1555-19-54 11:10:08 Test Item Value Reference Range Interpretation Comments LACTIC ACID (test code = 1.21 mmol/L 0.50-2.20 [id number]) Lab Interpretation (test code = Normal 80813-6) [facility] [id number] 11:10:00 Test Item Value Reference Range Interpretation Comments Magnesium Lvl (test code = Magnesium 2.4 1.8-2.4 Lvl) [facility] YMZGS0854-20-27 11:10:00 Test Item Value Reference Range Interpretation Comments eGFR (test code = eGFR) 36 [facility]2016-11-18 11:10:00 Test Item Value Reference Range Interpretation Comments Calcium Lvl (test code = Calcium Lvl) 8.9 8.5-10.5 [facility] CREEKNMOFV0960-83-32 11:10:00 Test Item Value Reference Range Interpretation Comments AGAP (test code = AGAP) 14.5 10.0-20.0 [facility]2016-11-18 11:10:00 Test Item Value Reference Range Interpretation Comments CO2 (test code = CO2) 26 24-32 [place] 473786-11-18 11:10:00 Test Item Value Reference Range Interpretation Comments Chloride Lvl (test code = Chloride Lvl) 106 95-109 [facility]2016-11-18 11:10:00 Test Item Value Reference Range Interpretation Comments Potassium Lvl (test code = Potassium 4.5 3.5-5.1 Lvl) [facility]2016-11-18 11:10:00 Test Item Value Reference Range Interpretation Comments Creatinine Lvl (test code = Creatinine 1.50 0.50-1.40 Lvl) [facility]2016-11-18 11:10:00 Test Item Value Reference Range Interpretation Comments Sodium Lvl (test code = Sodium Lvl) 142 135-145 [facility]2016-11-18 11:10:00 Test Item Value Reference Range Interpretation Comments BUN (test code = BUN) 54 7-22 [facility]2016-11-18 11:10:00 Test Item Value Reference Range Interpretation Comments Glucose Lvl (test code = Glucose Lvl) 106 70-99 [facility] HospitalXtqzdreZEAVKAOKBP4388-37-18 11:10:00 Test Item Value Reference Range Interpretation Comments PTT (test code = PTT) 34.9 s 22.9-35.8 [facility] HospitalFsouigkFMJDPASCUZ5948-49-82 11:10:00 Test Item Value Reference Range Interpretation Comments INR (test code = INR) 1.46 0.85-1.17 [place] 921666-11-18 11:10:00 Test Item Value Reference Range Interpretation Comments PT (test code = PT) 18.0 s 12.0-14.7 [place] 473786-11-17 21:11:00 Test Item Value Reference Range Interpretation Comments Bili Total (test code = Bili Total) 0.4 0.2-1.3 [place] 473786-11-17 21:11:00 Test Item Value Reference Range Interpretation Comments eGFR (test code = eGFR) 29 [facility]2016-11-17 21:11:00 Test Item Value Reference Range Interpretation Comments Alk Phos (test code = Alk Phos) 151 39-136 [facility]2016-11-17 21:11:00 Test Item Value Reference Range Interpretation Comments AST (test code = AST) 20 See_Comment [Auto mated message] The system which ge nerated this result transmit lazaro reference range : <=37. The reference range was not used to interpr et this result as walter l/abnormal. [facility]2016-11-17 21:11:00 Test Item Value Reference Range Interpretation Comments Calcium Lvl (test code = Calcium Lvl) 9.3 8.5-10.5 [facility]2016-11-17 21:11:00 Test Item Value Reference Range Interpretation Comments Total Protein (test code = Total 8.0 6.4-8.4 Protein) [facility]2016-11-17 21:11:00 Test Item Value Reference Range Interpretation Comments CO2 (test code = CO2) 28 24-32 [facility]2016-11-17 21:11:00 Test Item Value Reference Range Interpretation Comments Chloride Lvl (test code = Chloride Lvl) 105 95-109 [facility]2016-11-17 21:11:00 Test Item Value Reference Range Interpretation Comments Albumin Lvl (test code = Albumin Lvl) 3.6 3.5-5.0 [facility]2016-11-17 21:11:00 Test Item Value Reference Range Interpretation Comments ALT (test code = ALT) 21 See_Comment [Auto mated message] The system which ge nerated this result transmit lazaro reference range : <=65. The reference range was not used to interpr et this result as walter l/abnormal. [facility]2016-11-17 21:11:00 Test Item Value Reference Range Interpretation Comments Glucose Lvl (test code = Glucose Lvl) 121 70-99 [facility]2016-11-17 21:11:00 Test Item Value Reference Range Interpretation Comments Creatinine Lvl (test code = Creatinine 1.80 0.50-1.40 Lvl) [facility]2016-11-17 21:11:00 Test Item Value Reference Range Interpretation Comments BUN (test code = BUN) 55 7-22 [facility]2016-11-17 21:11:00 Test Item Value Reference Range Interpretation Comments Sodium Lvl (test code = Sodium Lvl) 142 135-145 [facility]2016-11-17 21:11:00 Test Item Value Reference Range Interpretation Comments Potassium Lvl (test code = Potassium 4.1 3.5-5.1 Lvl) [facility]2016-11-17 21:11:00 Test Item Value Reference Range Interpretation Comments AGAP (test code = AGAP) 13.1 10.0-20.0 [facility]2016-11-17 21:11:00 Test Item Value Reference Range Interpretation Comments A/G Ratio (test code = A/G Ratio) 0.8 0.7-1.6 [facility]2016-11-17 21:11:00 Test Item Value Reference Range Interpretation Comments B/C Ratio (test code = B/C Ratio) 31 6-25 [facility]2016-11-17 21:11:00 Test Item Value Reference Range Interpretation Comments Globulin (test code = Globulin) 4.4 2.7-4.2 [facility] HospitalGqzanxkXHZCMEMRLS2081-10-49 21:11:00 Test Item Value Reference Range Interpretation Comments Basophils (test code = 0.8 See_Comment [Aut omated message] The Basophils) system which ge nerated this result tra nsmitted reference range : <=1.0. The reference r coty was not used to int erpret this result as normal/abnormal . [facility] HospitalBrgrwwqSQAXYRTJGU3438-72-07 21:11:00 Test Item Value Reference Range Interpretation Comments Monocytes # (test code 0.4 See_Comment [Aut omated message] The = Monocytes #) system which generated this result tra nsmitted reference range : <=0.8. The reference r coty was not used to int erpret this result as normal/abnormal . [facility] HospitalYfsfsoxLTGOKVWJUR0028-61-72 21:11:00 Test Item Value Reference Range Interpretation Comments Segs-Bands # (test code = Segs-Bands #) 3.0 1.5-8.1 [facility] HospitalHcyyvlyMFHOGFUBLB0287-67-69 21:11:00 Test Item Value Reference Range Interpretation Comments Eosinophils # (test code 0.3 See_Comment [A utomated message] The = Eosinophils #) system whic h generated this result tra nsmitted reference range : <=0.5. The reference r coty was not used to int erpret this result as normal/abnormal . [facility] HospitalIykgdppSXZEYDKRNX9030-81-36 21:11:00 Test Item Value Reference Range Interpretation Comments Basophils # (test code 0.0 See_Comment [Aut omated message] The = Basophils #) system which generated this result tra nsmitted reference range : <=0.2. The reference r coty was not used to int erpret this result as normal/abnormal . [facility] HospitalSelurlpSFANZVRJLY9876-00-32 21:11:00 Test Item Value Reference Range Interpretation Comments Lymphocytes # (test code = Lymphocytes 0.9 1.0-5.5 #) [facility] HospitalRzlsfepLLNLKTKVCQ9329-75-95 21:11:00 Test Item Value Reference Range Interpretation Comments Segs (test code = Segs) 64.3 45.0-75.0 [facility] HospitalJqzsoawZDBUSSUUNG0167-78-98 21:11:00 Test Item Value Reference Range Interpretation Comments Monocytes (test code = Monocytes) 8.3 2.0-12.0 [facility] HospitalMmqimzgICFJPUTERT3388-69-37 21:11:00 Test Item Value Reference Range Interpretation Comments Eosinophils (test code = 7.4 See_Comment [A utomated message] The Eosinophils) system which ge nerated this result tra nsmitted reference range : <=4.0. The reference r coty was not used to int erpret this result as normal/abnormal . [facility] HospitalPxeyebxTUPROOTHUO9300-71-60 21:11:00 Test Item Value Reference Range Interpretation Comments Lymphocytes (test code = Lymphocytes) 19.2 20.0-40.0 [facility] HospitalKiiqvsmMWNZUCFGFN4993-29-36 21:11:00 Test Item Value Reference Range Interpretation Comments Platelet (test code = Platelet) 426 133-450 [facility] HospitalNzzlmidRKUBNBWQUQ4294-51-72 21:11:00 Test Item Value Reference Range Interpretation Comments RDW (test code = RDW) 16.7 11.5-14.5 [facility] HospitalSmxwytyBFNZEYCBCT1632-57-22 21:11:00 Test Item Value Reference Range Interpretation Comments MCHC (test code = MCHC) 31.4 32.0-36.0 [facility] HospitalUoaifnxWYDDQEEXRR0787-77-28 21:11:00 Test Item Value Reference Range Interpretation Comments MCH (test code = MCH) 26.7 pg 27.0-31.0 [facility] HospitalEtwvjnwYIPUWHVZLO1374-05-38 21:11:00 Test Item Value Reference Range Interpretation Comments MPV (test code = MPV) 7.8 7.4-10.4 [facility] HospitalJofyxkxKLGGCQUMPZ7081-09-96 21:11:00 Test Item Value Reference Range Interpretation Comments Hct (test code = Hct) 39.9 36.0-48.0 [facility] HospitalKxrcbpwXPSLCQUSQZ8936-99-38 21:11:00 Test Item Value Reference Range Interpretation Comments MCV (test code = MCV) 85.0 80.0-98.0 [facility] HospitalZtaeivoAKUCUUHHFE5764-41-02 21:11:00 Test Item Value Reference Range Interpretation Comments Hgb (test code = Hgb) 12.5 12.0-16.0 [facility] HospitalXhltiydAHPCGIJZET6367-30-76 21:11:00 Test Item Value Reference Range Interpretation Comments RBC (test code = RBC) 4.70 4.20-5.40 [facility] HospitalKamxjchTIYJTLBGWS0421-43-91 21:11:00 Test Item Value Reference Range Interpretation Comments WBC (test code = WBC) 4.6 3.7-10.4 [facility] HospitalHziwdewGMSPBQHXUV1513-96-82 11:10:00 Test Item Value Reference Range Interpretation Comments INR (test code = INR) 1.34 0.85-1.17 [facility] HospitalZfwqebbGMINGMFBPR6194-41-58 11:10:00 Test Item Value Reference Range Interpretation Comments PT (test code = PT) 16.8 s 12.0-14.7 [facility] HospitalCwvfglzXSXAZPXYGM4719-04-03 11:10:00 Test Item Value Reference Range Interpretation Comments PTT (test code = PTT) 34.1 s 22.9-35.8 [facility]2016-11-17 07:12:00 Test Item Value Reference Range Interpretation Comments UA Ketones (test code Negative *NA*(08/12/16 = UA Ketones) 1:12 AM) [facility] AND [id number] 07:12:00 Test Item Value Reference Range Interpretation Comments UA Glucose (test code Negative (08/12/16 1:12 = UA Glucose) AM) [facility] AND [id number] 07:12:00 Test Item Value Reference Range Interpretation Comments UA Nitrite (test code Negative (08/12/16 1:12 = UA Nitrite) AM) [facility] AND [id number] 07:12:00 Test Item Value Reference Range Interpretation Comments UA Urobilinogen (test code = UA 0.2 0.1-1.0 Urobilinogen) [facility] AND [id number] 07:12:00 Test Item Value Reference Range Interpretation Comments UA Protein (test code = UA Protein) 30 mg/dL [facility] AND [id number] 07:12:00 Test Item Value Reference Range Interpretation Comments UA pH (test code = UA pH) 7.0 1 5.0-8.0 [facility] [id number] 07:12:00 Test Item Value Reference Range Interpretation Comments UA Spec Grav (test code = UA Spec 1.010 1 Grav) [facility] AND [id number] 07:12:00 Test Item Value Reference Range Interpretation Comments UA Leuk Est (test code Trace *ABN*(08/12/16 = UA Leuk Est) 1:12 AM) [facility] AND [id number] 07:12:00 Test Item Value Reference Range Interpretation Comments UA Turbidity (test code Slight Cloudy = UA Turbidity) (08/12/16 1:12 AM) [facility] AND [id number] 07:12:00 Test Item Value Reference Range Interpretation Comments UA Color (test code = Yellow *NA*(08/12/16 UA Color) 1:12 AM) [facility] AND WFVQV0530-80-06 07:12:00 Test Item Value Reference Range Interpretation Comments Micro? (test code = Performed (08/12/16 1:12 Micro?) AM) [facility] AND [id number] 07:12:00 Test Item Value Reference Range Interpretation Comments UA WBC (test code = UA WBC) 11-20 /HPF [facility] AND [id number] 07:12:00 Test Item Value Reference Range Interpretation Comments UA Sq Epi (test code = UA Sq Moderate /LPF Epi) [facility] AND [id number] 07:12:00 Test Item Value Reference Range Interpretation Comments UA RBC (test code 08-15 /HPF See_Comment [Automate d message] The = UA RBC) system which ge nerated this result tra nsmitted reference range : <=2. The reference range was not used to interpr et this result as normal/abnormal . [facility] AND [id number] 07:12:00 Test Item Value Reference Range Interpretation Comments UA Bacteria (test code = UA Moderate /HPF Bacteria) [facility] AND [id number] 07:12:00 Test Item Value Reference Range Interpretation Comments UA Blood (test code = Moderate *ABN*(08/12/16 UA Blood) 1:12 AM) [facility] AND [id number] 07:12:00 Test Item Value Reference Range Interpretation Comments UA Bili (test code = Negative *NA*(08/12/16 UA Bili) 1:12 AM) [facility]2016-11-16 11:22:00 Test Item Value Reference Range Interpretation Comments eGFR (test code = eGFR) 33 [facility]2016-11-16 11:22:00 Test Item Value Reference Range Interpretation Comments BUN (test code = BUN) 57 7-22 [facility]2016-11-16 11:22:00 Test Item Value Reference Range Interpretation Comments Glucose Lvl (test code = Glucose Lvl) 115 70-99 [facility]2016-11-16 11:22:00 Test Item Value Reference Range Interpretation Comments CO2 (test code = CO2) 32 24-32 [facility]2016-11-16 11:22:00 Test Item Value Reference Range Interpretation Comments AGAP (test code = AGAP) 10.9 10.0-20.0 [facility]2016-11-16 11:22:00 Test Item Value Reference Range Interpretation Comments Calcium Lvl (test code = Calcium Lvl) 8.8 8.5-10.5 [facility]2016-11-16 11:22:00 Test Item Value Reference Range Interpretation Comments Potassium Lvl (test code = Potassium 3.9 3.5-5.1 Lvl) [facility]2016-11-16 11:22:00 Test Item Value Reference Range Interpretation Comments Chloride Lvl (test code = Chloride Lvl) 104 95-109 [facility]2016-11-16 11:22:00 Test Item Value Reference Range Interpretation Comments Creatinine Lvl (test code = Creatinine 1.60 0.50-1.40 Lvl) [facility]2016-11-16 11:22:00 Test Item Value Reference Range Interpretation Comments Sodium Lvl (test code = Sodium Lvl) 143 135-145 [facility]2016-11-16 11:22:00 Test Item Value Reference Range Interpretation Comments Magnesium Lvl (test code = Magnesium 2.1 1.8-2.4 Lvl) [facility] HospitalVskypjnDLGMWRSQHY3200-04-36 11:22:00 Test Item Value Reference Range Interpretation Comments PT (test code = PT) 16.7 s 12.0-14.7 [facility] HospitalUecpxccGDMGDJOCZG9704-55-95 11:22:00 Test Item Value Reference Range Interpretation Comments INR (test code = INR) 1.33 0.85-1.17 [facility]2016-11-14 20:12:00 Test Item Value Reference Range Interpretation Comments Globulin (test code = Globulin) 4.4 2.7-4.2 [place] 473786-11-14 20:12:00 Test Item Value Reference Range Interpretation Comments Albumin Lvl (test code = Albumin Lvl) 3.7 3.5-5.0 [facility]2016-11-14 20:12:00 Test Item Value Reference Range Interpretation Comments A/G Ratio (test code = A/G Ratio) 0.8 0.7-1.6 [facility]2016-11-14 20:12:00 Test Item Value Reference Range Interpretation Comments ALT (test code = ALT) 22 See_Comment [Auto mated message] The system which ge nerated this result transmit lazaro reference range : <=65. The reference range was not used to interpr et this result as walter l/abnormal. [facility]2016-11-14 20:12:00 Test Item Value Reference Range Interpretation Comments Total Protein (test code = Total 8.1 6.4-8.4 Protein) [facility]2016-11-14 20:12:00 Test Item Value Reference Range Interpretation Comments B/C Ratio (test code = B/C Ratio) 29 6-25 [place] [address]-11-14 20:12:00 Test Item Value Reference Range Interpretation Comments Alk Phos (test code = Alk Phos) 170 39-136 [facility]2016-11-14 20:12:00 Test Item Value Reference Range Interpretation Comments AST (test code = AST) 19 See_Comment [Auto mated message] The system which ge nerated this result transmit lazaro reference range : <=37. The reference range was not used to interpr et this result as walter l/abnormal. [facility]2016-11-14 20:12:00 Test Item Value Reference Range Interpretation Comments Bili Total (test code = Bili Total) 0.5 0.2-1.3 [facility] HospitalBrlefbvZHOMYISEKA4934-26-30 20:12:00 Test Item Value Reference Range Interpretation Comments MPV (test code = MPV) 7.9 7.4-10.4 [facility] HospitalAtszljvMLQLYWKCOQ6734-87-73 20:12:00 Test Item Value Reference Range Interpretation Comments Hgb (test code = Hgb) 13.0 12.0-16.0 [facility] HospitalXxtfjplHSAEJITTTR7523-10-14 20:12:00 Test Item Value Reference Range Interpretation Comments RDW (test code = RDW) 17.4 11.5-14.5 [facility] HospitalOhvzupmXCUUVVZFSY5479-28-98 20:12:00 Test Item Value Reference Range Interpretation Comments Platelet (test code = Platelet) 475 133-450 [facility] HospitalErbdizaGCJUSBDCYZ9144-24-35 20:12:00 Test Item Value Reference Range Interpretation Comments MCH (test code = MCH) 26.7 pg 27.0-31.0 [facility] HospitalVpcnwroCAZYMZLLKE7575-34-06 20:12:00 Test Item Value Reference Range Interpretation Comments MCHC (test code = MCHC) 31.2 32.0-36.0 [facility] HospitalLkzxgorTFLLATXOCV1628-69-18 20:12:00 Test Item Value Reference Range Interpretation Comments Hct (test code = Hct) 41.6 36.0-48.0 [facility] HospitalOevrcjmYLZZUGRSLY0035-51-11 20:12:00 Test Item Value Reference Range Interpretation Comments MCV (test code = MCV) 85.6 80.0-98.0 [facility] HospitalVsjbahrNRKDIHVCIZ3402-35-71 20:12:00 Test Item Value Reference Range Interpretation Comments RBC (test code = RBC) 4.86 4.20-5.40 [facility] HospitalHbpbfdgRWNOSQBULO5995-78-19 20:12:00 Test Item Value Reference Range Interpretation Comments WBC (test code = WBC) 6.0 3.7-10.4 [facility] HospitalDheggfnQDDDUIQCTE1387-00-29 20:12:00 Test Item Value Reference Range Interpretation Comments Basophils # (test code 0.0 See_Comment [Aut omated message] The = Basophils #) system which generated this result tra nsmitted reference range : <=0.2. The reference r coty was not used to int erpret this result as normal/abnormal . [facility] HospitalYbahopcDYCBGNIULX7652-22-83 20:12:00 Test Item Value Reference Range Interpretation Comments Lymphocytes # (test code = Lymphocytes 1.1 1.0-5.5 #) [facility] HospitalZerwmrgRTVWLMTUSW9014-09-39 20:12:00 Test Item Value Reference Range Interpretation Comments Eosinophils # (test code 0.4 See_Comment [A utomated message] The = Eosinophils #) system [facility] generated this result tra nsmitted reference range : <=0.5. The reference r coty was not used to int erpret this result as normal/abnormal . [facility] HospitalBdioayrGDERWBLIWB4086-12-20 20:12:00 Test Item Value Reference Range Interpretation Comments Monocytes # (test code 0.5 See_Comment [Aut omated message] The = Monocytes #) system which generated this result tra nsmitted reference range : <=0.8. The reference r coty was not used to int erpret this result as normal/abnormal . [facility] HospitalLoaokzrBPXVVVBIZC5502-65-43 20:12:00 Test Item Value Reference Range Interpretation Comments Segs-Bands # (test code = Segs-Bands #) 4.0 1.5-8.1 [facility] HospitalDhrfcceIXYIEDGIBQ3766-63-22 20:12:00 Test Item Value Reference Range Interpretation Comments Basophils (test code = 0.0 See_Comment [Aut omated message] The Basophils) system which ge nerated this result tra nsmitted reference range : <=1.0. The reference r coty was not used to int erpret this result as normal/abnormal . [facility] HospitalAocsowuBECNLSJEVE4546-08-86 20:12:00 Test Item Value Reference Range Interpretation Comments Eosinophils (test code = 6.4 See_Comment [A utomated message] The Eosinophils) system which ge nerated this result tra nsmitted reference range : <=4.0. The reference r coty was not used to int erpret this result as normal/abnormal . [facility] HospitalNntvkwaCXQCTUVTKU3260-91-10 20:12:00 Test Item Value Reference Range Interpretation Comments Lymphocytes (test code = Lymphocytes) 19.0 20.0-40.0 [facility] HospitalXhiezrkRWQDOTGKCX5790-79-81 20:12:00 Test Item Value Reference Range Interpretation Comments Segs (test code = Segs) 66.0 45.0-75.0 [facility] HospitalIjqqlucNGEFNFMETB8518-82-77 20:12:00 Test Item Value Reference Range Interpretation Comments Monocytes (test code = Monocytes) 8.6 2.0-12.0 [facility]2016-11-14 10:31:00 Test Item Value Reference Range Interpretation Comments Magnesium Lvl (test code = Magnesium 1.8 1.8-2.4 Lvl) [facility]2016-11-14 10:31:00 Test Item Value Reference Range Interpretation Comments Phosphorus (test code = Phosphorus) 3.8 2.5-4.5 [facility]2016-11-10 09:56:00 Test Item Value Reference Range Interpretation Comments Globulin (test code = Globulin) 3.7 2.7-4.2 [facility]2016-11-10 09:56:00 Test Item Value Reference Range Interpretation Comments A/G Ratio (test code = A/G Ratio) 0.8 0.7-1.6 [facility]2016-11-10 09:56:00 Test Item Value Reference Range Interpretation Comments AST (test code = AST) 15 See_Comment [Auto mated message] The system which ge nerated this result transmit lazaro reference range : <=37. The reference range was not used to interpr et this result as walter l/abnormal. [facility]2016-11-10 09:56:00 Test Item Value Reference Range Interpretation Comments ALT (test code = ALT) 16 See_Comment [Auto mated message] The system which ge nerated this result transmit lazaro reference range : <=65. The reference range was not used to interpr et this result as walter l/abnormal. [place] 16[address]-11-10 09:56:00 Test Item Value Reference Range Interpretation Comments Bili Total (test code = Bili Total) 0.6 0.2-1.3 [facility]2016-11-10 09:56:00 Test Item Value Reference Range Interpretation Comments Alk Phos (test code = Alk Phos) 129 39-136 [facility]2016-11-10 09:56:00 Test Item Value Reference Range Interpretation Comments B/C Ratio (test code = B/C Ratio) 33 6-25 [facility]2016-11-10 09:56:00 Test Item Value Reference Range Interpretation Comments Total Protein (test code = Total 6.7 6.4-8.4 Protein) [facility]2016-11-10 09:56:00 Test Item Value Reference Range Interpretation Comments Albumin Lvl (test code = Albumin Lvl) 3.0 3.5-5.0 [facility] HospitalFdnppujFJRLJSEMJJ3890-86-02 09:56:00 Test Item Value Reference Range Interpretation Comments MPV (test code = MPV) 7.4 7.4-10.4 [place] 921666-11-10 09:56:00 Test Item Value Reference Range Interpretation Comments Platelet (test code = Platelet) 468 133-450 [facility] HospitalHgnvntmAKEDRAIBDT2013-83-68 09:56:00 Test Item Value Reference Range Interpretation Comments RDW (test code = RDW) 17.7 11.5-14.5 [facility] HospitalGlnurvxVFOFAAQBBP2037-23-97 09:56:00 Test Item Value Reference Range Interpretation Comments Hct (test code = Hct) 30.6 36.0-48.0 [facility] HospitalRvgyprrRMKLNMPNAF7278-83-30 09:56:00 Test Item Value Reference Range Interpretation Comments Hgb (test code = Hgb) 10.0 12.0-16.0 [place] 921666-11-10 09:56:00 Test Item Value Reference Range Interpretation Comments RBC (test code = RBC) 3.62 4.20-5.40 [place] 921666-11-10 09:56:00 Test Item Value Reference Range Interpretation Comments MCV (test code = MCV) 84.5 80.0-98.0 [place] 921666-11-10 09:56:00 Test Item Value Reference Range Interpretation Comments MCHC (test code = MCHC) 32.8 32.0-36.0 [facility] HospitalJqdafqkWHGLQWRZZK2817-88-38 09:56:00 Test Item Value Reference Range Interpretation Comments MCH (test code = MCH) 27.7 pg 27.0-31.0 [facility] HospitalShspzdzJKACWXHJBZ1343-43-42 09:56:00 Test Item Value Reference Range Interpretation Comments WBC (test code = WBC) 5.6 3.7-10.4 [facility] HospitalNopieqzKHRKPJPIQP7320-41-35 09:56:00 Test Item Value Reference Range Interpretation Comments Monocytes (test code = Monocytes) 11.0 2.0-12.0 [facility] HospitalJmholiuJKDQRZLMHL3848-29-96 09:56:00 Test Item Value Reference Range Interpretation Comments Eosinophils (test code = 5.6 See_Comment [A utomated message] The Eosinophils) system which ge nerated this result tra nsmitted reference range : <=4.0. The reference r coty was not used to int erpret this result as normal/abnormal . [facility] HospitalLdsmtrsDJUCSEBYWS0533-38-02 09:56:00 Test Item Value Reference Range Interpretation Comments Segs-Bands # (test code = Segs-Bands #) 3.7 1.5-8.1 [facility] HospitalBcnfjuoKNHYONTGKJ8631-63-78 09:56:00 Test Item Value Reference Range Interpretation Comments Basophils (test code = 0.0 See_Comment [Aut omated message] The Basophils) system which ge nerated this result tra nsmitted reference range : <=1.0. The reference r coty was not used to int erpret this result as normal/abnormal . [facility] HospitalJbilhwtUXOCOXBRBT2312-88-23 09:56:00 Test Item Value Reference Range Interpretation Comments Basophils # (test code 0.0 See_Comment [Aut omated message] The = Basophils #) system which generated this result tra nsmitted reference range : <=0.2. The reference r coty was not used to int erpret this result as normal/abnormal . [facility] HospitalBhjkmliOELEADXXRF9628-84-43 09:56:00 Test Item Value Reference Range Interpretation Comments Eosinophils # (test code 0.3 See_Comment [A utomated message] The = Eosinophils #) system whic h generated this result tra nsmitted reference range : <=0.5. The reference r coty was not used to int erpret this result as normal/abnormal . [facility] HospitalJxjltxoNGYBZMZFHT8991-83-75 09:56:00 Test Item Value Reference Range Interpretation Comments Lymphocytes # (test code = Lymphocytes 1.0 1.0-5.5 #) [facility] HospitalBwlqigmBGJDYQGSSU6619-43-31 09:56:00 Test Item Value Reference Range Interpretation Comments Monocytes # (test code 0.6 See_Comment [Aut omated message] The = Monocytes #) system which generated this result tra nsmitted reference range : <=0.8. The reference r coty was not used to int erpret this result as normal/abnormal . [facility] HospitalDxjovcwCOZQEGQBLR3787-44-61 09:56:00 Test Item Value Reference Range Interpretation Comments Segs (test code = Segs) 65.1 45.0-75.0 [facility] HospitalUicxzjiHEWHBAUSBH7638-14-07 09:56:00 Test Item Value Reference Range Interpretation Comments Lymphocytes (test code = Lymphocytes) 18.3 20.0-40.0 [facility] [id number] 11:24:00 Test Item Value Reference Range Interpretation Comments Total Volume (test code = Total 2089.1 Volume) [facility] [id number] 11:24:00 Test Item Value Reference Range Interpretation Comments U24 Scott Free (test 4 See_Comment [Automa lazaro message] The code = U24 Scott Free) system which generated this result transmit lazaro reference range : <=5024. The reference r coty was not used to interpr et this result as walter l/abnormal. [facility] [id number] 11:24:00 Test Item Value Reference Range Interpretation Comments U Cortisol Free (test code = U Cortisol 5 Free) [facility] [id number] 11:24:00 Test Item Value Reference Range Interpretation Comments U24 Creatinine (test code = U24 [id number] Creatinine) [facility] [id number] 11:24:00 Test Item Value Reference Range Interpretation Comments U Creat mg/dL (test code = U Creat 41.6 mg/dL) [facility]OuvvcdyHORJUPFQLNQYC7968-85-85 16:10:00 Test Item Value Reference Range Interpretation Comments Cortisol (test code = Cortisol) 11.9 [facility] [id number] 09:43:00 Test Item Value Reference Range Interpretation Comments Phosphorus (test code = Phosphorus) 6.2 2.5-4.5 [facility] AND [id number] 22:38:00 Test Item Value Reference Range Interpretation Comments UA Urobilinogen (test code = UA <=1.0 mg/dL 0.1-1.0 Urobilinogen) [facility] AND [id number] 22:38:00 Test Item Value Reference Range Interpretation Comments UA Turbidity (test code Slight *ABN*(07/28/16 = UA Turbidity) 5:38 PM) [facility] AND [id number] 22:38:00 Test Item Value Reference Range Interpretation Comments UA Spec Grav (test code = UA Spec Grav) 1.015 [facility] AND [id number] 22:38:00 Test Item Value Reference Range Interpretation Comments UA pH (test code = UA pH) 5.0 5.0-8.0 [facility] AND [id number] 22:38:00 Test Item Value Reference Range Interpretation Comments UA Glucose (test code = UA Negative mg/dL Glucose) [facility] AND [id number] 22:38:00 Test Item Value Reference Range Interpretation Comments UA Protein (test code = UA Protein) 50 mg/dL [facility] AND [id number] 22:38:00 Test Item Value Reference Range Interpretation Comments UA Ketones (test code = UA Negative mg/dL Ketones) [facility] AND [id number] 22:38:00 Test Item Value Reference Range Interpretation Comments UA Blood (test code = Negative (07/28/16 5:38 UA Blood) PM) [facility] AND [id number] 22:38:00 Test Item Value Reference Range Interpretation Comments UA Bili (test code = Negative *NA*(07/28/16 UA Bili) 5:38 PM) [facility] AND [id number] 22:38:00 Test Item Value Reference Range Interpretation Comments UA Leuk Est (test Negative (07/28/16 5:38 code = UA Leuk Est) PM) [facility] AND [id number] 22:38:00 Test Item Value Reference Range Interpretation Comments UA Nitrite (test code Negative (07/28/16 5:38 = UA Nitrite) PM) [facility] AND [id number] 22:38:00 Test Item Value Reference Range Interpretation Comments UA WBC (test code = 1 See_Comment [Automa lazaro message] The UA WBC) system which ge nerated this result transmit lazaro reference range : <=5. The reference range was not used to interpr et this result as walter l/abnormal. [facility] [id number] 22:38:00 Test Item Value Reference Range Interpretation Comments UA Mucus (test code = UA Mucus) Few /LPF [facility] AND [id number] 22:38:00 Test Item Value Reference Range Interpretation Comments UA Amorph Patty (test code = Occasional /HPF UA Amorph Patty) [facility] AND [id number] 22:38:00 Test Item Value Reference Range Interpretation Comments UA Sq Epi (test code = UA Sq Epi) None Seen [facility] AND [id number] 22:38:00 Test Item Value Reference Range Interpretation Comments UA Color (test code = Yellow *NA*(07/28/16 UA Color) 5:38 PM) [facility] [id number] 08:53:00 Test Item Value Reference Range Interpretation Comments Phosphorus (test code = Phosphorus) 6.1 2.5-4.5 [facility] CampusNkltvoqSVKUSQCLSNLPJ1295-35-89 03:47:00 Test Item Value Reference Range Interpretation Comments Cortisol (test code = Cortisol) 12.7 [facility] AND [id number] 09:40:00 Test Item Value Reference Range Interpretation Comments UA Spec Grav (test code = UA Spec 1.020 1 Grav) [facility] [id number] 09:40:00 Test Item Value Reference Range Interpretation Comments UA Turbidity (test code Slight Cloudy = UA Turbidity) (07/27/16 4:40 AM) [facility] AND [id number] 09:40:00 Test Item Value Reference Range Interpretation Comments UA Color (test code = Yellow *NA*(07/27/16 UA Color) 4:40 AM) [facility] AND [id number] 09:40:00 Test Item Value Reference Range Interpretation Comments UA pH (test code = UA pH) 5.0 1 5.0-8.0 [facility] AND [id number] 09:40:00 Test Item Value Reference Range Interpretation Comments UA Urobilinogen (test code = UA 0.2 0.1-1.0 Urobilinogen) [facility] AND [id number] 09:40:00 Test Item Value Reference Range Interpretation Comments UA Ketones (test code Negative *NA*(07/27/16 = UA Ketones) 4:40 AM) [facility] AND [id number] 09:40:00 Test Item Value Reference Range Interpretation Comments UA Glucose (test code Negative (07/27/16 4:40 = UA Glucose) AM) [facility] AND [id number] 09:40:00 Test Item Value Reference Range Interpretation Comments UA Protein (test code = UA Protein) 30 mg/dL [facility] AND [id number] 09:40:00 Test Item Value Reference Range Interpretation Comments UA Blood (test code = Trace *ABN*(07/27/16 UA Blood) 4:40 AM) [facility] AND [id number] 09:40:00 Test Item Value Reference Range Interpretation Comments UA Bili (test code = Negative *NA*(07/27/16 UA Bili) 4:40 AM) [facility] AND [id number] 09:40:00 Test Item Value Reference Range Interpretation Comments UA Nitrite (test code Negative (07/27/16 4:40 = UA Nitrite) AM) [facility] AND [id number] 09:40:00 Test Item Value Reference Range Interpretation Comments UA Leuk Est (test code Trace *ABN*(07/27/16 = UA Leuk Est) 4:40 AM) [facility] AND [id number] 09:40:00 Test Item Value Reference Range Interpretation Comments UA WBC (test code = UA WBC) 6-10 /HPF [facility] AND [id number] 09:40:00 Test Item Value Reference Range Interpretation Comments Micro? (test code = Performed (07/27/16 4:40 Micro?) AM) [facility] AND [id number] 09:40:00 Test Item Value Reference Range Interpretation Comments UA RBC (test code = 6-10 /HPF See_Comment [Automa lazaro message] The UA RBC) system which ge nerated this result tra nsmitted reference range : <=2. The reference range was not used to interpr et this result as normal/abnormal . [facility] AND [id number] 09:40:00 Test Item Value Reference Range Interpretation Comments UA Sq Epi (test code = UA Sq Epi) Few /LPF [facility] AND [id number] 09:40:00 Test Item Value Reference Range Interpretation Comments UA Bacteria (test code = UA Few /HPF Bacteria) [facility] AND [id number] 09:40:00 Test Item Value Reference Range Interpretation Comments UA Amorph Patty (test code = UA Moderate /HPF Amorph Patty) [facility]2016-11-01 09:40:00 Test Item Value Reference Range Interpretation Comments U Osmolality (test code = U Osmolality) 358 300-800 [facility]2016-11-01 00:45:00 Test Item Value Reference Range Interpretation Comments Osmolality (test code = Osmolality) 293 280-300 [facility]2016-10-31 11:00:00 Test Item Value Reference Range Interpretation Comments U Chloride (test code = U Chloride) no gt [facility]2016-10-31 11:00:00 Test Item Value Reference Range Interpretation Comments U Sodium (test code = U Sodium) 68 [facility]2016-10-31 11:00:00 Test Item Value Reference Range Interpretation Comments U Potassium (test code = U Potassium) 57.3 [facility]2016-10-31 11:00:00 Test Item Value Reference Range Interpretation Comments U Prot/Creat (test code = U Prot/Creat) 1.2 [facility]2016-10-31 11:00:00 Test Item Value Reference Range Interpretation Comments U Protein (test code = U Protein) 146.2 [facility]2016-10-31 11:00:00 Test Item Value Reference Range Interpretation Comments U Creatinine (test code = U 118.00 Creatinine) [facility] AND [id number] 16:44:00 Test Item Value Reference Range Interpretation Comments UA Amorph Patty (test code = UA Few /HPF Amorph Patty) [facility] AND [id number] 16:44:00 Test Item Value Reference Range Interpretation Comments UA RBC (test code = 6-10 /HPF See_Comment [Automa lazaro message] The UA RBC) system which ge nerated this result tra nsmitted reference range : <=2. The reference range was not used to interpr et this result as normal/abnormal . [facility] AND [id number] 16:44:00 Test Item Value Reference Range Interpretation Comments UA Bacteria (test code = UA Moderate /HPF Bacteria) [facility] [id number] 09:32:00 Test Item Value Reference Range Interpretation Comments PTT (test code = PTT) 38.8 s 22.9-35.8 [facility] Hospit[id number] 18:41:00 Test Item Value Reference Range Interpretation Comments Anisocyte (test code = 1+ *ABN*(07/22/16 Anisocyte) 1:41 PM) [facility] HospitalTpfwolzDBUOROMXCH6243-83-18 18:41:00 Test Item Value Reference Range Interpretation Comments Plt Morph (test code = Normal (07/22/16 1:41 Plt Morph) PM) [facility]2016-10-27 02:13:00 Test Item Value Reference Range Interpretation Comments TV Creatinine (ml) (test code = TV [phone] Creatinine (ml)) [facility]2016-10-27 02:13:00 Test Item Value Reference Range Interpretation Comments U T Creat (test code = U T Creat) 491.8 [facility]2016-10-27 02:13:00 Test Item Value Reference Range Interpretation Comments Ur Creat (test code = Ur Creat) 59.40 [facility]2016-10-27 02:13:00 Test Item Value Reference Range Interpretation Comments U Creat Col (hrs) (test code = U Creat 24 h Col (hrs)) [facility]2016-10-27 02:13:00 Test Item Value Reference Range Interpretation Comments U24 Dopamine (test code 64 See_Comment [Au tomated message] The = U24 Dopamine) system which generated this result tra nsmitted reference range : <=83179. The reference r coty was not used to int erpret this result as normal/abnormal . [facility]2016-10-27 02:13:00 Test Item Value Reference Range Interpretation Comments U24 Norepinephrine (test 42 See_Comment [A utomated message] code = U24 Norepinephrine) T he system which generated this result transmitted ref erence range: <=44177. The reference range was not used to int erpret this result as normal/abnormal . [facility]2016-10-27 02:13:00 Test Item Value Reference Range Interpretation Comments U Norepi (test code = U Norepi) 51 [facility]2016-10-27 02:13:00 Test Item Value Reference Range Interpretation Comments U Dopamine (test code = U Dopamine) 77 [facility]2016-10-27 02:13:00 Test Item Value Reference Range Interpretation Comments U24 Epinephrine (test 1 See_Comment [Auto mated message] The code = U24 Epinephrine) syst em which generated this result tra nsmitted reference range : <=2024. The reference r coty was not used to int erpret this result as normal/abnormal . [facility]2016-10-27 02:13:00 Test Item Value Reference Range Interpretation Comments U Epi (test code = U Epi) 1 [place] [id number] 10:08:00 Test Item Value Reference Range Interpretation Comments Aldos/Renin Ratio 51.8 See_Comment [Automate d message] The (test code = system which ge nerated this Aldos/Renin Ratio) result tr ansmitted reference range : <=30.0. The reference r coty was not used to interpr et this result as walter l/abnormal. [id number] 10:08:00 Test Item Value Reference Range Interpretation Comments Aldosterone (test code = 8.8 See_Comment [A utomated message] The Aldosterone) system which ge nerated this result tra nsmitted reference range : <=30.0. The reference r coty was not used to int erpret this result as normal/abnormal . [facility] WorthL[id number] 10:08:00 Test Item Value Reference Range Interpretation Comments Renin Activity (test code = Renin 0.17 Activity) [facility]2016-10-20 08:38:00 Test Item Value Reference Range Interpretation Comments Lipase Lvl (test code = Lipase Lvl) 195 73-393 [facility]OokeaioWCKLJRQOBP8703-92-11 18:09:00 Test Item Value Reference Range Interpretation Comments PB Smear Path (test Peripheral smear code = PB Smear examination: Normocytic Path) normochromic red cells with anisocytosis. Unremarkable WBC morphology. Adequate platelets with rare large forms. CPT 39422 [facility] AND [id number] 20:59:00 Test Item Value Reference Range Interpretation Comments UA Mucus (test code = UA Mucus) Few /LPF [facility] KsfllzeFQDRITWEQO5758-48-04 09:21:00 Test Item Value Reference Range Interpretation Comments Anisocyte (test code = 1+ *ABN*(06/23/16 Anisocyte) 4:21 AM) [facility]MkhbfcqTNXVFKGCFR1188-45-43 09:21:00 Test Item Value Reference Range Interpretation Comments Large Plt (test code = Large Plt) Slight [facility] OyhwgyrALJLNBKYJA2875-71-42 09:21:00 Test Item Value Reference Range Interpretation Comments Prealbumin (test code = Prealbumin) 20.3 18.0-45.0 [facility] CampusQvmgnefXXDMWVPRYB3078-88-41 08:21:00 Test Item Value Reference Range Interpretation Comments MCH (test code = MCH) 27.3 pg 27.0-31.0 [facility]FejbpnyKSTSQCCJOQ1711-04-44 08:21:00 Test Item Value Reference Range Interpretation Comments MPV (test code = MPV) 8.7 7.4-10.4 [facility] HospitalCkcqhwrNSBYXXVGTI6086-91-64 08:21:00 Test Item Value Reference Range Interpretation Comments WBC (test code = WBC) 9.0 3.7-10.4 [facility] [facility]BT[facility]BDK6641[facility]31-80 08:21:00 Test Item Value Reference Range Interpretation Comments Hgb (test code = Hgb) 12.8 12.0-16.0 [facility]KEXNPHDNKP0338[facility]-11 08:21:00 Test Item Value Reference Range Interpretation Comments Hct (test code = Hct) 39.0 36.0-48.0 [facility]XCZVBQKD2845-74-32 08:21:00 Test Item Value Reference Range Interpretation Comments RBC (test code = RBC) 4.67 4.20-5.40 [facility]FfuzlihWWVVLDMLGY8189-48-72 08:21:00 Test Item Value Reference Range Interpretation Comments MCV (test code = MCV) 83.4 80.0-98.0 [facility] [id number] 08:21:00 Test Item Value Reference Range Interpretation Comments Ca Norm WB (test code = Ca Norm WB) 1.18 1.05-1.25 [facility] [id number] 08:21:00 Test Item Value Reference Range Interpretation Comments Ca Ion WB (test code = Ca Ion WB) 1.16 1.05-1.25 [facility]2016-09-27 08:21:00 Test Item Value Reference Range Interpretation Comments Phosphorus (test code = Phosphorus) 2.3 2.5-4.5 [facility]2016-09-27 08:21:00 Test Item Value Reference Range Interpretation Comments Magnesium Lvl (test code = Magnesium 2.0 1.8-2.4 Lvl) [facility]2016-09-27 08:21:00 Test Item Value Reference Range Interpretation Comments eGFR (test code = eGFR) 100 [facility]2016-09-27 08:21:00 Test Item Value Reference Range Interpretation Comments Sodium Lvl (test code = Sodium Lvl) 143 135-145 [facility]2016-09-27 08:21:00 Test Item Value Reference Range Interpretation Comments Chloride Lvl (test code = Chloride Lvl) 104 95-109 [facility]2016-09-27 08:21:00 Test Item Value Reference Range Interpretation Comments Potassium Lvl (test code = Potassium 4.2 3.5-5.1 Lvl) [facility]2016-09-27 08:21:00 Test Item Value Reference Range Interpretation Comments Calcium Lvl (test code = Calcium Lvl) 9.2 8.5-10.5 [facility]2016-09-27 08:21:00 Test Item Value Reference Range Interpretation Comments CO2 (test code = CO2) 30 24-32 [facility]2016-09-27 08:21:00 Test Item Value Reference Range Interpretation Comments Glucose Lvl (test code = Glucose Lvl) 107 70-99 [facility]2016-09-27 08:21:00 Test Item Value Reference Range Interpretation Comments BUN (test code = BUN) 28 7-22 [facility]2016-09-27 08:21:00 Test Item Value Reference Range Interpretation Comments Creatinine Lvl (test code = Creatinine 0.73 0.50-1.40 Lvl) [facility]2016-09-27 08:21:00 Test Item Value Reference Range Interpretation Comments AGAP (test code = AGAP) 13.2 10.0-20.0 [facility] HospitalCqocckjMOPXUFAFYG3181-32-14 08:21:00 Test Item Value Reference Range Interpretation Comments Segs-Bands # (test code = Segs-Bands #) 6.7 1.5-8.1 [facility] HospitalAyfqvtgBQGSWKCUII1378-14-59 08:21:00 Test Item Value Reference Range Interpretation Comments Lymphocytes # (test code = Lymphocytes 1.0 1.0-5.5 #) [facility] HospitalBmqjahjZCBRVZWJSP2917-23-97 08:21:00 Test Item Value Reference Range Interpretation Comments Basophils # (test code 0.1 See_Comment [Aut omated message] The = Basophils #) system which generated this result tra nsmitted reference range : <=0.2. The reference r coty was not used to int erpret this result as normal/abnormal . [facility] HospitalKcgnidmVELYTDSTOD0853-76-03 08:21:00 Test Item Value Reference Range Interpretation Comments Monocytes # (test code 0.7 See_Comment [Aut omated message] The = Monocytes #) system which generated this result tra nsmitted reference range : <=0.8. The reference r coty was not used to int erpret this result as normal/abnormal . [facility] HospitalEjgcyolGHQXWINCAL0563-74-56 08:21:00 Test Item Value Reference Range Interpretation Comments Eosinophils # (test code 0.4 See_Comment [A utomated message] The = Eosinophils #) system whic h generated this result tra nsmitted reference range : <=0.5. The reference r coty was not used to int erpret this result as normal/abnormal . [facility] HospitalVspvwaxDSQREIBIWT7103-54-75 08:21:00 Test Item Value Reference Range Interpretation Comments Lymphocytes (test code = Lymphocytes) 11.3 20.0-40.0 [facility] HospitalZzrridrHMVGCJXSIQ0178-20-26 08:21:00 Test Item Value Reference Range Interpretation Comments Segs (test code = Segs) 74.5 45.0-75.0 [place] [id number] 08:21:00 Test Item Value Reference Range Interpretation Comments Basophils (test code = 1.1 See_Comment [Aut omated message] The Basophils) system which ge nerated this result tra nsmitted reference range : <=1.0. The reference r coty was not used to int erpret this result as normal/abnormal . [facility] HospitalRnnhrhrVJDLHGTFQA4229-85-58 08:21:00 Test Item Value Reference Range Interpretation Comments Monocytes (test code = Monocytes) 8.2 2.0-12.0 [facility] HospitalCavhxzuTHDQUEDSQI6166-91-66 08:21:00 Test Item Value Reference Range Interpretation Comments Eosinophils (test code = 4.9 See_Comment [A utomated message] The Eosinophils) system which ge nerated this result tra nsmitted reference range : <=4.0. The reference r coty was not used to int erpret this result as normal/abnormal . [facility] HospitalGaaxjsaEWNKCLRJTK6986-73-32 08:21:00 Test Item Value Reference Range Interpretation Comments Platelet (test code = Platelet) 410 133-450 [facility] HospitalCseqghsOIPOUEHVBI9964-49-21 08:21:00 Test Item Value Reference Range Interpretation Comments RDW (test code = RDW) 17.8 11.5-14.5 [facility] HospitalAmjiehpKASXMUYNOA9264-10-07 08:21:00 Test Item Value Reference Range Interpretation Comments MCHC (test code = MCHC) 32.8 32.0-36.0 [facility]2016-09-23 07:32:00 Test Item Value Reference Range Interpretation Comments eGFR (test code = eGFR) 67 [facility]2016-09-23 07:32:00 Test Item Value Reference Range Interpretation Comments ALT (test code = ALT) 22 See_Comment [Auto mated message] The system which ge nerated this result transmit lazaro reference range : <=65. The reference range was not used to interpr et this result as walter l/abnormal. [facility]2016-09-23 07:32:00 Test Item Value Reference Range Interpretation Comments AST (test code = AST) 26 See_Comment [Auto mated message] The system which ge nerated this result transmit lazaro reference range : <=37. The reference range was not used to interpr et this result as walter l/abnormal. [place] [id number] 07:32:00 Test Item Value Reference Range Interpretation Comments Alk Phos (test code = Alk Phos) 119 39-136 [facility]2016-09-23 07:32:00 Test Item Value Reference Range Interpretation Comments Bili Total (test code = Bili Total) 0.6 0.2-1.3 [facility]2016-09-23 07:32:00 Test Item Value Reference Range Interpretation Comments Calcium Lvl (test code = Calcium Lvl) 9.0 8.5-10.5 [facility]2016-09-23 07:32:00 Test Item Value Reference Range Interpretation Comments Total Protein (test code = Total 6.6 6.4-8.4 Protein) [facility]2016-09-23 07:32:00 Test Item Value Reference Range Interpretation Comments Sodium Lvl (test code = Sodium Lvl) 143 135-145 [facility]2016-09-23 07:32:00 Test Item Value Reference Range Interpretation Comments CO2 (test code = CO2) 26 24-32 [facility]2016-09-23 07:32:00 Test Item Value Reference Range Interpretation Comments Potassium Lvl (test code = Potassium 4.2 3.5-5.1 Lvl) [facility]2016-09-23 07:32:00 Test Item Value Reference Range Interpretation Comments Chloride Lvl (test code = Chloride Lvl) 106 95-109 [facility]2016-09-23 07:32:00 Test Item Value Reference Range Interpretation Comments Albumin Lvl (test code = Albumin Lvl) 2.8 3.5-5.0 [facility]2016-09-23 07:32:00 Test Item Value Reference Range Interpretation Comments BUN (test code = BUN) 41 7-22 [facility]2016-09-23 07:32:00 Test Item Value Reference Range Interpretation Comments Creatinine Lvl (test code = Creatinine 1.02 0.50-1.40 Lvl) [facility]2016-09-23 07:32:00 Test Item Value Reference Range Interpretation Comments Glucose Lvl (test code = Glucose Lvl) 138 70-99 [facility]2016-09-23 07:32:00 Test Item Value Reference Range Interpretation Comments B/C Ratio (test code = B/C Ratio) 40 6-25 [facility]2016-09-23 07:32:00 Test Item Value Reference Range Interpretation Comments Globulin (test code = Globulin) 3.8 2.7-4.2 [facility]2016-09-23 07:32:00 Test Item Value Reference Range Interpretation Comments A/G Ratio (test code = A/G Ratio) 0.7 0.7-1.6 [facility]2016-09-23 07:32:00 Test Item Value Reference Range Interpretation Comments AGAP (test code = AGAP) 15.2 10.0-20.0 [facility] HospitalUvdoppmVRWOKBYDFH5135-77-01 07:32:00 Test Item Value Reference Range Interpretation Comments Segs (test code = Segs) 69.5 45.0-75.0 [facility] HospitalPalofmdWPVFLOBCDR5722-34-48 07:32:00 Test Item Value Reference Range Interpretation Comments Monocytes # (test code 0.6 See_Comment [Aut omated message] The = Monocytes #) system which generated this result tra nsmitted reference range : <=0.8. The reference r coty was not used to int erpret this result as normal/abnormal . [facility] HospitalFsxlkbuTSDXHCBCWB0396-84-89 07:32:00 Test Item Value Reference Range Interpretation Comments Eosinophils # (test code 0.5 See_Comment [A utomated message] The = Eosinophils #) system whic h generated this result tra nsmitted reference range : <=0.5. The reference r coty was not used to int erpret this result as normal/abnormal . [facility] HospitalXrmbjjfJIZORHCQGO3007-00-14 07:32:00 Test Item Value Reference Range Interpretation Comments Basophils # (test code 0.1 See_Comment [Aut omated message] The = Basophils #) system which generated this result tra nsmitted reference range : <=0.2. The reference r coty was not used to int erpret this result as normal/abnormal . [facility] HospitalHptunnmKMCLWASFNS3350-65-36 07:32:00 Test Item Value Reference Range Interpretation Comments Lymphocytes # (test code = Lymphocytes 1.3 1.0-5.5 #) [facility] HospitalQuokbpxBRVGMOTBQJ3845-02-05 07:32:00 Test Item Value Reference Range Interpretation Comments Segs-Bands # (test code = Segs-Bands #) 5.6 1.5-8.1 [facility] HospitalYhhpsfkDFXSORWZAM1360-46-46 07:32:00 Test Item Value Reference Range Interpretation Comments Basophils (test code = 0.8 See_Comment [Aut omated message] The Basophils) system which ge nerated this result tra nsmitted reference range : <=1.0. The reference r coty was not used to int erpret this result as normal/abnormal . [facility] HospitalHrabgwhQIVRCUSYFE9402-18-29 07:32:00 Test Item Value Reference Range Interpretation Comments Lymphocytes (test code = Lymphocytes) 16.3 20.0-40.0 [facility] HospitalBgtoquyFLZEHOMGUS1194-51-67 07:32:00 Test Item Value Reference Range Interpretation Comments Monocytes (test code = Monocytes) 7.6 2.0-12.0 [facility] HospitalLmajsqcSLXLFLOIGV0215-87-15 07:32:00 Test Item Value Reference Range Interpretation Comments Eosinophils (test code = 5.8 See_Comment [A utomated message] The Eosinophils) system which ge nerated this result tra nsmitted reference range : <=4.0. The reference r coty was not used to int erpret this result as normal/abnormal . [facility] HospitalPozbxleWRNAHSESGQ6120-22-62 07:32:00 Test Item Value Reference Range Interpretation Comments MPV (test code = MPV) 9.3 7.4-10.4 [facility] HospitalOgtrtwxCLTPCZJFEG3785-47-79 07:32:00 Test Item Value Reference Range Interpretation Comments MCHC (test code = MCHC) 32.4 32.0-36.0 [facility] HospitalIgefjtwTKDEWNICWT7685-55-88 07:32:00 Test Item Value Reference Range Interpretation Comments RDW (test code = RDW) 18.9 11.5-14.5 [facility] HospitalKaomlatPWVXNVNVPW9678-87-99 07:32:00 Test Item Value Reference Range Interpretation Comments Platelet (test code = Platelet) 351 133-450 [facility] HospitalJcqfzfiKPAUWJXPJW9702-35-03 07:32:00 Test Item Value Reference Range Interpretation Comments MCV (test code = MCV) 82.9 80.0-98.0 [facility] HospitalRepflnlOVIKVRXHLK4334-71-71 07:32:00 Test Item Value Reference Range Interpretation Comments MCH (test code = MCH) 26.9 pg 27.0-31.0 [facility] HospitalCzgpvcbIBIOGVJKFD5152-26-29 07:32:00 Test Item Value Reference Range Interpretation Comments RBC (test code = RBC) 4.65 4.20-5.40 [facility] HospitalFkxuunmGSLSIKBHOE0350-21-01 07:32:00 Test Item Value Reference Range Interpretation Comments Hgb (test code = Hgb) 12.5 12.0-16.0 [facility] HospitalYdidekiYFGEVRYGLN6618-93-96 07:32:00 Test Item Value Reference Range Interpretation Comments WBC (test code = WBC) 8.0 3.7-10.4 [facility] HospitalZzocbepCTCXMFJKOJ5262-29-85 07:32:00 Test Item Value Reference Range Interpretation Comments Hct (test code = Hct) 38.6 36.0-48.0 [facility]2016-09-23 07:32:00 Test Item Value Reference Range Interpretation Comments Ca Ion WB (test code = Ca Ion WB) 1.05 1.05-1.25 [facility]2016-09-23 07:32:00 Test Item Value Reference Range Interpretation Comments Ca Norm WB (test code = Ca Norm WB) 1.09 1.05-1.25 [facility] AND [id number] 19:26:00 Test Item Value Reference Range Interpretation Comments UA Ketones (test code = UA Negative mg/dL Ketones) [facility] AND [id number] 19:26:00 Test Item Value Reference Range Interpretation Comments UA Glucose (test code = UA Negative mg/dL Glucose) [facility] AND [id number] 19:26:00 Test Item Value Reference Range Interpretation Comments UA pH (test code = UA pH) 6.0 5.0-8.0 [facility] AND [id number] 19:26:00 Test Item Value Reference Range Interpretation Comments UA Bili (test code = Negative *NA*(06/17/16 UA Bili) 2:26 PM) [facility] AND [id number] 19:26:00 Test Item Value Reference Range Interpretation Comments UA Protein (test code = UA Protein) 200 mg/dL [facility] AND [id number] 19:26:00 Test Item Value Reference Range Interpretation Comments UA Turbidity (test code = Clear (06/17/16 2:26 UA Turbidity) PM) [facility] AND [id number] 19:26:00 Test Item Value Reference Range Interpretation Comments UA Color (test code = Yellow *NA*(06/17/16 UA Color) 2:26 PM) [facility] [id number] 19:26:00 Test Item Value Reference Range Interpretation Comments UA Spec Grav (test code = UA Spec Grav) 1.016 [facility] [id number] 19:26:00 Test Item Value Reference Range Interpretation Comments UA Bacteria (test code = UA Occasional /HPF Bacteria) [facility] AND [id number] 19:26:00 Test Item Value Reference Range Interpretation Comments UA Mucus (test code = UA Mucus) Few /LPF [facility] [id number] 19:26:00 Test Item Value Reference Range Interpretation Comments Micro? (test code = Performed *NA*(06/17/16 Micro?) 2:26 PM) [facility] AND [id number] 19:26:00 Test Item Value Reference Range Interpretation Comments UA RBC (test code = 1 See_Comment [Automa lazaro message] The UA RBC) system which ge nerated this result transmit lazaro reference range : <=2. The reference range was not used to interpr et this result as walter l/abnormal. [facility] [id number] 19:26:00 Test Item Value Reference Range Interpretation Comments UA Leuk Est (test Negative (06/17/16 2:26 code = UA Leuk Est) PM) [facility] AND [id number] 19:26:00 Test Item Value Reference Range Interpretation Comments UA Blood (test code = Negative (06/17/16 2:26 UA Blood) PM) [facility] AND [id number] 19:26:00 Test Item Value Reference Range Interpretation Comments UA WBC (test code = 3 See_Comment [Automa lazaro message] The UA WBC) system which ge nerated this result transmit lazaro reference range : <=5. The reference range was not used to interpr et this result as walter l/abnormal. [facility] [id number] 19:26:00 Test Item Value Reference Range Interpretation Comments UA Urobilinogen (test code = UA 2.0 0.1-1.0 Urobilinogen) [facility] AND [id number] 19:26:00 Test Item Value Reference Range Interpretation Comments UA Nitrite (test code Negative (06/17/16 2:26 = UA Nitrite) PM) [facility] HospitalEmdfufcMSJITOWWVU2836-05-50 10:34:00 Test Item Value Reference Range Interpretation Comments MPV (test code = MPV) 8.8 7.4-10.4 [facility] HospitalVsxdbhiVFDMGHJBVP6238-30-03 10:34:00 Test Item Value Reference Range Interpretation Comments Platelet (test code = Platelet) 301 133-450 [facility] HospitalAaiirvtCHGNEKJLVX2217-11-03 10:34:00 Test Item Value Reference Range Interpretation Comments RDW (test code = RDW) 18.1 11.5-14.5 [facility] HospitalWlpzqbbTCMAWPSJKE8861-31-12 10:34:00 Test Item Value Reference Range Interpretation Comments MCHC (test code = MCHC) 32.7 32.0-36.0 [facility] HospitalWmzoshmVUTMZPUZQF3301-74-03 10:34:00 Test Item Value Reference Range Interpretation Comments MCH (test code = MCH) 27.4 pg 27.0-31.0 [facility] HospitalBqqhseoQEUPQOIARZ1986-46-00 10:34:00 Test Item Value Reference Range Interpretation Comments MCV (test code = MCV) 83.7 80.0-98.0 [facility] HospitalCyxbqaeMXRVRVJZLN8206-71-38 10:34:00 Test Item Value Reference Range Interpretation Comments Hgb (test code = Hgb) 12.5 12.0-16.0 [facility] HospitalUggopnvIZGICXNSJV4518-25-36 10:34:00 Test Item Value Reference Range Interpretation Comments Hct (test code = Hct) 38.1 36.0-48.0 [facility] HospitalFwtmhfaXTCAHGGNFY0138-11-23 10:34:00 Test Item Value Reference Range Interpretation Comments RBC (test code = RBC) 4.55 4.20-5.40 [facility] HospitalHhlhoeoXYBKGQKYZD9719-52-11 10:34:00 Test Item Value Reference Range Interpretation Comments WBC (test code = WBC) 7.9 3.7-10.4 [facility] HospitalJgjsdtqHJVLNJWRXO8363-05-46 10:34:00 Test Item Value Reference Range Interpretation Comments Monocytes # (test code 0.7 See_Comment [Aut omated message] The = Monocytes #) system which generated this result tra nsmitted reference range : <=0.8. The reference r coty was not used to int erpret this result as normal/abnormal . [facility] HospitalHlidonsSGLNXCKCLO6563-11-27 10:34:00 Test Item Value Reference Range Interpretation Comments Eosinophils # (test code 0.3 See_Comment [A utomated message] The = Eosinophils #) system whic h generated this result tra nsmitted reference range : <=0.5. The reference r coty was not used to int erpret this result as normal/abnormal . [facility] HospitalXwcjhgaESNWQRCNVP3830-13-82 10:34:00 Test Item Value Reference Range Interpretation Comments Lymphocytes # (test code = Lymphocytes 0.9 1.0-5.5 #) [facility] HospitalMjsdxlcERNUIGRVPH6797-63-08 10:34:00 Test Item Value Reference Range Interpretation Comments Monocytes (test code = Monocytes) 9.0 2.0-12.0 [facility] HospitalXertyntKHUUBZLBRP5662-18-73 10:34:00 Test Item Value Reference Range Interpretation Comments Basophils (test code = 0.6 See_Comment [Aut omated message] The Basophils) system which ge nerated this result tra nsmitted reference range : <=1.0. The reference r coty was not used to int erpret this result as normal/abnormal . [facility] HospitalYrdwuaxOCOJLRBAMP3831-95-42 10:34:00 Test Item Value Reference Range Interpretation Comments Segs-Bands # (test code = Segs-Bands #) 5.9 1.5-8.1 [facility] HospitalSebfjhoHQFRWZDSKN1373-53-86 10:34:00 Test Item Value Reference Range Interpretation Comments Eosinophils (test code = 4.3 See_Comment [A utomated message] The Eosinophils) system which ge nerated this result tra nsmitted reference range : <=4.0. The reference r coty was not used to int erpret this result as normal/abnormal . [facility] HospitalGomwecxQFFLGFBJIC1901-26-50 10:34:00 Test Item Value Reference Range Interpretation Comments Lymphocytes (test code = Lymphocytes) 11.3 20.0-40.0 [facility] HospitalBamaywuCQBMOEUDNX8700-28-21 10:34:00 Test Item Value Reference Range Interpretation Comments Segs (test code = Segs) 74.8 45.0-75.0 [facility]CHEM [id number] 22:21:00 Test Item Value Reference Range Interpretation Comments Calcium Lvl (test code = Calcium Lvl) 9.2 8.5-10.5 [facility]ATHY[facility]ID SKCVSNC9286-72-45 22:21:00 Test Item Value Reference Range Interpretation Comments Ca Ion WB (test code = Ca Ion WB) 1.14 1.05-1.25 [facility] [id number] 22:21:00 Test Item Value Reference Range Interpretation Comments Ca Norm WB (test code = Ca Norm WB) 1.16 1.05-1.25 [facility]WzwfswrBUODZOZFHLQO5174-67-79 10:23:00 Test Item Value Reference Range Interpretation Comments Chloride Lvl (test code = Chloride Lvl) 106 95-109 [facility] HospitalOhwizptWNZTZMJXIPQQ4530-60-29 10:23:00 Test Item Value Reference Range Interpretation Comments CO2 (test code = CO2) 26 24-32 [facility] HospitalKejlqkzGNVMWMLJENKE9104-95-21 10:23:00 Test Item Value Reference Range Interpretation Comments BUN (test code = BUN) 32 7-22 [facility] HospitalYyqrqnyLMHASRPRNSNX8300-48-29 10:23:00 Test Item Value Reference Range Interpretation Comments Glucose Lvl (test code = Glucose Lvl) 150 70-99 [facility] HospitalXtyglpiCZOAQJFNBYOG6208-69-41 10:23:00 Test Item Value Reference Range Interpretation Comments Sodium Lvl (test code = Sodium Lvl) 144 135-145 [facility] HospitalDdhvqcoWXMUDVVUPFCH2000-82-18 10:23:00 Test Item Value Reference Range Interpretation Comments Creatinine Lvl (test code = Creatinine 1.06 0.50-1.40 Lvl) [facility] HospitalVdxrrnoODEUSSLJRBNQ8313-31-86 10:23:00 Test Item Value Reference Range Interpretation Comments Potassium Lvl (test code = Potassium 3.8 3.5-5.1 Lvl) [facility] HospitalAdlycxcYZAITOATGABL3431-55-35 10:23:00 Test Item Value Reference Range Interpretation Comments eGFR (test code = eGFR) 64 [facility] HospitalQsddmqfVUHAGJKHKRXW6926-81-56 10:23:00 Test Item Value Reference Range Interpretation Comments AGAP (test code = AGAP) 15.8 10.0-20.0 [facility] HospitalTrdohqvHJDDEGANDX3174-04-36 10:23:00 Test Item Value Reference Range Interpretation Comments Basophils # (test code 0.1 See_Comment [Aut omated message] The = Basophils #) system which generated this result tra nsmitted reference range : <=0.2. The reference r coty was not used to int erpret this result as normal/abnormal . [facility] [id number] 18:33:00 Test Item Value Reference Range Interpretation Comments PTH Intact (test code = PTH Intact) 36.4 11.1-79.5 [facility] [employer] [id number] 08:51:00 Test Item Value Reference Range Interpretation Comments ABO/Rh (test code = ABO/Rh) O POS [facility] [employer] [id number] 08:51:00 Test Item Value Reference Range Interpretation Comments Antibody Scrn (test Negative (06/14/16 3:51 code = Antibody Scrn) AM) [facility] [id number] 19:42:00 Test Item Value Reference Range Interpretation Comments PTH Intact (test code = PTH Intact) 167.0 11.1-79.5 [facility] [employer] [id number] 06:56:00 Test Item Value Reference Range Interpretation Comments Alk Phos (test code = Alk Phos) 90 39-136 [facility] [employer] [id number] 06:56:00 Test Item Value Reference Range Interpretation Comments AST (test code = AST) 18 See_Comment [Auto mated message] The system which ge nerated this result transmit lazaro reference range : <=37. The reference range was not used to interpr et this result as walter l/abnormal. [facility] [employer] [id number] 06:56:00 Test Item Value Reference Range Interpretation Comments ALT (test code = ALT) 20 See_Comment [Auto mated message] The system which ge nerated this result transmit lazaro reference range : <=65. The reference range was not used to interpr et this result as walter l/abnormal. [facility] [employer] [id number] 06:56:00 Test Item Value Reference Range Interpretation Comments Albumin Lvl (test code = Albumin Lvl) 3.1 3.5-5.0 [facility] [employer] [id number] 06:56:00 Test Item Value Reference Range Interpretation Comments Total Protein (test code = Total 7.0 6.4-8.4 Protein) [facility]2016-09-15 06:56:00 Test Item Value Reference Range Interpretation Comments Bili Total (test code = Bili Total) 0.6 0.2-1.3 [facility]2016-09-15 06:56:00 Test Item Value Reference Range Interpretation Comments A/G Ratio (test code = A/G Ratio) 0.8 0.7-1.6 [facility]2016-09-15 06:56:00 Test Item Value Reference Range Interpretation Comments Globulin (test code = Globulin) 3.9 2.7-4.2 [facility]2016-09-15 06:56:00 Test Item Value Reference Range Interpretation Comments B/C Ratio (test code = B/C Ratio) 22 6-25 [facility]2016-09-15 06:56:00 Test Item Value Reference Range Interpretation Comments Magnesium Lvl (test code = Magnesium 1.8 1.8-2.4 Lvl) [facility]2016-09-15 06:56:00 Test Item Value Reference Range Interpretation Comments Phosphorus (test code = Phosphorus) 1.9 2.5-4.5 [facility]
[2022-04-15] MEDS: carvediloL 25 MG TAB PO SCH ×2 (05:30→17:36)
[2022-04-15 06:36] LABS: Absolute Lymphocytes (CBC) 1.3 K/uL (0.7-4.9); Hematocrit 38.8 % (36.0-45.0); Lymphocytes % 17.5 % (15.3-44.8); MCV 83.3 fL (80-100); RBC Red Blood Cell Count 4.66 M/uL (3.86-4.86)
[2022-04-15] MEDS: SPIRONOLACTONE 25 MG TABLET PO SCH (06:41)
[2022-04-15] MEDS: FUROSEMIDE 40 MG TABLET PO SCH (06:42)
[2022-04-15] MEDS: PHENYTOIN ER 100 MG CAP PO SCH ×2 (06:42→19:41)
[2022-04-15] MEDS: ENSURE HIGH PROTEIN 237 ML CAN PO SCH ×2 (06:45→19:42)
[2022-04-15] MEDS: APIXABAN 5 MG TABLET PO SCH ×2 (07:28→19:41)
[2022-04-15 08:20] LABS: Albumin 2.7 g/dL (3.4-5.0); Magnesium 2.2 mg/dL (1.8-2.4); Potassium 4.5 mmol/L (3.5-5.1); Prealbumin 18.1 mg/dL (20-40)
--- NOTE | 2022-04-15 10:00 | P.RH.PN ---
Estimated Length of Stay: 14 Expected Discharge Date: 04/21/22 Discharge Disposition Plan: Home Family Support: Yes Senior Living Goal: Mobility, Transfers, Self Care Vital Signs: Last Vital Signs Temp 96.9 F 04/15/22 06:56 Pulse 67 04/15/22 06:56 Resp 16 04/15/22 06:56 BP 129/67 04/15/22 06:56 Pulse Ox 94 04/15/22 06:56 Laboratory: Laboratory Last Values WBC 7.4 K/uL (4.3-10.9) 04/15/22 06:08 RBC 4.66 M/uL (3.86-4.86) 04/15/22 06:08 Hgb 12.9 g/dL (12.0-15.0) 04/15/22 06:08 Hct 38.8 % (36.0-45.0) 04/15/22 06:08 MCV 83.3 fL (80-100) 04/15/22 06:08 MCH 27.7 pg (27.0-35.0) 04/15/22 06:08 MCHC 33.2 g/dL (32.0-36.0) 04/15/22 06:08 RDW 18.3 % (12.1-15.2) H 04/15/22 06:08 Plt Count 587 K/uL (152-406) H 04/15/22 06:08 MPV 7.0 fL (7.6-11.3) L 04/15/22 06:08 Neutrophils % 69.7 % (41.7-73.7) 04/15/22 06:08 Lymphocytes % 17.5 % (15.3-44.8) 04/15/22 06:08 Monocytes % 6.7 % (3.3-12.3) 04/15/22 06:08 Eosinophils % 5.1 % (0-4.4) H 04/15/22 06:08 Basophils % 1.0 % (0-1.3) 04/15/22 06:08 Absolute Neutrophils 5.2 K/uL (1.8-8.0) 04/15/22 06:08 Absolute Lymphocytes 1.3 K/uL (0.7-4.9) 04/15/22 06:08 Absolute Monocytes 0.5 K/uL (0.1-1.3) 04/15/22 06:08 Absolute Eosinophils 0.4 K/uL (0-0.5) 04/15/22 06:08 Absolute Basophils 0.1 K/uL (0-0.5) 04/15/22 06:08 Sodium 142 mmol/L (136-145) 04/15/22 06:08 Potassium 4.5 mmol/L (3.5-5.1) 04/15/22 06:08 Chloride 110 mmol/L (98-107) H 04/15/22 06:08 Carbon Dioxide 25 mmol/L (21-32) 04/15/22 06:08 Anion Gap 11.5 mEq/L (5.0-15.0) 04/15/22 06:08 BUN 50 mg/dL (7-18) H 04/15/22 06:08 Creatinine 1.18 mg/dL (0.55-1.3) 04/15/22 06:08 Est GFR (CKD-EPI) 49 ml/min (=/>90) L 04/15/22 06:08 Glucose 107 mg/dL (74-106) H 04/15/22 06:08 POC Glucose 104 mg/dL (65-120) 04/08/22 16:31 Calcium 8.5 mg/dL (8.5-10.1) 04/15/22 06:08 Magnesium 2.2 mg/dL (1.8-2.4) 04/15/22 06:08 Albumin 2.7 g/dL (3.4-5.0) L 04/15/22 06:08 Prealbumin 18.1 mg/dL (20-40) L 04/15/22 06:08 Urine Color Yellow (Yellow) 04/08/22 10:26 Urine Appearance Clear (Clear) 04/08/22 10:26 Urine pH 6.0 (5.0-7.0) 04/08/22 10:26 Ur Specific [place] 1.025 (1.005-1.030) 04/08/22 10:26 Glucose (UA)(Auto) Negative (Negative) 04/08/22 10:26 Urine Ketones Negative (Negative) 04/08/22 10:26 Urine Blood Negative (Negative) 04/08/22 10:26 Urine Nitrite Negative (Negative) 04/08/22 10:26 Urine Bilirubin Negative (Negative) 04/08/22 10:26 Urine Urobilinogen 0.2 mg/dL (0.2-1.0) 04/08/22 10:26 Ur Leukocyte Esterase Negative (Negative) 04/08/22 10:26 Urine RBC <5 /HPF (NONE SEEN) 04/08/22 10:26 Urine WBC <5 /HPF (<5) 04/08/22 10:26 Ur Squamous Epith Cells 5-10 /HPF (NONE SEEN) H 04/08/22 10:26 Ur Urothelial Cells Cancelled 04/08/22 09:15 Calcium Oxalate Crystal Cancelled 04/08/22 09:15 Uric Acid Crystals Cancelled 04/08/22 09:15 Triple Phos Crystals Cancelled 04/08/22 09:15 Other Crystals Cancelled 04/08/22 09:15 Amorphous Sediment Cancelled 04/08/22 09:15 Glitter Cells Cancelled 04/08/22 09:15 Urine Bacteria None seen /HPF (<20) 04/08/22 10:26 Hyaline Casts Cancelled 04/08/22 09:15 Fine Granular Casts Cancelled 04/08/22 09:15 Coarse Granular Casts Cancelled 04/08/22 09:15 Waxy Casts Cancelled 04/08/22 09:15 RBC Casts Cancelled 04/08/22 09:15 WBC Casts Cancelled 04/08/22 09:15 Urine Mucus Cancelled 04/08/22 09:15 Urine Other Cancelled 04/08/22 09:15 Urine Trichomonas Cancelled 04/08/22 09:15 Urine Yeast Cancelled 04/08/22 09:15 Ur Yeast w Hyphae Cancelled 04/08/22 09:15 Urine Yeast (Budding) Cancelled 04/08/22 09:15 Urine Sperm Cancelled 04/08/22 09:15 Urine Culture Reflexed Not needed 04/08/22 10:26 Urine Total Volume Cancelled 04/08/22 09:15 Urine Total Protein 3+ (Negative) H 04/08/22 10:26 Phenytoin 5.7 ug/mL (10.0-20.0) L 04/08/22 04:04 SARS-CoV-2 Rap RNA(RT-PCR) Negative (NEGATIVE) 04/14/22 04:00 Weight: 218 lb 1.6 oz Wound Present: Yes Closed Surgical Incision Present: No Negative Pressure Wound Therapy Present: No Physician Update: Labs were reviewed and are stable. She is making good overall progress with physical and occupational therapy. SBA with bed mobility, sit to stand CGA, 150' with walker at SBA, up and down 5 steps with min assistance. SBA with toileting, shower transfer, supervision for bathing. She has poor cognitive functioning, but her swallowing is good. Comment: noted abrasion rt temporal 1x1 cm,healed Summary: Patient's care plan and fdc goals have been reviewed and revised as necessary. Please see the Rehabilitation Signature page for all necessary signatures.
[2022-04-15] MEDS: NIFEdipine 10 MG CAP PO SCH ×3 (11:18→19:41)
[2022-04-15] MEDS: ATORVASTATIN 40 MG TAB PO SCH (19:41)
[2022-04-16] MEDS: carvediloL 25 MG TAB PO SCH ×2 (05:16→17:14)
[2022-04-16] MEDS: PHENYTOIN ER 100 MG CAP PO SCH ×2 (07:53→20:03)
[2022-04-16] MEDS: SPIRONOLACTONE 25 MG TABLET PO SCH (07:53)
[2022-04-16] MEDS: APIXABAN 5 MG TABLET PO SCH ×2 (07:54→20:03)
[2022-04-16] MEDS: FUROSEMIDE 40 MG TABLET PO SCH (07:54)
[2022-04-16] MEDS: NIFEdipine 10 MG CAP PO SCH ×3 (07:54→20:02)
[2022-04-16] MEDS: ENSURE HIGH PROTEIN 237 ML CAN PO SCH ×2 (07:55→20:03)
[2022-04-16] MEDS: ATORVASTATIN 40 MG TAB PO SCH (20:03)
[2022-04-17] MEDS: carvediloL 25 MG TAB PO SCH ×2 (05:21→17:03)
[2022-04-17 05:38] VITALS: BMI 38.9
[2022-04-17] MEDS: FUROSEMIDE 40 MG TABLET PO SCH (08:35)
[2022-04-17] MEDS: PHENYTOIN ER 100 MG CAP PO SCH ×2 (08:35→19:48)
[2022-04-17] MEDS: APIXABAN 5 MG TABLET PO SCH ×2 (08:35→19:49)
[2022-04-17] MEDS: ENSURE HIGH PROTEIN 237 ML CAN PO SCH ×2 (08:35→19:49)
[2022-04-17] MEDS: SPIRONOLACTONE 25 MG TABLET PO SCH (08:35)
[2022-04-17] MEDS: NIFEdipine 10 MG CAP PO SCH ×3 (10:48→19:48)
[2022-04-17] MEDS: ATORVASTATIN 40 MG TAB PO SCH (19:49)
--- NOTE | 2022-04-17 23:13 | R.PN ---
PROGRESS NOTES ENCOUNTER DATE AND TIME: 04/17/2022 08:11 (CDT) NAME OLIVER ROCHA DATE OF : 1950 DATE OF ADMISSION: 04/07/2022 18:59 (CDT) I69.398 Other sequelae of cerebral infarctionCHIEF COMPLAINT: Stroke with left sided residual weakness. SUBJECTIVE: Pt denied any Shortness of Breath. Pt denied any depression. CBC with differential shows elevated Plt of 603. Prealbumin 15.9, glucose 115, Substation Operator Automatic 1.2. Phenytoin lev el is low at 5.7. Phenytoin was increased to 200 mg twice daily. Ambulated 225' with SBA using a rolling walker. VITAL SIGNS Temperature: 97.9 F SBP/DBP: 146/88 Pulse: 88 Resp: 16 MEDICATION ALLERGIES: No Known Drug Allergies (NKDA) ENVIRONMENTAL ALLERGIES: - Substance Allergies None Known - Other Allergies None Known NURSING: - Shower allowing shower - Bladder care per protocol - Skin care per protocol PRECAUTIONS: - Fall Precaution Bed alarm TABS alarm Wheel chair alarm - Bleeding Risk Eliquis - Incontinence Bowel Incontinence - DVT Risk due to restricted mobility and age - Skin Breakdown Risk Routine Wound care due to restricted mobility and age - Seizure Precaution Padding of bed rails, bed alarm, monitor seizure medication levels as necessary ACTIVITIES OOB only with supervision THERAPIES: - Dietary and Nutrition Adequate Nutrition. Nutritional Education. Nutritional Supplements. - Occupational Therapy Cognitive Retraining. Patient needs Occupational Therapy for a daily minimum of 1.5 hours at least 5 out of 7 days, to improve Activities of Daily Living, including: Eating, Grooming, Bathing, Dressing, Toileting, Toilet Transfers, Community Reintegration, Higher functional activities, Adaptive Equipme nt, Splinting, Household Tasks, and Other activities as determined. Visual Perceptual Training. - Speech Therapy Cognitive Training. Expressive Language Skills. Memory Strategies. Patient needs Speech Therapy for a daily minimum of 1.5 hours at least 5 out of 7 days, to improve: Swallowing, Cognition, Language Ski lls, and Compensatory Strategies. Receptive Language Skills. Speech Intelligibility Training. - Physical Therapy Patient needs Physical Therapy for a daily minimum of 1.5 hours at least 5 out of 7 days, to improve: Mobility, Strengthening, Transfers, Stretching, ROM, Endurance, Ability to manage stairs, Gait, and Balance. PHYSICAL EXAM - Gen Alert and awake Lying in bed No apparent distress Oriented to: person, time, and place - Skin No skin breakdown. Normacephalic - Eyes No abnormalities - ENMT No abnormalities - Neck No abnormalities - CVS RRR - Chest No abnormalities - Resp No wheezing - Abd Soft - GI + bowel sounds Deferred - No abnormalities - Ext No significant edema - MSK 4+/5 weakness in both lower extremities. - Neuro 4/5 strength bilaterally lower extremities. - Psych No abnormalities ASSESSMENT: Pt. is a 71 yo female of unknown race.On 04/01/2022 she was admitted to [facility] with diagnosis I69.398 O ther sequelae of cerebral infarction.Her impairment category is Stroke 01 - Other Stroke (01.9).Pre- morbidly, Pt. was independent/mod-I in Locomotion and Self-Care; and she had good Balance, Transfers Control, and Endurance.Currently, she has deficits of Locomotion, Balance, Safety Awareness, Transfer s Control, Self-Care, and Endurance.Pt. is now referred to [facility] for acut e in-patient rehabilitation in order to maximize patient's functional independence in activities of d aily living, strength, ROM, and mobility.- Rehab Goal Patient has realistic goal of being discharged at assistance level 6-Mumtaz to reside at Home with Fam sophia/Relatives. MDM/PLAN: - Physical Therapy Gait dysfunction - to improve, our physical therapists will perform initial evaluation of pt's statu s upon admission and devise an individualized program for Gait Training, and Wheel Chair mobility Inability to transfer - to improve, our physical therapists will perform initial evaluation of pt's status upon admission and devise an individualized program for Bed mobility Need for home safety evaluation - to improve, our physical therapists will perform initial evaluatio n of pt's status upon admission and devise an individualized program for Home Evaluation Need in caregiver upon discharge - to improve, our physical therapists will perform initial evaluati on of pt's status upon admission and devise an individualized program for Caregiver Training New precaution - to improve, our physical therapists will perform initial evaluation of pt's status upon admission and devise an individualized program for Patient precaution education Edema - to improve, our physical therapists will perform initial evaluation of pt's status upon admi ssion and devise an individualized program for Elevation Training, and Lymphedema Therapy Poor balance - to improve, our physical therapists will perform initial evaluation of pt's status up on admission and devise an individualized program for Balance Training Poor endurance - to improve, our physical therapists will perform initial evaluation of pt's status upon admission and devise an individualized program for Endurance Training Weakness - to improve, our physical therapists will perform initial evaluation of pt's status upon a dmission and devise an individualized program for Aquatic Therapy, Neuromuscular Reeducation, and Str engthening Achieving independence - to improve, our physical therapists will perform initial evaluation of pt's status upon admission and devise an individualized program for Community Reintegration Activities - Occupational Therapy ADL deficits - to improve, our occupation therapists will perform initial evaluation of pt's status upon admission and devise an individualized program for Bathing, Bed mobility, Community Reintegratio n, Cooking, Dressing, Eating, Fine Motor Skills, Grooming, Homemaking, Kitchen Mobility, Laundry, Pat ient Education, Safety Awareness, Splinting - Positioning, Transfers(Toilet, Tub, Shower), and Wheel Chair Management Need for customer care assistant - to improve, our occupation therapists will perform initial evaluation of pt's status upon admission and devise an individualized program for Caregiver Training Weakness - to improve, our occupation therapists will perform initial evaluation of pt's status upon admission and devise an individualized program for Aquatic Therapy, Balance, Endurance, UE ROM, and UE strengthening - Other See attached MAR (Medication Administration Record) - Diet Type Continue Regular - Diet - Liquid Texture Continue Regular - Tube Feed Continue N/A - Incontinence Bowel Incontinence - Bleeding Risk Eliquis - Bladder care per protocol - DVT Risk due to restricted mobility and age - Skin Breakdown Risk Routine Wound care due to restricted mobility and age - Seizure Precaution Padding of bed rails, bed alarm, monitor seizure medication levels as necessary - Fall Precaution Bed alarm TABS alarm Wheel chair alarm - Skin care per protocol - Diet - Solid Texture Continue Regular - Shower allowing shower for Dementia, TBI, Stroke, or others FUNCTIONAL STATUS: UPDATED AT WEEKLY TEAM CONFERENCE - Bladder Same accident frequency: 7-Ind - No accidents in the past 7 days - Bowel Same accident frequency: 7-Ind - No accidents in the past 7 days - Walking Same score based on distance walked: 0(N/A) - Wheelchair Same score based on distance traveled: 0(N/A) FUNCTIONAL STATUS: - Self-Care A. Eating Ind B. Grooming Ind C. Bathing Mumtaz D. Dressing - Upper sup E. Dressing - Lower modA F. Toileting Mumtaz - Sphincter Control G. Bladder control Mumtaz H. Bowel control Mumtaz - Transfers Control I. Bed/Chair/Wheelchair sup J. Toilet Mumtaz K. Tub/Shower Felipe - Locomotion L. Walk/Wheelchair (B) Felipe M. Stairs modA - Communication N. Comprehension (B) sup O. Expression (B) sup - Social Cognition P. Social Interaction Ind Q. Problem Solving sup R. Memory sup - Endurance Good - Balance Fair - Safety Awareness Fair QI SCORES: - Self-Care A. Eating 06-Independent B. Oral hygiene 04-Supervision or touching assistance C. Toileting hygiene 02-Substantial/maximal assistance E. Shower/bathe self 04-Supervision or touching assistance F. Upper body dressing 04-Supervision or touching assistance G. Lower body dressing 02-Substantial/maximal assistance H. Putting on/taking off footwear 02-Substantial/maximal assistance - Mobility A. Roll left and right 03-Partial/moderate assistance B. Sit to lying 03-Partial/moderate assistance C. Lying to sitting on side of bed 03-Partial/moderate assistance D. Sit to stand 03-Partial/moderate assistance E. Chair/[id number] transfer 03-Partial/moderate assistance F. Toilet transfer 03-Partial/moderate assistance G. Car transfer 88-Not attempted due to medical condition or safety concerns I. Walk 10 feet 88-Not attempted due to medical condition or safety concerns J. Walk 50 feet with two turns 88-Not attempted due to medical condition or safety concerns K. Walk 150 feet 88-Not attempted due to medical condition or safety concerns L. Walking 10 feet on uneven surfaces 88-Not attempted due to medical condition or safety concerns M. 1 step (curb) 88-Not attempted due to medical condition or safety concerns N. 4 steps 88-Not attempted due to medical condition or safety concerns O. 12 steps 88-Not attempted due to medical condition or safety concerns P. Picking up object 88-Not attempted due to medical condition or safety concerns R. Wheel 50 feet with two turns 09-Not applicable S. Wheel 150 feet 09-Not applicable - Bladder and Bowel Bladder continence 9-Not applicable Bowel continence 1-Occasionally incontinent - Endurance Fair - Balance Fair - Safety Awareness Fair CURRENT FUNC. DEFICITS: Mobility, Endurance, Balance, Safety Awareness, and Self-Care SIGNATURE PANEL: (CDT)
[2022-04-18] MEDS: carvediloL 25 MG TAB PO SCH ×2 (05:25→17:33)
[2022-04-18] MEDS: PANTOPRAZOLE 40MG TABLET PO SCH (05:25)
[2022-04-18 06:51] LABS: Absolute Lymphocytes (CBC) 1.2 K/uL (0.7-4.9); Lymphocytes % 18.7 % (15.3-44.8); MCV 83.2 fL (80-100); RBC Red Blood Cell Count 4.33 M/uL (3.86-4.86)
[2022-04-18 06:57] LABS: Magnesium 2.1 mg/dL (1.8-2.4); Potassium 4.6 mmol/L (3.5-5.1)
[2022-04-18] MEDS: APIXABAN 5 MG TABLET PO SCH ×2 (08:28→20:09)
[2022-04-18] MEDS: PHENYTOIN ER 100 MG CAP PO SCH ×2 (08:28→20:09)
[2022-04-18] MEDS: FUROSEMIDE 40 MG TABLET PO SCH (08:28)
[2022-04-18] MEDS: SPIRONOLACTONE 25 MG TABLET PO SCH (08:29)
[2022-04-18] MEDS: NIFEDIPINE XL 30 MG TABLET PO SCH (08:29)
[2022-04-18] MEDS ORDERED: HYDRALAZINE HCL 10 MG TABLET PO SCH (09:00)
[2022-04-18] MEDS: ENSURE HIGH PROTEIN 237 ML CAN PO SCH ×2 (10:17→20:09)
[2022-04-18] MEDS: ATORVASTATIN 40 MG TAB PO SCH (20:09)
[2022-04-19] MEDS: PANTOPRAZOLE 40MG TABLET PO SCH (05:26)
[2022-04-19] MEDS: carvediloL 25 MG TAB PO SCH ×2 (05:27→16:58)
[2022-04-19 06:37] LABS: Protime INR 1.36
[2022-04-19] MEDS: NIFEDIPINE XL 30 MG TABLET PO SCH (07:48)
[2022-04-19] MEDS: PHENYTOIN ER 100 MG CAP PO SCH ×2 (07:49→20:34)
[2022-04-19] MEDS: SPIRONOLACTONE 25 MG TABLET PO SCH (07:49)
[2022-04-19] MEDS: FUROSEMIDE 40 MG TABLET PO SCH (07:49)
[2022-04-19] MEDS: ENSURE HIGH PROTEIN 237 ML CAN PO SCH ×2 (07:50→20:34)
[2022-04-19] MEDS: APIXABAN 5 MG TABLET PO SCH ×2 (07:50→20:32)
[2022-04-19] MEDS: ATORVASTATIN 40 MG TAB PO SCH (20:33)
[2022-04-20] MEDS: carvediloL 25 MG TAB PO SCH ×2 (05:09→17:02)
[2022-04-20] MEDS: PANTOPRAZOLE 40MG TABLET PO SCH (05:09)
[2022-04-20] MEDS: NIFEDIPINE XL 30 MG TABLET PO SCH (07:35)
[2022-04-20] MEDS: ENSURE HIGH PROTEIN 237 ML CAN PO SCH ×2 (07:35→19:41)
[2022-04-20] MEDS: PHENYTOIN ER 100 MG CAP PO SCH ×2 (07:36→19:39)
[2022-04-20] MEDS: FUROSEMIDE 40 MG TABLET PO SCH (07:36)
[2022-04-20] MEDS: APIXABAN 5 MG TABLET PO SCH ×2 (07:36→19:39)
[2022-04-20] MEDS: SPIRONOLACTONE 25 MG TABLET PO SCH (07:36)
[2022-04-20] MEDS: ATORVASTATIN 40 MG TAB PO SCH (19:40)
[2022-04-20] MEDS: DOCUSATE NA/SENNA CONC 1 TAB PO PRN (19:42)
[2022-04-21] MEDS: PANTOPRAZOLE 40MG TABLET PO SCH (05:35)
[2022-04-21] MEDS: carvediloL 25 MG TAB PO SCH (05:35)
[2022-04-21 07:17] VITALS: BP 148/82; TEMP 97.9
[2022-04-21] MEDS: APIXABAN 5 MG TABLET PO SCH (07:17)
[2022-04-21] MEDS: PHENYTOIN ER 100 MG CAP PO SCH (07:17)
[2022-04-21] MEDS: FUROSEMIDE 40 MG TABLET PO SCH (07:17)
[2022-04-21] MEDS: SPIRONOLACTONE 25 MG TABLET PO SCH (07:18)
[2022-04-21] MEDS: NIFEDIPINE XL 30 MG TABLET PO SCH (09:46)
[2022-04-21] MEDS: ENSURE HIGH PROTEIN 237 ML CAN PO SCH (09:47)
--- NOTE | 2022-04-21 20:15 | R.PN ---
PROGRESS NOTES ENCOUNTER DATE AND TIME: 04/21/2022 20:12 (CDT) NAME OLIVER ROCHA DATE OF : 1950 DATE OF ADMISSION: 04/07/2022 18:59 (CDT) I69.398 Other sequelae of cerebral infarctionCHIEF COMPLAINT: Stroke with left sided residual weakness. SUBJECTIVE: Pt denied any Shortness of Breath. Pt denied any depression. CBC with differential shows elevated Plt of 541. Prealbumin 15.9, glucose 93, Silk Screen Repairer 1.14. Phenytoin lev el is low at 5.7. Phenytoin was increased to 200 mg twice daily. Ambulated 250' with SBA using a rolling walker. VITAL SIGNS Temperature: 97.9 F SBP/DBP: 148/82 Pulse: 64 Resp: 16 MEDICATION ALLERGIES: No Known Drug Allergies (NKDA) ENVIRONMENTAL ALLERGIES: - Substance Allergies None Known - Other Allergies None Known NURSING: - Shower allowing shower - Bladder care per protocol - Skin care per protocol PRECAUTIONS: - Fall Precaution Bed alarm TABS alarm Wheel chair alarm - Bleeding Risk Eliquis - Incontinence Bowel Incontinence - DVT Risk due to restricted mobility and age - Skin Breakdown Risk Routine Wound care due to restricted mobility and age - Seizure Precaution Padding of bed rails, bed alarm, monitor seizure medication levels as necessary ACTIVITIES OOB only with supervision THERAPIES: - Dietary and Nutrition Adequate Nutrition. Nutritional Education. Nutritional Supplements. - Occupational Therapy Cognitive Retraining. Patient needs Occupational Therapy for a daily minimum of 1.5 hours at least 5 out of 7 days, to improve Activities of Daily Living, including: Eating, Grooming, Bathing, Dressing, Toileting, Toilet Transfers, Community Reintegration, Higher functional activities, Adaptive Equipme nt, Splinting, Household Tasks, and Other activities as determined. Visual Perceptual Training. - Speech Therapy Cognitive Training. Expressive Language Skills. Memory Strategies. Patient needs Speech Therapy for a daily minimum of 1.5 hours at least 5 out of 7 days, to improve: Swallowing, Cognition, Language Ski lls, and Compensatory Strategies. Receptive Language Skills. Speech Intelligibility Training. - Physical Therapy Patient needs Physical Therapy for a daily minimum of 1.5 hours at least 5 out of 7 days, to improve: Mobility, Strengthening, Transfers, Stretching, ROM, Endurance, Ability to manage stairs, Gait, and Balance. PHYSICAL EXAM - Gen Alert and awake Lying in bed No apparent distress Oriented to: person, time, and place - Skin No skin breakdown. Normacephalic - Eyes No abnormalities - ENMT No abnormalities - Neck No abnormalities - CVS RRR - Chest No abnormalities - Resp No wheezing - Abd Soft - GI + bowel sounds Deferred - No abnormalities - Ext No significant edema - MSK 4+/5 weakness in both lower extremities. - Neuro 4/5 strength bilaterally lower extremities. - Psych No abnormalities ASSESSMENT: Pt. is a 71 yo female of unknown race.On 04/01/2022 she was admitted to [facility] with diagnosis I69.398 O ther sequelae of cerebral infarction.Her impairment category is Stroke 01 - Other Stroke (01.9).Pre- morbidly, Pt. was independent/mod-I in Locomotion and Self-Care; and she had good Balance, Transfers Control, and Endurance.Currently, she has deficits of Locomotion, Balance, Safety Awareness, Transfer s Control, Self-Care, and Endurance.Pt. is now referred to [facility] for acut e in-patient rehabilitation in order to maximize patient's functional independence in activities of d aily living, strength, ROM, and mobility.- Rehab Goal Patient has realistic goal of being discharged at assistance level 6-Mumtaz to reside at Home with Fam sophia/Relatives. MDM/PLAN: - Physical Therapy Gait dysfunction - to improve, our physical therapists will perform initial evaluation of pt's statu s upon admission and devise an individualized program for Gait Training, and Wheel Chair mobility Inability to transfer - to improve, our physical therapists will perform initial evaluation of pt's status upon admission and devise an individualized program for Bed mobility Need for home safety evaluation - to improve, our physical therapists will perform initial evaluatio n of pt's status upon admission and devise an individualized program for Home Evaluation Need in caregiver upon discharge - to improve, our physical therapists will perform initial evaluati on of pt's status upon admission and devise an individualized program for Caregiver Training New precaution - to improve, our physical therapists will perform initial evaluation of pt's status upon admission and devise an individualized program for Patient precaution education Edema - to improve, our physical therapists will perform initial evaluation of pt's status upon admi ssion and devise an individualized program for Elevation Training, and Lymphedema Therapy Poor balance - to improve, our physical therapists will perform initial evaluation of pt's status up on admission and devise an individualized program for Balance Training Poor endurance - to improve, our physical therapists will perform initial evaluation of pt's status upon admission and devise an individualized program for Endurance Training Weakness - to improve, our physical therapists will perform initial evaluation of pt's status upon a dmission and devise an individualized program for Aquatic Therapy, Neuromuscular Reeducation, and Str engthening Achieving independence - to improve, our physical therapists will perform initial evaluation of pt's status upon admission and devise an individualized program for Community Reintegration Activities - Occupational Therapy ADL deficits - to improve, our occupation therapists will perform initial evaluation of pt's status upon admission and devise an individualized program for Bathing, Bed mobility, Community Reintegratio n, Cooking, Dressing, Eating, Fine Motor Skills, Grooming, Homemaking, Kitchen Mobility, Laundry, Pat ient Education, Safety Awareness, Splinting - Positioning, Transfers(Toilet, Tub, Shower), and Wheel Chair Management Need for acute care certified nursing assistant - to improve, our occupation therapists will perform initial evaluation of pt's status upon admission and devise an individualized program for Caregiver Training Weakness - to improve, our occupation therapists will perform initial evaluation of pt's status upon admission and devise an individualized program for Aquatic Therapy, Balance, Endurance, UE ROM, and UE strengthening - Other See attached MAR (Medication Administration Record) - Diet Type Continue Regular - Diet - Liquid Texture Continue Regular - Tube Feed Continue N/A - Incontinence Bowel Incontinence - Bleeding Risk Eliquis - Bladder care per protocol - DVT Risk due to restricted mobility and age - Skin Breakdown Risk Routine Wound care due to restricted mobility and age - Seizure Precaution Padding of bed rails, bed alarm, monitor seizure medication levels as necessary - Fall Precaution Bed alarm TABS alarm Wheel chair alarm - Skin care per protocol - Diet - Solid Texture Continue Regular - Shower allowing shower for Dementia, TBI, Stroke, or others FUNCTIONAL STATUS: UPDATED AT WEEKLY TEAM CONFERENCE - Bladder Same accident frequency: 7-Ind - No accidents in the past 7 days - Bowel Same accident frequency: 7-Ind - No accidents in the past 7 days - Walking Same score based on distance walked: 0(N/A) - Wheelchair Same score based on distance traveled: 0(N/A) FUNCTIONAL STATUS: - Self-Care A. Eating Ind B. Grooming Ind C. Bathing Mumtaz D. Dressing - Upper sup E. Dressing - Lower modA F. Toileting Mumtaz - Sphincter Control G. Bladder control Mumtaz H. Bowel control Mumtaz - Transfers Control I. Bed/Chair/Wheelchair sup J. Toilet Mumtaz K. Tub/Shower Felipe - Locomotion L. Walk/Wheelchair (B) Felipe M. Stairs modA - Communication N. Comprehension (B) sup O. Expression (B) sup - Social Cognition P. Social Interaction Ind Q. Problem Solving sup R. Memory sup - Endurance Good - Balance Fair - Safety Awareness Fair QI SCORES: - Self-Care A. Eating 06-Independent B. Oral hygiene 04-Supervision or touching assistance C. Toileting hygiene 02-Substantial/maximal assistance E. Shower/bathe self 04-Supervision or touching assistance F. Upper body dressing 04-Supervision or touching assistance G. Lower body dressing 02-Substantial/maximal assistance H. Putting on/taking off footwear 02-Substantial/maximal assistance - Mobility A. Roll left and right 03-Partial/moderate assistance B. Sit to lying 03-Partial/moderate assistance C. Lying to sitting on side of bed 03-Partial/moderate assistance D. Sit to stand 03-Partial/moderate assistance E. Chair/ovi-gb-oyait transfer 03-Partial/moderate assistance F. Toilet transfer 03-Partial/moderate assistance G. Car transfer 88-Not attempted due to medical condition or safety concerns I. Walk 10 feet 88-Not attempted due to medical condition or safety concerns J. Walk 50 feet with two turns 88-Not attempted due to medical condition or safety concerns K. Walk 150 feet 88-Not attempted due to medical condition or safety concerns L. Walking 10 feet on uneven surfaces 88-Not attempted due to medical condition or safety concerns M. 1 step (curb) 88-Not attempted due to medical condition or safety concerns N. 4 steps 88-Not attempted due to medical condition or safety concerns O. 12 steps 88-Not attempted due to medical condition or safety concerns P. Picking up object 88-Not attempted due to medical condition or safety concerns R. Wheel 50 feet with two turns 09-Not applicable S. Wheel 150 feet 09-Not applicable - Bladder and Bowel Bladder continence 9-Not applicable Bowel continence 1-Occasionally incontinent - Endurance Fair - Balance Fair - Safety Awareness Fair CURRENT FUNC. DEFICITS: Mobility, Endurance, Balance, Safety Awareness, and Self-Care SIGNATURE PANEL: (CDT)
== END 2022-04-21 13:53 | disposition home or self-care (01) | DRG 57 ==
LOC: 5TH 18:59
PROVIDERS: ADMIT Psychiatry & Neurology Neurology with Special Qualifications in Child Neurology; ATTEND Psychiatry & Neurology Neurology with Special Qualifications in Child Neurology
DX: I69.354 Hemiplegia and hemiparesis following cerebral infarction affecting left non-dominant side (principal); I50.32 Chronic diastolic (congestive) heart failure; I27.20 Pulmonary hypertension, unspecified; I48.91 Unspecified atrial fibrillation; E78.5 Hyperlipidemia, unspecified; E03.9 Hypothyroidism, unspecified; I11.0 Hypertensive heart disease with heart failure; Z20.822 Contact with and (suspected) exposure to COVID-19
CPT/HCPCS: 36415; 80048; 80185; 81003; 81015; 82040; 82947; 83735; 84134; 85025; 85610; 87086; 87088; 92523; 97110; 97112; 97116; 97129; 97130; 97161; 97165; 97530; 97542; U0003

== ENCOUNTER 2023-08-03 09:56 | Emergency (ER) | payer OTHER ==
--- NOTE | 2023-08-03 11:17 | EDPHYS ---
Physician Documentation [facility] Name: Mitesh Manzo Age: 73 yrs Sex: Female : 1950 Arrival Date: 08/03/2023 Time: 09:56 Bed 13 Private MD: ED Physician uGi Thibodeaux HPI: 08/03 10:51 This 73 yrs old Black Female presents to ER via EMS with complaints of Problem With ms3 Feeding Tube. 10:51 73-year-old female presents via [facility] from [facility] ms3 after her PEG tube became clogged last night and nursing was unable to unclog it. EMS states the night nurse cut the tip of the catheter off and it is no longer working. Patient denies any symptoms.. Historical: - Allergies: 09:58 barium sulfate; eh3 09:58 Lisinopril; eh3 09:58 Keppra; eh3 09:58 monosodium glutamate (bulk); eh3 - PMHx: 09:58 Cerebrovascular accident; Kidney disease; Hypertensive disorder; Atrial fibrillation; eh3 Seizure; Congestive heart failure; Dysphagia; Aphasia; - Immunization history:: Adult Immunizations up to date. - Social history:: Smoking status: unknown. ROS: 10:51 Constitutional: Negative for fever, and chills. Neck: Negative for injury, pain, and ms3 swelling, Respiratory: Negative for shortness of breath, cough, wheezing, and pleuritic chest pain, 10:51 Abdomen/GI: Positive for PEG tube malfunction, 10:51 All other systems are negative, Exam: 10:51 Constitutional: This is a well developed, well nourished patient who is awake, alert, ms3 and in no acute distress. Head/Face: Normocephalic, atraumatic. Neck: Trachea midline, no cervical lymphadenopathy. Supple, full range of motion without nuchal rigidity, or vertebral point tenderness. No Meningismus. Chest/axilla: Normal chest wall appearance and motion. Nontender with no deformity. Cardiovascular: Regular rate and rhythm with a normal S1 and S2. No gallops, murmurs, or rubs. Normal PMI, no JVD. No pulse deficits. 10:51 Abdomen/GI: Inspection: PEG tube without erythema or surrounding drainage, Vital Signs: 09:58 BP 103 / 69; Pulse 83; Resp 18; Temp 98.5(O); Pulse Ox 88% on R/A; eh3 10:00 Pulse Ox 100% on 3 lpm NC; eh3 11:00 BP 105 / 60; Pulse 89; Resp 18; Pulse Ox 100% on 3 lpm NC; eh3 Procedures: 10:51 G-tube placement: a 16 Angolan catheter was placed, by the ED physician, Gui Thibodeaux DO, ms3 Gastric contents filled tube. MDM: 09:58 Patient medically screened. ms3 10:51 Differential Diagnosis PEG tube malfunction. Data reviewed: vital signs, and as a ms3 result, I will discharge patient. Historians other than the Patient: EMS: [facility]. Counseling: I had a detailed discussion with the patient and/or guardian regarding the historical points, exam findings, and any diagnostic results supporting the discharge/admit diagnosis, the need for outpatient follow up. Special discussion: I discussed with the patient/guardian in detail that at this point there is no indication for admission to the hospital. It is understood, however, that if the symptoms persist or worsen the patient needs to return immediately for re-evaluation. ED course: PEG tube replaced with gastric contents filling tube. Patient to be discharged back to nursing facility.. Administered Medications: No medications were administered Disposition: 16:37 Chart complete. ms3 Disposition Summary: 08/03/23 10:31 Discharge Ordered Notes: Location: Home ms3 Condition: Stable ms3 Diagnosis - PEG tube malfunction ms3 Followup: ms3 - With: Private Physician - When: 2 - 3 days - Reason: Recheck today's complaints Forms: - Medication Reconciliation Form ms3 - Thank You Letter ms3 - Antibiotic Education ms3 - Prescription Opioid Use ms3 - Patient Portal Instructions ms3 - Leadership Thank You Letter ms3 Signatures: Gui Thibodeaux DO DO ms3 Shellie Vaughan, RN RN 3 Corrections: (The following items were deleted from the chart) 10:55 10:51 G-tube placement: a 16 Angolan catheter was placed, by the ED physician, Gui Thibodeaux DO, ms3
--- NOTE | 2023-08-03 11:17 | ER ---
Nurse's Notes [facility] Name: Mitesh Manzo Age: 73 yrs Sex: Female : 1950 Arrival Date: 08/03/2023 Time: 09:56 Bed 13 Private MD: Diagnosis: PEG tube malfunction Presentation: 08/03 09:58 Chief complaint: EMS states: toned out to [facility] for clogged feeding tube, [address] employee reportedly cut feeding tube because it was clogged. Coronavirus screen: Vaccine status: Patient reports receiving the 2nd dose of the covid vaccine. Ebola Screen: No symptoms or risks identified at this time. Initial Sepsis Screen: Does the patient meet any 2 criteria? No. Patient's initial sepsis screen is negative. Does the patient have a suspected source of infection? No. Patient's initial sepsis screen is negative. Risk Assessment: Do you want to hurt yourself or someone else? Patient reports no desire to harm self or others. Onset of symptoms was August 03, 2023. 09:58 Method Of Arrival: EMS: [facility] 3 09:58 Acuity: [place] 4 eh3 Triage Assessment: 09:58 General: Appears in no apparent distress. comfortable, Behavior is calm, cooperative, eh3 appropriate for age. Pain: Denies pain. Neuro: Level of Consciousness is awake, alert, obeys commands, Oriented to person. Cardiovascular: Capillary refill < 3 seconds Patient's skin is warm and dry. Respiratory: Airway is patent Respiratory effort is even, unlabored, Respiratory pattern is regular, symmetrical. GI: Abdomen is round non-distended, PEG tube in place. Derm: Skin is pink, warm \T\ dry. Musculoskeletal: No signs and/or symptoms reported regarding the musculoskeletal system. Historical: - Allergies: 09:58 barium sulfate; eh3 09:58 Lisinopril; eh3 09:58 Keppra; eh3 09:58 monosodium glutamate (bulk); eh3 - PMHx: 09:58 Cerebrovascular accident; Kidney disease; Hypertensive disorder; Atrial fibrillation; eh3 Seizure; Congestive heart failure; Dysphagia; Aphasia; - Immunization history:: Adult Immunizations up to date. - Social history:: Smoking status: unknown. Screenin:00 [facility] ED Fall Risk Assessment (Adult) Score/Fall Risk Level 0 - 2 = Low Risk. Abuse eh3 screen: Denies threats or abuse. Denies injuries from another. Nutritional screening: No deficits noted. Tuberculosis screening: No symptoms or risk factors identified. Assessment: 10:00 Reassessment: No changes from previously documented assessment. See triage assessment. eh3 11:00 Reassessment: Patient appears in no apparent distress at this time. Patient and/or eh3 family updated on plan of care and expected duration. Pain level reassessed. Pt is drowsy and easily aroused, oriented x 1, equal unlabored respirations, skin warm/dry/pink. Vital Signs: 09:58 BP 103 / 69; Pulse 83; Resp 18; Temp 98.5(O); Pulse Ox 88% on R/A; eh3 10:00 Pulse Ox 100% on 3 lpm NC; eh3 11:00 BP 105 / 60; Pulse 89; Resp 18; Pulse Ox 100% on 3 lpm NC; eh3 ED Course: 09:58 Patient arrived in ED. 09:58 Gui Thibodeaux DO is Attending Physician. ms3 09:58 Arm band placed on. eh3 10:00 Patient has correct armband on for positive identification. Bed in low position. Call eh3 light in reach. Side rails up X2. Provided Education on: use of call chua. Pulse ox on. NIBP on. 10:00 Oxygen administration via nasal cannula \T\ 3L/min. eh3 10:44 Shellie Vaughan, KATHY is Primary Nurse. eh3 10:46 Triage completed. eh3 11:11 No provider procedures requiring assistance completed. Patient did not have IV access eh3 during this emergency room visit. Administered Medications: No medications were administered Medication: 11:16 VIS not applicable for this client. eh3 Outcome: 10:31 Discharge ordered by . ms3 11:11 Discharged to long-term. Report called to [place] [id number] 11:11 Condition: stable 11:11 Discharge instructions given to patient, long-term, EMS, Instructed on discharge instructions, follow up and referral plans. Demonstrated understanding of instructions, follow-up care, 11:16 Patient left the ED. eh3 Signatures: Danica Sharp Gui Thibodeaux DO DO ms3 Shellie Vaughan, RN RN 3 Corrections: (The following items were deleted from the chart) 11:11 11:00 Reassessment: Patient appears in no apparent distress at this time. Patient eh3 and/or family updated on plan of care and expected duration. Pain level reassessed. Patient is alert, oriented x 3, equal unlabored respirations, skin warm/dry/pink. eh3
[2023-08-03 11:22] VITALS: TEMP 98.5
[2023-08-03 11:23] VITALS: O2SAT 100
[2023-08-03 11:24] VITALS: BP 105/60
== END 2023-08-03 11:16 | disposition home or self-care (01) ==
LOC: ER 09:56
PROC: 0D20XUZ Change Feeding Device in Upper Intestinal Tract, External Approach (ICD-10-PCS; principal; 2023-08-03)
DX: K94.23 Gastrostomy malfunction (principal)
CPT/HCPCS: 99284

== ENCOUNTER 2023-08-19 21:40 | Inpatient (IN) | payer OTHER ==
[2023-08-19 22:14] LABS: Absolute Lymphocytes (CBC) 0.9 K/uL (0.7-4.9); Hematocrit 26.2 % (36.0-45.0); MPV 6.9 fL (7.6-11.3); Platelets 418 thou/uL (152-406); RBC Red Blood Cell Count 3.27 M/uL (3.86-4.86)
[2023-08-19 22:23] LABS: Specific Gravity 1.011 (1.005-1.030); Urine Bacteria 20-50 /HPF (<20); Urine Bilirubin NEGATIVE (Negative); Urine Blood 2+ (Negative); Urine Clarity Extremely Turbid (Clear); Urine Color Orange (Yellow); Urine Glucose NEGATIVE (Negative); Urine Protein 2+ (Negative); Urine RBC >50 /HPF (None Seen); Urine Urobilinogen Normal (Normal); Urine pH 5.5 (5.0-7.0)
[2023-08-19 22:32] LABS: AST/SGOT 10 U/L (15-37); Albumin 1.9 g/dL (3.4-5.0); Alkaline Phosphatase 134 U/L (45-117); BUN Blood Urea Nitrogen 127 mg/dL (7-18); Bicarbonate 30 mEq/L (21-32); Bilirubin Total 0.3 mg/dL (0.2-1.0); Glomerular Filtration Rate 35 ml/min (=/>90); Glucose Level 165 mg/dL (74-106); Potassium 5.2 mEq/L (3.5-5.1); Sodium Level 140 mEq/L (136-145)
[2023-08-19 22:33] LABS: ALT/SGPT < 10 U/L (13-56)
[2023-08-19] MEDS ORDERED: IBUPROFEN 200 MG TAB PO ONE (22:52)
[2023-08-19] MEDS ORDERED: IBUPROFEN 400 MG TAB ONE (22:53)
[2023-08-19 23:00] LABS: Protime INR 1.6
--- NOTE | 2023-08-19 23:03 | ER ---
Nurse's Notes [facility] Name: Mitesh Manzo Age: 73 yrs Sex: Female : 1950 Arrival Date: 08/19/2023 Time: 21:40 Bed 19 Private MD: Diagnosis: UTI/ Urinary tract infection, site not specified;Unspecified combined systolic (congestive) and diastolic (congestive) heart failure;Dyspnea, unspecified;Fever, unspecified Presentation: 08/19 21:41 Chief complaint: EMS states: arrived from [facility] C/O 02 saturation pf1 87% on 5LNC with SOB, cough and AMS. Patient has Peg Tube in place and james catheter prior to arrival. SHOSHANA Boyce from [facility] stated gave patient Tylenol 650 mg per Pegtube at 2030 and James Catheter was placed on 08/04/23. Carli stated patient was recently released on 08/17/23 from [facility] in [place] and deemed patient non-rehabable. 21:41 Coronavirus screen: Client denies travel out of the [place] in the last 14 days. Client pf1 presents with at least one sign or symptom that may indicate coronavirus-19. Ebola Screen: Patient negative for fever greater than or equal to 101.5 degrees Fahrenheit, and additional compatible Ebola Virus Disease symptoms. Initial Sepsis Screen: Does the patient meet any 2 criteria? RR > 20 per min. HR > 90 bpm. Yes Does the patient have a suspected source of infection? No. Patient's initial sepsis screen is negative. If YES to both, name of provider notified: Barry Hart MD. Risk Assessment: Do you want to hurt yourself or someone else? Unable to obtain. 21:41 Method Of Arrival: EMS: [facility] pf1 21:41 Acuity: [place] 2 pf1 Historical: - Allergies: 21:45 barium sulfate; pf1 21:45 Keppra; pf1 21:45 Lisinopril; pf1 21:45 monosodium glutamate (bulk); pf1 - PMHx: 21:45 Aphasia; Cerebrovascular accident; Congestive heart failure; DYSPHAGIA; Hypertensive pf1 disorder; kidney disease; Seizure; Atrial fibrillation; - PSHx: 08/20 03:06 peg tube; pf1 - Immunization history:: Adult Immunizations unknown. - Family history:: not pertinent. - Social history:: Smoking status: unknown. - Hospitalizations: : No recent hospitalization is reported. - History obtained from: EMS. Screenin/24 21:45 [facility] ED Fall Risk Assessment (Adult) History of falling in the last 3 months, pf1 including since admission No falls in past 3 months (0 pts) Confusion or Disorientation Yes (5 pts) Intoxicated or Sedated No (0 pts) Impaired Gait Yes (1 pt) Mobility Assist Device Used Yes (1 pt) Altered Elimination Yes (1 pt) Score/Fall Risk Level 3 or more points = High Risk Oriented to surroundings, Maintained a safe environment, Educated pt \T\ family on fall prevention, incl call for assistance when getting out of bed, Assessed \T\ reinforced patient's understanding of fall precautions, Provided non-skid footwear, Hourly rounding (assess needs \T\ fall precautionary measures) done, Used ambulatory aids as needed (educated on \T\ assisted with). 21:45 Abuse screen: Denies threats or abuse. Nutritional screening: Difficulty pf1 chewing/swallowing? Yes patient has a Peg tube in place. Tuberculosis screening: No symptoms or risk factors identified. Assessment: 21:45 General: Appears in no apparent distress. Behavior is calm, quiet. pf1 21:45 Pain: Unable to use pain scale. Patient is disoriented. Neuro: Level of Consciousness pf1 is awake, Oriented to none. Cardiovascular: Capillary refill < 3 seconds. Respiratory: Airway is patent Respiratory effort is labored, Respiratory pattern is symmetrical, tachypnea Breath sounds with crackles bilaterally. Breath sounds are diminished bilaterally. 21:45 GI: Abdomen is round non-distended, PEG tube in place, Site clean. Bowel sounds present pf1 X 4 quads. 21:45 : James in place to gravity drainage placed by the [facility]. EENT: No signs pf1 and/or symptoms were reported regarding the EENT system. Derm: No signs and/or symptoms reported regarding the dermatologic system. Musculoskeletal: Capillary refill < 3 seconds, Swelling present in right leg and left leg. 22:45 Reassessment: Patient appears in no apparent distress at this time. Patient and/or pf1 family updated on plan of care and expected duration. Pain level reassessed. 23:45 Reassessment: Patient appears in no apparent distress at this time. No changes from pf1 previously documented assessment. 08/20 00:30 Reassessment: Patient appears in no apparent distress at this time. No changes from pf1 previously documented assessment. Patient and/or family updated on plan of care and expected duration. Pain level reassessed. 01:30 Reassessment: Patient appears in no apparent distress at this time. No changes from pf1 previously documented assessment. Patient and/or family updated on plan of care and expected duration. Pain level reassessed. Patient states symptoms have improved. 02:30 Reassessment: Patient appears in no apparent distress at this time. No changes from pf1 previously documented assessment. Patient and/or family updated on plan of care and expected duration. Pain level reassessed. Patient states symptoms have improved. 03:04 Reassessment: Patient appears in no apparent distress at this time. No changes from pf1 previously documented assessment. Patient and/or family updated on plan of care and expected duration. Pain level reassessed. Patient states symptoms have improved. 04:00 Reassessment: Patient appears in no apparent distress at this time. Patient and/or pf1 family updated on plan of care and expected duration. Pain level reassessed. changed patient's diaper and applied xeroform dressing, abdominal pad with foam tape to sacrum region. Vital Signs: 08/19 21:41 BP 125 / 73; Pulse 101; Resp 32; Temp 99.3; Pulse Ox 90% on R/A; Weight 91 kg; pf1 22:10 BP 127 / 63 (/lg); Pulse 104; Resp 30; Pulse Ox 100% on 2 lpm NC; pf1 22:30 BP 123 / 61; Pulse 103; Resp 24; Pulse Ox 99% on 2 lpm NC; pf1 23:00 BP 126 / 62; Pulse 99; Resp 31; Pulse Ox 99% on 2 lpm NC; pf1 23:30 BP 113 / 65; Pulse 95; Resp 25; Temp 97.7(A); Pulse Ox 99% on 2 lpm NC; pf1 08/20 00:30 BP 130 / 64; Pulse 91; Resp 17 S; Pulse Ox 99% on 2 lpm NC; ha1 01:30 BP 122 / 55; Pulse 85; Resp 15 S; Pulse Ox 100% on 2 lpm NC; ha1 02:00 BP 119 / 62; Pulse 87; Resp 17 S; Pulse Ox 100% on 2 lpm NC; ha1 02:45 BP 122 / 58; Pulse 86; Resp 15 S; Pulse Ox 100% on 2 lpm NC; ha1 03:30 BP 112 / 58; Pulse 82; Resp 22; Temp 98.2(A); Pulse Ox 99% on 2 lpm NC; pf1 ED Course: 08/19 21:41 Patient arrived in ED. rv1 21:45 No provider procedures requiring assistance completed. Inserted saline lock: 20 gauge pf1 in right antecubital area, using aseptic technique. Blood collected. 21:45 james catheter placed by [facility] on 08/04/23. pf1 21:45 patient has a Peg tube in placed [employer]. pf1 21:45 Patient has correct armband on for positive identification. Placed in gown. Bed in low pf1 position. Call light in reach. Side rails up X2. 21:45 Arm band placed on left wrist. pf1 21:47 Barry Hart MD is Attending Physician. rn 22:05 BNP Sent. pf1 22:05 Flu Sent. pf1 22:05 SARS-COV-2 RT PCR Sent. pf1 22:05 CBC with Diff Sent. pf1 22:05 CMP Sent. pf1 22:05 Lactate w/ 2H reflex if indic. Sent. pf1 22:05 Protime (+inr) Sent. pf1 22:05 Urinalysis w/ reflexes Sent. pf1 22:05 Ptt, Activated Sent. pf1 22:05 Inserted saline lock: 20 gauge in left forearm, using aseptic technique. Blood pf1 collected. 22:26 BNP Sent. pf1 22:26 Ptt, Activated Sent. pf1 22:26 Protime (+inr) Sent. pf1 22:26 Lactate w/ 2H reflex if indic. Sent. pf1 22:27 CMP Sent. pf1 22:27 CBC with Diff Sent. pf1 22:27 Blood Culture Adult (2) Sent. pf1 22:34 Triage completed. pf1 22:35 Urine Culture Sent. pf1 22:40 Chest Single View XRAY In Process Unspecified. EDMS 23:02 Jones Smith MD is Hospitalizing Provider. rn 08/20 01:49 Chest Abd Pelvis Wo Con In Process Unspecified. EDMS 01:49 CT Head Brain wo Cont In Process Unspecified. EDMS 03:07 Patient admitted, IV remains in place. pf1 04:00 Wound care: to decubitus located on sacrum region was cleaned with soap and water, pf1 dressed with ABD pads, with xeroform and foam tape. Administered Medications: 08/19 22:26 CANCELLED (Duplicate Order): [id number] mg/kg Feeding Tube once; not to exceed 1,000 rn milligrams 22:50 Drug: Ibuprofen PO 600 mg PO once; per feeding tube Route: PO; pf1 23:50 Follow up: Response: No adverse reaction; Marked relief of symptoms; Temperature is pf1 decreased 23:15 Drug: Rocephin IV 1 grams IV at calculated rate once; Given slow IV push per pharmacy pf1 instructions Route: IV; Rate: calculated rate; Site: right antecubital; 23:20 Follow up: Response: No adverse reaction; IV Status: Completed infusion; IV Intake: [id number] 23:15 Drug: NS 0.9% IV 500 ml IV at bolus once Route: IV; Rate: bolus; Site: right pf1 antecubital; 23:45 Follow up: Response: No adverse reaction; IV Status: Completed infusion; IV Intake: pf1 500ml 08/20 00:55 Drug: vancoMYCIN IVPB 1 grams IVPB once over 2 hrs Route: IVPB; Infused Over: 2 hrs; pf1 Site: right antecubital; 02:55 Follow up: IV Status: Completed infusion pf1 03:02 Follow up: Response: No adverse reaction; IV Intake: 250ml pf1 Medication: 03:07 VIS not applicable for this client. pf1 Intake: 08/19 23:20 IV: 10ml; Total: 10ml. pf1 23:45 IV: 500ml; Total: 510ml. pf1 08/20 03:02 IV: 250ml; Total: 760ml. pf1 Output: 04:00 Urine: 1200ml (James); Total: 1200ml. pf1 Outcome: 08/19 23:03 Decision to Hospitalize by Provider. kathy 08/20 03:35 Admitted to Med/surg accompanied by gloria, via stretcher, room 402, with oxygen, with pf1 chart, Condition: stable 03:52 Admitted to Med/surg Report called to KATHY Hendrix pf1 03:52 Condition: stable 04:09 Patient left the ED. pf1 Signatures: Dispatcher [employer] EDMS Barry Hart MD MD rn Ayala, Heidy, RN RN luz marina1 Jaclyn Kilpatrick RN RN pf1 Carmen Frost rv1 Corrections: (The following items were deleted from the chart) 08/19 22:35 21:41 BP 125 / 73; Pulse 101bpm; Resp 32bpm; Pulse Ox 90% RA; Temp 99.3F; pf1 pf1 23:05 21:45 Respiratory: Airway is patent Respiratory effort is labored, Respiratory pattern pf1 is symmetrical, tachypnea pf1 23: 21:41 Chief complaint: EMS states: arrived from [facility] C/O 02 pf1 saturation 87% on 5LNC with SOB, cough and AMS. Patient has Peg Tube in place and james catheter prior to arrival. SHOSHANA Boyce from [facility] stated gave patient Tylenol 650 mg at 2030 and James Catheter was placed on 08/04/23. Carli stated patient was recently released from [facility] in [place] and deemed patient non-rehabable. pf1 : 21:45 placed by [facility] on 08/04/23 pf1 pf1 08/20 03:07 08/19 21:45 PSHx: peg tube (Atrial fibrillation); pf1 pf1
--- NOTE | 2023-08-19 23:03 | EDPHYS ---
Physician Documentation [facility] Name: Mitesh Manzo Age: 73 yrs Sex: Female : 1950 Arrival Date: 08/19/2023 Time: 21:40 Bed 19 Private MD: ED Physician Barry Hart HPI: 08/19 22:02 This 73 yrs old Black Female presents to ER via Unassigned with complaints of rn difficulty breathing, fever. 22:02 The patient has shortness of breath at rest. Onset: The symptoms/episode began/occurred rn at an unknown time. Duration: The symptoms are continuous. The patient's shortness of breath is aggravated by nothing, is alleviated by nothing. Severity of symptoms: At their worst the symptoms were moderate in the emergency department the symptoms are unchanged. It is unknown whether or not the patient has had similar symptoms in the past. EMS reports called to detention for difficulty breathing and fever to 102. O2 on room air was mid to high 80s. Improvement with oxygen supplementation. Patient with history of CHF, bedridden, PEG tube. Has indwelling Busby catheter.. Historical: - Allergies: 21:45 barium sulfate; pf1 21:45 Keppra; pf1 21:45 Lisinopril; pf1 21:45 monosodium glutamate (bulk); pf1 - PMHx: 21:45 Aphasia; Cerebrovascular accident; Congestive heart failure; DYSPHAGIA; Hypertensive pf1 disorder; kidney disease; Seizure; Atrial fibrillation; - PSHx: 08/20 03:06 peg tube; pf1 - Immunization history:: Adult Immunizations unknown. - Family history:: not pertinent. - Social history:: Smoking status: unknown. - Hospitalizations: : No recent hospitalization is reported. - History obtained from: EMS. ROS: 08/19 22:02 Constitutional: Positive for fever Respiratory: Positive for cough and shortness of rn breath Abdomen/GI: Negative for vomiting or diarrhea Exam: 22:02 Constitutional: Cachectic female, moderate tachypnea with coarse bilateral breath rn sounds Head/Face: Normocephalic, atraumatic. ENT: Dry mucous membranes, no stridor Cardiovascular: Tachycardic, regular. Respiratory: Moderate tachypnea with bilateral crackles, no retractions Abdomen/GI: PEG tube in place, soft, nontender nondistended Skin: Patient with large sacral wound and foul smell. Feces found in wound. MS/ Extremity: No cyanosis. Lower extremity contractures and in padding. 2+ pitting edema bilateral lower extremities Neuro: Awake, answer some questions, speaking 2 word sentences, slow to respond. Vital Signs: 21:41 BP 125 / 73; Pulse 101; Resp 32; Temp 99.3; Pulse Ox 90% on R/A; Weight 91 kg; pf1 22:10 BP 127 / 63 (/lg); Pulse 104; Resp 30; Pulse Ox 100% on 2 lpm NC; pf1 22:30 BP 123 / 61; Pulse 103; Resp 24; Pulse Ox 99% on 2 lpm NC; pf1 23:00 BP 126 / 62; Pulse 99; Resp 31; Pulse Ox 99% on 2 lpm NC; pf1 23:30 BP 113 / 65; Pulse 95; Resp 25; Temp 97.7(A); Pulse Ox 99% on 2 lpm NC; pf1 08/20 00:30 BP 130 / 64; Pulse 91; Resp 17 S; Pulse Ox 99% on 2 lpm NC; ha1 01:30 BP 122 / 55; Pulse 85; Resp 15 S; Pulse Ox 100% on 2 lpm NC; ha1 02:00 BP 119 / 62; Pulse 87; Resp 17 S; Pulse Ox 100% on 2 lpm NC; ha1 02:45 BP 122 / 58; Pulse 86; Resp 15 S; Pulse Ox 100% on 2 lpm NC; ha1 03:30 BP 112 / 58; Pulse 82; Resp 22; Temp 98.2(A); Pulse Ox 99% on 2 lpm NC; pf1 MDM: 08/19 21:47 Patient medically screened. rn 22:54 ED course: Lactic acid normal. Patient normotensive. Most likely combination of rn congestive heart failure and volume overload and urinary tract infection. Fever improving, heart rate improving.. 23:00 Differential diagnosis: Anemia Bronchitis CHF exacerbation, Myocardial Infarction rn pneumonia, Pneumothorax pulmonary edema. Data reviewed: vital signs, nurses notes, lab test result(s), radiologic studies, plain films, and as a result, I will admit patient. ED course: Chest x-ray shows overall clear lungs without significant pulmonary edema, extremely elevated BUN to creatinine ratio, will give small bolus given clinically dry. Will admit to hospital service for further care.. 23:01 Independent interpretation of the following test(s) in the Emergency Department EKG: rn See my EKG interpretation above X-Ray: My interpretation is Chest x-ray images negative for pneumothorax or focal pneumonia per my interpretation. Historians other than the Patient: EMS: EMS gives majority of HPI as passed along from detention. Care significantly affected by the following chronic conditions: Congestive Heart Failure, Encephalopathy and barriers to communication. Counseling: I had a detailed discussion with the patient and/or guardian regarding the historical points, exam findings, and any diagnostic results supporting the discharge/admit diagnosis, lab results, radiology results, the need for further work-up and treatment in the hospital. Response to treatment: the patient's symptoms have mildly improved after treatment, and as a result, I will admit patient. 08/19 21:48 Order name: Blood Culture Adult (2) 08/19 21:48 Order name: CBC with Diff 08/19 21:48 Order name: CMP; Complete Time: 23:00 08/19 21:48 Order name: Lactate w/ 2H reflex if indic.; Complete Time: 22:54 08/19 21:48 Order name: Protime (+inr); Complete Time: 23:01 08/19 21:48 Order name: Ptt, Activated; Complete Time: 23:01 08/19 21:48 Order name: Urinalysis w/ reflexes; Complete Time: 22:54 08/19 21:48 Order name: SARS-COV-2 RT PCR; Complete Time: 22:54 08/19 21:48 Order name: Flu; Complete Time: 22:54 08/19 21:48 Order name: BNP; Complete Time: 23:00 08/19 22:26 Order name: Urine Culture [facility] 08/19 22:32 Order name: Glucose, Ancillary Testing; Complete Time: 22:54 [facility] 08/20 02:11 Order name: CBC Smear Scan [facility] 08/20 03:10 Order name: T4 Free [facility] 08/20 03:10 Order name: Thyroid Stimulating Hormone [facility] 08/20 03:10 Order name: Basic Metabolic Panel [facility] 08/20 03:10 Order name: Basic Metabolic Panel [facility] 08/20 03:10 Order name: Basic Metabolic Panel [facility] 08/20 03:10 Order name: Basic Metabolic Panel [facility] 08/20 03:10 Order name: CBC with Automated Diff EDMS 08/20 03:10 Order name: CBC with Automated Diff EDMS 08/20 03:10 Order name: CBC with Automated Diff EDMS 08/20 03:10 Order name: CBC with Automated Diff EDMS 08/20 03:10 Order name: Lipid Profile EDMS 08/20 03:10 Order name: Lipid Profile EDMS 08/20 03:10 Order name: Magnesium EDMS 08/20 03:10 Order name: Magnesium EDMS 08/20 03:10 Order name: Magnesium EDMS 08/20 03:10 Order name: Magnesium EDMS 08/20 03:10 Order name: Phosphorus EDMS 08/20 03:10 Order name: Phosphorus EDMS 08/20 03:10 Order name: Phosphorus EDMS 08/20 03:10 Order name: Phosphorus EDMS 08/20 03:10 Order name: PTT, Activated Partial Thromb EDID 08/20 03:10 Order name: PTT, Activated Partial Thromb EDMS 08/20 03:10 Order name: PTT, Activated Partial Thromb EDMS 08/20 03:10 Order name: PTT, Activated Partial Thromb EDID 08/19 21:48 Order name: Chest Single View XRAY rn 08/20 00:25 Order name: Chest Abd Pelvis Wo Con EDID 08/20 01:07 Order name: CT Head Brain wo Cont rn 08/20 03:13 Order name: Echo with Doppler [facility] 08/20 03:13 Order name: Echo with Doppler [facility] 08/19 21:48 Order name: EKG; Complete Time: 21:49 rn 08/20 03:10 Order name: CONS Physician Consult [facility] 08/20 03:10 Order name: CONS Physician Consult [facility] 08/19 21:48 Order name: Accucheck; Complete Time: 22:26 rn 08/19 21:48 Order name: Cardiac monitoring; Complete Time: 22:05 rn 08/19 21:48 Order name: Cath; Complete Time: 22:26 rn 08/19 21:48 Order name: EKG - Nurse/Tech; Complete Time: 22:26 rn 08/19 21:48 Order name: IV Saline Lock - Large Bore; Complete Time: 22:05 rn 08/19 21:48 Order name: Labs collected and sent; Complete Time: 22:05 rn 08/19 21:48 Order name: O2 Per Protocol; Complete Time: 22:05 rn 08/19 21:48 Order name: O2 Sat Monitoring; Complete Time: 22:05 rn 08/19 21:48 Order name: Vital Signs; Complete Time: 22:26 rn 08/20 00:08 Order name: Wound Care; Complete Time: 03:01 rn Administered Medications: 22:26 CANCELLED (Duplicate Order): [id number] mg/kg Feeding Tube once; not to exceed 1,000 rn milligrams 22:50 Drug: Ibuprofen PO 600 mg PO once; per feeding tube Route: PO; pf1 23:50 Follow up: Response: No adverse reaction; Marked relief of symptoms; Temperature is pf1 decreased 23:15 Drug: Rocephin IV 1 grams IV at calculated rate once; Given slow IV push per pharmacy pf1 instructions Route: IV; Rate: calculated rate; Site: right antecubital; 23:20 Follow up: Response: No adverse reaction; IV Status: Completed infusion; IV Intake: [id number] 23:15 Drug: NS 0.9% IV 500 ml IV at bolus once Route: IV; Rate: bolus; Site: right pf1 antecubital; 23:45 Follow up: Response: No adverse reaction; IV Status: Completed infusion; IV Intake: pf1 500ml 08/20 00:55 Drug: vancoMYCIN IVPB 1 grams IVPB once over 2 hrs Route: IVPB; Infused Over: 2 hrs; pf1 Site: right antecubital; 02:55 Follow up: IV Status: Completed infusion pf1 03:02 Follow up: Response: No adverse reaction; IV Intake: 250ml pf1 Disposition Summary: 08/19/23 23:03 Hospitalization Ordered Notes: Hospitalization Status: Inpatient Admission rn Provider: Jones Smith rn Location: Telemetry/MedSurg (Inpatient) rn Condition: Stable rn Problem: new rn Symptoms: have improved rn Bed/Room Type: Standard rn Room Assignment: 402(08/20/23 02:57) cg Diagnosis - UTI/ Urinary tract infection, site not specified rn - Unspecified combined systolic (congestive) and diastolic (congestive) heart failure rn - Dyspnea, unspecified rn - Fever, unspecified rn Forms: - Medication Reconciliation Form rn - SBAR form rn - Leadership Thank You Letter rn Signatures: Dispatcher [employer] Barry Cheema MD MD rn Garcia, Cindy, RN RN Jaclyn Oakes, KATHY RN pf1 Carmen Frost rv1 Corrections: (The following items were deleted from the chart) 08/19 22:11 22:02 Constitutional: Cachectic female, moderate tachypnea with coarse bilateral breath rn sounds Head/Face: Normocephalic, atraumatic. ENT: Dry mucous membranes, no stridor Cardiovascular: Tachycardic, regular. Respiratory: Moderate tachypnea with bilateral crackles, no retractions Abdomen/GI: PEG tube in place, soft, nontender nondistended MS/ Extremity: No cyanosis. Lower extremity contractures and in padding. Neuro: Awake, answer some questions, speaking 2 word sentences, slow to respond. rn : 21:48 Tylenol Feeding Tube 15 mg/kg Feeding Tube once; not to exceed 1,000 milligrams rn ordered. rn 08/20 00:08 08/19 22:02 Constitutional: Cachectic female, moderate tachypnea with coarse bilateral rn breath sounds Head/Face: Normocephalic, atraumatic. ENT: Dry mucous membranes, no stridor Cardiovascular: Tachycardic, regular. Respiratory: Moderate tachypnea with bilateral crackles, no retractions Abdomen/GI: PEG tube in place, soft, nontender nondistended MS/ Extremity: No cyanosis. Lower extremity contractures and in padding. 2+ pitting edema bilateral lower extremities Neuro: Awake, answer some questions, speaking 2 word sentences, slow to respond. rn 08/20 00:23 00:23 CT CHEST,ABD,PELVIS W/O ordered. EDMS EDMS 00:40 08/19 23:03 rn rv1 08/20 00:50 00:40 402 rv1 cg 02:57 00:50 cg cg 03:07 08/19 21:45 PSHx: peg tube (Atrial fibrillation); pf1 pf1
[2023-08-19] MEDS ORDERED: CEFTRIAXONE 1000 MG/VIAL ONE (23:27)
[2023-08-19] MEDS ORDERED: NA CHLORIDE 0.9% 500 ML ONE (23:27)
[2023-08-20] MEDS ORDERED: VANCOMYCIN 1 GM/VIAL ONE ×2 (00:59→06:13)
[2023-08-20] MEDS ORDERED: NA CHLORIDE 0.9% 250 ML ONE (00:59)
[2023-08-20 02:10] LABS: Anisocytosis 1+; Blood Morphology Comment NOTED (NOT SEEN); Platelet Estimate INCR; White Blood Cell Scan OK (OK)
[2023-08-20 02:11] LABS: Hypochromasia 1+; Ovalocytes SLIGHT; Poikilocytosis 1+; Polychromasia 1+; Teardrop Cell FEW
[2023-08-20] MEDS ORDERED: MAGNESIUM HYDROXIDE 8% 30 ML PO PRN (03:01)
[2023-08-20] MEDS ORDERED: ONDANSETRON 4 MG/2 ML VIAL IV PRN (03:01)
[2023-08-20] MEDS ORDERED: ACETAMINOPHEN 500 MG TAB PO PRN (03:01)
[2023-08-20] MEDS ORDERED: ALBUTEROL 2.5 MG/3 ML NEB SOL NEB PRN (03:01)
[2023-08-20] MEDS ORDERED: NA CHLORIDE 0.9% 500 ML IV ONE (03:01)
[2023-08-20] MEDS ORDERED: SODIUM CHLORIDE 0.9% 10ML INJ IV PRN (03:13)
--- NOTE | 2023-08-20 03:32 | P.HP ---
Certification for Inpatient With expected LOS: <2 Midnights Patient will require the following post-hospital care: None Practitioner: I am a practitioner with admitting privileges, knowledge of patient current condition, hospital course, and medical plan of care. Services: Services provided to patient in accordance with Admission requirements found in Title 42 Section 412.3 of the Code of Federal Regulations Patient History Date of Service: 08/20/23 Reason for admission: Sepsis, pneumonia, UTI, sacral bedsore History of Present Illness: Ms. Manzo is 73-year-old female patient with a history of CVA, aphasia,chf, afib, hypertension, EMS [facility] from the [facility] shortness of breath and fever. EMS reports that patient had a temperature of 102, and oxygen was 80% on room air. Patient's oxygenation improved with oxygen supplementation. Patient awake opening the eyes positive for fever, cough and shortness of breath. Negative for vomiting or diarrhea. Most history from the [facility] and the medical records ED course Vital signs blood pressure 125/73, pulse 101, respiration 32, temperature 99.3, pulse ox 90% on room air initial laboratory results significant for elevated BNP 19521, elevated BUN 127, creatinine 1.55, low GFR 35, blood glucose 165. Urine is extremely turbid. Chest x-ray negative for pneumothorax chest CT shows consolidative atelectasis in the left lower lobe, consider superimposed aspiration or pneumonia. Admitting the patient for sepsis, pneumonia, CHF, and UTI. Dyspnea, fever Allergies lisinopril Adverse Reaction (Mild, Verified 05/10/12 12:41) sensitiveity to sun Home Medications: Furosemide 40 mg PO DAILY 05/10/12 Apixaban [Eliquis] 5 mg PO BID 04/08/22 Atorvastatin Calcium [Lipitor] 40 mg PO BEDTIME 04/08/22 Carvedilol [Coreg] 25 mg PO BID 04/08/22 Codeine/APAP [Tylenol #3*] 1 tab PO Q4H PRN 04/08/22 Phenytoin Sodium Extended [Dilantin] 150 mg PO BID 04/08/22 Docusate/Senna [Senokot-S*] 2 tab PO BEDTIME PRN #60 tab 04/21/22 Ensure High Protein 237 ml PO BID can 04/21/22 Nifedipine Xl [Procardia Xl*] 30 mg PO DAILY #30 tab 04/21/22 Pantoprazole [Protonix Tab*] 40 mg PO DAILYAC #30 tab 04/21/22 Spironolactone [Aldactone*] 25 mg PO DAILY #30 tab 04/21/22 - Past Medical/Surgical History Diabetic: No -: acute resp failure w/ hypoxia -: afib and aflutter -: bacterimia -: htn -: hld -: hypothroidism -: pulmo htn -: distolic chf -: craniotomy - Social History Smoking Status: Never smoker Alcohol use: No CD- Drugs: No Caffeine use: Yes Review of Systems 10-point ROS is otherwise unremarkable Physical Examination - Physical Exam General: Alert, Oriented x1 HEENT: Atraumatic, Normocephalic, Other (Aphasia) Neck: Supple, 2+ carotid pulse no bruit Respiratory: Diminished (At the base), Other (Congested) Cardiovascular: Normal pulses, Regular rate/rhythm Capillary refill: <2 Seconds Gastrointestinal: Normal bowel sounds, Soft and benign Musculoskeletal: No clubbing, No erythema, Swelling Integumentary: Pressure ulcer, Other (Sacral pressure ulcer deep with tunneling) Neurological: Other (Aphasia with history of CVA) - Studies Laboratory Data (last 24 hrs) 08/19/23 08/19/23 08/19/23 21:45 21:45 21:45 WBC 10.90 Hgb 8.3 L Hct 26.2 L Plt Count 418 H PT 17.6 H INR 1.60 APTT 35.0 Sodium 140 Potassium 5.2 H BUN 127 H Creatinine 1.55 H Glucose 165 H Total Bilirubin 0.3 AST 10 L ALT < 10 L Alkaline Phosphatase 134 H Microbiology Data (last 24 hrs): 08/19/23 22:02 Nasopharnyx Influenza Type A Antigen Screen - Final 08/19/23 22:02 Nasopharnyx Influenza Type B Antigen Screen - Final Assessment and Plan - Problems (Diagnosis) (1) Sepsis due to pneumonia Current Visit: Yes Status: Acute (2) UTI (urinary tract infection) due to urinary indwelling Busby catheter Current Visit: Yes Status: Acute Qualifiers: Indwelling urinary catheter type: indwelling urethral catheter (3) CHF (congestive heart failure) Current Visit: Yes Status: Acute Qualifiers: Heart failure type: combined systolic and diastolic (4) Dyspnea Current Visit: Yes Status: Acute Qualifiers: Dyspnea type: shortness of breath Qualified Code(s): R06.02 - Shortness of breath; R06.00 - Dyspnea, unspecified; R06.01 - Orthopnea (5) Fever Current Visit: Yes Status: Acute Qualifiers: Encounter type: initial encounter (6) Decubitus ulcer of sacral region, unstageable Current Visit: Yes Status: Acute (7) Chronic a-fib Current Visit: Yes Status: Acute (8) Aphasia as late effect of cerebrovascular accident Current Visit: Yes Status: Acute (9) CKD (chronic kidney disease) stage 3, GFR 30-59 ml/min Current Visit: Yes Status: Acute Qualifiers: Chronic kidney disease stage 3 subtype: stage 3b (GFR 30-44) Qualified Code(s): N18.32 - Chronic kidney disease, stage 3b - Plan (1) Sepsis due to pneumonia (2) Dyspnea (3) Fever Current Visit: Yes Status: Acute Sepsis likely secondary to pneumonia Patient meets sepsis criteria based on temperature > 100.9 F , HR > 90 bpm, RR > 20 breaths/min and the suspected source is pneumonia. Initial Lactate was 0.07 Vital signs blood pressure 125/73, pulse 101, respiration 32, temperature 99.3, pulse ox 90% on room air Blood cultures drawn before antibiotics were given Broad spectrum antibiotics started: Vancomycin and cefepime- 30 mL/kg of IV fluids was not administered given SBP > 90, MAP > 65, lactic acid < 4 (4) UTI (urinary tract infection) due to urinary indwelling Busby catheter Acute, positive urinalysis likely due to indwelling Busby catheter Antibiotics, IV fluid ordered Continue to monitor (5) CHF (congestive heart failure) Chronic,elevated BNP 71386, Echo ordered We will continue to monitor, restart the medications as appropriate (6) Decubitus ulcer of sacral region, unstageable Current Visit: Yes Status: Acute Chronic, worsening sacral unstageable decubitus ulcer, wound is deep with tunneling Broad-spectrum antibiotics ordered Infectious disease /wound care consulted Will continue enteral feeding Turn the patient every 2 hours, skin care, apply skin protectant every 4 hours and as needed (7) Chronic a-fib Current Visit: Yes Status: Acute Chronic, controlled. Rate and anticoagulated with Eliquis 5 mg p.o. twice daily We will continue the current home medications as appropriate (8) Aphasia as late effect of cerebrovascular accident CKD stage III Chronic, with aphasia responding to verbal command On aspirin, Eliquis Continue the current medications (9) CKD stage III Acute on chronic, elevated BUN of 127, creatinine 1.55, GFR 35, previous GFR unknown Gentle IV hydration started, Renal dosing of medications, nephrotoxic drugs including NSAIDs CODE STATUSfull code Diet gastric feeding DVT prophylaxisEliquis Discharge Plan: [facility] Plan to discharge in: 48 Hours - Advance Directives Does patient have a Living Will: No Does patient have a Durable POA for Healthcare: No - Code Status/Comfort Care Code Status Assessed: Yes (Full code) Code Status: Full Code Physician Review: Patient Assessed, Agree with Above Assessment and Plan Critical Care: No Time Spent Managing Pts Care (In Minutes): 55 (Minute)
[2023-08-20] MEDS ORDERED: NA CHLORIDE 0.9% 1,000 ML IV SCH ×2 (04:00→10:56)
[2023-08-20] MEDS ORDERED: VANCOMYCIN 1 GM in NA CHLORIDE 0.9% 250 ML IVPB SCH (04:00)
[2023-08-20] MEDS ORDERED: VANCOMYCIN 1.25 GM in NA CHLORIDE 0.9% 250 ML IVPB ONE (05:00)
[2023-08-20] MEDS ORDERED: VANCOMYCIN 500 MG/VIAL ONE (06:14)
[2023-08-20] MEDS ORDERED: HYDROCORTISONE SUC 100 MG INJ IV ONE (06:18)
[2023-08-20] MEDS: JEVITY 1.2 CAL LIQUID 1,000 ML BOT FT SCH ×4 (07:00→21:33)
[2023-08-20] MEDS: IPRATROPIUM BROM 0.5MG/2.5ML NEB SCH ×3 (07:43→20:00)
[2023-08-20] MEDS: FLUDROCORTISONE 0.1 MG TAB FT SCH ×2 (09:00→10:13)
[2023-08-20] MEDS: APIXABAN 5 MG TABLET PO SCH ×3 (09:00→21:30)
[2023-08-20] MEDS: carvediloL 25 MG TAB PO SCH ×2 (09:00→10:12)
[2023-08-20] MEDS ORDERED: CEFEPIME 1 GM in NA CHLORIDE 0.9% 100 ML IV SCH (09:00)
[2023-08-20 09:51] LABS: Absolute Lymphocytes (CBC) 0.4 K/uL (0.7-4.9); Hematocrit 22.8 % (36.0-45.0); Lymphocytes % 3.2 % (15.3-44.8); MCV 81.6 fL (80-100); MPV 6.9 fL (7.6-11.3); Platelets 378 thou/uL (152-406); RBC Red Blood Cell Count 2.79 M/uL (3.86-4.86)
[2023-08-20 10:09] LABS: Ferritin 80.3 ng/mL (8-388)
[2023-08-20] MEDS: PANTOPRAZOLE 40 MG INJ IVP SCH (10:12)
[2023-08-20 10:22] LABS: Thyroid Stimulating Hormone 0.636 uIU/mL (0.358-3.740)
[2023-08-20 10:25] LABS: ALT/SGPT < 10 U/L (13-56); AST/SGOT 11 U/L (15-37); Albumin 1.6 g/dL (3.4-5.0); Alkaline Phosphatase 95 U/L (45-117); BUN Blood Urea Nitrogen 97 mg/dL (7-18); Bicarbonate 25 mEq/L (21-32); Bilirubin Total 0.6 mg/dL (0.2-1.0); Glomerular Filtration Rate 49 ml/min (=/>90); Glucose Level 120 mg/dL (74-106); Magnesium 2.3 mg/dL (1.6-2.4); NT PRO-BNP 58164 pg/mL (<125); Potassium 4.3 mEq/L (3.5-5.1); Protein, Total 4.9 g/dL (6.4-8.2); Sodium Level 145 mEq/L (136-145)
--- NOTE | 2023-08-20 10:27 | P.PN ---
Date of Service: 08/20/23 Subjective: tentative Tuesday 08/21 note ROS: 10 point ROS as noted above, otherwise negative Physical Exam: GEN: Alert, orientedx1, NAD HEENT: Normal conjunctiva, sclera anicteric CV: Regular rate and rhythm, no edema Pulm: Nonlabored respirations on 2L NC, diminished at bases b/l ABD: Soft, nontender, nondistended MSK: No joint tenderness Integumentary: chronic sacral decubitus ulcer, unstageable Neuro: Aphasia/Dysphagia, bedbound indwelling james catheter in place (placed 08/04 @[facility]) PEG tube in place vitals reviewed Problem List: Sepsis likely secondary to Pneumonia Acute hypoxic respiratory failure bacteruria, chronic indwelling james catheter Iron deficiency anemia h/o prior CVA with Aphasia/Dysphagia Small remote infarct and Encephalomalacia of left occipital lobe and left cerebellum chronic sacral decubitus ulcer, unstageable chronic diastolic CHF Chronic a-fib, on anticoagulation CK3 Hypertension Hyperlipidemia Hypothyroidism h/o seizure disorder h/o pulm hypertension Sepsis likely secondary to Pneumonia Acute hypoxic respiratory failure bacteruria, chronic indwelling james catheter Reported fever of 102 at [facility] prior to admission, +SPO2 was reportedly mid-high 80s on room air urine cx (08/19): pending blood cx (08/19): Pending UA (08/19): concerning for UTI; +LE, +RBC +WBC, 20-50 Bacteria on rocephin/vanc from ED; switch to merrem/vanc pulm consulted continue stress dosed steroids given h/o adrenal inssufficiency pt with indwelling james catheter, supposedly since hospitalized ~1-2 months ago at [facility] uncertain full history, patient was hospitalized for some time at [facility], then to [facility], then [facility], now back to [facility] family state she was discharged to SNF from [facility] due to becoming too weak to participate;; which was told to family that she was having a "touch of pneumonia" no abx noted on [facility] CT chest/abd/pelvis (08/20): LLL atelectasis vs superimposed aspiration / pneumonia. severe cardiomegaly with small pericardial effusion. Cirrhotic hepatic morphology with mild sequela of portal hypertension. suspected b/l renal hypodense lesions without suspicious features. Moderate volume 4 quadrant ascites. Iron deficiency anemia iron studies 08/20 consistent with iron deficiency anemia family deny any bleeding; +microscopic hematuria hgb 8.3 -> 6.9 (08/20) 1 uPRBC ordered 08/20 Monitor H&H. transfuse for hgb < 7. h/o prior CVA with Aphasia/Dysphagia Small remote infarct and Encephalomalacia of left occipital lobe and left cerebellum Patient reportedly recently released 08/17/23 from [facility] in [place]; deemed non-rehabable due to weakness / "opneumonia" per famliy CT head (08/20): no acute intracranial abnormalities. Findings consistent with s mall remote infarct / Encephalomalacia of left occipital lobe and left cerebellum Pt with PEG tube in place. Hold tube feeds until evaluated per surgery. Continue supportive care Speech therapy consulted to eval chronic sacral decubitus ulcer, unstageable CT abd (08/20): noted full thickness of sacral ulcer without CT evidence of ostial myelitis continue above empiric abx General surgery consulted - Dr. Tee to eval wounds chronic diastolic CHF Chronic a-fib, on anticoagulation BNP 84k on admission, down to 58k 08/20. echo ordered for further eval confirm home cardiac meds, restart as appropriate continue home eliquis CKD3 Nephrology consulted possible cardiorenal patient with anasarca; likely benefit from diuresis; will discuss with nephro/pulm pulm increased IVF Continue to monitor renal function Creatinine improving Hypertension Hyperlipidemia Hypothyroidism h/o seizure disorder h/o pulm hypertension confirm home medications, restart as appropriate continue supportive care Family state patient had grand mal seizure a few months ago which lead to an aspiration event. She was hospitalized for some time at [place], then to SNF/IPR/SNF during this time she had PEG placed and james placed she developed a large sacral decubitus ulcer which currently does not appear infected, but is deep VTE: Home eliquis Code: Full Dispo: Back to [facility] Pending further improvement, cx results
--- NOTE | 2023-08-20 10:59 | P.CNS ---
Date of Consult: 08/20/23 Reason for Consult: Possible septic shock Chief Complaint: Sepsis, pneumonia, UTI, sacral bedsore History of Present Illness: Patient is 73 years of age bedbound aphasic admitted with shortness of breath fever and hypoxemia currently patient is unresponsive alert Allergies lisinopril Adverse Reaction (Mild, Verified 05/10/12 12:41) sensitiveity to sun Home Medications: Furosemide 40 mg FT DAILY 05/10/12 Apixaban [Eliquis] 5 mg PO BID 04/08/22 Carvedilol [Coreg] 25 mg PO BID 04/08/22 Acetaminophen [Tylenol] 650 mg FT Q4HP PRN 08/20/23 Ascorbic Acid [Vitamin C] 1 tab FT DAILY 08/20/23 Cholecalciferol (Vitamin D3) [Vitamin D3] 1 tab FT DAILY 08/20/23 Fludrocortisone [Florinef *] 1 tab FT DAILY 08/20/23 Folic Acid 1 tab FT DAILY 08/20/23 Gabapentin [Neurontin] 300 mg FT BID 08/20/23 Hydrocodone 5/APAP 325 [[place] 5/325*] 1 tab FT Q6HP PRN 08/20/23 Jevity 1.2 Joaquín Liquid 300 ml FT Q6H 08/20/23 Lactobacill 46/B.animal/Inulin [Probiotic-10 10 Bill Cell Cap] 1 tab FT BID 08/20/23 Nifedipine Xl [Procardia Xl*] 20 mg PO Q8H 08/20/23 Pantoprazole [Protonix Tab*] 40 mg FT DAILYAC 08/20/23 Zinc Sulfate [Zinc Sulfate*] 1 tab FT DAILY 08/20/23 methIMAzole [Tapazole*] 5 mg FT DAILY 08/20/23 modafiniL [Modafinil] 1 tab FT DAILY 08/20/23 - Past Medical/Surgical History Diabetic: No -: acute resp failure w/ hypoxia -: afib and aflutter -: bacterimia -: htn -: hld -: hypothroidism -: pulmo htn -: distolic chf -: craniotomy - Social History Smoking Status: Unknown if ever smoked Alcohol use: No CD- Drugs: No Caffeine use: Yes Place of Residence: Home Review of Systems is unable to be obtained Physical Examination Temp Pulse Resp BP Pulse Ox 98.5 F 83 17 132/61 100 08/20/23 08:00 08/20/23 08:00 08/20/23 08:00 08/20/23 08:00 08/20/23 08:00 General: Unresponsive Respiratory: Clear to auscultation bilaterally Cardiovascular: Normal S1 S2 Gastrointestinal: Normal bowel sounds, Soft and benign Integumentary: Other (Decubitus ulcer) Laboratory Data (last 24 hrs) 08/19/23 08/19/23 08/19/23 21:45 21:45 21:45 WBC 10.90 Hgb 8.3 L Hct 26.2 L Plt Count 418 H PT 17.6 H INR 1.60 APTT 35.0 Sodium 140 Potassium 5.2 H BUN 127 H Creatinine 1.55 H Glucose 165 H Total Bilirubin 0.3 AST 10 L ALT < 10 L Alkaline Phosphatase 134 H - Problems (1) Sepsis due to pneumonia Current Visit: Yes Status: Acute Plan: Patient is 73 years of age aphasic from her prior stroke she does have a PEG tube and a Busby catheter admitted with fever hypoxemia shortness of breath current positives include significantly elevated BNP patient is anemic with a hemoglobin of 6.9 urinalysis suggestive of an infection CT scan of the chest reviewed possible pneumonia patient is on Eliquis at home appears to be iron deficiency anemia percentage saturation of iron is very low probably benefit from 1 unit of blood transfusion for now and iron infusion currently on vancomycin and cefepime he is at risk for ESBL patient is on hydrocortisone also has full fludrocortisone increase IV infusion rate fluids hold Coreg patient has a significant decubitus ulcer attracted extremities
[2023-08-20] MEDS ORDERED: FUROSEMIDE 20 MG/ 2ML VIAL IV ONE (11:37)
[2023-08-20] MEDS ORDERED: NA CHLORIDE 0.9% 250 ML IV SCH (12:00)
--- NOTE | 2023-08-20 12:59 | P.CNS ---
Date of Consult: 08/20/23 Reason for Consult: ELIE, elevated Cr, volume management Requesting Physician: Flavio Campbell Chief Complaint: Sepsis, pneumonia, UTI, sacral bedsore History of Present Illness: Pls note history obtained soley through chart review as pt unable to provide history. Pt is a elderly 73-year-old AA female patient with a reported history of unspecified CVA with deficits including aphasia, remote echo showing LVH and some LVEF dysfunction in the past who was brought in last night by EMS from the [facility] shortness of breath and fever. EMS reports that patient had a temperature of 102, and oxygen was 80% on room air. Patient was admitted for PNA management. Allergies lisinopril Adverse Reaction (Mild, Verified 05/10/12 12:41) sensitiveity to sun Home Medications: Furosemide 40 mg FT DAILY 05/10/12 Apixaban [Eliquis] 5 mg PO BID 04/08/22 Carvedilol [Coreg] 25 mg PO BID 04/08/22 Acetaminophen [Tylenol] 650 mg FT Q4HP PRN 08/20/23 Ascorbic Acid [Vitamin C] 1 tab FT DAILY 08/20/23 Cholecalciferol (Vitamin D3) [Vitamin D3] 1 tab FT DAILY 08/20/23 Fludrocortisone [Florinef *] 1 tab FT DAILY 08/20/23 Folic Acid 1 tab FT DAILY 08/20/23 Gabapentin [Neurontin] 300 mg FT BID 08/20/23 Hydrocodone 5/APAP 325 [[place] 5/325*] 1 tab FT Q6HP PRN 08/20/23 Jevity 1.2 Joaquín Liquid 300 ml FT Q6H 08/20/23 Lactobacill 46/B.animal/Inulin [Probiotic-10 10 Bill Cell Cap] 1 tab FT BID 08/20/23 Nifedipine Xl [Procardia Xl*] 20 mg PO Q8H 08/20/23 Pantoprazole [Protonix Tab*] 40 mg FT DAILYAC 08/20/23 Zinc Sulfate [Zinc Sulfate*] 1 tab FT DAILY 08/20/23 methIMAzole [Tapazole*] 5 mg FT DAILY 08/20/23 modafiniL [Modafinil] 1 tab FT DAILY 08/20/23 - Past Medical/Surgical History Diabetic: No -: acute resp failure w/ hypoxia -: afib and aflutter -: bacterimia -: htn -: hld -: hypothroidism -: pulmo htn -: distolic chf -: craniotomy - Social History Smoking Status: Unknown if ever smoked Alcohol use: No CD- Drugs: No Caffeine use: Yes Place of Residence: Home Review of Systems is unable to be obtained Physical Examination Temp Pulse Resp BP Pulse Ox 98.4 F 83 17 118/66 100 08/20/23 11:45 08/20/23 12:25 08/20/23 11:45 08/20/23 12:25 08/20/23 11:45 General: Other (Appears chronically ill) HEENT: Atraumatic, Normocephalic, Other (LFNC) Respiratory: Normal air movement, Other (Reduced BS at the bases, non tachypnec) Cardiovascular: Regular rate/rhythm, Edema Gastrointestinal: Soft and benign, No tenderness, Other (Obese, PEG tube present) Musculoskeletal: No tenderness, Other (3+ pitting edema extending to sacrum, prevalon boot present) Integumentary: Other (Did not examine for decubiti, but RN reports sacral wound, see notes elsewhere for description) Neurological: Other (Lethargic, briefly opens eyes, does not track movement, reduced nasolabial fold, generalized weakness) Laboratory Data (last 24 hrs) 08/19/23 08/19/23 08/19/23 21:45 21:45 21:45 WBC 10.90 Hgb 8.3 L Hct 26.2 L Plt Count 418 H PT 17.6 H INR 1.60 APTT 35.0 Sodium 140 Potassium 5.2 H BUN 127 H Creatinine 1.55 H Glucose 165 H Total Bilirubin 0.3 AST 10 L ALT < 10 L Alkaline Phosphatase 134 H Conclusions/Impression: A/P) 1. Stage 1 ELIE 2nd to some water deficit and relative hypotension with Cr level lower on repeat testing, possible underlying CKD NOS with Cr levels > ULN historically as well. 2. Calculated water deficit > 1.5L with Na level at ULN at 145. Will start free water bolus via PEG at 300 cc q4h if tolerated 3. Acute hypoxic respiratory insufficiency 2nd to possible PNA, unspecified organism and probably CHF component. D/c NS IVF 4. Abx per primary team, f/u cultures 5. Will place on IV lasix. Pt has sig peripheral edema that is likely multifactorial. Pt has severe hypoalbuminemia likely reflecting chronic illness and at least mod protein calorie malnutrition. 6. Hypotension, unspecified -in the setting of infection. Unclear if pt has adrenal insufficiency, hydrocortisone ordered by primary team but will hold Florinef given extravascular fluid overload and Na level at ULN. Use colloids such as Albumin if BP trends back down. Wilbert Lozada MD, [facility]
[2023-08-20] MEDS: FUROSEMIDE 20 MG/ 2ML VIAL IV SCH ×2 (13:00→21:30)
[2023-08-20] MEDS ORDERED: NA CHLORIDE 0.9% 100 ML ONE (13:25)
[2023-08-20] MEDS: HYDROCORTISONE SUC 100 MG INJ IV SCH (17:45)
--- NOTE | 2023-08-20 19:58 | CON ---
Date of Consultation: 08/20/2023 Reason For Service: Stage IV sacral decubitus ulcer. History Of Present Illness: This is the case of a 73-year-old patient with a history of CVA, aphasia , atrial fibrillation, hypertension, brought here for pneumonia and fever. During the process, the p emiient also found to have a decubitus ulcer. I was called for evaluation. I cannot get any informat ion from the patient on trying to find out if she has been [facility] or she has be en followed for her wound somewhere else, but I cannot get that information at this time. Review of Systems: Unable to be obtained. Allergies: LISINOPRIL. Medications: Reviewed including Procardia, Protonix, Aldactone, Eliquis, furosemide. Medical Problems: Include respiratory failure history, with atrial fibrillation, atrial flutter, shalonda teremia, hypertension, hypothyroidism, pulmonary hypertension, congestive heart failure. Surgical History: Include craniotomy, unknown reason. Social History: She does not smoke. She does not drink alcohol. Physical Examination: General: The patient is awake, but cannot give us any information. HEENT: Pupils are anicteric. Neck: Supple. Chest: Bilateral breath sounds. Abdomen: Soft and depressible. Integumentary: A stage IV pressure ulcer, is at least 15 x 15 by at least 2 cm. It is still difficu lt to measure this at this moment since there is some tissue which may have to be debrided in the nex t 24-48 hours depending on the findings. Laboratory Data: Blood work shows WBC count of 11.2 with hemoglobin of 6.9 and platelets of 378. Ch loride is 117, creatinine is 1.18. Assessment: A 73-year-old patient with stage IV decubitus ulcer. Obviously nutrition is important, hemoglobin is low. The primary doctors are working on that. Offloading, air mattress if possible. May need debridement, although we have to work on the medical issues first since we may have to do it under some sedation, at least with the instruments down there in OR. Once she is medically better, we will go and do a formal cleaning, probably pulse lavage in that region, but the most important par t is followup, so we going to trying to go from the family to see if there is any way if she can come routinely to our [facility], so we can identify opportunities where we can diminish the ch ance of recurrence. EVANS/ROBERTA Voice ID: [id number] Report ID: [id number]
[2023-08-20] MEDS: Meropenem 1,000 MG in NA CHLORIDE 0.9% 100 ML IV SCH (21:29)
[2023-08-20 21:31] LABS: Hematocrit 28.9 % (36.0-45.0)
[2023-08-20] MEDS: LACTOBACILLUS/ACIDOPHILUS TAB FT SCH (21:32)
[2023-08-21] MEDS: HYDROCORTISONE SUC 100 MG INJ IV SCH ×3 (01:00→21:54)
[2023-08-21] MEDS: JEVITY 1.2 CAL LIQUID 1,000 ML BOT FT SCH ×4 (01:00→18:02)
[2023-08-21] MEDS: IPRATROPIUM BROM 0.5MG/2.5ML NEB SCH ×5 (02:25→18:59)
[2023-08-21 07:30] LABS: Absolute Lymphocytes (CBC) 0.4 K/uL (0.7-4.9); Hematocrit 29.9 % (36.0-45.0); Lymphocytes % 2.6 % (15.3-44.8); MCV 81.7 fL (80-100); MPV 7.3 fL (7.6-11.3); Platelets 424 thou/uL (152-406); RBC Red Blood Cell Count 3.66 M/uL (3.86-4.86)
[2023-08-21 07:47] LABS: ALT/SGPT < 10 U/L (13-56); AST/SGOT 12 U/L (15-37); Alkaline Phosphatase 117 U/L (45-117); BUN Blood Urea Nitrogen 115 mg/dL (7-18); Bicarbonate 28 mEq/L (21-32); Bilirubin Total 0.4 mg/dL (0.2-1.0); Glomerular Filtration Rate 35 ml/min (=/>90); Glucose Level 167 mg/dL (74-106); HDL Cholesterol 51 mg/dL (40-60); LDL Cholesterol, Calculated 43 mg/dL (<130); Phosphorus 4.9 mg/dL (2.5-4.9); Potassium 5.4 mEq/L (3.5-5.1); Protein, Total 6.2 g/dL (6.4-8.2); Sodium Level 142 mEq/L (136-145)
[2023-08-21 07:48] LABS: Magnesium 2.7 mg/dL (1.6-2.4)
--- NOTE | 2023-08-21 08:30 | P.PN ---
Date of Service: 08/21/23 Subjective: patient somnolent, opens eyes to stimuli no acute events overnight afebrile ROS: 10 point ROS as noted above, otherwise negative Physical Exam: GEN: Alert, orientedx1, somnolent HEENT: Normal conjunctiva, sclera anicteric CV: Regular rate and rhythm, anasarca Pulm: Nonlabored respirations on 2L NC, diminished at bases b/l ABD: Soft, nontender, nondistended Integumentary: chronic sacral decubitus ulcer, unstageable Neuro: Aphasia/Dysphagia, bedbound, opens eyes to stimuli indwelling james catheter in place (placed 08/04 @[facility]) PEG tube in place vitals reviewed Problem List: Sepsis likely secondary to Pneumonia vs possible UTI Acute hypoxic respiratory failure bacteruria, chronic indwelling james catheter Iron deficiency anemia h/o prior CVA with Aphasia/Dysphagia Small remote infarct and Encephalomalacia of left occipital lobe and left cerebellum Moderate Protein calorie malnutrition chronic sacral decubitus ulcer, unstageable chronic diastolic CHF Chronic a-fib, on anticoagulation ELIE Hypertension Hyperlipidemia Hypothyroidism h/o seizure disorder h/o pulm hypertension Sepsis likely secondary to Pneumonia Acute hypoxic respiratory failure bacteruria, chronic indwelling james catheter Reported fever of 102 at [facility] prior to admission, +SPO2 was reportedly mid-high 80s on room air urine cx (08/19): 4+ non-beta hemolytic strep blood cx (08/19): NGTD UA (08/19): concerning for UTI; +LE, +RBC +WBC, 20-50 Bacteria on rocephin/vanc from ED; switched to merrem/vanc 08/20 Continue empiric merrem / vanc (08/20-) afebrile leukocytosis worse 11.2 -> 15.2 (08/21) pulm consulted continue stress dosed steroids prevent adrenal inssufficiency / crisis pt with indwelling james catheter, supposedly since hospitalized ~1-2 months ago at [facility] uncertain full history, patient was hospitalized for some time at [facility], then to SNF, then [facility], now back to [facility] family state she was discharged to SNF from [facility] due to becoming too weak to participate;; which was told to family that she was having a "touch of pneumonia" no abx noted on [facility] MAR CT chest/abd/pelvis (08/20): LLL atelectasis vs superimposed aspiration / pneumonia. severe cardiomegaly with small pericardial effusion. Cirrhotic hepatic morphology with mild sequela of portal hypertension. suspected b/l renal hypodense lesions without suspicious features. Moderate volume 4 quadrant ascites. Iron deficiency anemia iron studies 08/20 consistent with iron deficiency anemia family deny any bleeding; +microscopic hematuria s/p 1 uPRBC 08/20; hgb 6.9 -> 9.1 (08/21) Monitor H&H. transfuse for hgb < 7. h/o prior CVA with Aphasia/Dysphagia Small remote infarct and Encephalomalacia of left occipital lobe and left cerebellum Moderate Protein calorie malnutrition Patient reportedly recently released 08/17/23 from [facility] rehab in [place]; deemed non-rehabable due to weakness / "opneumonia" per [facility] CT head (08/20): no acute intracranial abnormalities. Findings consistent with small remote infarct / Encephalomalacia of left occipital lobe and left cerebellum Pt with PEG tube in place. 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 Tee to eval wounds Continue daily wound care: apply santyl and wet to dry dressing to Sacral wound, cover with dry gauze. may benefit from I&D once more clinically stable. +Needs to follow up routinely at wound healing center to reduce chance of recurrence chronic diastolic CHF Chronic a-fib, on anticoagulation BNP 84k on admission, down to 58k 08/20. echo ordered for further eval continue IV lasix BID continue home eliquis ELIE likely secondary to water defecit / relative hypotension. Possibly cardiorenal with possible underlying CKD Nephrology consulted NS IVF dc'd per nephro continue IV lasix BID Continue to monitor renal function Hypertension Hyperlipidemia Hypothyroidism h/o seizure disorder h/o pulm hypertension confirm home medications, restart as appropriate continue supportive care Family state patient had grand mal seizure a few months ago which lead to an aspiration event. She was hospitalized for some time at [facility], then to [facility] during this time she had PEG placed and james placed she developed a large sacral decubitus ulcer which currently does not appear infected, but is deep VTE: Home eliquis Code: Full Dispo: Back to [facility], ~4 days Pending further improvement, cx results
[2023-08-21 08:58] LABS: Anisocytosis 1+; Blood Morphology Comment NOTED (NOT SEEN); Platelet Estimate ADEQ; White Blood Cell Scan OK (OK)
[2023-08-21 08:59] LABS: Poikilocytosis SLIGHT
[2023-08-21 09:00] LABS: Ovalocytes 1+
[2023-08-21] MEDS: LACTOBACILLUS/ACIDOPHILUS TAB FT SCH ×2 (09:00→21:00)
[2023-08-21] MEDS: COLLAGENASE 30 GM OINTMENT TOP SCH (10:15)
[2023-08-21] MEDS: PANTOPRAZOLE 40 MG INJ IVP SCH (10:16)
[2023-08-21] MEDS: Meropenem 1,000 MG in NA CHLORIDE 0.9% 100 ML IV SCH ×2 (10:16→21:54)
[2023-08-21] MEDS: FOLIC ACID 1 MG TABLET FT SCH (10:16)
[2023-08-21] MEDS: APIXABAN 5 MG TABLET PO SCH ×2 (10:16→21:55)
[2023-08-21] MEDS: FUROSEMIDE 20 MG/ 2ML VIAL IV SCH ×3 (10:17→21:54)
--- NOTE | 2023-08-21 14:31 | P.PN ---
Nephrology note (S) Pt seen when turned over for diaper and wound change, pt has a deep un- stageable sacral ulcer noted which is partially packed. Pt is arousable but aphasic, she does show any resp distress or pain. (O) vitals reviewed in the EMR General: Other (Appears chronically ill) HEENT: Atraumatic, Normocephalic, Other (LFNC) Respiratory: Normal air movement, Other (Reduced BS at the bases, non tachypnec) Cardiovascular: Regular rate/rhythm mostly Gastrointestinal: Soft and benign, No tenderness, Other (Obese, PEG tube present) Musculoskeletal: No tenderness, Other (3+ pitting edema extending to sacrum, prevalon boot present) Integumentary: See surgery and wound care notes for complete description of the large sacral ulcer Neurological: Other (Lethargic, briefly opens eyes, does not track movement, reduced nasolabial fold, generalized weakness) Laboratory Data (last 24 hrs) Reviewed in the EMR Conclusions/Impression: A/P) 1. Stage 1 ELIE 2nd to some water deficit and relative hypotension with Cr level lower on repeat testing but back up this AM, likely underlying CKD NOS with Cr levels > ULN historically as well. Severe azotemia with BUN > 100, disproportionate to Cr level that is likely multifactorial with steroid effect, chronic tube fees and possible catabolic state +/- pre-renal state as sensed by kidneys despite the extra-vascular, 3rd space volume overload Abnormal findings in urine, other -chronic indwelling bladder catheter, positive UCx, f/u final cultures, cont Abx 2. Calculated water deficit > 1.5L with Na level at ULN at 145 on admission. Did order free water bolus via PEG at 300 cc q4h if tolerated but pt has not been receiving consistently, so discussed with chief of staff doctor 3. Acute hypoxic respiratory insufficiency 2nd to possible PNA, unspecified organism and probably CHF component. Did d/c early on NS IVF 4. Abx per primary team, f/u cultures 5. Diid place on IV lasix and will increase to TID. Pt has sig peripheral edema that is likely multifactorial. Pt has severe hypoalbuminemia likely reflecting chronic illness and at least mod protein calorie malnutrition. Pt may also have some underlying cardiomyopathy, HF unspecified. 6. Hypotension, unspecified -in the setting of infection, resolved. Unclear if pt has adrenal insufficiency, hydrocortisone ordered by primary team but did hold [facility] given extravascular fluid overload and Na level at ULN. BP no longer low, will wean stress dose steroids. Use colloids such as Albumin if BP trends back down. Wilbert Lozada MD, DREWN
[2023-08-21] MEDS ORDERED: SODIUM ZIRCONIUM CYCLOSILICATE 10 GM/PKT PO ONE (15:00)
--- NOTE | 2023-08-21 15:40 | PN ---
Date of Progress Note: 08/21/2023 Reason For Service: Stage IV infected sacral decubitus ulcer. Subjective: Patient is doing well. She does not give much of information. Objective: Vital Signs: Shows temperature of 98.7, pulse 85, blood pressure is 148/84, and O2 satur ation 99%. Abdomen: Soft and depressible. Integumentary: Stable wound. Extremities: Good capillary refill. Laboratory Data: Blood work shows a hemoglobin of 9.1, WBC count of 15. Plan: Excisional debridement of stage IV decubitus ulcer in a.m. N.p.o. after midnight. Benefits, alternatives, and risks explained although it is hard to get any information from her. We are going to rely to the primary doctors and the staff to see if there is anybody else we have to talk to. EVANS/ROBERTA Voice ID: [id number] Report ID: [id number]
[2023-08-21] MEDS: VANCOMYCIN 2 GM in NA CHLORIDE 0.9% 500 ML IVPB SCH (18:01)
[2023-08-22] MEDS: JEVITY 1.2 CAL LIQUID 1,000 ML BOT FT SCH ×4 (01:00→19:39)
[2023-08-22] MEDS: IPRATROPIUM BROM 0.5MG/2.5ML NEB SCH ×4 (02:24→20:59)
[2023-08-22 07:24] LABS: Absolute Lymphocytes (CBC) 0.6 K/uL (0.7-4.9); Hematocrit 30.4 % (36.0-45.0); Lymphocytes % 4.7 % (15.3-44.8); MCV 80.8 fL (80-100); MPV 7.5 fL (7.6-11.3); Platelets 498 thou/uL (152-406); RBC Red Blood Cell Count 3.76 M/uL (3.86-4.86)
[2023-08-22] MEDS: FOLIC ACID 1 MG TABLET FT SCH (07:46)
[2023-08-22] MEDS: APIXABAN 5 MG TABLET PO SCH ×2 (07:46→19:38)
[2023-08-22] MEDS: COLLAGENASE 30 GM OINTMENT TOP SCH (07:46)
[2023-08-22] MEDS: LACTOBACILLUS/ACIDOPHILUS TAB FT SCH ×2 (07:46→19:37)
[2023-08-22 07:55] LABS: AST/SGOT 6 U/L (15-37); Alkaline Phosphatase 114 U/L (45-117); BUN Blood Urea Nitrogen 118 mg/dL (7-18); Bicarbonate 29 mEq/L (21-32); Bilirubin Total 0.3 mg/dL (0.2-1.0); Glomerular Filtration Rate 37 ml/min (=/>90); Glucose Level 129 mg/dL (74-106); Magnesium 2.9 mg/dL (1.6-2.4); NT PRO-BNP 86973 pg/mL (<125); Phosphorus 4.6 mg/dL (2.5-4.9); Potassium 4.7 mEq/L (3.5-5.1); Protein, Total 6.2 g/dL (6.4-8.2); Sodium Level 142 mEq/L (136-145)
[2023-08-22 07:59] LABS: ALT/SGPT < 10 U/L (13-56)
--- NOTE | 2023-08-22 08:26 | P.PN ---
Date of Service: 08/22/23 Subjective: more awake / alert today. oriented to self and time responding to questions appropriately, slow to respond NPO for I&D today with Dr. Tee no acute events overnight afebrile ROS: 10 point ROS as noted above, otherwise negative Physical Exam: GEN: Alert, orientedx2, somnolent, answers in 1-2 word sentences, slurred HEENT: Normal conjunctiva, sclera anicteric CV: Regular rate and rhythm, anasarca Pulm: Nonlabored respirations on 2L NC, diminished at bases b/l ABD: Soft, nontender, nondistended Integumentary: chronic sacral decubitus ulcer, Stage IV Neuro: Aphasia/Dysphagia, bedbound, opens eyes to stimuli indwelling james catheter in place (placed 08/04 @[facility]) PEG tube in place vitals reviewed Problem List: Sepsis likely secondary to Pneumonia vs possible UTI necrotic stage IV sacral decubitus ulcer, concern for infection Acute hypoxic respiratory failure bacteruria, chronic indwelling james catheter Iron deficiency anemia h/o prior CVA with Aphasia/Dysphagia Small remote infarct and Encephalomalacia of left occipital lobe and left cerebellum Moderate Protein calorie malnutrition chronic diastolic CHF Chronic a-fib, on anticoagulation ELIE Hypertension Hyperlipidemia Hypothyroidism h/o seizure disorder h/o pulm hypertension Sepsis likely secondary to Pneumonia Acute hypoxic respiratory failure bacteruria, chronic indwelling james catheter Reported fever of 102 [facility] prior to admission, +SPO2 was reportedly mid-high 80s on room air urine cx (08/19): 4+ non-beta hemolytic strep blood cx (08/19): NGTD UA (08/19): concerning for UTI; +LE, +RBC +WBC, 20-50 Bacteria on rocephin/vanc from ED; switched to merrem/vanc 08/20 Continue empiric merrem / vanc (08/20-) afebrile leukocytosis improving pulm consulted continue stress dosed steroids prevent adrenal inssufficiency / crisis pt with indwelling james catheter, supposedly since hospitalized ~1-2 months ago at [facility] uncertain full history, patient was hospitalized for some time at [facility], then to SNF, then [facility], now back to [facility] family state she was discharged to SNF from [facility] due to becoming too weak to participate;; which was told to family that she was having a "touch of pneumonia" no abx noted on [facility] CT chest/abd/pelvis (08/20): LLL atelectasis vs superimposed aspiration / pneumonia. severe cardiomegaly with small pericardial effusion. Cirrhotic hepatic morphology with mild sequela of portal hypertension. suspected b/l renal hypodense lesions without suspicious features. Moderate volume 4 quadrant ascites. Iron deficiency anemia iron studies 08/20 consistent with iron deficiency anemia family deny any bleeding; +microscopic hematuria s/p 1 uPRBC 08/20; hgb 9.1-> 9.5 (08/22) Monitor H&H. transfuse for hgb < 7. h/o prior CVA with Aphasia/Dysphagia Small remote infarct and Encephalomalacia of left occipital lobe and left cerebellum Moderate Protein calorie malnutrition Patient reportedly recently released 08/17/23 from [facility] rehab in [place]; deemed non-rehabable due to weakness / "opneumonia" per [facility] CT head (08/20): no acute intracranial abnormalities. Findings consistent with small remote infarct / Encephalomalacia of left occipital lobe and left cerebellum Pt with PEG tube in place. 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 Tee to eval wounds Continue daily wound care: apply santyl and wet to dry dressing to Sacral wound, cover with dry gauze. NPO for I&D today with Dr. Tee Will need to follow up routinely at wound healing center to reduce chance of recurrence chronic diastolic CHF Chronic a-fib, on anticoagulation BNP 84k on admission, down to 58k 08/20. echo ordered for further eval continue IV lasix; increased to TID 08/21 per nephro continue home eliquis ELIE likely secondary to water defecit / relative hypotension. Possibly cardiorenal with possible underlying CKD Nephrology consulted NS IVF dc'd per nephro continue IV lasix, increased to TID 08/21 Continue to monitor renal function Hypertension Hyperlipidemia Hypothyroidism h/o seizure disorder h/o pulm hypertension confirm home medications, restart as appropriate continue supportive care Family state patient had grand mal seizure a few months ago which lead to an aspiration event. She was hospitalized for some time at [place], then to SNF/IPR/SNF during this time she had PEG placed and james placed she developed a large sacral decubitus ulcer which currently does not appear infected, but is deep VTE: Home eliquis Code: Full Dispo: Back to [facility], ~3 days for SNF needs PT/OT once stable possibly may be appropriate for LTAC pending wound debridement Pending further improvement, cx results
[2023-08-22] MEDS: PANTOPRAZOLE 40 MG INJ IVP SCH (09:26)
[2023-08-22] MEDS: Meropenem 1,000 MG in NA CHLORIDE 0.9% 100 ML IV SCH ×2 (09:26→19:38)
[2023-08-22] MEDS: HYDROCORTISONE SUC 100 MG INJ IV SCH ×2 (09:27→19:37)
[2023-08-22] MEDS: FUROSEMIDE 20 MG/ 2ML VIAL IV SCH ×3 (09:28→21:32)
--- NOTE | 2023-08-22 09:36 | P.CNS ---
Date of Consult: 08/22/23 Reason for Consult: Sacral pressure ulcer Chief Complaint: Sepsis, pneumonia, UTI, sacral bedsore History of Present Illness: Patient is a 73-year-old female with a past medical history of CVA, aphasia, CHF, atrial fibrillation, hypertension who presented to the ED from group home with complaints of shortness of breath and fever. CT chest showing consolidative atelectasis in the left lower lung concerning for superimposed aspiration. Patient was admitted for sepsis secondary to pneumonia and urinary tract infection. Infectious disease was consulted Allergies lisinopril Adverse Reaction (Mild, Verified 05/10/12 12:41) sensitiveity to sun Home medications list reviewed: Yes Home Medications: Furosemide 40 mg FT DAILY 05/10/12 Apixaban [Eliquis] 5 mg PO BID 04/08/22 Carvedilol [Coreg] 25 mg PO BID 04/08/22 Acetaminophen [Tylenol] 650 mg FT Q4HP PRN 08/20/23 Ascorbic Acid [Vitamin C] 1 tab FT DAILY 08/20/23 Cholecalciferol (Vitamin D3) [Vitamin D3] 1 tab FT DAILY 08/20/23 Fludrocortisone [Florinef *] 1 tab FT DAILY 08/20/23 Folic Acid 1 tab FT DAILY 08/20/23 Gabapentin [Neurontin] 300 mg FT BID 08/20/23 Hydrocodone 5/APAP 325 [Clinton 5/325*] 1 tab FT Q6HP PRN 08/20/23 Jevity 1.2 Joaquín Liquid 300 ml FT Q6H 08/20/23 Lactobacill 46/B.animal/Inulin [Probiotic-10 10 Bill Cell Cap] 1 tab FT BID 08/20/23 Nifedipine Xl [Procardia Xl*] 20 mg PO Q8H 08/20/23 Pantoprazole [Protonix Tab*] 40 mg FT DAILYAC 08/20/23 Zinc Sulfate [Zinc Sulfate*] 1 tab FT DAILY 08/20/23 methIMAzole [Tapazole*] 5 mg FT DAILY 08/20/23 modafiniL [Modafinil] 1 tab FT DAILY 08/20/23 - Past Medical/Surgical History Diabetic: No -: acute resp failure w/ hypoxia -: afib and aflutter -: bacterimia -: htn -: hld -: hypothroidism -: pulmo htn -: distolic chf -: craniotomy - Social History Smoking Status: Unknown if ever smoked Alcohol use: No CD- Drugs: No Caffeine use: Yes Place of Residence: Home Review of Systems 10-point ROS is otherwise unremarkable General: Weakness Physical Examination Temp Pulse Resp BP Pulse Ox 96.7 F L 86 16 124/63 100 08/22/23 08:00 08/22/23 08:00 08/22/23 08:00 08/22/23 08:00 08/22/23 08:00 General: In no apparent distress, Oriented x1 HEENT: Sclerae nonicteric Respiratory: Normal air movement, Diminished, Other (2L nasal cannula) Cardiovascular: Regular rate/rhythm, Edema (generalized; BLE 2+) Gastrointestinal: Soft and benign, Other (PEG tube) Musculoskeletal: Contractures Integumentary: Pressure ulcer (sacrum stage IV; right heel DTI) Neurological: Other (prior CVA, aphasia) Urinary: Busby catheter Laboratory data -Reviewed Microbiology data -Reviewed Imagings Data: -Reviewed Conclusions/Impression: Problem list Sepsis secondary to pneumonia vs UTI Acute hypoxic respiratory failure Pressure injury stage IV sacrum Chronic diastolic congestive heart failure Atrial fibrillation History of CVA, Aphasia Moderate protein calorie malnutrition Sepsis secondary to pneumonia Catheter associated urinary tract infection (POA) -Urine culture 08/19: Non beta-hemolytic strep -Blood cultures 08/19: No growth to date - Currently on meropenem (08/20-) and vancomycin (08/21-) Pressure injury sacrum stage IV -General surgery Dr. Tee consulted - Scheduled for debridement 08/22 -Wound culture: Gram-positive cocci -On vancomycin (started 08/21) Leukocytosis (WBC 13.6) Afebrile Recommendations - Continue Meropenem and Vancomycin for now - Concern for possible Osteomyelitis of sacrum. - Scheduled for Debridement today by Dr. Tee - Follow up with findings - Continue wound care per Dr. Tee - Pressure offloading measures. Turn patient q2h, wedge pillow, low air-loss mattress. Offload pressure on heels / heel protectors. - Monitor WBC and fever trends - Follow up with final urine and wound culture speciation/sensitivity results. Will adjust antibiotics as appropriate. - Supplemental nutrition / PEG tube Case discussed with Juan Carlos Troncoso
--- NOTE | 2023-08-22 10:00 | RAD REPORT ---
EXAM DESCRIPTION: Chest Single View CLINICAL HISTORY: 73 years Female COUGH TECHNIQUE: One view of the chest. COMPARISON: No prior exams provided for comparison. FINDINGS: Increased bronchovascular markings and cardiac size may be partially related to low lung v olumes. There is at least moderate enlargement of the cardiomediastinal silhouette with at least mild diffuse pulmonary vascular prominence. Elevation of the right hemidiaphragm. No definite airspace in filtrate, pleural effusion, or pneumothorax. No acute osseous lesion. IMPRESSION: Enlarged cardiac mediastinal silhouette with at least mild diffuse pulmonary vascular pr ominence. The lungs are clear with low lung volumes. Electronically signed by: Nisha Kenny MD 08/19/2023 10:51 PM [employer] Due to temporary technical issues with the PACS/Fluency reporting system, reports are being signed by the in house radiologist without review as a courtesy to ensure prompt reporting. The interpreting r adiologist is fully responsible for the content of the report.
--- NOTE | 2023-08-22 11:00 | RAD REPORT ---
EXAM DESCRIPTION: CT CHEST ABDOMEN PELVIS WITHOUT IV CONTRAST CLINICAL HISTORY: Female, 73 years old, Sepsis, Deep sacral Decub COMPARISON: Same-day chest radiograph TECHNIQUE: CT acquisition of the chest, abdomen, and pelvis without contrast. Coronal and sagittal r eformatted images provided. This exam was performed according to departmental dose-optimization progr am which includes automated exposure control, adjustment of the mA and/or kV according to patient siz e, and/or use of iterative reconstruction technique. FINDINGS: Lack of intravenous contrast limits evaluation of the cardiomediastinal and abdominopelvic viscera, as well as the vascular structures. Beam hardening from arms down positioning results in de creased [id number] and further limits interpretation. SUPPORTIVE DEVICES: Percutaneous gastrostomy tube and Busby catheter in place. LOWER NECK: Unremarkable. CHEST: Mediastinum/jonna: Aortic atherosclerosis without aneurysm. The central pulmonary vasculature is enlar ged. No evident thoracic adenopathy. Unremarkable esophagus. Heart: Severe cardiomegaly. Small pericardial effusion. Mild coronary artery calcifications. Lungs: Low lung volumes. Left lower lobe basilar consolidative atelectasis. Diffuse peripheral pulmon malika vascular prominence. The airway is near collapsed, reportedly due to nonbreath-hold technique. Pleural Space: No pleural effusion or pneumothorax. ABDOMEN AND PELVIS: Liver: Diffusely nodular contour. Gallbladder and bile ducts: Postcholecystectomy changes. Pancreas: Unremarkable. Spleen: Upper normal size. Adrenal glands: Unremarkable. Kidneys and ureters: No evidence of stone or obstruction. Bilateral renal hypodense lesions are suspe cted, without suspicious features. Bladder: Collapsed around a Busby catheter. No evident abnormality. Reproductive organs: Fibroid appearance of the uterus. GI tract: Normal caliber without wall thickening. No evidence of appendicitis. Lymph nodes: No obvious adenopathy. Peritoneum: Moderate volume 4 quadrant ascites. Abdominal wall: Ventral postsurgical change. Anasarca. Vessels: Atherosclerosis without evidence of aneurysm. MUSCULOSKELETAL: No acute osseous abnormality. Degenerative change of the spine, shoulders, and pelvi s. Full-thickness sacral decubitus ulcer with deep gas along the posterior sacrum; no underlying scle rosis or erosion. IMPRESSION: 1. Full-thickness sacral decubitus ulcer without CT evidence of underlying ostial myel itis. 2. Cirrhotic hepatic morphology with mild sequela of portal hypertension. 3. Severe cardiomegaly with small pericardial effusion. 4. Consolidative atelectasis in the left lower lobe, consider superimposed aspiration or pneumonia. 5. Busby catheter and percutaneous gastrostomy tube in place. 6. Additional chronic and incidental findings above. No other acute finding within the exam limitat ions. Electronically signed by: Cortes Dow MD 08/20/2023 02:28 AM LOG CUT OFF SAWYER Due to temporary technical issues with the PACS/Fluency reporting system, reports are being signed by the in house radiologist without review as a courtesy to ensure prompt reporting. The interpreting r adiologist is fully responsible for the content of the report.
--- NOTE | 2023-08-22 11:01 | RAD REPORT ---
EXAM DESCRIPTION: Head Brain Wo Cont CLINICAL HISTORY: 73 years Female CONFUSED COMPARISON: None TECHNIQUE: Images were obtained in axial, sagittal, and coronal planes. This exam was performed according to our departmental dose-optimization program which includes use of Automated Exposure Control, adjustment of the mA and/or kV according to patient size and/or use of iterative reconstruction technique. FINDINGS: Ventricular system is mildly enlarged. Moderate prominence of the portable sulci. Abnormal decreased attenuation is seen involving the left occipital lobe as well as the left cerebellum. The findings are consistent with more remote infarct and encephalomalacia. No abnormal increased attenuation seen. No extra-axial fluid collections noted. No evidence for skull fracture. Mucosal thickening left mastoid air cells. Unremarkable paranasal sinuses. IMPRESSION: No acute intracranial abnormality. No evidence for hemorrhage, mass lesion, or large acu te infarction. Findings consistent with small remote infarct and encephalomalacia left occipital lobe as well as left cerebellum. Electronically signed by: Kiersten Morales MD 08/20/2023 02:00 AM ELECT[employer] Due to temporary technical issues with the PACS/Fluency reporting system, reports are being signed by the in house radiologist without review as a courtesy to ensure prompt reporting. The interpreting r adiologist is fully responsible for the content of the report.
[2023-08-22] MEDS ORDERED: BUPIVACAINE 0.5% PF 10 ML VIAL ONE (11:40)
[2023-08-22] MEDS ORDERED: NA CHLORIDE 0.9% 1,000 ML ONE (11:42)
[2023-08-22] MEDS ORDERED: propofoL 200 MG/20 ML VIAL IV ONE ×2 (12:37→13:42)
[2023-08-22] MEDS ORDERED: FENTANYL CITR 100 MCG/2 ML ONE ×2 (12:39→13:42)
[2023-08-22] MEDS ORDERED: ONDANSETRON 4 MG/2 ML VIAL ONE ×2 (12:39→13:42)
[2023-08-22] MEDS ORDERED: LIDOCAINE 2% MPF 5 ML VIAL ONE ×2 (12:41→13:42)
[2023-08-22] MEDS ORDERED: COLLAGENASE 30 GM OINTMENT TOP ONE (13:16)
[2023-08-22] MEDS ORDERED: ROCURONIUM 50 MG/5 ML VIAL IV ONE (13:49)
[2023-08-22] MEDS ORDERED: SUGAMMADEX SODIUM 200 MG/2 ML VIAL IV ONE (14:09)
--- NOTE | 2023-08-22 14:36 | P.BOP ---
Preoperative diagnosis: necrotic infected stage 4 pressure ulcer Postoperative diagnosis: same plus osteomyelitis Primary procedure: Excisional debridment necrotic infected stage 4 pressure ulcer [id number] Secondary procedure: Pulse lavage Estimated blood loss: <20cc Specimen: culture Findings: as above Anesthesia: General Complications: None Drain(s): Other (wet to dry) Transferred to: Recovery Room Condition: Good
[2023-08-22] MEDS ORDERED: ALBUTEROL 2.5 MG/3 ML NEB SOL NEB PRN (16:00)
--- NOTE | 2023-08-22 16:16 | OP ---
Date of Procedure: 08/22/2023 Surgeon: Liban Tee MD Reason For Service: Stage IV necrotic infected pressure ulcer on the sacrum. Anesthesia: General. Complications: None. Indication: This is a case of a 73-year-old patient who came to us with a stage IV pressure ulcer wi th necrotic tissue present. The patient is scheduled for an excisional debridement with benefits, al ternatives, and risks explained to the which include, but not limited to, infection, bleeding , damage to adjacent structures, anesthesia complications, recurrence, FL, and even . They also understand this may not relieve any symptoms. She might need more than one surgical intervention. They also understands the importance of offloading, nutrition. Consent was signed by the . Description Of Procedure: The patient was brought to the operating room, placed in supine position. Anesthesia was done without complication. The patient was placed in lateral decubitus position for proper protection. After time-out, we proceeded to prepping the area in the usual sterile fashion. We proceeded to use a sharp knife and do a sharp excisional debridement. This goes all the way down to bone. Clinically, she resembled something with cellulitis. So after we obtained hemostasis, we p ulse lavaged the entire area for several liters of fluid and then after that, obtained hemostasis and packed the area with wet-to-dry dressing. Patient tolerated the procedure well. Patient on her way to Recovery in stable condition. I had to mention the size of the wound was 15 x 12 x 4 cm. EVANS/ROBERTA Voice ID: [id number] Report ID: [id number]
--- NOTE | 2023-08-22 16:54 | EKG ---
Test Date: 2023-08-19 Test Time: 22:23:29 [employer] Attendant: TONIA MEASUREMENT RESULTS: Intervals: Rate: 96 LA: QRSD: 86 QT: 340 QTc: 429 [place]: P: LA: QRS: 55 T: 236 INTERPRETIVE STATEMENTS: Atrial fibrillation ST & T wave abnormality, consider inferior ischemia ST & T wave abnormality, consider anterolateral ischemia Abnormal ECG Compared to ECG 05/11/2012 06:41:53 Possible ischemia now present Ventricular premature complex(es) no longer present Left-axis deviation no longer present ST (T wave) deviation still present Electronically Signed On 08-22-23 16:52:11 BUSINESS OBJECTS ARCHITECT by Mansoor Carter
--- NOTE | 2023-08-22 20:55 | P.PN ---
Date of Service: 08/22/23 Vital Signs Temp Pulse Resp BP Pulse Ox 96.9 F 93 H 17 147/82 H 100 08/22/23 20:00 08/22/23 20:00 08/22/23 20:00 08/22/23 20:00 08/22/23 20:00 Medications Acetaminophen (Acetaminophen 500 Mg Tab) 500 mg PO Q4HP PRN PRN Reason: Pain scale 2-4 (Mild) Albuterol Sulfate (Albuterol 2.5 Mg/3 Ml Neb Carmelita) 2.5 mg NEB [id number] PRN PRN Reason: SHORTNESS OF BREATH Apixaban (Apixaban 5 Mg Tablet) 5 mg PO BID [facility] Last Admin: 08/22/23 19:38 Dose: 5 mg Collagenase (Collagenase 30 Gm Ointment) 1 appl TOP DAILY [facility] Last Admin: 08/22/23 07:46 Dose: Not Given Folic Acid (Folic Acid 1 Mg Tablet) 1 mg FT DAILY [facility] Last Admin: 08/22/23 07:46 Dose: Not Given Furosemide (Furosemide 20 Mg/ 2ml Vial) 20 mg IV TID [facility] Last Admin: 08/22/23 14:00 Dose: Not Given Hydrocortisone Sodium Succinate (Hydrocortisone Suc 100 Mg Inj) 25 mg IV Q12HR [facility] Last Admin: 08/22/23 19:37 Dose: 25 mg Vancomycin HCl 2 gm/ Sodium (Chloride) 500 mls @ 250 mls/hr IVPB Q36H [facility] Last Admin: 08/21/23 18:01 Dose: 500 mls Meropenem 1,000 mg/ Sodium (Chloride) 100 mls @ 200 mls/hr IV Q12HR [facility] Last Admin: 08/22/23 19:38 Dose: 100 mls Sodium Chloride (Sodium Chloride) 250 mls @ 0 mls/hr IV .Q0M [facility] Ipratropium [place] (Ipratropium Brom 0.5mg/2.5ml) 0.5 mg NEB [id number] [facility] Last Admin: 08/22/23 13:50 Dose: Not Given Lactobacillus Acidoph/Bulgaricus (Lactobacillus/Acidophilus Tab) 1 tab FT BID [facility] Last Admin: 08/22/23 19:37 Dose: 1 tab Magnesium Hydroxide (Magnesium Hydroxide 8% 30 Ml) 30 ml PO DAILYPRN PRN PRN Reason: CONSTIPATION Methimazole (Methimazole 10 Mg Tab) 5 mg FT DAILY [facility] Last Admin: 08/22/23 07:46 Dose: Not Given Ondansetron HCl (Ondansetron 4 Mg/2 Ml Vial) 4 mg IV Q6HP PRN PRN Reason: NAUSEA / VOMITING Pantoprazole Sodium (Pantoprazole 40 Mg Inj) 40 mg IVP DAILY [facility]; Protocol Last Admin: 08/22/23 09:26 Dose: 40 mg Sodium Chloride (Sodium Chloride 0.9% 10ml Inj) 10 ml IV UD PRN PRN Reason: Diluant Microbiology Results 08/19/23 21:40 Clean Catch Urine [place] Count - Preliminary >100,000 CFU/ML. 08/19/23 21:40 Clean Catch Urine - Preliminary 08/19/23 22:00 Blood - Blood Aerobic Blood Culture - Preliminary No growth in 24 hours. 08/19/23 22:00 Blood - Blood Anaerobic Blood Culture - Preliminary No growth in 24 hours. 08/19/23 21:45 Blood - Blood Aerobic Blood Culture - Preliminary No growth in 24 hours. 08/19/23 21:45 Blood - Blood Anaerobic Blood Culture - Preliminary No growth in 24 hours. 08/19/23 22:02 Nasopharnyx Influenza Type A Antigen Screen - Final 08/19/23 22:02 Nasopharnyx Influenza Type B Antigen Screen - Final Assessment/ Plan: Nephrology No dyspnea No chest pain No acute events overnight Limited IH/ ROS due to mental status Vitals, medications, blood work and imaging reviewed in the chart. NAD. NCAT. MMM. Neck supple. Normal respiratory effort. RRR. Abd ND. No C/C. LE Edema 1+. No rash. AAO. Normal speech. Stage I ELIE CKD III with Proteinuria -No NSAIDs -Urine studies still pending Hyperkalemia -Continue Lasix HTN with CKD/ CHF -Hold antihypertensives Diastolic CHF, A/C -Continue Lasix Hypoalbuminemia -Continue Jevity throught TF Anemia in chronic illness Iron Deficiency -Monitor H&H Reports for imaging and echocardiogram not opening at this time.
[2023-08-23] MEDS: JEVITY 1.2 CAL LIQUID 1,000 ML BOT FT SCH ×3 (00:57→13:36)
[2023-08-23] MEDS: IPRATROPIUM BROM 0.5MG/2.5ML NEB SCH ×6 (01:00→19:45)
[2023-08-23] MEDS: VANCOMYCIN 2 GM in NA CHLORIDE 0.9% 500 ML IVPB SCH (06:00)
[2023-08-23] MEDS: APIXABAN 5 MG TABLET PO SCH ×2 (07:35→20:29)
[2023-08-23] MEDS: FOLIC ACID 1 MG TABLET FT SCH (07:35)
[2023-08-23] MEDS: LACTOBACILLUS/ACIDOPHILUS TAB FT SCH ×2 (07:35→20:29)
[2023-08-23] MEDS: Meropenem 1,000 MG in NA CHLORIDE 0.9% 100 ML IV SCH ×2 (07:36→20:29)
[2023-08-23] MEDS: HYDROCORTISONE SUC 100 MG INJ IV SCH ×2 (07:36→20:29)
[2023-08-23] MEDS: PANTOPRAZOLE 40 MG INJ IVP SCH (07:36)
[2023-08-23 07:40] LABS: Absolute Lymphocytes (CBC) 0.7 K/uL (0.7-4.9); Hematocrit 30.5 % (36.0-45.0); Lymphocytes % 5.6 % (15.3-44.8); MCV 80.6 fL (80-100); MPV 7.4 fL (7.6-11.3); Platelets 539 thou/uL (152-406); RBC Red Blood Cell Count 3.78 M/uL (3.86-4.86)
[2023-08-23] MEDS: FUROSEMIDE 20 MG/ 2ML VIAL IV SCH ×3 (07:43→20:29)
[2023-08-23] MEDS: COLLAGENASE 30 GM OINTMENT TOP SCH (07:43)
[2023-08-23 07:52] LABS: ALT/SGPT < 10 U/L (13-56); AST/SGOT 8 U/L (15-37); Albumin 1.9 g/dL (3.4-5.0); Alkaline Phosphatase 111 U/L (45-117); BUN Blood Urea Nitrogen 125 mg/dL (7-18); Bicarbonate 29 mEq/L (21-32); Bilirubin Total 0.4 mg/dL (0.2-1.0); Glomerular Filtration Rate 35 ml/min (=/>90); Glucose Level 143 mg/dL (74-106); Magnesium 3.1 mg/dL (1.6-2.4); Potassium 4.9 mEq/L (3.5-5.1); Protein, Total 6.1 g/dL (6.4-8.2); Sodium Level 141 mEq/L (136-145)
[2023-08-23 09:04] LABS: Hepatitis B Core Ab, Total Nonreactive (Nonreactive); Hepatitis B Surface Ab - Quant 4.78 mIU/mL (<8.0); Hepatitis B surface AG Interp. Nonreactive (Nonreactive); Hepatitis C Virus Ab Nonreactive (Nonreactive)
--- NOTE | 2023-08-23 12:36 | P.PN ---
Subjective Date of Service: 08/23/23 Chief Complaint: Pneumonia decubitus ulcer Subjective: Improving (Patient is s/p I&D of her decubitus ulcer yesterday) Review of Systems is unable to be obtained Physical Examination - Vital Signs Temperature: 97.5 F Blood Pressure: 134/83 Pulse: 104 Respirations: 16 Pulse Ox (%): 98 - Physical Exam General: Unresponsive Respiratory: Clear to auscultation bilaterally, Diminished, Rhonchi/gurgles Cardiovascular: Edema - Studies Microbiology Data (last 24 hrs): 08/19/23 21:40 Clean Catch Urine [place] Count - Final >100,000 CFU/ML. 08/19/23 21:40 Clean Catch Urine - Final Enterococcus Faecalis Assessment And Plan - Current Problems (Diagnosis) (1) Sepsis Current Visit: Yes Status: Acute Plan: Patient is 73 years of age admitted with the sepsis possible [place] she also has a decubitus ulcer that and is undergone I&D Enterococcus and MRSA isolated from the sacral wound oxygenation satisfactory no fever White count is declining renal function stable Qualifiers: Severe sepsis shock status: unspecified Physician Review: Patient Assessed, Agree with Above Assessment and Plan
--- NOTE | 2023-08-23 13:17 | ECHO ---
HEIGHT: 5 ft 9 in WEIGHT: 240 lb 4.8 oz DATE OF STUDY: 08/23/[address]: Flavio Campbell NP 2-DIMENSIONAL: YES M.MODE: YES DOPPLER: YES COLOR FLOW: YES TDS: YES PORTABLE: YES DEFINITY: BUBBLE STUDY: DIAGNOSIS: CONGESTIVE HEART FAILURE CARDIAC HISTORY: CATHERIZATION: SURGERY: PROSTHETIC VALVE: PACEMAKER: MEASUREMENTS (cm) DIASTOLIC (NORMALS) SYSTOLIC (NORMALS) IVSd 0.8 (0.6-1.2) LA Diam 3.5 (1.9-4.0) LVEF 55% LVIDd 4.7 (3.5-5.7) LVIDs 3.7 (2.0-3.5) %FS 20% LVPWd 1.2 (0.6-1.2) Ao Diam 2.8 (2.0-3.7) 2 DIMENSIONAL ASSESSMENT: RIGHT ATRIUM: SEVERELY DILATED LEFT ATRIUM: NORMAL RIGHT VENTRICLE: DILATED WITH LOW FUNCTION LEFT VENTRICLE: NORMAL TRICUSPID VALVE: MODERATE TRICUSPID REGURGITATION MITRAL VALVE: MODERATE MITRAL REGURGITATION PULMONIC VALVE: NOT WELL SEEN AORTIC VALVE: NORMAL PERICARDIAL EFFUSION: NONE AORTIC ROOT: NORMAL LEFT VENTRICULAR WALL MOTION: NORMAL DOPPLER/COLOR FLOW: SEE BELOW COMMENTS: 1. NORMAL LEFT VENTRICULAR EJECTION FRACTION 55-60% 2. SEVERELY DILATED RIGHT VENTRICLE WITH MODERATE DYSFUNCTION 3. SEVERE RIGHT ATRIUM ENLARGEMENT 4. MODERATE TRICUSPID REGURGITATION 5. MODERATE MITRAL REGURGITATION 6. SEVERE PULMONARY HYPERTENSION WITH RIGHT VENTRICULAR SYSTOLIC PRESSURE GREATER THAN 110 mmHg TECHNOLOGIST: DAVON COOPER
--- NOTE | 2023-08-23 14:57 | P.PN ---
Date of Service: 08/23/23 Chief Complaint: Sepsis, pneumonia, UTI, sacral bedsore Subjective: Patient seen and examined at bedside. In no apparent distress at this time. s/p debridement of sacral pressure ulcer stage 4 with findings of osteomyelitis. Physical Examination Temp Pulse Resp BP Pulse Ox 97.5 F 104 H 16 134/83 98 08/23/23 12:38 08/23/23 13:51 08/23/23 12:38 08/23/23 13:51 08/23/23 12:38 General: In no apparent distress, Oriented x1 HEENT: Sclerae nonicteric Respiratory: Normal air movement, Diminished. 2L nasal cannula. Cardiovascular: Irregular rate, tachycardic. BLE edema 2+. Gastrointestinal: Soft and benign. PEG tube. Non-distended. Musculoskeletal: Contractures Integumentary: Pressure ulcer sacrum stage IV. Right heel DTI. Neurological: Prior CVA. Aphasia. Urinary: Busby catheter Laboratory data -Reviewed Microbiology data -Reviewed Imagings Data: -Reviewed Medications List: Reviewed Assessment and Plan Problem list Sepsis secondary to pneumonia vs UTI Acute hypoxic respiratory failure Pressure injury stage IV sacrum Chronic diastolic congestive heart failure Atrial fibrillation History of CVA, Aphasia Pulmonary Hypertension Moderate protein calorie malnutrition Sepsis secondary to pneumonia Catheter associated urinary tract infection (POA) -Urine culture 08/19: Enterococcus faecalis -Blood cultures 08/19: No growth to date - Currently on meropenem (08/20-) and vancomycin (08/21-) Pressure injury sacrum stage IV Osteomyelitis of Sacrum - s/p Excisional debridment necrotic infected stage 4 pressure ulcer [id number] on 08/[address] Tee Sharp exicisional debridement going all the way to the bone. -Wound culture: Staphylococcus aureus (MRSA) and Enterococcus faecalis -On vancomycin (started 08/21) Leukocytosis (WBC 13.6) Afebrile Recommendations s/p debridement of sacrum pressure ulcer stage [address] Tee with extension to bone - Osteomyelitis: Continue antibiotic therapy for 6 weeks duration (08/21 to 10/02) -> E.faecalis and MRSA wound culture. Continue with Vancomycin IV. - Patient will require PICC line for long-term IV antibiotics. - Continue wound care per Dr. Tee - Pressure offloading measures. Turn patient q2h, wedge pillow, low air-loss mattress. Offload pressure on heels / heel protectors. - Monitor WBC and fever trends - Supplemental nutrition / PEG tube Case discussed with Juan Carlos Troncoso
--- NOTE | 2023-08-23 16:57 | P.PN ---
Subjective Date of Service: 08/23/23 Chief Complaint: Pneumonia decubitus ulcer Patient is awake but confused. Patient remains significantly swollen. No recorded fever. Physical Examination - Vital Signs Temperature: 97.6 F Blood Pressure: 131/80 Pulse: 100 Respirations: 16 Pulse Ox (%): 98 - Studies Microbiology Data (last 24 hrs): 08/19/23 21:40 Clean Catch Urine [place] Count - Final >100,000 CFU/ML. 08/19/23 21:40 Clean Catch Urine - Final Enterococcus Faecalis Assessment And Plan - Plan Physical Exam: GEN: Alert, oriented x 1, somnolent. HEENT: Normal conjunctiva, sclera anicteric CV: Regular rate and rhythm, anasarca Pulm: Diminished at bases b/l ABD: Soft, nontender, nondistended Integumentary: chronic sacral decubitus ulcer, Stage IV Neuro: Aphasia/Dysphagia, bedbound, responds to verbally. indwelling james catheter in place (placed 08/04 @[facility]) PEG tube in place vitals reviewed Problem List: Sepsis likely secondary to Pneumonia vs possible UTI necrotic stage IV sacral decubitus ulcer, concern for infection Acute hypoxic respiratory failure bacteruria, chronic indwelling james catheter Iron deficiency anemia h/o prior CVA with Aphasia/Dysphagia Small remote infarct and Encephalomalacia of left occipital lobe and left cerebellum Moderate Protein calorie malnutrition chronic diastolic CHF Chronic a-fib, on anticoagulation ELIE Hypertension Hyperlipidemia Hypothyroidism h/o seizure disorder h/o pulm hypertension Sepsis likely secondary to Pneumonia Acute hypoxic respiratory failure bacteruria, chronic indwelling james catheter Reported fever of 102 at senior living prior to admission, +SPO2 was reportedly mid-high 80s on room air urine cx (08/19): Enterococcus. blood cx (08/19): NGTD Continue IV meropenem and vancomycin Leukocytosis improving pulm is following continue stress dosed steroids prevent adrenal inssufficiency / crisis pt with indwelling james catheter, supposedly since hospitalized ~1-2 months ago at [facility] uncertain full history, patient was hospitalized for some time at [facility], then to [facility], then [facility], back to [facility] CT chest/abd/pelvis (08/20): LLL atelectasis vs superimposed aspiration / pneumonia. severe cardiomegaly with small pericardial effusion. Cirrhotic hepatic morphology with mild sequela of portal hypertension. suspected b/l renal hypodense lesions without suspicious features. Moderate volume 4 quadrant ascites. Iron deficiency anemia iron studies 08/20 consistent with iron deficiency anemia family deny any bleeding; +microscopic hematuria s/p 1 uPRBC 08/20; hgb 9.1-> 9.5 (08/22) Monitor H&H. transfuse for hgb < 7. h/o prior CVA with Aphasia/Dysphagia Small remote infarct and Encephalomalacia of left occipital lobe and left cerebellum Moderate Protein calorie malnutrition Patient reportedly recently released 08/17/23 from [facility] rehab in [place]; deemed non-rehabable due to weakness per [facility] CT head (08/20): no acute intracranial abnormalities. Findings consistent with small remote infarct / Encephalomalacia of left occipital lobe and left cerebellum Pt with PEG tube in place. Feeding and meds via PEG Continue supportive care Speech therapy input appreciated. 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 Wound culture: MRSA and Enterococcus. continue above empiric abx General surgery consulted. Status post excisional debridement by Dr. Tee Continue local wound care. chronic diastolic CHF Chronic a-fib, on anticoagulation Severe pulmonary hypertension BNP 84k on admission, down to 58k 08/20. echo: Severe pulm hypertension, dilated right ventricle and right atrium, severe arthroscopic regurgitation. continue IV lasix; nephrology is following and titrating Lasix. continue home eliquis ELIE likely secondary to water defecit / relative hypotension. Possibly cardiorenal with possible underlying CKD Nephrology is following. Serum creatinine grossly unchanged. NS IVF dc'd per nephro Lasix per nephrology. Continue to monitor renal function Hypertension Hyperlipidemia Hypothyroidism h/o seizure disorder h/o pulm hypertension Continue home medications. continue supportive care VTE: Home eliquis Code: Full Dispo: LTAC vs SNF.
[2023-08-23] MEDS ORDERED: VANCOMYCIN 2 GM in NA CHLORIDE 0.9% 500 ML IVPB SCH (18:00)
--- NOTE | 2023-08-23 20:53 | P.PN ---
Date of Service: 08/23/23 Vital Signs Temp Pulse Resp BP Pulse Ox 97.6 F 100 H 16 131/80 98 08/23/23 17:14 08/23/23 17:14 08/23/23 17:14 08/23/23 17:14 08/23/23 17:14 Medications Acetaminophen (Acetaminophen 500 Mg Tab) 500 mg PO Q4HP PRN PRN Reason: Pain scale 2-4 (Mild) Albuterol Sulfate (Albuterol 2.5 Mg/3 Ml Neb Carmelita) 2.5 mg NEB [id number] PRN PRN Reason: SHORTNESS OF BREATH Apixaban (Apixaban 5 Mg Tablet) 5 mg PO BID [facility] Last Admin: 08/23/23 20:29 Dose: 5 mg Collagenase (Collagenase 30 Gm Ointment) 1 appl TOP DAILY [facility] Last Admin: 08/23/23 07:43 Dose: 1 appl Folic Acid (Folic Acid 1 Mg Tablet) 1 mg FT DAILY [facility] Last Admin: 08/23/23 07:35 Dose: 1 mg Furosemide (Furosemide 20 Mg/ 2ml Vial) 20 mg IV TID [facility] Last Admin: 08/23/23 20:29 Dose: 20 mg Hydrocortisone Sodium Succinate (Hydrocortisone Suc 100 Mg Inj) 25 mg IV Q12HR [facility] Last Admin: 08/23/23 20:29 Dose: 25 mg Meropenem 1,000 mg/ Sodium (Chloride) 100 mls @ 200 mls/hr IV Q12HR [facility] Last Admin: 08/23/23 20:29 Dose: 100 mls Sodium Chloride (Sodium Chloride) 250 mls @ 0 mls/hr IV .Q0M [facility] Vancomycin HCl 2 gm/ Sodium (Chloride) 500 mls @ 250 mls/hr IVPB Q72H [facility] Ipratropium Eva (Ipratropium Brom 0.5mg/2.5ml) 0.5 mg NEB [id number] [facility] Last Admin: 08/23/23 19:45 Dose: 0.5 mg Lactobacillus Acidoph/Bulgaricus (Lactobacillus/Acidophilus Tab) 1 tab FT BID [facility] Last Admin: 08/23/23 20:29 Dose: 1 tab Magnesium Hydroxide (Magnesium Hydroxide 8% 30 Ml) 30 ml PO DAILYPRN PRN PRN Reason: CONSTIPATION Methimazole (Methimazole 10 Mg Tab) 5 mg FT DAILY [facility] Last Admin: 08/23/23 07:36 Dose: 5 mg Ondansetron HCl (Ondansetron 4 Mg/2 Ml Vial) 4 mg IV Q6HP PRN PRN Reason: NAUSEA / VOMITING Pantoprazole Sodium (Pantoprazole 40 Mg Inj) 40 mg IVP DAILY [facility]; Protocol Last Admin: 08/23/23 07:36 Dose: 40 mg Sodium Chloride (Sodium Chloride 0.9% 10ml Inj) 10 ml IV UD PRN PRN Reason: Diluant Microbiology Results 08/19/23 21:40 Clean Catch Urine [place] Count - Final >100,000 CFU/ML. 08/19/23 21:40 Clean Catch Urine - Final Enterococcus Faecalis 08/19/23 22:00 Blood - Blood Aerobic Blood Culture - Preliminary No growth in 24 hours. 08/19/23 22:00 Blood - Blood Anaerobic Blood Culture - Preliminary No growth in 24 hours. 08/19/23 21:45 Blood - Blood Aerobic Blood Culture - Preliminary No growth in 24 hours. 08/19/23 21:45 Blood - Blood Anaerobic Blood Culture - Preliminary No growth in 24 hours. 08/19/23 22:02 Nasopharnyx Influenza Type A Antigen Screen - Final 08/19/23 22:02 Nasopharnyx Influenza Type B Antigen Screen - Final Assessment/ Plan: Nephrology No dyspnea No chest pain No acute events overnight Limited IH/ ROS due to mental status Vitals, medications, blood work and imaging reviewed in the chart. NAD. Obese. NCAT. MMM. Neck supple. Normal respiratory effort. RRR. Abd ND. No C/C. LE Edema 1+. No rash. Awake. No speech. Busby Medium LEFT VENTRICULAR WALL MOTION: NORMAL DOPPLER/COLOR FLOW: SEE BELOW COMMENTS: 1. NORMAL LEFT VENTRICULAR EJECTION FRACTION 55-60% 2. SEVERELY DILATED RIGHT VENTRICLE WITH MODERATE DYSFUNCTION 3. SEVERE RIGHT ATRIUM ENLARGEMENT 4. MODERATE TRICUSPID REGURGITATION 5. MODERATE MITRAL REGURGITATION 6. SEVERE PULMONARY HYPERTENSION WITH RIGHT VENTRICULAR SYSTOLIC PRESSURE GREATER THAN 110 mmHg EXAM DESCRIPTION: CT CHEST ABDOMEN PELVIS WITHOUT IV CONTRAST CLINICAL HISTORY: Female, 73 years old, Sepsis, Deep sacral Decub COMPARISON: Same-day chest radiograph TECHNIQUE: CT acquisition of the chest, abdomen, and pelvis without contrast. Coronal and sagittal reformatted images provided. This exam was performed according to departmental dose-optimization program which includes automated exposure control, adjustment of the mA and/or kV according to patient size, and/or use of iterative reconstruction technique. FINDINGS: Lack of intravenous contrast limits evaluation of the cardiomediastinal and abdominopelvic viscera, as well as the vascular structures. Beam hardening from arms down positioning results in decreased [id number] and further limits interpretation. SUPPORTIVE DEVICES: Percutaneous gastrostomy tube and Busby catheter in place. LOWER NECK: Unremarkable. CHEST: Mediastinum/jonna: Aortic atherosclerosis without aneurysm. The central pulmonary vasculature is enlarged. No evident thoracic adenopathy. Unremarkable esophagus. Heart: Severe cardiomegaly. Small pericardial effusion. Mild coronary artery calcifications. Lungs: Low lung volumes. Left lower lobe basilar consolidative atelectasis. Diffuse peripheral pulmonary vascular prominence. The airway is near collapsed, reportedly due to nonbreath- hold technique. Pleural Space: No pleural effusion or pneumothorax. ABDOMEN AND PELVIS: Liver: Diffusely nodular contour. Gallbladder and bile ducts: Postcholecystectomy changes. Pancreas: Unremarkable. Spleen: Upper normal size. Adrenal glands: Unremarkable. Kidneys and ureters: No evidence of stone or obstruction. Bilateral renal hypodense lesions are suspected, without suspicious features. Bladder: Collapsed around a Busby catheter. No evident abnormality. Reproductive organs: Fibroid appearance of the uterus. GI tract: Normal caliber without wall thickening. No evidence of appendicitis. Lymph nodes: No obvious adenopathy. Peritoneum: Moderate volume 4 quadrant ascites. Abdominal wall: Ventral postsurgical change. Anasarca. Vessels: Atherosclerosis without evidence of aneurysm. MUSCULOSKELETAL: No acute osseous abnormality. Degenerative change of the spine, shoulders, and pelvis. Full-thickness sacral decubitus ulcer with deep gas along the posterior sacrum; no underlying sclerosis or erosion. IMPRESSION: 1. Full-thickness sacral decubitus ulcer without CT evidence of underlying ostial myelitis. 2. Cirrhotic hepatic morphology with mild sequela of portal hypertension. 3. Severe cardiomegaly with small pericardial effusion. 4. Consolidative atelectasis in the left lower lobe, consider superimposed aspiration or pneumonia. 5. Busby catheter and percutaneous gastrostomy tube in place. 6. Additional chronic and incidental findings above. No other acute finding within the exam limitations. A/P Stage I ELIE likely CRS CKD III with Proteinuria Nephrotic range proteinuria -No NSAIDs Hyperkalemia -Continue Lasix HTN with CKD/ CHF Tachycardia -Start Metoprolol BID Diastolic CHF, A/C Moderate TR & MR Severe Pulmonary HTN, secondary -Continue Lasix -Start Metoprolol BID -Start Sildenafil q8h though may be of limited benefit Hypoalbuminemia -Continue Jevity through TF Anemia in chronic illness Iron Deficiency -Monitor H&H
[2023-08-23 23:29] LABS: UR PROTEIN 140.5 mg/dL (<11.9); Urine Protein/Creatinine Ratio 3.35 ratio (<0.15)
[2023-08-23 23:34] LABS: Renal Epithelial <5 /HPF (None Seen); Specific Gravity 1.016 (1.005-1.030); Urine Bacteria <20 /HPF (<20); Urine Bilirubin NEGATIVE (Negative); Urine Blood 2+ (Negative); Urine Clarity Extremely Turbid (Clear); Urine Color Yellow (Yellow); Urine Glucose NEGATIVE (Negative); Urine Mucus Slight /HPF (None Seen); Urine Protein 2+ (Negative); Urine RBC >50 /HPF (None Seen); Urine Urobilinogen Normal (Normal); Urine WBC Clump Few /HPF (None Seen); Urine Yeast with Hyphae Occasional /HPF (None Seen); Urine pH 5.5 (5.0-7.0)
[2023-08-24 00:34] LABS: UR MICROALBUMIN 57.6 mg/dL (< 1.9)
[2023-08-24] MEDS: IPRATROPIUM BROM 0.5MG/2.5ML NEB SCH ×7 (00:35→19:47)
[2023-08-24] MEDS: JEVITY 1.2 CAL LIQUID 1,000 ML BOT FT SCH ×3 (01:00→09:19)
[2023-08-24] MEDS: COLLAGENASE 30 GM OINTMENT TOP SCH (09:00)
[2023-08-24] MEDS ORDERED: VANCOMYCIN 2 GM in NA CHLORIDE 0.9% 500 ML IVPB SCH (09:00)
[2023-08-24] MEDS: APIXABAN 5 MG TABLET PO SCH ×2 (09:20→21:41)
[2023-08-24] MEDS: FOLIC ACID 1 MG TABLET FT SCH (09:20)
[2023-08-24] MEDS: FUROSEMIDE 20 MG/ 2ML VIAL IV SCH (09:20)
[2023-08-24] MEDS: Meropenem 1,000 MG in NA CHLORIDE 0.9% 100 ML IV SCH ×2 (09:20→21:42)
[2023-08-24] MEDS: LACTOBACILLUS/ACIDOPHILUS TAB FT SCH ×2 (09:20→21:41)
[2023-08-24] MEDS: PANTOPRAZOLE 40 MG INJ IVP SCH (09:21)
[2023-08-24 09:23] LABS: Absolute Lymphocytes (CBC) 0.8 K/uL (0.7-4.9); Hematocrit 29.1 % (36.0-45.0); MCV 79.5 fL (80-100); MPV 7.3 fL (7.6-11.3); Platelets 500 thou/uL (152-406); RBC Red Blood Cell Count 3.66 M/uL (3.86-4.86)
[2023-08-24] MEDS: HYDROCORTISONE SUC 100 MG INJ IV SCH (09:23)
[2023-08-24] MEDS: METOPROLOL TAR 25 MG TAB FT SCH ×2 (09:24→17:12)
[2023-08-24] MEDS: SILDENAFIL CITRATE 20 MG TABLET PO SCH ×2 (09:30→17:12)
[2023-08-24 09:42] LABS: Potassium 5.1 mEq/L (3.5-5.1); Sodium Level 142 mEq/L (136-145)
[2023-08-24 09:43] LABS: AST/SGOT 9 U/L (15-37); Albumin 1.9 g/dL (3.4-5.0); Alkaline Phosphatase 99 U/L (45-117); BUN Blood Urea Nitrogen 133 mg/dL (7-18); Bicarbonate 29 mEq/L (21-32); Bilirubin Total 0.3 mg/dL (0.2-1.0); Glomerular Filtration Rate 37 ml/min (=/>90); Glucose Level 120 mg/dL (74-106); Protein, Total 5.7 g/dL (6.4-8.2); Uric Acid 11.2 mg/dL (2.6-6.0)
[2023-08-24 09:45] LABS: ALT/SGPT < 10 U/L (13-56)
--- NOTE | 2023-08-24 09:58 | P.PN ---
Date of Service: 08/24/23 Vital Signs Temp Pulse Resp BP Pulse Ox 98.6 F 108 H 16 150/76 H 94 08/24/23 04:00 08/24/23 04:00 08/24/23 04:00 08/24/23 04:00 08/24/23 04:00 Medications Acetaminophen (Acetaminophen 500 Mg Tab) 500 mg PO Q4HP PRN PRN Reason: Pain scale 2-4 (Mild) Albuterol Sulfate (Albuterol 2.5 Mg/3 Ml Neb Carmelita) 2.5 mg NEB [id number] PRN PRN Reason: SHORTNESS OF BREATH Apixaban (Apixaban 5 Mg Tablet) 5 mg PO BID [facility] Last Admin: 08/24/23 09:20 Dose: 5 mg Collagenase (Collagenase 30 Gm Ointment) 1 appl TOP DAILY [facility] Last Admin: 08/24/23 09:00 Dose: 1 appl Folic Acid (Folic Acid 1 Mg Tablet) 1 mg FT DAILY [facility] Last Admin: 08/24/23 09:20 Dose: 1 mg Meropenem 1,000 mg/ Sodium (Chloride) 100 mls @ 200 mls/hr IV Q12HR [facility] Last Admin: 08/24/23 09:20 Dose: 100 mls Sodium Chloride (Sodium Chloride) 250 mls @ 0 mls/hr IV .Q0M KATRIN Vancomycin HCl 2 gm/ Sodium (Chloride) 500 mls @ 250 mls/hr IVPB Q72H KATRIN Ipratropium [place] (Ipratropium Brom 0.5mg/2.5ml) 0.5 mg NEB [id number] [facility] Last Admin: 08/24/23 07:58 Dose: 0.5 mg Lactobacillus Acidoph/Bulgaricus (Lactobacillus/Acidophilus Tab) 1 tab FT BID [facility] Last Admin: 08/24/23 09:20 Dose: 1 tab Magnesium Hydroxide (Magnesium Hydroxide 8% 30 Ml) 30 ml PO DAILYPRN PRN PRN Reason: CONSTIPATION Methimazole (Methimazole 10 Mg Tab) 5 mg FT DAILY [facility] Last Admin: 08/24/23 09:24 Dose: 5 mg Metoprolol Tartrate (Metoprolol Tar 25 Mg Tab) 25 mg FT BID 6AM 6PM [facility] Last Admin: 08/24/23 09:24 Dose: 25 mg Ondansetron HCl (Ondansetron 4 Mg/2 Ml Vial) 4 mg IV Q6HP PRN PRN Reason: NAUSEA / VOMITING Pantoprazole Sodium (Pantoprazole 40 Mg Inj) 40 mg IVP DAILY [facility]; Protocol Last Admin: 08/24/23 09:21 Dose: 40 mg Sildenafil Citrate (Sildenafil Citrate 20 Mg Tablet) 20 mg PO Q8H [facility] Sodium Chloride (Sodium Chloride 0.9% 10ml Inj) 10 ml IV UD PRN PRN Reason: Diluant Microbiology Results 08/19/23 21:40 Clean Catch Urine [place] Count - Final >100,000 CFU/ML. 08/19/23 21:40 Clean Catch Urine - Final Enterococcus Faecalis 08/19/23 22:00 Blood - Blood Aerobic Blood Culture - Preliminary No growth in 24 hours. 08/19/23 22:00 Blood - Blood Anaerobic Blood Culture - Preliminary No growth in 24 hours. 08/19/23 21:45 Blood - Blood Aerobic Blood Culture - Preliminary No growth in 24 hours. 08/19/23 21:45 Blood - Blood Anaerobic Blood Culture - Preliminary No growth in 24 hours. 08/19/23 22:02 Nasopharnyx Influenza Type A Antigen Screen - Final 08/19/23 22:02 Nasopharnyx Influenza Type B Antigen Screen - Final Assessment/ Plan: Nephrology No dyspnea No chest pain No acute events overnight Limited IH/ ROS due to mental status Vitals, medications, blood work and imaging reviewed in the chart. NAD. Obese. NCAT. MMM. Neck supple. Normal respiratory effort. RRR. Abd ND. No C/C. LE Edema 1+. No rash. Awake. No speech. Busby Medium LEFT VENTRICULAR WALL MOTION: NORMAL DOPPLER/COLOR FLOW: SEE BELOW COMMENTS: 1. NORMAL LEFT VENTRICULAR EJECTION FRACTION 55-60% 2. SEVERELY DILATED RIGHT VENTRICLE WITH MODERATE DYSFUNCTION 3. SEVERE RIGHT ATRIUM ENLARGEMENT 4. MODERATE TRICUSPID REGURGITATION 5. MODERATE MITRAL REGURGITATION 6. SEVERE PULMONARY HYPERTENSION WITH RIGHT VENTRICULAR SYSTOLIC PRESSURE GREATER THAN 110 mmHg EXAM DESCRIPTION: CT CHEST ABDOMEN PELVIS WITHOUT IV CONTRAST CLINICAL HISTORY: Female, 73 years old, Sepsis, Deep sacral Decub COMPARISON: Same-day chest radiograph TECHNIQUE: CT acquisition of the chest, abdomen, and pelvis without contrast. Coronal and sagittal reformatted images provided. This exam was performed according to departmental dose-optimization program which includes automated exposure control, adjustment of the mA and/or kV according to patient size, and/or use of iterative reconstruction technique. FINDINGS: Lack of intravenous contrast limits evaluation of the c ardiomediastinal and abdominopelvic viscera, as well as the vascular structures. Beam hardening from arms down positioning results in decreased [id number] and further limits interpretation. SUPPORTIVE DEVICES: Percutaneous gastrostomy tube and Busby catheter in place. LOWER NECK: Unremarkable. CHEST: Mediastinum/jonna: Aortic atherosclerosis without aneurysm. The central pulmonary vasculature is enlarged. No evident thoracic adenopathy. Unremarkable esophagus. Heart: Severe cardiomegaly. Small pericardial effusion. Mild coronary artery calcifications. Lungs: Low lung volumes. Left lower lobe basilar consolidative atelectasis. Diffuse peripheral pulmonary vascular prominence. The airway is near collapsed, reportedly due to nonbreath- hold technique. Pleural Space: No pleural effusion or pneumothorax. ABDOMEN AND PELVIS: Liver: Diffusely nodular contour. Gallbladder and bile ducts: Postcholecystectomy changes. Pancreas: Unremarkable. Spleen: Upper normal size. Adrenal glands: Unremarkable. Kidneys and ureters: No evidence of stone or obstruction. Bilateral renal hypodense lesions are suspected, without suspicious features. Bladder: Collapsed around a Busby catheter. No evident abnormality. Reproductive organs: Fibroid appearance of the uterus. GI tract: Normal caliber without wall thickening. No evidence of appendicitis. Lymph nodes: No obvious adenopathy. Peritoneum: Moderate volume 4 quadrant ascites. Abdominal wall: Ventral postsurgical change. Anasarca. Vessels: Atherosclerosis without evidence of aneurysm. MUSCULOSKELETAL: No acute osseous abnormality. Degenerative change of the spine, shoulders, and pelvis. Full-thickness sacral decubitus ulcer with deep gas along the posterior sacrum; no underlying sclerosis or erosion. IMPRESSION: 1. Full-thickness sacral decubitus ulcer without CT evidence of underlying ostial myelitis. 2. Cirrhotic hepatic morphology with mild sequela of portal hypertension. 3. Severe cardiomegaly with small pericardial effusion. 4. Consolidative atelectasis in the left lower lobe, consider superimposed aspiration or pneumonia. 5. Busby catheter and percutaneous gastrostomy tube in place. 6. Additional chronic and incidental findings above. No other acute finding within the exam limitations. A/P Stage I ELIE likely CRS CKD III with Proteinuria Nephrotic range proteinuria -No NSAIDs -Increase free water flushes through FT Hyperkalemia -Change Jevity to Nepro HTN with CKD/ CHF Tachycardia -Continue Metoprolol BID -Discontinue Hydrocortisone Diastolic CHF, A/C Moderate TR & MR Severe Pulmonary HTN, secondary -Discontinue Lasix -Continue Metoprolol BID -Continue Sildenafil q8h though may be of limited benefit Hypoalbuminemia -Change Jevity to Nepro Anemia in chronic illness Iron Deficiency -Monitor H&H Case reviewed with Dr. Mckeon ID note reviewed
[2023-08-24] MEDS: NEPRO 1,000 ML BOT FT SCH ×3 (10:00→21:42)
--- NOTE | 2023-08-24 10:00 | P.PN ---
Date of Service: 08/24/23 Chief Complaint: Sepsis, pneumonia, UTI, sacral bedsore Subjective: Patient seen and examined at bedside. In no apparent distress. lethargic. No acute events reported overnight. Physical Examination Temp Pulse Resp BP Pulse Ox 98.6 F 108 H 16 150/76 H 94 08/24/23 04:00 08/24/23 04:00 08/24/23 04:00 08/24/23 04:00 08/24/23 04:00 General: In no apparent distress, Oriented x1 HEENT: Sclerae nonicteric Respiratory: Normal air movement, Diminished at bases. . 2L nasal cannula. Cardiovascular: Irregular rate, tachycardic. BLE edema 2+. Gastrointestinal: Soft and benign. PEG tube. Non-distended. Musculoskeletal: Contractures Integumentary: Pressure ulcer sacrum stage IV. Right heel DTI. Neurological: Prior CVA. Aphasia. Urinary: Busby catheter Laboratory data -Reviewed Microbiology data -Reviewed Imagings Data: -Reviewed Medications List: Reviewed Assessment and Plan Problem list Sepsis secondary to pneumonia vs UTI Acute hypoxic respiratory failure Pressure injury stage IV sacrum Chronic diastolic congestive heart failure Atrial fibrillation History of CVA, Aphasia Pulmonary Hypertension Moderate protein calorie malnutrition Sepsis secondary to pneumonia Catheter associated urinary tract infection (POA) -Urine culture 08/19: Enterococcus faecalis -Blood cultures 08/19: No growth to date - Currently on meropenem (08/20-) and vancomycin (08/21-) - urinalysis 08/23: LE 500, RBC >50, WBC >50, + moderate yeast Pressure injury sacrum stage IV Osteomyelitis of Sacrum - s/p Excisional debridment necrotic infected stage 4 pressure ulcer [id number] on 08/[address] Tee Sharp exicisional debridement going all the way to the bone. -Wound culture: Staphylococcus aureus (MRSA) and Enterococcus faecalis -On vancomycin IV (started 08/21) Leukocytosis improving (WBC 13.6 -> 11). Afebrile Recommendations s/p debridement of sacrum pressure ulcer stage [address] Tee with extension to bone - Osteomyelitis: Continue antibiotic therapy for 6 weeks duration (08/21 to 10/02) -> E.faecalis and MRSA wound culture. Continue with Vancomycin IV. - Patient will require PICC line for long-term IV antibiotics. - Continue wound care per Dr. Tee - Pressure offloading measures. Turn patient q2h, wedge pillow, low air-loss mattress. Offload pressure on heels / heel protectors. - Monitor WBC and fever trends - Supplemental nutrition / PEG tube - renally dose medications. pharmacy following. Case discussed with Juan Carlos Troncoso
--- NOTE | 2023-08-24 17:20 | P.PN ---
Subjective Date of Service: 08/24/23 Chief Complaint: Pneumonia decubitus ulcer Patient is awake but confused and lethargic. Patient remains significantly swollen. She is tolerating PEG tube feeding. Physical Examination - Vital Signs Temperature: 98.8 F Blood Pressure: 105/59 Pulse: 92 Respirations: 23 Pulse Ox (%): 98 Assessment And Plan - Plan Physical Exam: GEN: Alert, oriented x 1, lethargic. HEENT: Normal conjunctiva, sclera anicteric CV: Regular rate and rhythm, anasarca Pulm: Diminished at bases b/l ABD: Soft, nontender, nondistended Integumentary: chronic sacral decubitus ulcer, Stage IV Neuro: Aphasia/Dysphagia, bedbound, responds to verbally. indwelling james catheter in place (placed 08/04 @[facility]) PEG tube in place vitals reviewed Problem List: Sepsis likely secondary to Pneumonia vs possible UTI necrotic stage IV sacral decubitus ulcer, concern for infection Acute hypoxic respiratory failure bacteruria, chronic indwelling james catheter Iron deficiency anemia h/o prior CVA with Aphasia/Dysphagia Small remote infarct and Encephalomalacia of left occipital lobe and left cerebellum Moderate Protein calorie malnutrition chronic diastolic CHF Chronic a-fib, on anticoagulation ELIE Hypertension Hyperlipidemia Hypothyroidism h/o seizure disorder h/o pulm hypertension Sepsis likely secondary to Pneumonia Acute hypoxic respiratory failure bacteruria, chronic indwelling james catheter Reported fever of 102 at [facility] prior to admission, +SPO2 was reportedly mid-high 80s on room air urine cx (08/19): Enterococcus. blood cx (08/19): NGTD Continue IV meropenem and vancomycin Leukocytosis improving pulm is following pt with indwelling james catheter, supposedly since hospitalized ~1-2 months ago at [facility] uncertain full history, patient was hospitalized for some time at [facility], then to [facility], then [facility], back to [facility] CT chest/abd/pelvis (08/20): LLL atelectasis vs superimposed aspiration / pneumonia. severe cardiomegaly with small pericardial effusion. Cirrhotic hepatic morphology with mild sequela of portal hypertension. suspected b/l renal hypodense lesions without suspicious features. Moderate volume 4 quadrant ascites. Iron deficiency anemia iron studies 08/20 consistent with iron deficiency anemia family deny any bleeding; +microscopic hematuria s/p 1 uPRBC 08/20; hgb 9.1-> 9.5 (08/22) Monitor H&H. transfuse for hgb < 7. h/o prior CVA with Aphasia/Dysphagia Small remote infarct and Encephalomalacia of left occipital lobe and left cerebellum Moderate Protein calorie malnutrition Patient reportedly recently released 08/17/23 from [facility] rehab in [place]; deemed non-rehabable due to weakness per famliy CT head (08/20): no acute intracranial abnormalities. Findings consistent with small remote infarct / Encephalomalacia of left occipital lobe and left cerebellum Pt with PEG tube in place. Feeding and meds via PEG Continue supportive care Speech therapy input appreciated. 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 Wound culture: MRSA and Enterococcus. continue above empiric abx Status post excisional debridement by Dr. Tee Continue local wound care. chronic diastolic CHF Chronic a-fib, on anticoagulation Severe pulmonary hypertension BNP 84k on admission, down to 58k 08/20. echo: Severe pulm hypertension, dilated right ventricle and right atrium, severe arthroscopic regurgitation. continue IV lasix; nephrology is following and titrating Lasix. continue home eliquis Nephrology started patient on sildenafil. Anasarca most likely related to severe pulmonary hypertension with associated trace cryptic regurgitation, and hypoalbuminemia. ELIE likely secondary to water deficit. Markedly elevated BUN. Elevated serum osmolality and BUN indicating dehydration. Possibly cardiorenal with possible underlying CKD Nephrology is following. Serum creatinine grossly unchanged. Lasix on hold per nephrology. Rehydrate with tube feeding and water flushes. Continue to monitor renal function Goals of care discussion with family regarding comfort measures vs initiating dialysis. Hypertension Hyperlipidemia Hypothyroidism h/o seizure disorder Continue home medications. Continue supportive care VTE: Home eliquis Code: Full
[2023-08-25] MEDS: IPRATROPIUM BROM 0.5MG/2.5ML NEB SCH ×5 (00:46→18:24)
[2023-08-25] MEDS: SILDENAFIL CITRATE 20 MG TABLET PO SCH ×3 (02:19→16:41)
[2023-08-25 02:53] LABS: Renal Epithelial <5 /HPF (None Seen); Specific Gravity 1.015 (1.005-1.030); Urine Bacteria 20-50 /HPF (<20); Urine Bilirubin NEGATIVE (Negative); Urine Blood 1+ (Negative); Urine Clarity Extremely Turbid (Clear); Urine Color Light-Orange (Yellow); Urine Glucose NEGATIVE (Negative); Urine Mucus Slight /HPF (None Seen); Urine Protein 2+ (Negative); Urine RBC >50 /HPF (None Seen); Urine Urobilinogen Normal (Normal); Urine WBC Clump Many /HPF (None Seen); Urine Yeast with Hyphae Many /HPF (None Seen); Urine pH 5.5 (5.0-7.0)
[2023-08-25 03:00] LABS: UR PROTEIN 113.3 mg/dL (<11.9); Urine Protein/Creatinine Ratio 3.15 ratio (<0.15)
[2023-08-25] MEDS: NEPRO 1,000 ML BOT FT SCH ×5 (04:32→20:21)
[2023-08-25 05:07] LABS: UR MICROALBUMIN 28.4 mg/dL (< 1.9)
[2023-08-25] MEDS: METOPROLOL TAR 25 MG TAB FT SCH (05:25)
--- NOTE | 2023-08-25 08:11 | P.PN ---
Date of Service: 08/25/23 Chief Complaint: Sepsis, pneumonia, UTI, sacral bedsore Subjective: Patient seen and examined at bedside. In no apparent distress. No acute events reported overnight. Physical Examination Temp Pulse Resp BP Pulse Ox 97.0 F 81 16 149/78 H 100 08/25/23 04:00 08/25/23 05:25 08/25/23 04:00 08/25/23 05:25 08/25/23 04:00 General: In no apparent distress, Oriented x1 HEENT: Sclerae nonicteric Respiratory: Normal air movement, Diminished at bases. . 2L nasal cannula. Cardiovascular: Irregular rate, tachycardic. BLE edema 2+. Gastrointestinal: Soft and benign. PEG tube. Non-distended. Musculoskeletal: Contractures Integumentary: Pressure ulcer sacrum stage IV. Right heel DTI. Neurological: Prior CVA. Aphasia. Urinary: Busby catheter draining yellow urine with sediment noted Laboratory data -Reviewed Microbiology data -Reviewed Imagings Data: -Reviewed Medications List: Reviewed Assessment and Plan Problem list Sepsis secondary to pneumonia vs UTI Acute hypoxic respiratory failure Pressure injury stage IV sacrum Chronic diastolic congestive heart failure Atrial fibrillation History of CVA, Aphasia Pulmonary Hypertension Moderate protein calorie malnutrition Sepsis secondary to pneumonia Catheter associated urinary tract infection (POA) -Urine culture 08/19: Enterococcus faecalis -Blood cultures 08/19: No growth to date - Currently on meropenem (08/20-) and vancomycin (08/21-) - urinalysis 08/23: LE 500, RBC >50, WBC >50, + moderate yeast Pressure injury sacrum stage IV Osteomyelitis of Sacrum - s/p Excisional debridment necrotic infected stage 4 pressure ulcer [id number] on 08/[address] Tee. Sharp exicisional debridement going all the way to the bone. -Wound culture: Staphylococcus aureus (MRSA) and Enterococcus faecalis -On vancomycin IV (started 08/21) Recommendations - Osteomyelitis: Continue antibiotic therapy for 6 weeks duration (08/21 to 10/02) -> E.faecalis and MRSA wound culture. Continue with Vancomycin IV. - Patient will require PICC line for long-term IV antibiotics. - Continue sacral wound care per Dr. Tee - Pressure offloading measures. Turn patient q2h, wedge pillow, low air-loss mattress. Offload pressure on heels / heel protectors. - Monitor WBC and fever trends - Supplemental nutrition / PEG tube - renally dose medications. pharmacy following. Case discussed with Juan Carlos Troncoso
[2023-08-25] MEDS: LACTOBACILLUS/ACIDOPHILUS TAB FT SCH ×2 (08:31→20:21)
[2023-08-25] MEDS: FOLIC ACID 1 MG TABLET FT SCH (08:31)
[2023-08-25] MEDS: APIXABAN 5 MG TABLET PO SCH ×2 (08:31→20:21)
[2023-08-25] MEDS: PANTOPRAZOLE 40 MG INJ IVP SCH (08:32)
[2023-08-25] MEDS: Meropenem 1,000 MG in NA CHLORIDE 0.9% 100 ML IV SCH ×2 (08:32→20:20)
[2023-08-25] MEDS: COLLAGENASE 30 GM OINTMENT TOP SCH (08:32)
[2023-08-25] MEDS ORDERED: VANCOMYCIN 2 GM in NA CHLORIDE 0.9% 500 ML IVPB SCH (09:00)
[2023-08-25 09:20] LABS: Potassium 5.9 mEq/L (3.5-5.1)
--- NOTE | 2023-08-25 11:14 | P.PN ---
Date of Service: 08/25/23 Vital Signs Temp Pulse Resp BP Pulse Ox 98.3 F 97 H 16 143/70 H 99 08/25/23 08:00 08/25/23 08:00 08/25/23 08:00 08/25/23 08:00 08/25/23 08:00 Medications Acetaminophen (Acetaminophen 500 Mg Tab) 500 mg PO Q4HP PRN PRN Reason: Pain scale 2-4 (Mild) Albuterol Sulfate (Albuterol 2.5 Mg/3 Ml Neb Carmelita) 2.5 mg NEB [id number] PRN PRN Reason: SHORTNESS OF BREATH Apixaban (Apixaban 5 Mg Tablet) 5 mg PO BID [facility] Last Admin: 08/25/23 08:31 Dose: 5 mg Collagenase (Collagenase 30 Gm Ointment) 1 appl TOP DAILY [facility] Last Admin: 08/25/23 08:32 Dose: 1 appl Enteral Nutritional Formula (Nepro 1,000 Ml Bot) 300 ml FT Q6H [facility] Last Admin: 08/25/23 11:00 Dose: 300 ml Folic Acid (Folic Acid 1 Mg Tablet) 1 mg FT DAILY [facility] Last Admin: 08/25/23 08:31 Dose: 1 mg Meropenem 1,000 mg/ Sodium (Chloride) 100 mls @ 200 mls/hr IV Q12HR [facility] Last Admin: 08/25/23 08:32 Dose: 100 mls Sodium Chloride (Sodium Chloride) 250 mls @ 0 mls/hr IV .Q0M KATRIN Vancomycin HCl 1 gm/ Sodium (Chloride) 250 mls @ 250 mls/hr IVPB Q5D [facility] Ipratropium [place] (Ipratropium Brom 0.5mg/2.5ml) 0.5 mg NEB [id number] [facility] Last Admin: 08/25/23 07:53 Dose: 0.5 mg Lactobacillus Acidoph/Bulgaricus (Lactobacillus/Acidophilus Tab) 1 tab FT BID [facility] Last Admin: 08/25/23 08:31 Dose: 1 tab Magnesium Hydroxide (Magnesium Hydroxide 8% 30 Ml) 30 ml PO DAILYPRN PRN PRN Reason: CONSTIPATION Methimazole (Methimazole 10 Mg Tab) 5 mg FT DAILY [facility] Last Admin: 08/25/23 08:31 Dose: 5 mg Metoprolol Tartrate (Metoprolol Tar 50 Mg Tab) 50 mg FT BID 6AM 6PM [facility] Ondansetron HCl (Ondansetron 4 Mg/2 Ml Vial) 4 mg IV Q6HP PRN PRN Reason: NAUSEA / VOMITING Pantoprazole Sodium (Pantoprazole 40 Mg Inj) 40 mg IVP DAILY [facility]; Protocol Last Admin: 08/25/23 08:32 Dose: 40 mg Sildenafil Citrate (Sildenafil Citrate 20 Mg Tablet) 20 mg PO Q8H [facility] Last Admin: 08/25/23 08:31 Dose: 20 mg Sodium Chloride (Sodium Chloride 0.9% 10ml Inj) 10 ml IV UD PRN PRN Reason: Diluant Microbiology Results 08/19/23 22:00 Blood - Blood Aerobic Blood Culture - Final No growth in 5 days. 08/19/23 22:00 Blood - Blood Anaerobic Blood Culture - Final No growth in 5 days. 08/19/23 21:45 Blood - Blood Aerobic Blood Culture - Final No growth in 5 days. 08/19/23 21:45 Blood - Blood Anaerobic Blood Culture - Final No growth in 5 days. 08/19/23 21:40 Clean Catch Urine Casar Count - Final >100,000 CFU/ML. 08/19/23 21:40 Clean Catch Urine - Final Enterococcus Faecalis 08/19/23 22:02 Nasopharnyx Influenza Type A Antigen Screen - Final 08/19/23 22:02 Nasopharnyx Influenza Type B Antigen Screen - Final Assessment/ Plan: Nephrology No dyspnea No chest pain No acute events overnight Limited IH/ ROS due to mental status Vitals, medications, blood work and imaging reviewed in the chart. NAD. Obese. NCAT. MMM. Neck supple. Normal respiratory effort. RRR. Abd ND. No C/C. LE Edema 1+. No rash. Awake. No speech. Busby Medium LEFT VENTRICULAR WALL MOTION: NORMAL DOPPLER/COLOR FLOW: SEE BELOW COMMENTS: 1. NORMAL LEFT VENTRICULAR EJECTION FRACTION 55-60% 2. SEVERELY DILATED RIGHT VENTRICLE WITH MODERATE DYSFUNCTION 3. SEVERE RIGHT ATRIUM ENLARGEMENT 4. MODERATE TRICUSPID REGURGITATION 5. MODERATE MITRAL REGURGITATION 6. SEVERE PULMONARY HYPERTENSION WITH RIGHT VENTRICULAR SYSTOLIC PRESSURE GREATER THAN 110 mmHg EXAM DESCRIPTION: CT CHEST ABDOMEN PELVIS WITHOUT IV CONTRAST CLINICAL HISTORY: Female, 73 years old, Sepsis, Deep sacral Decub COMPARISON: Same-day chest radiograph TECHNIQUE: CT acquisition of the chest, abdomen, and pelvis without contrast. Coronal and sagittal reformatted images provided. This exam was performed according to departmental dose-optimization program which includes automated exposure control, adjustment of the mA and/or kV according to patient size, and/or use of iterative reconstruction technique. FINDINGS: Lack of intravenous contrast limits evaluation of the cardiomediastinal and abdominopelvic viscera, as well as the vascular structures. Beam hardening from arms down positioning results in decreased [id number] and further limits interpretation. SUPPORTIVE DEVICES: Percutaneous gastrostomy tube and Busby catheter in place. LOWER NECK: Unremarkable. CHEST: Mediastinum/jonna: Aortic atherosclerosis without aneurysm. The central pulmonary vasculature is enlarged. No evident thoracic adenopathy. Unremarkable esophagus. Heart: Severe cardiomegaly. Small pericardial effusion. Mild coronary artery calcifications. Lungs: Low lung volumes. Left lower lobe basilar consolidative atelectasis. Diffuse peripheral pulmonary vascular prominence. The airway is near collapsed, reportedly due to nonbreath- hold technique. Pleural Space: No pleural effusion or pneumothorax. ABDOMEN AND PELVIS: Liver: Diffusely nodular contour. Gallbladder and bile ducts: Postcholecystectomy changes. Pancreas: Unremarkable. Spleen: Upper normal size. Adrenal glands: Unremarkable. Kidneys and ureters: No evidence of stone or obstruction. Bilateral renal hypodense lesions are suspected, without suspicious features. Bladder: Collapsed around a Busby catheter. No evident abnormality. Reproductive organs: Fibroid appearance of the uterus. GI tract: Normal caliber without wall thickening. No evidence of appendicitis. Lymph nodes: No obvious adenopathy. Peritoneum: Moderate volume 4 quadrant ascites. Abdominal wall: Ventral postsurgical change. Anasarca. Vessels: Atherosclerosis without evidence of aneurysm. MUSCULOSKELETAL: No acute osseous abnormality. Degenerative change of the spine, shoulders, and pelvis. Full-thickness sacral decubitus ulcer with deep gas along the posterior sacrum; no underlying sclerosis or erosion. IMPRESSION: 1. Full-thickness sacral decubitus ulcer without CT evidence of underlying ostial myelitis. 2. Cirrhotic hepatic morphology with mild sequela of portal hypertension. 3. Severe cardiomegaly with small pericardial effusion. 4. Consolidative atelectasis in the left lower lobe, consider superimposed aspiration or pneumonia. 5. Busby catheter and percutaneous gastrostomy tube in place. 6. Additional chronic and incidental findings above. No other acute finding within the exam limitations. A/P Stage I ELIE likely CRS CKD III with Proteinuria Nephrotic range proteinuria -No NSAIDs -Increase free water flushes through FT Hyperkalemia -Continue Nepro -Lokelma X2 today HTN with CKD/ CHF Tachycardia -Increase Metoprolol 50 BID Diastolic CHF, A/C Moderate TR & MR Severe Pulmonary HTN, secondary -Continue Metoprolol BID -Continue Sildenafil q8h though may be of limited benefit -Daily weight Hypoalbuminemia PEG -Continue Nepro Anemia in chronic illness Iron Deficiency -Monitor H&H -Consider IV iron supplementation Hospitalist & ID notes reviewed
[2023-08-25] MEDS: SODIUM ZIRCONIUM CYCLOSILICATE 10 GM/PKT FT SCH ×2 (11:41→16:41)
[2023-08-25 12:18] LABS: Hematocrit 31.7 % (36.0-45.0); Lymphocytes % 7.5 % (15.3-44.8); MCV 80.7 fL (80-100); MPV 7.7 fL (7.6-11.3); Platelets 521 thou/uL (152-406); RBC Red Blood Cell Count 3.94 M/uL (3.86-4.86)
--- NOTE | 2023-08-25 16:14 | P.PN ---
Subjective Date of Service: 08/25/23 Chief Complaint: Pneumonia decubitus ulcer Patient is awake and more interactive today Patient remains significantly swollen. Physical Examination - Vital Signs Temperature: 98.4 F Blood Pressure: 150/74 Pulse: 99 Respirations: 14 Pulse Ox (%): 98 - Studies Microbiology Data (last 24 hrs): 08/19/23 22:00 Blood - Blood Aerobic Blood Culture - Final No growth in 5 days. 08/19/23 22:00 Blood - Blood Anaerobic Blood Culture - Final No growth in 5 days. 08/19/23 21:45 Blood - Blood Aerobic Blood Culture - Final No growth in 5 days. 08/19/23 21:45 Blood - Blood Anaerobic Blood Culture - Final No growth in 5 days. Assessment And Plan - Plan Physical Exam: GEN: Alert, oriented x 2, lethargic. HEENT: sclera anicteric CV: Regular rate and rhythm, anasarca Pulm: Diminished at bases b/l ABD: Soft, nontender, nondistended Integumentary: chronic sacral decubitus ulcer, Stage IV Neuro: Aphasia/Dysphagia, bedbound, responds to verbally. indwelling james catheter in place (placed 08/04 @[place]) PEG tube in place vitals reviewed Problem List: Sepsis likely secondary to Pneumonia vs possible UTI necrotic stage IV sacral decubitus ulcer, concern for infection Acute hypoxic respiratory failure bacteruria, chronic indwelling james catheter Iron deficiency anemia h/o prior CVA with Aphasia/Dysphagia Small remote infarct and Encephalomalacia of left occipital lobe and left cerebellum Moderate Protein calorie malnutrition chronic diastolic CHF Chronic a-fib, on anticoagulation ELIE Hypertension Hyperlipidemia Hypothyroidism h/o seizure disorder h/o pulm hypertension Sepsis likely secondary to Pneumonia Acute hypoxic respiratory failure bacteruria, chronic indwelling james catheter Reported fever of 102 at [facility] prior to admission, +SPO2 was reportedly mid-high 80s on room air urine cx (08/19): Enterococcus. blood cx (08/19): NGTD On IV meropenem and vancomycin Leukocytosis improving Pulm is following pt with indwelling james catheter, supposedly since hospitalized ~1-2 months ago at [facility] uncertain full history, patient was hospitalized for some time at [facility], then to [facility], then [facility], back to [facility] CT chest/abd/pelvis (08/20): LLL atelectasis vs superimposed aspiration / pneumonia. severe cardiomegaly with small pericardial effusion. Cirrhotic hepatic morphology with mild sequela of portal hypertension. suspected b/l renal hypodense lesions without suspicious features. Moderate volume 4 quadrant ascites. Iron deficiency anemia iron studies 08/20 consistent with iron deficiency anemia family deny any bleeding; +microscopic hematuria s/p 1 uPRBC 08/20; hgb 9.1-> 9.5 (08/22) Monitor H&H. transfuse for hgb < 7. h/o prior CVA with Aphasia/Dysphagia Small remote infarct and Encephalomalacia of left occipital lobe and left cerebellum Moderate Protein calorie malnutrition Patient reportedly recently released 08/17/23 from [facility] rehab in [place]; deemed non-rehabable due to weakness per [facility] CT head (08/20): no acute intracranial abnormalities. Findings consistent with small remote infarct / Encephalomalacia of left occipital lobe and left cerebellum Pt with PEG tube in place. Feeding and meds via PEG Continue supportive care Speech therapy input appreciated. 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 Wound culture: MRSA and Enterococcus. continue above empiric abx Status post excisional debridement by Dr. Tee Continue local wound care. Poor prognosis. chronic diastolic CHF Chronic a-fib, on anticoagulation Severe pulmonary hypertension BNP 84k on admission, down to 58k 08/20. echo: Severe pulm hypertension, dilated right ventricle and right atrium, severe arthroscopic regurgitation. continue IV lasix; nephrology is following and titrating Lasix. continue home eliquis Nephrology started patient on sildenafil. Anasarca most likely related to severe pulmonary hypertension with associated with severe tricuspid regurgitation, hypoalbuminemia. Hypoalbuminemia secondary to nephrotic range proteinuria. ELIE/nephrotic range proteinuria likely secondary to water deficit. Markedly elevated BUN. Elevated serum osmolality and BUN indicating dehydration. Possibly cardiorenal with possible underlying CKD Nephrology is following. Serum creatinine trending down. Lasix on hold per nephrology. Rehydrating with tube feeding and water flushes. Continue to monitor renal function Goals of care discussion with family regarding comfort measures vs initiating dialysis. Hypertension Hyperlipidemia Hypothyroidism h/o seizure disorder Continue home medications. Continue supportive care VTE: Home eliquis Code: Full
[2023-08-25] MEDS: METOPROLOL TAR 50 MG TAB FT SCH (16:40)
[2023-08-26] MEDS: IPRATROPIUM BROM 0.5MG/2.5ML NEB SCH ×4 (00:34→19:26)
[2023-08-26] MEDS: SILDENAFIL CITRATE 20 MG TABLET PO SCH ×3 (00:53→16:02)
[2023-08-26] MEDS: NEPRO 1,000 ML BOT FT SCH ×4 (05:00→22:25)
[2023-08-26] MEDS: METOPROLOL TAR 50 MG TAB FT SCH (05:35)
--- NOTE | 2023-08-26 07:59 | P.PN ---
Date of Service: 08/26/23 Chief Complaint: Sepsis, pneumonia, UTI, sacral bedsore Subjective: Patient seen and examined at bedside. She is more responsive today. In no apparent distress. Physical Examination Temp Pulse Resp BP Pulse Ox 98.3 F 100 H 20 156/95 H 98 08/26/23 04:00 08/26/23 05:35 08/26/23 04:00 08/26/23 05:35 08/26/23 04:00 General: In no apparent distress, Oriented x1 HEENT: Sclerae nonicteric Respiratory: Normal air movement, Diminished at bases. . 2L nasal cannula. Cardiovascular: Irregular rate, tachycardic. BLE edema 2+. Gastrointestinal: PEG tube. Normoactive bowel sounds. Musculoskeletal: Contractures Integumentary: Pressure ulcer sacrum stage IV. Right heel DTI. Neurological: Prior CVA. Aphasia. Urinary: Busby catheter draining yellow urine with sediment noted Laboratory data -Reviewed Microbiology data -Reviewed Imagings Data: -Reviewed Medications List: Reviewed Assessment and Plan Problem list Sepsis secondary to pneumonia vs UTI Acute hypoxic respiratory failure Pressure injury stage IV sacrum Chronic diastolic congestive heart failure Atrial fibrillation History of CVA, Aphasia Pulmonary Hypertension Moderate protein calorie malnutrition Sepsis secondary to pneumonia Catheter associated urinary tract infection (POA) -Urine culture 08/19: Enterococcus faecalis -Blood cultures 08/19: No growth to date - Currently on meropenem (08/20-) and vancomycin (08/21-) - urinalysis 08/23: LE 500, RBC >50, WBC >50, + moderate yeast Pressure injury sacrum stage IV Osteomyelitis of Sacrum - s/p Excisional debridment necrotic infected stage 4 pressure ulcer [id number] on 08/[address] Tee. Sharp exicisional debridement going all the way to the bone. -Wound culture: Staphylococcus aureus (MRSA) and Enterococcus faecalis -On vancomycin IV (started 08/21) Recommendations - Osteomyelitis: Continue antibiotic therapy for 6 weeks duration (08/21 to 10/02) -> E.faecalis and MRSA wound culture. Continue with Vancomycin IV. - Patient will require PICC line for long-term IV antibiotics. - Continue sacral wound care per Dr. Tee - Pressure offloading measures. Turn patient q2h, wedge pillow, low air-loss mattress. Offload pressure on heels / heel protectors. - Monitor WBC and fever trends - Supplemental nutrition / PEG tube - renally dose medications. Case discussed with Juan Carlos Troncoso
[2023-08-26 08:13] LABS: Hematocrit 31.5 % (36.0-45.0); Lymphocytes % 7.4 % (15.3-44.8); MCV 79.8 fL (80-100); Platelets 570 thou/uL (152-406); RBC Red Blood Cell Count 3.95 M/uL (3.86-4.86)
[2023-08-26 08:41] LABS: AST/SGOT 10 U/L (15-37); Alkaline Phosphatase 111 U/L (45-117); BUN Blood Urea Nitrogen 114 mg/dL (7-18); Bicarbonate 27 mEq/L (21-32); Bilirubin Total 0.3 mg/dL (0.2-1.0); Glomerular Filtration Rate 43 ml/min (=/>90); Glucose Level 175 mg/dL (74-106); Phosphorus 4.5 mg/dL (2.5-4.9); Potassium 4.4 mEq/L (3.5-5.1); Protein, Total 5.9 g/dL (6.4-8.2); Sodium Level 144 mEq/L (136-145); Uric Acid 10.4 mg/dL (2.6-6.0)
[2023-08-26 08:42] LABS: ALT/SGPT < 10 U/L (13-56)
[2023-08-26] MEDS ORDERED: VANCOMYCIN 1 GM in NA CHLORIDE 0.9% 250 ML IVPB SCH (09:00)
[2023-08-26] MEDS: PANTOPRAZOLE 40 MG INJ IVP SCH (09:59)
[2023-08-26] MEDS: Meropenem 1,000 MG in NA CHLORIDE 0.9% 100 ML IV SCH ×2 (09:59→20:32)
[2023-08-26] MEDS: LACTOBACILLUS/ACIDOPHILUS TAB FT SCH ×2 (10:00→20:32)
[2023-08-26] MEDS: FOLIC ACID 1 MG TABLET FT SCH (10:00)
[2023-08-26] MEDS: COLLAGENASE 30 GM OINTMENT TOP SCH (10:00)
[2023-08-26] MEDS: APIXABAN 5 MG TABLET PO SCH ×2 (10:00→20:32)
--- NOTE | 2023-08-26 12:01 | P.PN ---
Nephrology note (S) Pt's condition remains about the same as when seen last weekend although she is less lethargic, she is able to communicate that she is not in pain. No resp distress noted (O) vitals reviewed in the EMR General: Other (Appears chronically ill) HEENT: Atraumatic, Normocephalic, Other (LFNC) Respiratory: Normal air movement, Other (Reduced BS at the bases, non tachypnec) Cardiovascular: Tachy, irregularly irregular Gastrointestinal: Soft and benign, No tenderness, Other (Obese, PEG tube present) Musculoskeletal: No tenderness, Other (3+ pitting edema extending to sacrum, prevalon boot present) Integumentary: See surgery and wound care notes for complete description of the large sacral ulcer Neurological: Other (Lethargic, briefly opens eyes, does not track movement, reduced nasolabial fold, generalized weakness) Laboratory Data (last 24 hrs) Reviewed in the EMR Conclusions/Impression: A/P) 1. Stage 1 ELIE on admission that is multifactorial with Cr levels mildly fluctuating but overall stable, on likely underlying CKD NOS with Cr levels > ULN historically as well. eGFR calculators not well validated with extremes of weight, other. Severe azotemia with BUN > 100, disproportionate to Cr level that is likely multifactorial with steroid effect, chronic tube fees and possible catabolic state +/- pre-renal state as sensed by kidneys despite the extra-vascular, 3rd space volume overload in the setting of likely renal vein congestion with Rt sided heart failure Abnormal findings in urine, other persiste. Proteinuria, unspecified-chronic indwelling bladder catheter, positive Enteroccocus UCx,, cont Abx 2. Na level remains at ULN, cont free water bolus via PEG at 250 cc q4h 3. Acute hypoxic respiratory insufficiency 2nd to possible PNA, unspecified organism and probably CHF component. Did d/c early on NS IVF 4. Pt has Rt sided HF and severe TR in the setting of unspecified severe pulm HTN and that is contributory additionally to ascites and sig peripheral edema and likely contributing to her persistent renal dysfunction. IV lasix currently held it appears. Pt started on Revatio by Dr. Rodrigues Urine lytes seen, UCl low but it appears kidneys are clamped down and mimicking a pre-renal state in the setting of above mentioned. 6. Hyperkalemia resolved. TTKG was < 7 but BP is no longer low and mod elevated. Florinef was prev stopped given pt's extravascular fluid overload 7. Afib unspecified -remains tachy, will titrate Metoprolol dose further if tolerated Wilbert Lozada MD, [facility]
--- NOTE | 2023-08-26 15:26 | P.PN ---
Subjective Date of Service: 08/26/23 Chief Complaint: Pneumonia decubitus ulcer Patient is awake and interactive today. She appears to be clinically improved compared to yesterday. Patient remains significantly swollen. She is tolerating PEG tube feeding and water flushes. Physical Examination - Vital Signs Temperature: 97.9 F Blood Pressure: 149/93 Pulse: 100 Respirations: 20 Pulse Ox (%): 94 Assessment And Plan - Plan Physical Exam: GEN: Alert, oriented x 2, sick looking. HEENT: sclera anicteric CV: Regular rate and rhythm, anasarca Pulm: Diminished at bases b/l ABD: Soft, nontender, nondistended Integumentary: chronic sacral decubitus ulcer, Stage IV Neuro: Aphasia/Dysphagia, bedbound, responds to verbally. indwelling james catheter in place (placed 08/04 @[place]) PEG tube in place vitals reviewed Problem List: Sepsis likely secondary to Pneumonia vs possible UTI necrotic stage IV sacral decubitus ulcer, concern for infection Acute hypoxic respiratory failure bacteruria, chronic indwelling james catheter Iron deficiency anemia h/o prior CVA with Aphasia/Dysphagia Small remote infarct and Encephalomalacia of left occipital lobe and left cerebellum Moderate Protein calorie malnutrition chronic diastolic CHF Chronic a-fib, on anticoagulation ELIE Hypertension Hyperlipidemia Hypothyroidism h/o seizure disorder h/o pulm hypertension Sepsis likely secondary to Pneumonia Acute hypoxic respiratory failure bacteruria, chronic indwelling james catheter Reported fever of 102 at [facility] prior to admission, +SPO2 was reportedly mid-high 80s on room air urine cx (08/19): Enterococcus. blood cx (08/19): NGTD On IV meropenem and vancomycin Leukocytosis improving Pulm is following pt with indwelling james catheter, supposedly since hospitalized ~1-2 months ago at [facility] Iron deficiency anemia iron studies 08/20 consistent with iron deficiency anemia family deny any bleeding; +microscopic hematuria s/p 1 uPRBC 08/20. Monitor H&H. transfuse for hgb < 7. h/o prior CVA with Aphasia/Dysphagia Small remote infarct and Encephalomalacia of left occipital lobe and left cerebellum Moderate Protein calorie malnutrition Patient reportedly [facility] [place]; deemed non-rehabable due to weakness per famliy CT head (08/20): no acute intracranial abnormalities. Findings consistent with small remote infarct / Encephalomalacia of left occipital lobe and left cerebellum Pt with PEG tube in place. Feeding and meds via PEG Continue supportive care Speech therapy input appreciated. 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 Wound culture: MRSA and Enterococcus. continue above empiric abx Status post excisional debridement by Dr. Tee. Dr. Tee stated he debrided the wound to the bone. High likelihood of osteomyelitis. PICC line for IV antibiotics. Continue local wound care. Poor prognosis. chronic diastolic CHF Chronic a-fib, on anticoagulation Severe pulmonary hypertension Anasarca BNP 84k on admission, down to 58k 08/20. echo: Severe pulm hypertension, dilated right ventricle and right atrium, severe arthroscopic regurgitation. continue IV lasix; nephrology is following and titrating Lasix. continue home eliquis Nephrology started patient on sildenafil. Anasarca most likely related to severe pulmonary hypertension with associated with severe tricuspid regurgitation, hypoalbuminemia. Hypoalbuminemia secondary to nephrotic range proteinuria. ELIE/nephrotic range proteinuria likely secondary to water deficit. Markedly elevated BUN. Elevated serum osmolality and BUN indicating dehydration. Possibly cardiorenal with possible underlying CKD Nephrology is following. Serum creatinine trending down. Lasix on hold per nephrology. Rehydrating with tube feeding and water flushes. Continue to monitor renal function Hypertension Hyperlipidemia Hypothyroidism h/o seizure disorder Continue home medications. Continue supportive care VTE: Home eliquis Code: Full
[2023-08-26] MEDS: METOPROLOL TAR 50 MG TAB PO SCH (16:01)
[2023-08-26] MEDS ORDERED: METOLAZONE 5 MG TABLET FT ONE (21:23)
[2023-08-27] MEDS: IPRATROPIUM BROM 0.5MG/2.5ML NEB SCH ×4 (00:38→18:17)
[2023-08-27] MEDS: SILDENAFIL CITRATE 20 MG TABLET PO SCH ×3 (00:59→17:21)
[2023-08-27] MEDS: NEPRO 1,000 ML BOT FT SCH ×4 (05:00→23:36)
[2023-08-27] MEDS: METOPROLOL TAR 50 MG TAB PO SCH ×2 (05:35→17:21)
[2023-08-27 08:50] LABS: Phosphorus 3.5 mg/dL (2.5-4.9); Potassium 3.9 mEq/L (3.5-5.1)
[2023-08-27] MEDS ORDERED: VANCOMYCIN 1 GM in NA CHLORIDE 0.9% 250 ML IVPB SCH (09:00)
[2023-08-27 09:04] LABS: Albumin, (SPE) 2.2 g/dL (3.8-4.8); Alpha-1-Globulins 0.6 g/dL (0.2-0.3); Gamma Globulins 0.7 g/dL (0.8-1.7); INTERPRETATION REPORT
[2023-08-27] MEDS: PANTOPRAZOLE 40 MG INJ IVP SCH (09:59)
[2023-08-27] MEDS: APIXABAN 5 MG TABLET PO SCH ×2 (10:01→21:37)
[2023-08-27] MEDS: COLLAGENASE 30 GM OINTMENT TOP SCH (10:01)
[2023-08-27] MEDS: FOLIC ACID 1 MG TABLET FT SCH (10:01)
[2023-08-27] MEDS: LACTOBACILLUS/ACIDOPHILUS TAB FT SCH ×2 (10:01→21:37)
--- NOTE | 2023-08-27 16:03 | P.PN ---
Subjective Date of Service: 08/27/23 Chief Complaint: Pneumonia decubitus ulcer Patient is awake and interactive. No significant change from yesterday. No change in anasarca. No recorded fever. Physical Examination - Vital Signs Temperature: 98.0 F Blood Pressure: 164/92 Pulse: 82 Respirations: 16 Pulse Ox (%): 97 Assessment And Plan - Plan Physical Exam: GEN: Alert, oriented x 2, sick looking. HEENT: sclera anicteric CV: Regular rate and rhythm, anasarca Pulm: Diminished at bases b/l ABD: Soft, nontender, nondistended Integumentary: chronic sacral decubitus ulcer, Stage IV Neuro: Bedbound, responds to verbally. indwelling james catheter in place (placed 08/04 @[place]) PEG tube in place vitals reviewed Problem List: Sepsis likely secondary to Pneumonia vs possible UTI necrotic stage IV sacral decubitus ulcer, concern for infection Acute hypoxic respiratory failure bacteruria, chronic indwelling james catheter Iron deficiency anemia h/o prior CVA with Aphasia/Dysphagia Small remote infarct and Encephalomalacia of left occipital lobe and left c erebellum Moderate Protein calorie malnutrition chronic diastolic CHF Chronic a-fib, on anticoagulation ELIE Hypertension Hyperlipidemia Hypothyroidism h/o seizure disorder h/o pulm hypertension Sepsis likely secondary to Pneumonia Acute hypoxic respiratory failure bacteruria, chronic indwelling james catheter urine cx (08/19): Enterococcus. blood cx (08/19): NGTD On IV meropenem and vancomycin Leukocytosis improving Pulm is following pt with indwelling james catheter, supposedly since hospitalized ~1-2 months ago at [facility]. Change James catheter per protocol. Iron deficiency anemia iron studies 08/20 consistent with iron deficiency anemia family deny any bleeding; +microscopic hematuria s/p 1 uPRBC 08/20. Monitor H&H. transfuse for hgb < 7. h/o prior CVA with Aphasia/Dysphagia Small remote infarct and Encephalomalacia of left occipital lobe and left cerebellum Moderate Protein calorie malnutrition Patient reportedly recently released 08/17/23 from [facility] rehab in [place]; deemed non-rehabable due to weakness per famliy CT head (08/20): no acute intracranial abnormalities. Findings consistent with small remote infarct / Encephalomalacia of left occipital lobe and left cerebellum Pt with PEG tube in place. Feeding and meds via PEG Continue supportive care Speech therapy input appreciated. 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 Wound culture: MRSA and Enterococcus. continue above empiric abx Status post excisional debridement by Dr. Tee. Dr. Tee stated he debrided the wound to the bone. High likelihood of osteomyelitis. PICC line for IV antibiotics requested. Continue local wound care. Pressure offloading. Poor prognosis. chronic diastolic CHF Chronic a-fib, on anticoagulation Severe pulmonary hypertension Anasarca BNP 84k on admission, down to 58k 08/20. echo: Severe pulm hypertension, dilated right ventricle and right atrium, severe arthroscopic regurgitation. continue IV lasix; nephrology is following and titrating Lasix. continue home eliquis Nephrology started patient on sildenafil. Anasarca most likely related to severe pulmonary hypertension with associated with severe tricuspid regurgitation, hypoalbuminemia. Hypoalbuminemia secondary to nephrotic range proteinuria. ELIE/nephrotic range proteinuria likely secondary to water deficit. Markedly elevated BUN. Elevated serum osmolality and BUN indicating dehydration. Possibly cardiorenal with possible underlying CKD Nephrology is following. Serum creatinine and BUN trended down. BUN is still markedly elevated. Lasix on hold per nephrology. Rehydrating with tube feeding and water flushes. Continue to monitor renal function Hypertension Hyperlipidemia Hypothyroidism h/o seizure disorder Continue home medications. Continue supportive care VTE: Home eliquis Code: Full
--- NOTE | 2023-08-27 21:48 | P.PN ---
Date of Service: 08/27/23 Vital Signs Temp Pulse Resp BP Pulse Ox 98.3 F 95 H 20 159/72 H 100 08/27/23 20:00 08/27/23 20:00 08/27/23 20:00 08/27/23 20:00 08/27/23 20:00 Medications Acetaminophen (Acetaminophen 500 Mg Tab) 500 mg PO Q4HP PRN PRN Reason: Pain scale 2-4 (Mild) Albuterol Sulfate (Albuterol 2.5 Mg/3 Ml Neb Carmelita) 2.5 mg NEB [id number] PRN PRN Reason: SHORTNESS OF BREATH Apixaban (Apixaban 5 Mg Tablet) 5 mg PO BID [facility] Last Admin: 08/27/23 21:37 Dose: 5 mg Collagenase (Collagenase 30 Gm Ointment) 1 appl TOP DAILY [facility] Last Admin: 08/27/23 10:01 Dose: 1 appl Enteral Nutritional Formula (Nepro 1,000 Ml Bot) 300 ml FT Q6H [facility] Last Admin: 08/27/23 17:22 Dose: 300 ml Folic Acid (Folic Acid 1 Mg Tablet) 1 mg FT DAILY [facility] Last Admin: 08/27/23 10:01 Dose: 1 mg Sodium Chloride (Sodium Chloride) 250 mls @ 0 mls/hr IV .Q0M [facility] Vancomycin HCl 1 gm/ Sodium (Chloride) 250 mls @ 250 mls/hr IVPB Q5D [facility] Ipratropium Omega (Ipratropium Brom 0.5mg/2.5ml) 0.5 mg NEB [id number] [facility] Last Admin: 08/27/23 18:17 Dose: 0.5 mg Lactobacillus Acidoph/Bulgaricus (Lactobacillus/Acidophilus Tab) 1 tab FT BID [facility] Last Admin: 08/27/23 21:37 Dose: 1 tab Magnesium Hydroxide (Magnesium Hydroxide 8% 30 Ml) 30 ml PO DAILYPRN PRN PRN Reason: CONSTIPATION Methimazole (Methimazole 10 Mg Tab) 5 mg FT DAILY [facility] Last Admin: 08/27/23 09:00 Dose: 5 mg Metoprolol Tartrate (Metoprolol Tar 50 Mg Tab) 75 mg PO BID 6AM 6PM [facility] Last Admin: 08/27/23 17:21 Dose: 75 mg Ondansetron HCl (Ondansetron 4 Mg/2 Ml Vial) 4 mg IV Q6HP PRN PRN Reason: NAUSEA / VOMITING Pantoprazole Sodium (Pantoprazole 40 Mg Inj) 40 mg IVP DAILY [facility]; Protocol Last Admin: 08/27/23 09:59 Dose: 40 mg Sildenafil Citrate (Sildenafil Citrate 20 Mg Tablet) 20 mg PO Q8H [facility] Last Admin: 08/27/23 17:21 Dose: 20 mg Sodium Chloride (Sodium Chloride 0.9% 10ml Inj) 10 ml IV UD PRN PRN Reason: Diluant Microbiology Results 08/19/23 22:00 Blood - Blood Aerobic Blood Culture - Final No growth in 5 days. 08/19/23 22:00 Blood - Blood Anaerobic Blood Culture - Final No growth in 5 days. 08/19/23 21:45 Blood - Blood Aerobic Blood Culture - Final No growth in 5 days. 08/19/23 21:45 Blood - Blood Anaerobic Blood Culture - Final No growth in 5 days. 08/19/23 21:40 Clean Catch Urine [place] Count - Final >100,000 CFU/ML. 08/19/23 21:40 Clean Catch Urine - Final Enterococcus Faecalis 08/19/23 22:02 Nasopharnyx Influenza Type A Antigen Screen - Final 08/19/23 22:02 Nasopharnyx Influenza Type B Antigen Screen - Final Assessment/ Plan: Nephrology No dyspnea No chest pain No acute events overnight Limited IH/ ROS due to mental status Vitals, medications, blood work and imaging reviewed in the chart. NAD. Obese. NCAT. MMM. Neck supple. Normal respiratory effort. RRR. Abd ND. No C/C. LE Edema 1+. No rash. Awake. No speech. Busby Medium LEFT VENTRICULAR WALL MOTION: NORMAL DOPPLER/COLOR FLOW: SEE BELOW COMMENTS: 1. NORMAL LEFT VENTRICULAR EJECTION FRACTION 55-60% 2. SEVERELY DILATED RIGHT VENTRICLE WITH MODERATE DYSFUNCTION 3. SEVERE RIGHT ATRIUM ENLARGEMENT 4. MODERATE TRICUSPID REGURGITATION 5. MODERATE MITRAL REGURGITATION 6. SEVERE PULMONARY HYPERTENSION WITH RIGHT VENTRICULAR SYSTOLIC PRESSURE GREATER THAN 110 mmHg EXAM DESCRIPTION: CT CHEST ABDOMEN PELVIS WITHOUT IV CONTRAST CLINICAL HISTORY: Female, 73 years old, Sepsis, Deep sacral Decub COMPARISON: Same-day chest radiograph TECHNIQUE: CT acquisition of the chest, abdomen, and pelvis without contrast. Coronal and sagittal reformatted images provided. This exam was performed according to departmental dose-optimization program which includes automated exposure control, adjustment of the mA and/or kV according to patient size, and/or use of iterative reconstruction technique. FINDINGS: Lack of intravenous contrast limits evaluation of the cardiomediastinal and abdominopelvic viscera, as well as the vascular structures. Beam hardening from arms down positioning results in decreased [id number] and further limits interpretation. SUPPORTIVE DEVICES: Percutaneous gastrostomy tube and Busby catheter in place. LOWER NECK: Unremarkable. CHEST: Mediastinum/jonna: Aortic atherosclerosis without aneurysm. The central pulmonary vasculature is enlarged. No evident thoracic adenopathy. Unremarkable esophagus. Heart: Severe cardiomegaly. Small pericardial effusion. Mild coronary artery calcifications. Lungs: Low lung volumes. Left lower lobe basilar consolidative atelectasis. Diffuse peripheral pulmonary vascular prominence. The airway is near collapsed, reportedly due to nonbreath- hold technique. Pleural Space: No pleural effusion or pneumothorax. ABDOMEN AND PELVIS: Liver: Diffusely nodular contour. Gallbladder and bile ducts: Postcholecystectomy changes. Pancreas: Unremarkable. Spleen: Upper normal size. Adrenal glands: Unremarkable. Kidneys and ureters: No evidence of stone or obstruction. Bilateral renal hypodense lesions are suspected, without suspicious features. Bladder: Collapsed around a Busby catheter. No evident abnormality. Reproductive organs: Fibroid appearance of the uterus. GI tract: Normal caliber without wall thickening. No evidence of appendicitis. Lymph nodes: No obvious adenopathy. Peritoneum: Moderate volume 4 quadrant ascites. Abdominal wall: Ventral postsurgical change. Anasarca. Vessels: Atherosclerosis without evidence of aneurysm. MUSCULOSKELETAL: No acute osseous abnormality. Degenerative change of the spine, shoulders, and pelvis. Full-thickness sacral decubitus ulcer with deep gas along the posterior sacrum; no underlying sclerosis or erosion. IMPRESSION: 1. Full-thickness sacral decubitus ulcer without CT evidence of underlying ostial myelitis. 2. Cirrhotic hepatic morphology with mild sequela of portal hypertension. 3. Severe cardiomegaly with small pericardial effusion. 4. Consolidative atelectasis in the left lower lobe, consider superimposed aspiration or pneumonia. 5. Busby catheter and percutaneous gastrostomy tube in place. 6. Additional chronic and incidental findings above. No other acute finding within the exam limitations. A/P Stage I ELIE likely CRS CKD III with Proteinuria Nephrotic range proteinuria -No NSAIDs -Continue free water flushes through FT Hyperkalemia -Continue Nepro -Lokelma prn HTN with CKD/ CHF Tachycardia -Increase Metoprolol 100 BID Diastolic CHF, A/C Moderate TR & MR Severe Pulmonary HTN, secondary -Continue Metoprolol BID -Continue Sildenafil q8h -Daily weight Hypoalbuminemia PEG -Continue Nepro Anemia in chronic illness Iron Deficiency -Monitor H&H -Consider IV iron supplementation Hospitalist & ID notes reviewed
[2023-08-28] MEDS: SILDENAFIL CITRATE 20 MG TABLET PO SCH ×3 (00:34→17:06)
[2023-08-28] MEDS: IPRATROPIUM BROM 0.5MG/2.5ML NEB SCH ×4 (02:15→20:54)
[2023-08-28] MEDS: METOPROLOL TAR 50 MG TAB PO SCH ×2 (05:25→17:07)
[2023-08-28] MEDS: NEPRO 1,000 ML BOT FT SCH ×4 (05:56→20:22)
[2023-08-28 08:38] LABS: Albumin 1.9 g/dL (3.4-5.0); Phosphorus 3.3 mg/dL (2.5-4.9)
[2023-08-28] MEDS: LACTOBACILLUS/ACIDOPHILUS TAB FT SCH ×2 (09:00→21:08)
[2023-08-28] MEDS: COLLAGENASE 30 GM OINTMENT TOP SCH (09:00)
[2023-08-28] MEDS ORDERED: VANCOMYCIN 1 GM in NA CHLORIDE 0.9% 250 ML IVPB SCH (09:00)
[2023-08-28] MEDS: APIXABAN 5 MG TABLET PO SCH ×2 (09:00→21:08)
[2023-08-28] MEDS: FOLIC ACID 1 MG TABLET FT SCH (09:00)
[2023-08-28] MEDS: PANTOPRAZOLE 40 MG INJ IVP SCH (09:01)
--- NOTE | 2023-08-28 14:32 | P.PN ---
Date of Service: 08/28/23 Vital Signs Temp Pulse Resp BP Pulse Ox 98.2 F 105 H 19 148/75 H 96 08/28/23 11:45 08/28/23 11:45 08/28/23 11:45 08/28/23 11:45 08/28/23 11:45 Medications Acetaminophen (Acetaminophen 500 Mg Tab) 500 mg PO Q4HP PRN PRN Reason: Pain scale 2-4 (Mild) Albuterol Sulfate (Albuterol 2.5 Mg/3 Ml Neb Carmelita) 2.5 mg NEB [id number] PRN PRN Reason: SHORTNESS OF BREATH Apixaban (Apixaban 5 Mg Tablet) 5 mg PO BID [facility] Last Admin: 08/28/23 09:00 Dose: 5 mg Collagenase (Collagenase 30 Gm Ointment) 1 appl TOP DAILY [facility] Last Admin: 08/28/23 09:00 Dose: 1 appl Enteral Nutritional Formula (Nepro 1,000 Ml Bot) 300 ml FT Q6H [facility] Famotidine (Famotidine 20 Mg Tab) 20 mg FT DAILY [facility]; Protocol Folic Acid (Folic Acid 1 Mg Tablet) 1 mg FT DAILY [facility] Last Admin: 08/28/23 09:00 Dose: 1 mg Sodium Chloride (Sodium Chloride) 250 mls @ 0 mls/hr IV .Q0M [facility] Vancomycin HCl 1 gm/ Sodium (Chloride) 250 mls @ 250 mls/hr IVPB Q5D [facility] Last Admin: 08/28/23 08:56 Dose: 250 mls Ipratropium [place] (Ipratropium Brom 0.5mg/2.5ml) 0.5 mg NEB [id number] [facility] Last Admin: 08/28/23 12:15 Dose: 0.5 mg Lactobacillus Acidoph/Bulgaricus (Lactobacillus/Acidophilus Tab) 1 tab FT BID [facility] Last Admin: 08/28/23 09:00 Dose: 1 tab Magnesium Hydroxide (Magnesium Hydroxide 8% 30 Ml) 30 ml PO DAILYPRN PRN PRN Reason: CONSTIPATION Methimazole (Methimazole 10 Mg Tab) 5 mg FT DAILY [facility] Last Admin: 08/28/23 09:00 Dose: 5 mg Metoprolol Tartrate (Metoprolol Tar 50 Mg Tab) 100 mg PO BID 6AM 6PM [facility] Last Admin: 08/28/23 05:25 Dose: 100 mg Ondansetron HCl (Ondansetron 4 Mg/2 Ml Vial) 4 mg IV Q6HP PRN PRN Reason: NAUSEA / VOMITING Sildenafil Citrate (Sildenafil Citrate 20 Mg Tablet) 20 mg PO Q8H [facility] Last Admin: 08/28/23 09:00 Dose: 20 mg Sodium Chloride (Sodium Chloride 0.9% 10ml Inj) 10 ml IV UD PRN PRN Reason: Diluant Microbiology Results 08/19/23 22:00 Blood - Blood Aerobic Blood Culture - Final No growth in 5 days. 08/19/23 22:00 Blood - Blood Anaerobic Blood Culture - Final No growth in 5 days. 08/19/23 21:45 Blood - Blood Aerobic Blood Culture - Final No growth in 5 days. 08/19/23 21:45 Blood - Blood Anaerobic Blood Culture - Final No growth in 5 days. 08/19/23 21:40 Clean Catch Urine [place] Count - Final >100,000 CFU/ML. 08/19/23 21:40 Clean Catch Urine - Final Enterococcus Faecalis 08/19/23 22:02 Nasopharnyx Influenza Type A Antigen Screen - Final 08/19/23 22:02 Nasopharnyx Influenza Type B Antigen Screen - Final Assessment/ Plan: Nephrology No dyspnea No chest pain No acute events overnight Limited IH/ ROS due to mental status Vitals, medications, blood work and imaging reviewed in the chart. NAD. Obese. NCAT. MMM. Neck supple. Normal respiratory effort. RRR. Abd ND. No C/C. LE Edema 1+. No rash. Awake. No speech. Busby Medium LEFT VENTRICULAR WALL MOTION: NORMAL DOPPLER/COLOR FLOW: SEE BELOW COMMENTS: 1. NORMAL LEFT VENTRICULAR EJECTION FRACTION 55-60% 2. SEVERELY DILATED RIGHT VENTRICLE WITH MODERATE DYSFUNCTION 3. SEVERE RIGHT ATRIUM ENLARGEMENT 4. MODERATE TRICUSPID REGURGITATION 5. MODERATE MITRAL REGURGITATION 6. SEVERE PULMONARY HYPERTENSION WITH RIGHT VENTRICULAR SYSTOLIC PRESSURE GREATER THAN 110 mmHg EXAM DESCRIPTION: CT CHEST ABDOMEN PELVIS WITHOUT IV CONTRAST CLINICAL HISTORY: Female, 73 years old, Sepsis, Deep sacral Decub COMPARISON: Same-day chest radiograph TECHNIQUE: CT acquisition of the chest, abdomen, and pelvis without contrast. Coronal and sagittal reformatted images provided. This exam was performed according to departmental dose-optimization program which includes automated exposure control, adjustment of the mA and/or kV according to patient size, and/or use of iterative reconstruction technique. FINDINGS: Lack of intravenous contrast limits evaluation of the cardiomediastinal and abdominopelvic viscera, as well as the vascular structures. Beam hardening from arms down positioning results in decreased [id number] and further limits interpretation. SUPPORTIVE DEVICES: Percutaneous gastrostomy tube and Busby catheter in place. LOWER NECK: Unremarkable. CHEST: Mediastinum/jonna: Aortic atherosclerosis without aneurysm. The central pulmonary vasculature is enlarged. No evident thoracic adenopathy. Unremarkable esophagus. Heart: Severe cardiomegaly. Small pericardial effusion. Mild coronary artery calcifications. Lungs: Low lung volumes. Left lower lobe basilar consolidative atelectasis. Diffuse peripheral pulmonary vascular prominence. The airway is near collapsed, reportedly due to nonbreath- hold technique. Pleural Space: No pleural effusion or pneumothorax. ABDOMEN AND PELVIS: Liver: Diffusely nodular contour. Gallbladder and bile ducts: Postcholecystectomy changes. Pancreas: Unremarkable. Spleen: Upper normal size. Adrenal glands: Unremarkable. Kidneys and ureters: No evidence of stone or obstruction. Bilateral renal hypodense lesions are suspected, without suspicious features. Bladder: Collapsed around a Busby catheter. No evident abnormality. Reproductive organs: Fibroid appearance of the uterus. GI tract: Normal caliber without wall thickening. No evidence of appendicitis. Lymph nodes: No obvious adenopathy. Peritoneum: Moderate volume 4 quadrant ascites. Abdominal wall: Ventral postsurgical change. Anasarca. Vessels: Atherosclerosis without evidence of aneurysm. MUSCULOSKELETAL: No acute osseous abnormality. Degenerative change of the spine, shoulders, and pelvis. Full-thickness sacral decubitus ulcer with deep gas along the posterior sacrum; no underlying sclerosis or erosion. IMPRESSION: 1. Full-thickness sacral decubitus ulcer without CT evidence of underlying ostial myelitis. 2. Cirrhotic hepatic morphology with mild sequela of portal hypertension. 3. Severe cardiomegaly with small pericardial effusion. 4. Consolidative atelectasis in the left lower lobe, consider superimposed aspiration or pneumonia. 5. Busby catheter and percutaneous gastrostomy tube in place. 6. Additional chronic and incidental findings above. No other acute finding within the exam limitations. A/P Stage I ELIE likely CRS CKD III with Proteinuria Nephrotic range proteinuria -No NSAIDs -Continue free water flushes through FT Hyperkalemia -Continue Nepro -Lokelma prn HTN with CKD/ CHF Tachycardia -Continue Metoprolol 100 BID; titrate as needed Diastolic CHF, A/C Moderate TR & MR Severe Pulmonary HTN, secondary Peripheral Edema -Continue Metoprolol BID -Continue Sildenafil q8h -Daily weight Severe Hypoalbuminemia PEG -Continue Nepro Anemia in chronic illness Iron Deficiency 6.3% -Monitor H&H -Start IV iron Hospitalist note reviewed Case reviewed with Dr. Mckeon Family meeting with goals of care needed
[2023-08-28] MEDS: SOD FERRIC GLUC COMPLX/SUCROSE 125 MG in NA CHLORIDE 0.9% 100 ML IV SCH (15:54)
--- NOTE | 2023-08-28 16:24 | P.PN ---
Subjective Date of Service: 08/28/23 Chief Complaint: Pneumonia decubitus ulcer Patient is awake and interactive. No major changes from yesterday. Physical Examination - Vital Signs Temperature: 98.2 F Blood Pressure: 148/75 Pulse: 105 Respirations: 19 Pulse Ox (%): 96 Assessment And Plan - Plan Physical Exam: GEN: Alert, oriented x 2, sick looking. HEENT: sclera anicteric CV: Regular rate and rhythm, anasarca Pulm: Diminished at bases b/l ABD: Soft, nontender, nondistended Integumentary: chronic sacral decubitus ulcer, Stage IV Neuro: Bedbound, responds to verbally. indwelling james catheter in place (placed 08/04 @[facility]) PEG tube in place vitals reviewed Problem List: Sepsis likely secondary to Pneumonia vs possible UTI necrotic stage IV sacral decubitus ulcer, concern for infection Acute hypoxic respiratory failure bacteruria, chronic indwelling james catheter Iron deficiency anemia h/o prior CVA with Aphasia/Dysphagia Small remote infarct and Encephalomalacia of left occipital lobe and left cerebellum Moderate Protein calorie malnutrition chronic diastolic CHF Chronic a-fib, on anticoagulation ELIE Hypertension Hyperlipidemia Hypothyroidism h/o seizure disorder h/o pulm hypertension Sepsis likely secondary to Pneumonia Acute hypoxic respiratory failure bacteruria, chronic indwelling james catheter urine cx (08/19): Enterococcus. blood cx (08/19): NGTD On IV meropenem and vancomycin Leukocytosis improving Pulm is following pt with indwelling james catheter, supposedly since hospitalized ~1-2 months ago at [facility]. Change James catheter per protocol. Iron deficiency anemia iron studies 08/20 consistent with iron deficiency anemia No reported bleeding. s/p 1 uPRBC 08/20. Monitor H&H. transfuse for hgb < 7. h/o prior CVA with Aphasia/Dysphagia Small remote infarct and Encephalomalacia of left occipital lobe and left cerebellum Moderate Protein calorie malnutrition Patient reportedly recently released 08/17/23 from [facility] in [place]; [facility] to [facility] ([facility] no acute intracranial abnormalities. Findings consistent with small remote infarct / Encephalomalacia of left occipital lobe and left cerebellum Pt with PEG tube in place. She is tolerating PEG tube feeding. Continue supportive care Speech therapy input appreciated. 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 Wound culture: MRSA and Enterococcus. continue above empiric abx Status post excisional debridement by Dr. Tee. Dr. Tee stated he debrided the wound to the bone. High likelihood of osteomyelitis. PICC line for IV antibiotics requested. Continue local wound care. Pressure offloading. Poor prognosis. chronic diastolic CHF Chronic a-fib, on anticoagulation Severe pulmonary hypertension Anasarca BNP 84k on admission, down to 58k 08/20. echo: Severe pulm hypertension, dilated right ventricle and right atrium, severe arthroscopic regurgitation. continue IV lasix; nephrology is following and titrating Lasix. continue home eliquis Nephrology started patient on sildenafil. Anasarca most likely related to severe pulmonary hypertension with associated with severe tricuspid regurgitation, hypoalbuminemia. Hypoalbuminemia secondary to nephrotic range proteinuria. ELIE/nephrotic range proteinuria likely secondary to water deficit. Markedly elevated BUN. Elevated serum osmolality and BUN indicating dehydration. Possibly cardiorenal with possible underlying CKD Nephrology is following. Serum creatinine and BUN trending down. Lasix on hold per nephrology. Rehydrating with tube feeding and water flushes. Continue to monitor renal function Hypertension Hyperlipidemia Hypothyroidism h/o seizure disorder Continue home medications. Continue supportive care VTE: Home eliquis Code: Full
[2023-08-29] MEDS: IPRATROPIUM BROM 0.5MG/2.5ML NEB SCH ×4 (01:38→20:17)
[2023-08-29] MEDS: NEPRO 1,000 ML BOT FT SCH ×4 (02:08→20:13)
[2023-08-29] MEDS: SILDENAFIL CITRATE 20 MG TABLET PO SCH ×3 (02:08→17:01)
[2023-08-29 06:11] LABS: Absolute Lymphocytes (CBC) 1.4 K/uL (0.7-4.9); Hematocrit 30.7 % (36.0-45.0); Lymphocytes % 10.3 % (15.3-44.8); MCV 79.2 fL (80-100); MPV 8.1 fL (7.6-11.3); Platelets 516 thou/uL (152-406); RBC Red Blood Cell Count 3.87 M/uL (3.86-4.86)
[2023-08-29] MEDS: METOPROLOL TAR 50 MG TAB PO SCH ×2 (06:14→17:01)
[2023-08-29 07:13] LABS: Albumin 1.9 g/dL (3.4-5.0); Phosphorus 3.1 mg/dL (2.5-4.9); Potassium 4.3 mEq/L (3.5-5.1)
[2023-08-29] MEDS: MULTIVITAMINS 5 ML ORAL SYR FT SCH (08:28)
[2023-08-29] MEDS: LACTOBACILLUS/ACIDOPHILUS TAB FT SCH ×2 (08:29→20:12)
[2023-08-29] MEDS: FAMOTIDINE 20 MG TAB FT SCH (08:29)
[2023-08-29] MEDS: APIXABAN 5 MG TABLET PO SCH ×2 (08:30→20:12)
[2023-08-29] MEDS: COLLAGENASE 30 GM OINTMENT TOP SCH (08:31)
--- NOTE | 2023-08-29 09:16 | P.PN ---
Date of Service: 08/29/23 Chief Complaint: Sepsis, pneumonia, UTI, sacral bedsore Subjective: Improving. In no apparent distress. No acute events overnight. Pending SNF placement for continued IV antibiotics and wound care. Physical Examination Temp Pulse Resp BP Pulse Ox 97.8 F 102 H 16 133/86 99 08/29/23 04:00 08/29/23 06:14 08/29/23 04:00 08/29/23 06:14 08/29/23 04:00 General: In no apparent distress. HEENT: Sclerae nonicteric Respiratory: Normal air movement, Diminished at bases. . 2L nasal cannula. Cardiovascular: Irregular rate, tachycardic. generalized edema Gastrointestinal: PEG tube. Normoactive bowel sounds. Integumentary: Pressure ulcer sacrum stage IV. Right heel DTI. Neurological: Prior CVA. Aphasia. Urinary: Busby catheter Laboratory data -Reviewed Microbiology data -Reviewed Imagings Data: -Reviewed Medications List: Reviewed Assessment and Plan Problem list Sepsis secondary to pneumonia vs UTI Acute hypoxic respiratory failure Pressure injury stage IV sacrum Chronic diastolic congestive heart failure Atrial fibrillation History of CVA, Aphasia Pulmonary Hypertension Moderate protein calorie malnutrition Sepsis secondary Catheter-Associated Urinary Tract Infection (POA) -Urine culture 08/19: Enterococcus faecalis -Blood cultures 08/19: No growth to date - Currently vancomycin (08/21-) Pressure injury sacrum stage IV Osteomyelitis of Sacrum - s/p Excisional debridment necrotic infected stage 4 pressure ulcer [id number] on 08/[address] Tee. Sharp exicisional debridement going all the way to the bone, high likelihood of osteomyelitis -Wound culture: Staphylococcus aureus (MRSA) and Enterococcus faecalis -On vancomycin IV (started 08/21) Recommendations - Osteomyelitis: Continue antibiotic therapy for 6 weeks duration (08/21 to 10/02) -> E.faecalis and MRSA wound culture. Continue with Vancomycin IVx 6 weeks. - Patient will require PICC line for long-term IV antibiotics. - Continue sacral wound care per Dr. Tee - Pressure offloading measures. Turn patient q2h, wedge pillow, low air-loss mattress. Offload pressure on heels / heel protectors. - Monitor WBC and fever trends - Supplemental nutrition / PEG tube - renally dose medications. Case discussed with Juan Carlos Troncoso
[2023-08-29] MEDS: SOD FERRIC GLUC COMPLX/SUCROSE 125 MG in NA CHLORIDE 0.9% 100 ML IV SCH (09:37)
[2023-08-29] MEDS: Mupirocin NASAL 2 APPL/1 GM TUBE NAS SCH ×2 (09:37→20:13)
--- NOTE | 2023-08-29 12:43 | P.PN ---
Date of Service: 08/29/23 Vital Signs Temp Pulse Resp BP Pulse Ox 98.2 F 98 H 16 135/72 98 08/29/23 08:00 08/29/23 08:00 08/29/23 08:00 08/29/23 08:00 08/29/23 08:00 Medications Acetaminophen (Acetaminophen 500 Mg Tab) 500 mg PO Q4HP PRN PRN Reason: Pain scale 2-4 (Mild) Albuterol Sulfate (Albuterol 2.5 Mg/3 Ml Neb Carmelita) 2.5 mg NEB [id number] PRN PRN Reason: SHORTNESS OF BREATH Apixaban (Apixaban 5 Mg Tablet) 5 mg PO BID [facility] Last Admin: 08/29/23 08:30 Dose: 5 mg Collagenase (Collagenase 30 Gm Ointment) 1 appl TOP DAILY [facility] Last Admin: 08/29/23 08:31 Dose: 1 appl Enteral Nutritional Formula (Nepro 1,000 Ml Bot) 300 ml FT Q6H [facility] Last Admin: 08/29/23 08:30 Dose: 300 ml Famotidine (Famotidine 20 Mg Tab) 20 mg FT DAILY [facility]; Protocol Last Admin: 08/29/23 08:29 Dose: 20 mg Sodium Chloride (Sodium Chloride) 250 mls @ 0 mls/hr IV .Q0M KATRIN Vancomycin HCl 1 gm/ Sodium (Chloride) 250 mls @ 250 mls/hr IVPB Q5D [facility] Last Admin: 08/28/23 08:56 Dose: 250 mls Ferric Sodium Gluconate Complex 125 mg/ Sodium Chloride 110 mls @ 100 mls/hr IV DAILY [facility] Stop: 09/04/23 10:05 Last Admin: 08/29/23 09:37 Dose: 110 mls Ipratropium Tyler (Ipratropium Brom 0.5mg/2.5ml) 0.5 mg NEB [id number] KATRIN Last Admin: 08/29/23 08:07 Dose: 0.5 mg Lactobacillus Acidoph/Bulgaricus (Lactobacillus/Acidophilus Tab) 1 tab FT BID [facility] Last Admin: 08/29/23 08:29 Dose: 1 tab Magnesium Hydroxide (Magnesium Hydroxide 8% 30 Ml) 30 ml PO DAILYPRN PRN PRN Reason: CONSTIPATION Methimazole (Methimazole 10 Mg Tab) 5 mg FT DAILY [facility] Last Admin: 08/29/23 08:29 Dose: 5 mg Metoprolol Tartrate (Metoprolol Tar 50 Mg Tab) 100 mg PO BID 6AM 6PM [facility] Last Admin: 08/29/23 06:14 Dose: 100 mg Multivitamins (Multivitamins 5 Ml Oral Syr) 5 ml FT DAILY [facility] Last Admin: 08/29/23 08:28 Dose: 5 ml Mupirocin (Mupirocin Nasal 2 Appl/1 Gm Tube) 1 appl MELANIA BID [facility] Stop: 09/02/23 21:01 Last Admin: 08/29/23 09:37 Dose: 1 appl Ondansetron HCl (Ondansetron 4 Mg/2 Ml Vial) 4 mg IV Q6HP PRN PRN Reason: NAUSEA / VOMITING Sildenafil Citrate (Sildenafil Citrate 20 Mg Tablet) 20 mg PO Q8H [facility] Last Admin: 08/29/23 08:28 Dose: 20 mg Sodium Chloride (Sodium Chloride 0.9% 10ml Inj) 10 ml IV UD PRN PRN Reason: Diluant Microbiology Results 08/19/23 22:00 Blood - Blood Aerobic Blood Culture - Final No growth in 5 days. 08/19/23 22:00 Blood - Blood Anaerobic Blood Culture - Final No growth in 5 days. 08/19/23 21:45 Blood - Blood Aerobic Blood Culture - Final No growth in 5 days. 08/19/23 21:45 Blood - Blood Anaerobic Blood Culture - Final No growth in 5 days. 08/19/23 21:40 Clean Catch Urine [place] Count - Final >100,000 CFU/ML. 08/19/23 21:40 Clean Catch Urine - Final Enterococcus Faecalis 08/19/23 22:02 Nasopharnyx Influenza Type A Antigen Screen - Final 08/19/23 22:02 Nasopharnyx Influenza Type B Antigen Screen - Final Assessment/ Plan: Nephrology No dyspnea No chest pain No acute events overnight Limited IH/ ROS due to mental status Vitals, medications, blood work and imaging reviewed in the chart. NAD. Obese. NCAT. MMM. Neck supple. Normal respiratory effort. RRR. Abd ND. No C/C. LE Edema 1+. No rash. Awake. No speech. Busby Medium LEFT VENTRICULAR WALL MOTION: NORMAL DOPPLER/COLOR FLOW: SEE BELOW COMMENTS: 1. NORMAL LEFT VENTRICULAR EJECTION FRACTION 55-60% 2. SEVERELY DILATED RIGHT VENTRICLE WITH MODERATE DYSFUNCTION 3. SEVERE RIGHT ATRIUM ENLARGEMENT 4. MODERATE TRICUSPID REGURGITATION 5. MODERATE MITRAL REGURGITATION 6. SEVERE PULMONARY HYPERTENSION WITH RIGHT VENTRICULAR SYSTOLIC PRESSURE GREATER THAN 110 mmHg EXAM DESCRIPTION: CT CHEST ABDOMEN PELVIS WITHOUT IV CONTRAST CLINICAL HISTORY: Female, 73 years old, Sepsis, Deep sacral Decub COMPARISON: Same-day chest radiograph TECHNIQUE: CT acquisition of the chest, abdomen, and pelvis without contrast. Coronal and sagittal reformatted images provided. This exam was performed according to departmental dose-optimization program which includes automated exposure control, adjustment of the mA and/or kV according to patient size, and/or use of iterative reconstruction technique. FINDINGS: Lack of intravenous contrast limits evaluation of the cardiomediastinal and abdominopelvic viscera, as well as the vascular structures. Beam hardening from arms down positioning results in decreased [id number] and further limits interpretation. SUPPORTIVE DEVICES: Percutaneous gastrostomy tube and Busby catheter in place. LOWER NECK: Unremarkable. CHEST: Mediastinum/jonna: Aortic atherosclerosis without aneurysm. The central pulmonary vasculature is enlarged. No evident thoracic adenopathy. Unremarkable esophagus. Heart: Severe cardiomegaly. Small pericardial effusion. Mild coronary artery calcifications. Lungs: Low lung volumes. Left lower lobe basilar consolidative atelectasis. Diffuse peripheral pulmonary vascular prominence. The airway is near collapsed, reportedly due to nonbreath- hold technique. Pleural Space: No pleural effusion or pneumothorax. ABDOMEN AND PELVIS: Liver: Diffusely nodular contour. Gallbladder and bile ducts: Postcholecystectomy changes. Pancreas: Unremarkable. Spleen: Upper normal size. Adrenal glands: Unremarkable. Kidneys and ureters: No evidence of stone or obstruction. Bilateral renal hypodense lesions are suspected, without suspicious features. Bladder: Collapsed around a Busby catheter. No evident abnormality. Reproductive organs: Fibroid appearance of the uterus. GI tract: Normal caliber without wall thickening. No evidence of appendicitis. Lymph nodes: No obvious adenopathy. Peritoneum: Moderate volume 4 quadrant ascites. Abdominal wall: Ventral postsurgical change. Anasarca. Vessels: Atherosclerosis without evidence of aneurysm. MUSCULOSKELETAL: No acute osseous abnormality. Degenerative change of the spine, shoulders, and pelvis. Full-thickness sacral decubitus ulcer with deep gas along the posterior sacrum; no underlying sclerosis or erosion. IMPRESSION: 1. Full-thickness sacral decubitus ulcer without CT evidence of underlying ostial myelitis. 2. Cirrhotic hepatic morphology with mild sequela of portal hypertension. 3. Severe cardiomegaly with small pericardial effusion. 4. Consolidative atelectasis in the left lower lobe, consider superimposed aspiration or pneumonia. 5. Busby catheter and percutaneous gastrostomy tube in place. 6. Additional chronic and incidental findings above. No other acute finding within the exam limitations. A/P Stage I ELIE likely CRS CKD III with Proteinuria Nephrotic range proteinuria -No NSAIDs -Continue free water flushes through FT Hyperkalemia -Continue Nepro -Lokelma prn HTN with CKD/ CHF Tachycardia -Continue Metoprolol 100 BID; titrate as needed Diastolic CHF, A/C Moderate TR & MR Severe Pulmonary HTN, secondary Peripheral Edema -Continue Metoprolol BID -Continue Sildenafil q8h -Daily weight -CXR ordered to help assess volume status Severe Hypoalbuminemia PEG -Continue Nepro Anemia in chronic illness Iron Deficiency 6.3% -Monitor H&H -Continue IV iron Hospitalist note reviewed Family meeting with goals of care needed
--- NOTE | 2023-08-29 13:37 | RAD REPORT ---
EXAM DESCRIPTION: RAD - Chest Single View - 08/29/2023 1:18 pm CLINICAL HISTORY: CHF/ Volume/ PNA/ Pulmonary HTN Chest pain. COMPARISON: Chest Single View dated 08/19/2023; CHEST SINGLE VIEW dated 05/11/2012; CHEST SINGLE VIEW dated 05/10/2012 FINDINGS: Portable technique limits examination quality. Mild pulmonary edema suspected. The heart is quite significantly enlarged. No displaced fractures. IMPRESSION: Mild CHF.
--- NOTE | 2023-08-29 17:07 | P.PN ---
Subjective Date of Service: 08/29/23 Chief Complaint: Pneumonia decubitus ulcer Patient is awake and interactive. No issues overnight. No recorded. Physical Examination - Vital Signs Temperature: 97.9 F Blood Pressure: 137/73 Pulse: 82 Respirations: 15 Pulse Ox (%): 100 Assessment And Plan - Plan Physical Exam: GEN: Alert, oriented x 1. NAD HEENT: sclera anicteric CV: Regular rate and rhythm, anasarca Pulm: Diminished at bases b/l ABD: Soft, nontender, nondistended Integumentary: chronic sacral decubitus ulcer, Stage IV Neuro: Bedbound, responds to verbally. indwelling james catheter in place (placed 08/04 @SD) PEG tube in place vitals reviewed Problem List: Sepsis likely secondary to Pneumonia vs possible UTI necrotic stage IV sacral decubitus ulcer, concern for infection Acute hypoxic respiratory failure bacteruria, chronic indwelling james catheter Iron deficiency anemia h/o prior CVA with Aphasia/Dysphagia Small remote infarct and Encephalomalacia of left occipital lobe and left cerebellum Moderate Protein calorie malnutrition chronic diastolic CHF Chronic a-fib, on anticoagulation ELIE Hypertension Hyperlipidemia Hypothyroidism h/o seizure disorder h/o pulm hypertension Sepsis likely secondary to Pneumonia Acute hypoxic respiratory failure bacteruria, chronic indwelling james catheter urine cx (08/19): Enterococcus. blood cx (08/19): NGTD On IV meropenem and vancomycin Leukocytosis improving Pulm is following pt with indwelling james catheter, supposedly since hospitalized ~1-2 months ago at [facility]. Change James catheter per protocol. Iron deficiency anemia iron studies 08/20 consistent with iron deficiency anemia No reported bleeding. s/p 1 uPRBC 08/20. Monitor H&H. transfuse for hgb < 7. On IV iron therapy per Nephrology h/o prior CVA with Aphasia/Dysphagia Small remote infarct and Encephalomalacia of left occipital lobe and left cerebellum Moderate Protein calorie malnutrition Patient reportedly recently released 08/17/23 from [facility] rehab in [place]; deemed non-rehabable due to weakness per [facility] CT head (08/20): no acute intracranial abnormalities. Findings consistent with small remote infarct / Encephalomalacia of left occipital lobe and left cerebellum Pt with PEG tube in place. She is tolerating PEG tube feeding. Continue supportive care Speech therapy input appreciated. 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 Wound culture: MRSA and Enterococcus. continue above empiric abx Status post excisional debridement by Dr. Tee. Dr. Tee stated he debrided the wound to the bone. High likelihood of osteomyelitis. PICC line for IV antibiotics requested. Recommending 6 weeks of IV vancomycin at SNF. Continue local wound care. Pressure offloading. Poor prognosis. chronic diastolic CHF Chronic a-fib, on anticoagulation Severe pulmonary hypertension Anasarca BNP 84k on admission, down to 58k 08/20. echo: Severe pulm hypertension, dilated right ventricle and right atrium, severe arthroscopic regurgitation. continue IV lasix; nephrology is following and titrating Lasix. continue home eliquis Nephrology started patient on sildenafil. Anasarca most likely related to severe pulmonary hypertension with associated with severe tricuspid regurgitation, hypoalbuminemia. Hypoalbuminemia secondary to nephrotic range proteinuria. ELIE/nephrotic range proteinuria likely secondary to water deficit. Markedly elevated BUN. Elevated serum osmolality and BUN indicating dehydration. Possibly cardiorenal with possible underlying CKD Nephrology is following. Serum creatinine and BUN trending down. Lasix on hold per nephrology. Continue tube feeding and water flushes. Continue to monitor renal function Hypertension Hyperlipidemia Hypothyroidism h/o seizure disorder Continue home medications. Continue supportive care VTE: Home eliquis Code: Full Goals of care I have attempted several times to reach her TO DISCUSS OVERALL GOALS OF CARE. Patient is appropriate for hospice and recommending hospice.
--- NOTE | 2023-08-29 21:12 | RAD REPORT ---
EXAM DESCRIPTION: RAD - Chest Single View - 08/29/2023 8:54 pm CLINICAL HISTORY: PICC line comfirmation COMPARISON: Chest Single View dated 08/29/2023; Chest Single View dated 08/19/2023; CHEST SINGLE VIEW dated 05/11/2012; CHEST SINGLE VIEW dated 05/10/2012 FINDINGS: Portable chest was obtained following placement of a right upper extremity PICC line. The catheter tip projects over the SVC.
[2023-08-30] MEDS: NEPRO 1,000 ML BOT FT SCH ×4 (02:22→21:28)
[2023-08-30] MEDS: IPRATROPIUM BROM 0.5MG/2.5ML NEB SCH ×4 (02:41→20:04)
[2023-08-30] MEDS: SILDENAFIL CITRATE 20 MG TABLET PO SCH ×3 (02:53→17:33)
[2023-08-30] MEDS: METOPROLOL TAR 50 MG TAB PO SCH ×2 (06:17→17:33)
[2023-08-30 07:19] LABS: Absolute Lymphocytes (CBC) 0.9 K/uL (0.7-4.9); Hematocrit 29.1 % (36.0-45.0); MCV 79.4 fL (80-100); Platelets 454 thou/uL (152-406); RBC Red Blood Cell Count 3.66 M/uL (3.86-4.86)
[2023-08-30 07:39] LABS: Potassium 3.9 mEq/L (3.5-5.1)
[2023-08-30] MEDS: SOD FERRIC GLUC COMPLX/SUCROSE 125 MG in NA CHLORIDE 0.9% 100 ML IV SCH (08:26)
--- NOTE | 2023-08-30 08:44 | P.PN ---
Date of Service: 08/30/23 Chief Complaint: Sepsis, pneumonia, UTI, sacral bedsore Subjective: No acute events overnight. In no apparent distress. Pending discharge to SNF. Physical Examination Temp Pulse Resp BP Pulse Ox 98.6 F 99 H 20 152/94 H 99 08/30/23 04:00 08/30/23 06:17 08/30/23 04:00 08/30/23 06:17 08/30/23 04:00 General: In no apparent distress. HEENT: Sclerae nonicteric Respiratory: Normal air movement, Diminished at bases. . 2L nasal cannula. Cardiovascular: Irregular rate, tachycardic. generalized edema Gastrointestinal: PEG tube. Normoactive bowel sounds. Integumentary: Pressure ulcer sacrum stage IV, dressing clean dry and intact. Neurological: Prior CVA. Aphasia. Urinary: Busby catheter Laboratory data -Reviewed Microbiology data -Reviewed Imagings Data: -Reviewed Medications List: Reviewed Assessment and Plan Problem list Sepsis secondary to pneumonia vs UTI Acute hypoxic respiratory failure Pressure injury stage IV sacrum Chronic diastolic congestive heart failure Atrial fibrillation History of CVA, Aphasia Pulmonary Hypertension Moderate protein calorie malnutrition Sepsis secondary Catheter-Associated Urinary Tract Infection (POA) -Urine culture 08/19: Enterococcus faecalis -Blood cultures 08/19: No growth to date - Currently vancomycin (08/21-) Pressure injury sacrum stage IV Osteomyelitis of Sacrum - s/p Excisional debridment necrotic infected stage 4 pressure ulcer [id number] on 08/[address] Tee. Sharp exicisional debridement going all the way to the bone, high likelihood of osteomyelitis -Wound culture: Staphylococcus aureus (MRSA) and Enterococcus faecalis -On vancomycin IV (started 08/21) Recommendations - Osteomyelitis: Continue antibiotic therapy for 6 weeks duration (08/21 to 10/02) -> E.faecalis and MRSA wound culture. Continue with Vancomycin IV x 6 weeks. - PICC line placed 08/29 - Continue sacral wound care per Dr. Tee - Pressure offloading measures. Turn patient q2h, wedge pillow, low air-loss mattress. Offload pressure on heels / heel protectors. - Supplemental nutrition / PEG tube - renally dose medications. Case discussed with Juan Carlos Troncoso
[2023-08-30] MEDS: APIXABAN 5 MG TABLET PO SCH ×2 (08:51→21:27)
[2023-08-30] MEDS: LACTOBACILLUS/ACIDOPHILUS TAB FT SCH ×2 (08:51→21:27)
[2023-08-30] MEDS: Mupirocin NASAL 2 APPL/1 GM TUBE NAS SCH ×2 (08:51→21:27)
[2023-08-30] MEDS: MULTIVITAMINS 5 ML ORAL SYR FT SCH (08:51)
[2023-08-30] MEDS: COLLAGENASE 30 GM OINTMENT TOP SCH (08:52)
[2023-08-30] MEDS: FAMOTIDINE 20 MG TAB FT SCH (08:52)
--- NOTE | 2023-08-30 12:07 | P.PN ---
Date of Service: 08/30/23 Subjective: no acute events overnight seems more alert / awake today afebrile ROS: 10 point ROS as noted above, otherwise negative Physical Exam: GEN: Alert, orientedx1, answers in short sentences HEENT: Normal conjunctiva, sclera anicteric CV: Regular rate and rhythm, b/l edema Pulm: Nonlabored respirations on 2L NC, diminished at bases b/l ABD: Soft, nontender, nondistended Integumentary: chronic sacral decubitus ulcer, Stage IV , dressing in place Neuro: Aphasia/Dysphagia, bedbound, opens eyes to stimuli indwelling james catheter in place (placed 08/04 @[facility]) PEG tube in place vitals reviewed Problem List: Sepsis secondary to UTI and infected sacral ulcer with osteomyelitis Acute hypoxic respiratory failure bacteruria, chronic indwelling james catheter necrotic stage IV sacral decubitus ulcer, s/p I&D 08/22 Osteomyelitis of sacrum Iron deficiency anemia h/o prior CVA with Aphasia/Dysphagia Small remote infarct and Encephalomalacia of left occipital lobe and left cerebellum Moderate Protein calorie malnutrition chronic diastolic CHF Chronic a-fib, on anticoagulation Severe pulmonary hypertension Anasarca ELIE/nephrotic range proteinuria Hypertension Hyperlipidemia Hypothyroidism h/o seizure disorder h/o pulm hypertension Sepsis secondary to UTI and infected sacral ulcer with osteomyelitis Acute hypoxic respiratory failure bacteruria, chronic indwelling james catheter Reported fever of 102 at assisted prior to admission, +SPO2 was reportedly mid-high 80s on room air pt with indwelling james catheter, supposedly since hospitalized ~1-2 months ago at [facility] CT chest/abd/pelvis (08/20): LLL atelectasis vs superimposed aspiration / pneumonia. severe cardiomegaly with small pericardial effusion. Cirrhotic hepatic morphology with mild sequela of portal hypertension. suspected b/l renal hypodense lesions without suspicious features. urine cx (08/19): Enterococcus Faecalis urine cx (08/23): Enterococcus Faecalis Continue IV vancomycin (08/21-) afebrile leukocytosis improving pulm consulted necrotic stage IV sacral decubitus ulcer, s/p I&D 08/[address] abd (08/20): noted full thickness of sacral ulcer without CT evidence of osteomyelitis wound cx (08/20): MRSA, Enterococcus Faecalis General surgery consulte - s/p I&D with Dr. Tee 08/22 debrided the wound to the bone. Consistent with clinical osteomyelitis PICC line placed 08/29; will require 6 weeks of IV vanc (08/21 - 10/02) Continue local wound care. Pressure offloading. Iron deficiency anemia iron studies 08/20 consistent with iron deficiency anemia family deny any bleeding; +microscopic hematuria s/p 1 uPRBC 08/20; Monitor H&H. transfuse for hgb < 7. h/o prior CVA with Aphasia/Dysphagia Small remote infarct and Encephalomalacia of left occipital lobe and left cerebellum Moderate Protein calorie malnutrition Patient reportedly recently released 08/17/23 from [facility] rehab in [place]; deemed non-rehabable due to weakness / "opneumonia" per famliy CT head (08/20): no acute intracranial abnormalities. Findings consistent with small remote infarct / Encephalomalacia of left occipital lobe and left cerebellum Pt with PEG tube in place. She is tolerating PEG tube feeding. Continue supportive care Speech therapy input appreciated. chronic diastolic CHF Chronic a-fib, on anticoagulation Severe pulmonary hypertension Anasarca BNP 84k on admission, down to 58k 08/20. echo: Severe pulm hypertension, dilated right ventricle and right atrium, severe arthroscopic regurgitation. lasix on hold per nephro continue home eliquis Nephrology started patient on sildenafil. Anasarca most likely related to severe pulmonary hypertension with associated with severe tricuspid regurgitation, hypoalbuminemia. Hypoalbuminemia secondary to nephrotic range proteinuria. ELIE/nephrotic range proteinuria likely secondary to water deficit. Markedly elevated BUN. Elevated serum osmolality and BUN indicating dehydration. Nephrology is following. Serum creatinine and BUN trending down. Lasix on hold per nephrology. Continue tube feeding and water flushes. Continue to monitor renal function Hypertension Hyperlipidemia Hypothyroidism h/o seizure disorder confirm home medications, restart as appropriate continue supportive care VTE: Home eliquis Code: Full Dispo: Back to [facility] Pending further improvement, auth for wound care / IV abx
[2023-08-30] MEDS ORDERED: POTASSIUM 25 MEQ EFFERV TAB PO ONE (13:17)
--- NOTE | 2023-08-30 21:05 | P.PN ---
Date of Service: 08/30/23 Vital Signs Temp Pulse Resp BP Pulse Ox 97.2 F 91 H 17 141/83 H 94 08/30/23 20:00 08/30/23 20:00 08/30/23 20:00 08/30/23 20:00 08/30/23 20:00 Medications Acetaminophen (Acetaminophen 500 Mg Tab) 500 mg PO Q4HP PRN PRN Reason: Pain scale 2-4 (Mild) Albuterol Sulfate (Albuterol 2.5 Mg/3 Ml Neb Carmelita) 2.5 mg NEB [id number] PRN PRN Reason: SHORTNESS OF BREATH Apixaban (Apixaban 5 Mg Tablet) 5 mg PO BID [facility] Last Admin: 08/30/23 08:51 Dose: 5 mg Collagenase (Collagenase 30 Gm Ointment) 1 appl TOP DAILY [facility] Last Admin: 08/30/23 08:52 Dose: 1 appl Enteral Nutritional Formula (Nepro 1,000 Ml Bot) 300 ml FT Q6H [facility] Last Admin: 08/30/23 14:06 Dose: 300 ml Famotidine (Famotidine 20 Mg Tab) 20 mg FT DAILY [facility]; Protocol Last Admin: 08/30/23 08:52 Dose: 20 mg Sodium Chloride (Sodium Chloride) 250 mls @ 0 mls/hr IV .Q0M [facility] Vancomycin HCl 1 gm/ Sodium (Chloride) 250 mls @ 250 mls/hr IVPB Q5D [facility] Last Admin: 08/28/23 08:56 Dose: 250 mls Ferric Sodium Gluconate Complex 125 mg/ Sodium Chloride 110 mls @ 100 mls/hr IV DAILY [facility] Stop: 09/04/23 10:05 Last Admin: 08/30/23 08:26 Dose: 110 mls Ipratropium [place] (Ipratropium Brom 0.5mg/2.5ml) 0.5 mg NEB [id number] [facility] Last Admin: 08/30/23 20:04 Dose: 0.5 mg Lactobacillus Acidoph/Bulgaricus (Lactobacillus/Acidophilus Tab) 1 tab FT BID [facility] Last Admin: 08/30/23 08:51 Dose: 1 tab Magnesium Hydroxide (Magnesium Hydroxide 8% 30 Ml) 30 ml PO DAILYPRN PRN PRN Reason: CONSTIPATION Methimazole (Methimazole 10 Mg Tab) 5 mg FT DAILY [facility] Last Admin: 08/30/23 08:50 Dose: 5 mg Metoprolol Tartrate (Metoprolol Tar 50 Mg Tab) 100 mg PO BID 6AM 6PM [facility] Last Admin: 08/30/23 17:33 Dose: 100 mg Multivitamins (Multivitamins 5 Ml Oral Syr) 5 ml FT DAILY [facility] Last Admin: 08/30/23 08:51 Dose: 5 ml Mupirocin (Mupirocin Nasal 2 Appl/1 Gm Tube) 1 appl MELANIA BID [facility] Stop: 09/02/23 21:01 Last Admin: 08/30/23 08:51 Dose: 1 appl Ondansetron HCl (Ondansetron 4 Mg/2 Ml Vial) 4 mg IV Q6HP PRN PRN Reason: NAUSEA / VOMITING Sildenafil Citrate (Sildenafil Citrate 20 Mg Tablet) 20 mg PO Q8H [facility] Last Admin: 08/30/23 17:33 Dose: 20 mg Sodium Chloride (Sodium Chloride 0.9% 10ml Inj) 10 ml IV UD PRN PRN Reason: Diluant Microbiology Results 08/19/23 22:00 Blood - Blood Aerobic Blood Culture - Final No growth in 5 days. 08/19/23 22:00 Blood - Blood Anaerobic Blood Culture - Final No growth in 5 days. 08/19/23 21:45 Blood - Blood Aerobic Blood Culture - Final No growth in 5 days. 08/19/23 21:45 Blood - Blood Anaerobic Blood Culture - Final No growth in 5 days. 08/19/23 21:40 Clean Catch Urine [place] Count - Final >100,000 CFU/ML. 08/19/23 21:40 Clean Catch Urine - Final Enterococcus Faecalis 08/19/23 22:02 Nasopharnyx Influenza Type A Antigen Screen - Final 08/19/23 22:02 Nasopharnyx Influenza Type B Antigen Screen - Final Assessment/ Plan: Nephrology No dyspnea No chest pain No acute events overnight Limited IH/ ROS due to mental status Vitals, medications, blood work and imaging reviewed in the chart. NAD. Obese. NCAT. MMM. Neck supple. Normal respiratory effort. RRR. Abd ND. No C/C. LE Edema 2+. No rash. Awake. No speech. Busby Medium LEFT VENTRICULAR WALL MOTION: NORMAL DOPPLER/COLOR FLOW: SEE BELOW COMMENTS: 1. NORMAL LEFT VENTRICULAR EJECTION FRACTION 55-60% 2. SEVERELY DILATED RIGHT VENTRICLE WITH MODERATE DYSFUNCTION 3. SEVERE RIGHT ATRIUM ENLARGEMENT 4. MODERATE TRICUSPID REGURGITATION 5. MODERATE MITRAL REGURGITATION 6. SEVERE PULMONARY HYPERTENSION WITH RIGHT VENTRICULAR SYSTOLIC PRESSURE GREATER THAN 110 mmHg EXAM DESCRIPTION: CT CHEST ABDOMEN PELVIS WITHOUT IV CONTRAST CLINICAL HISTORY: Female, 73 years old, Sepsis, Deep sacral Decub COMPARISON: Same-day chest radiograph TECHNIQUE: CT acquisition of the chest, abdomen, and pelvis without contrast. Coronal and sagittal reformatted images provided. This exam was performed according to departmental dose-optimization program which includes automated exposure control, adjustment of the mA and/or kV according to patient size, and/or use of iterative reconstruction technique. FINDINGS: Lack of intravenous contrast limits evaluation of the cardiomediastinal and abdominopelvic viscera, as well as the vascular structures. Beam hardening from arms down positioning results in decreased [id number] and further limits interpretation. SUPPORTIVE DEVICES: Percutaneous gastrostomy tube and Busby catheter in place. LOWER NECK: Unremarkable. CHEST: Mediastinum/jonna: Aortic atherosclerosis without aneurysm. The central pulmonary vasculature is enlarged. No evident thoracic adenopathy. Unremarkable esophagus. Heart: Severe cardiomegaly. Small pericardial effusion. Mild coronary artery calcifications. Lungs: Low lung volumes. Left lower lobe basilar consolidative atelectasis. Diffuse peripheral pulmonary vascular prominence. The airway is near collapsed, reportedly due to nonbreath- hold technique. Pleural Space: No pleural effusion or pneumothorax. ABDOMEN AND PELVIS: Liver: Diffusely nodular contour. Gallbladder and bile ducts: Postcholecystectomy changes. Pancreas: Unremarkable. Spleen: Upper normal size. Adrenal glands: Unremarkable. Kidneys and ureters: No evidence of stone or obstruction. Bilateral renal hypodense lesions are suspected, without suspicious features. Bladder: Collapsed around a Busby catheter. No evident abnormality. Reproductive organs: Fibroid appearance of the uterus. GI tract: Normal caliber without wall thickening. No evidence of appendicitis. Lymph nodes: No obvious adenopathy. Peritoneum: Moderate volume 4 quadrant ascites. Abdominal wall: Ventral postsurgical change. Anasarca. Vessels: Atherosclerosis without evidence of aneurysm. MUSCULOSKELETAL: No acute osseous abnormality. Degenerative change of the spine, shoulders, and pelvis. Full-thickness sacral decubitus ulcer with deep gas along the posterior sacrum; no underlying sclerosis or erosion. IMPRESSION: 1. Full-thickness sacral decubitus ulcer without CT evidence of underlying ostial myelitis. 2. Cirrhotic hepatic morphology with mild sequela of portal hypertension. 3. Severe cardiomegaly with small pericardial effusion. 4. Consolidative atelectasis in the left lower lobe, consider superimposed aspiration or pneumonia. 5. Busby catheter and percutaneous gastrostomy tube in place. 6. Additional chronic and incidental findings above. No other acute finding within the exam limitations. A/P Stage I ELIE likely CRS CKD III with Proteinuria Nephrotic range proteinuria -No NSAIDs -Continue free water flushes through FT Hyperkalemia -Continue Nepro -Lokelma prn HTN with CKD/ CHF Tachycardia -Increase Metoprolol 100 q8h Diastolic CHF, A/C Moderate TR & MR Severe Pulmonary HTN, secondary Peripheral Edema -Continue Metoprolol -Continue Sildenafil q8h -Daily weight -CXR reviewed Severe Hypoalbuminemia PEG -Continue Nepro Anemia in chronic illness Iron Deficiency 6.3% -Monitor H&H -Continue IV iron Hospitalist note reviewed; case reviewed with Dr. Hart
[2023-08-30] MEDS: METOPROLOL TAR 50 MG TAB FT SCH (21:27)
[2023-08-31] MEDS: IPRATROPIUM BROM 0.5MG/2.5ML NEB SCH ×4 (01:44→18:06)
[2023-08-31] MEDS: SILDENAFIL CITRATE 20 MG TABLET PO SCH ×3 (02:03→18:29)
[2023-08-31] MEDS: NEPRO 1,000 ML BOT FT SCH ×4 (02:04→20:22)
[2023-08-31 04:55] LABS: Absolute Lymphocytes (CBC) 0.8 K/uL (0.7-4.9); Hematocrit 28.6 % (36.0-45.0); Lymphocytes % 6.4 % (15.3-44.8); MCV 79.5 fL (80-100); MPV 8.1 fL (7.6-11.3); Platelets 438 thou/uL (152-406)
[2023-08-31 05:00] LABS: Potassium 4.1 mEq/L (3.5-5.1)
[2023-08-31] MEDS: METOPROLOL TAR 50 MG TAB FT SCH ×3 (05:00→22:18)
--- NOTE | 2023-08-31 08:14 | P.PN ---
Date of Service: 08/31/23 Subjective: no acute events overnight pending SNF authorization afebrile ROS: 10 point ROS as noted above, otherwise negative Physical Exam: GEN: Alert, orientedx1, answers in short sentences HEENT: Normal conjunctiva, sclera anicteric CV: Regular rate and rhythm, b/l edema Pulm: Nonlabored respirations on 2L NC, diminished at bases b/l ABD: Soft, nontender, nondistended Integumentary: chronic sacral decubitus ulcer, Stage IV , dressing in place Neuro: Aphasia/Dysphagia, bedbound, opens eyes to stimuli indwelling james catheter in place (placed 08/04 @[place]) PEG tube in place vitals reviewed Problem List: Sepsis secondary to UTI and infected sacral ulcer with osteomyelitis Acute hypoxic respiratory failure bacteruria, chronic indwelling james catheter necrotic stage IV sacral decubitus ulcer, s/p I&D 08/22 Osteomyelitis of sacrum Iron deficiency anemia h/o prior CVA with Aphasia/Dysphagia Small remote infarct and Encephalomalacia of left occipital lobe and left cerebellum Moderate Protein calorie malnutrition chronic diastolic CHF Chronic a-fib, on anticoagulation Severe pulmonary hypertension Anasarca ELIE/nephrotic range proteinuria Hypertension Hyperlipidemia Hypothyroidism h/o seizure disorder h/o pulm hypertension Sepsis secondary to UTI and infected sacral ulcer with osteomyelitis Acute hypoxic respiratory failure bacteruria, chronic indwelling james catheter Reported fever of 102 at [facility] prior to admission, +SPO2 was reportedly mid-high 80s on room air pt with indwelling james catheter, supposedly since hospitalized ~1-2 months ago at [facility] CT chest/abd/pelvis (08/20): LLL atelectasis vs superimposed aspiration / pneumonia. severe cardiomegaly with small pericardial effusion. Cirrhotic hepatic morphology with mild sequela of portal hypertension. suspected b/l renal hypodense lesions without suspicious features. urine cx (08/19): Enterococcus Faecalis urine cx (08/23): Enterococcus Faecalis Continue IV vancomycin (08/21-) pulm consulted necrotic stage IV sacral decubitus ulcer, s/p I&D 08/[address] abd (08/20): noted full thickness of sacral ulcer without CT evidence of osteomyelitis wound cx (08/20): MRSA, Enterococcus Faecalis General surgery consulted - s/p I&D with Dr. Tee 08/22 debrided the wound to the bone. Consistent with clinical osteomyelitis PICC line placed 08/29; will require 6 weeks of IV vanc (08/21 - 10/02) Continue local wound care. Pressure offloading. Iron deficiency anemia iron studies 08/20 consistent with iron deficiency anemia family deny any bleeding; +microscopic hematuria s/p 1 uPRBC 08/20; Monitor H&H. transfuse for hgb < 7. h/o prior CVA with Aphasia/Dysphagia Small remote infarct and Encephalomalacia of left occipital lobe and left cerebellum Moderate Protein calorie malnutrition Patient reportedly recently released 08/17/23 from [facility]hab in [place]; deemed non-rehabable due to weakness / "opneumonia" [facility] head (08/20): no acute intracranial abnormalities. Findings consistent with small remote infarct / Encephalomalacia of left occipital lobe and left cerebellum Pt with PEG tube in place. She is tolerating PEG tube feeding. Continue supportive care Speech therapy input appreciated. chronic diastolic CHF Chronic a-fib, on anticoagulation Severe pulmonary hypertension Anasarca BNP 84k on admission, down to 58k 08/20. echo: Severe pulm hypertension, dilated right ventricle and right atrium, severe arthroscopic regurgitation. lasix on hold per nephro continue home eliquis Nephrology started patient on sildenafil. Anasarca most likely related to severe pulmonary hypertension with associated with severe tricuspid regurgitation, hypoalbuminemia. Hypoalbuminemia secondary to nephrotic range proteinuria. ELIE/nephrotic range proteinuria likely secondary to water deficit. Markedly elevated BUN. Elevated serum osmolality and BUN indicating dehydration. Nephrology is following. Serum creatinine and BUN trending down. Lasix on hold per nephrology. Continue tube feeding and water flushes. Continue to monitor renal function Hypertension Hyperlipidemia Hypothyroidism h/o seizure disorder confirm home medications, restart as appropriate continue supportive care VTE: Home eliquis Code: Full Dispo: Back to [facility] Pending further improvement, auth for wound care / IV abx
[2023-08-31] MEDS: FAMOTIDINE 20 MG TAB FT SCH (09:00)
[2023-08-31] MEDS: COLLAGENASE 30 GM OINTMENT TOP SCH (09:00)
--- NOTE | 2023-08-31 09:11 | P.PN ---
Date of Service: 08/31/23 Chief Complaint: Sepsis, pneumonia, UTI, sacral bedsore Subjective: Patient seen and examined at bedside. No acute events overnight. In no apparent distress. On 2L nasal cannula. Pending SNF placement. Physical Examination Temp Pulse Resp BP Pulse Ox 98.8 F 71 20 135/79 96 08/31/23 08:00 08/31/23 08:00 08/31/23 08:00 08/31/23 08:00 08/31/23 08:00 General: In no apparent distress. HEENT: Normocephalic. Respiratory: Diminished at bases. 2L nasal cannula. Cardiovascular: Regular rate/rhythm. Generalized edema Gastrointestinal: PEG tube. Normoactive bowel sounds. Non-tender. Integumentary: Pressure ulcer sacrum stage IV. Neurological: Prior CVA. Aphasia. Urinary: Busby catheter noted Laboratory data -Reviewed Microbiology data -Reviewed Imagings Data: -Reviewed Medications List: Reviewed Assessment and Plan Problem list Sepsis secondary to pneumonia vs UTI Acute hypoxic respiratory failure Pressure injury stage IV sacrum Chronic diastolic congestive heart failure Atrial fibrillation History of CVA, Aphasia Pulmonary Hypertension Moderate protein calorie malnutrition Sepsis secondary Catheter-Associated Urinary Tract Infection (POA) -Urine culture 08/19: Enterococcus faecalis -Blood cultures 08/19: No growth to date - On vancomycin (started 08/21-) Pressure injury sacrum stage IV Osteomyelitis of Sacrum - s/p Excisional debridment necrotic infected stage 4 pressure ulcer [id number] on 08/[address] Tee. Sharp exicisional debridement going all the way to the bone, high likelihood of osteomyelitis. Recommend 6 weeks of antibiotic therapy. -Wound culture: Staphylococcus aureus (MRSA) and Enterococcus faecalis -On vancomycin IV (started 08/21) Recommendations - Osteomyelitis: Continue antibiotic therapy for 6 weeks duration (08/21 to 10/02) -> E.faecalis and MRSA wound culture. Continue with Vancomycin IV x 6 weeks. - PICC line placed 08/29 - Continue sacral wound care per Dr. Tee - Pressure offloading measures. Turn patient q2h, wedge pillow, low air-loss mattress. Offload pressure on heels / heel protectors. - Supplemental nutrition / PEG tube - renally dose medications. Case discussed with Dr. Parker N.
[2023-08-31] MEDS: Mupirocin NASAL 2 APPL/1 GM TUBE NAS SCH ×2 (09:29→20:53)
[2023-08-31] MEDS: APIXABAN 5 MG TABLET PO SCH ×2 (09:29→20:51)
[2023-08-31] MEDS: LACTOBACILLUS/ACIDOPHILUS TAB FT SCH ×2 (09:29→20:51)
[2023-08-31] MEDS: MULTIVITAMINS 5 ML ORAL SYR FT SCH (09:38)
[2023-08-31] MEDS: SOD FERRIC GLUC COMPLX/SUCROSE 125 MG in NA CHLORIDE 0.9% 100 ML IV SCH (09:43)
[2023-08-31] MEDS: METOLAZONE 5 MG TABLET FT SCH (10:26)
[2023-08-31] MEDS ORDERED: VANCOMYCIN 1 GM in NA CHLORIDE 0.9% 250 ML IVPB SCH (11:00)
--- NOTE | 2023-08-31 20:45 | P.PN ---
Date of Service: 08/31/23 Vital Signs Temp Pulse Resp BP Pulse Ox 98.5 F 95 H 17 150/75 H 98 08/31/23 20:00 08/31/23 20:00 08/31/23 20:00 08/31/23 20:00 08/31/23 20:00 Medications Acetaminophen (Acetaminophen 500 Mg Tab) 500 mg PO Q4HP PRN PRN Reason: Pain scale 2-4 (Mild) Albuterol Sulfate (Albuterol 2.5 Mg/3 Ml Neb Carmelita) 2.5 mg NEB [id number] PRN PRN Reason: SHORTNESS OF BREATH Apixaban (Apixaban 5 Mg Tablet) 5 mg PO BID [facility] Last Admin: 08/31/23 09:29 Dose: 5 mg Collagenase (Collagenase 30 Gm Ointment) 1 appl TOP DAILY [facility] Last Admin: 08/31/23 09:00 Dose: 1 appl Enteral Nutritional Formula (Nepro 1,000 Ml Bot) 300 ml FT Q6H [facility] Last Admin: 08/31/23 14:22 Dose: 300 ml Famotidine (Famotidine 20 Mg Tab) 20 mg FT DAILY [facility]; Protocol Last Admin: 08/31/23 09:00 Dose: 20 mg Sodium Chloride (Sodium Chloride) 250 mls @ 0 mls/hr IV .Q0M [facility] Ferric Sodium Gluconate Complex 125 mg/ Sodium Chloride 110 mls @ 100 mls/hr IV DAILY [facility] Stop: 09/04/23 10:05 Last Admin: 08/31/23 09:43 Dose: 110 mls Vancomycin HCl 1 gm/ Sodium (Chloride) 250 mls @ 250 mls/hr IVPB Q72H [facility] Last Admin: 08/31/23 10:50 Dose: 250 mls Ipratropium [place] (Ipratropium Brom 0.5mg/2.5ml) 0.5 mg NEB [id number] [facility] Last Admin: 08/31/23 18:06 Dose: 0.5 mg Lactobacillus Acidoph/Bulgaricus (Lactobacillus/Acidophilus Tab) 1 tab FT BID [facility] Last Admin: 08/31/23 09:29 Dose: 1 tab Magnesium Hydroxide (Magnesium Hydroxide 8% 30 Ml) 30 ml PO DAILYPRN PRN PRN Reason: CONSTIPATION Methimazole (Methimazole 10 Mg Tab) 5 mg FT DAILY [facility] Last Admin: 08/31/23 09:00 Dose: 5 mg Metolazone (Metolazone 5 Mg Tablet) 2.5 mg FT DAILY [facility] Last Admin: 08/31/23 10:26 Dose: 2.5 mg Metoprolol Tartrate (Metoprolol Tar 50 Mg Tab) 100 mg FT Q8H [facility] Last Admin: 08/31/23 14:00 Dose: Not Given Multivitamins (Multivitamins 5 Ml Oral Syr) 5 ml FT DAILY [facility] Last Admin: 08/31/23 09:38 Dose: 5 ml Mupirocin (Mupirocin Nasal 2 Appl/1 Gm Tube) 1 appl MELANIA BID [facility] Stop: 09/02/23 21:01 Last Admin: 08/31/23 09:29 Dose: 1 appl Ondansetron HCl (Ondansetron 4 Mg/2 Ml Vial) 4 mg IV Q6HP PRN PRN Reason: NAUSEA / VOMITING Sildenafil Citrate (Sildenafil Citrate 20 Mg Tablet) 20 mg PO Q8H [facility] Last Admin: 08/31/23 18:29 Dose: 20 mg Sodium Chloride (Sodium Chloride 0.9% 10ml Inj) 10 ml IV UD PRN PRN Reason: Diluant Microbiology Results 08/19/23 22:00 Blood - Blood Aerobic Blood Culture - Final No growth in 5 days. 08/19/23 22:00 Blood - Blood Anaerobic Blood Culture - Final No growth in 5 days. 08/19/23 21:45 Blood - Blood Aerobic Blood Culture - Final No growth in 5 days. 08/19/23 21:45 Blood - Blood Anaerobic Blood Culture - Final No growth in 5 days. 08/19/23 21:40 Clean Catch Urine [place] Count - Final >100,000 CFU/ML. 08/19/23 21:40 Clean Catch Urine - Final Enterococcus Faecalis 08/19/23 22:02 Nasopharnyx Influenza Type A Antigen Screen - Final 08/19/23 22:02 Nasopharnyx Influenza Type B Antigen Screen - Final Assessment/ Plan: Nephrology No dyspnea No chest pain No acute events overnight Limited IH/ ROS due to mental status Vitals, medications, blood work and imaging reviewed in the chart. NAD. Obese. NCAT. MMM. Neck supple. Normal respiratory effort. RRR. Abd ND. No C/C. LE Edema 2+. No rash. Awake. No speech. Busby Medium LEFT VENTRICULAR WALL MOTION: NORMAL DOPPLER/COLOR FLOW: SEE BELOW COMMENTS: 1. NORMAL LEFT VENTRICULAR EJECTION FRACTION 55-60% 2. SEVERELY DILATED RIGHT VENTRICLE WITH MODERATE DYSFUNCTION 3. SEVERE RIGHT ATRIUM ENLARGEMENT 4. MODERATE TRICUSPID REGURGITATION 5. MODERATE MITRAL REGURGITATION 6. SEVERE PULMONARY HYPERTENSION WITH RIGHT VENTRICULAR SYSTOLIC PRESSURE GREATER THAN 110 mmHg EXAM DESCRIPTION: CT CHEST ABDOMEN PELVIS WITHOUT IV CONTRAST CLINICAL HISTORY: Female, 73 years old, Sepsis, Deep sacral Decub COMPARISON: Same-day chest radiograph TECHNIQUE: CT acquisition of the chest, abdomen, and pelvis without contrast. Coronal and sagittal reformatted images provided. This exam was performed according to departmental dose-optimization program which includes automated exposure control, adjustment of the mA and/or kV according to patient size, and/or use of iterative reconstruction technique. FINDINGS: Lack of intravenous contrast limits evaluation of the cardiomediastinal and abdominopelvic viscera, as well as the vascular structures. Beam hardening from arms down positioning results in decreased [id number] and further limits interpretation. SUPPORTIVE DEVICES: Percutaneous gastrostomy tube and Busby catheter in place. LOWER NECK: Unremarkable. CHEST: Mediastinum/jonna: Aortic atherosclerosis without aneurysm. The central pulmonary vasculature is enlarged. No evident thoracic adenopathy. Unremarkable esophagus. Heart: Severe cardiomegaly. Small pericardial effusion. Mild coronary artery calcifications. Lungs: Low lung volumes. Left lower lobe basilar consolidative atelectasis. Diffuse peripheral pulmonary vascular prominence. The airway is near collapsed, reportedly due to nonbreath- hold technique. Pleural Space: No pleural effusion or pneumothorax. ABDOMEN AND PELVIS: Liver: Diffusely nodular contour. Gallbladder and bile ducts: Postcholecystectomy changes. Pancreas: Unremarkable. Spleen: Upper normal size. Adrenal glands: Unremarkable. Kidneys and ureters: No evidence of stone or obstruction. Bilateral renal hypodense lesions are suspected, without suspicious features. Bladder: Collapsed around a Busby catheter. No evident abnormality. Reproductive organs: Fibroid appearance of the uterus. GI tract: Normal caliber without wall thickening. No evidence of appendicitis. Lymph nodes: No obvious adenopathy. Peritoneum: Moderate volume 4 quadrant ascites. Abdominal wall: Ventral postsurgical change. Anasarca. Vessels: Atherosclerosis without evidence of aneurysm. MUSCULOSKELETAL: No acute osseous abnormality. Degenerative change of the spine, shoulders, and pelvis. Full-thickness sacral decubitus ulcer with deep gas along the posterior sacrum; no underlying sclerosis or erosion. IMPRESSION: 1. Full-thickness sacral decubitus ulcer without CT evidence of underlying ostial myelitis. 2. Cirrhotic hepatic morphology with mild sequela of portal hypertension. 3. Severe cardiomegaly with small pericardial effusion. 4. Consolidative atelectasis in the left lower lobe, consider superimposed aspiration or pneumonia. 5. Busby catheter and percutaneous gastrostomy tube in place. 6. Additional chronic and incidental findings above. No other acute finding within the exam limitations. A/P Stage I ELIE likely CRS CKD III with Proteinuria Nephrotic range proteinuria -No NSAIDs -Continue free water flushes through FT Hyperkalemia -Continue Nepro -Lokelma prn HTN with CKD/ CHF Tachycardia -Continue Metoprolol 100 q8h Diastolic CHF, A/C Moderate TR & MR Severe Pulmonary HTN, secondary Peripheral Edema -Continue Metoprolol -Continue Sildenafil q8h -Daily weight -CXR reviewed -Start Metolazone 2.5mg daily Severe Hypoalbuminemia PEG -Continue Nepro Anemia in chronic illness Iron Deficiency 6.3% -Monitor H&H -Continue IV iron Hospitalist note reviewed; case reviewed with Dr. Hart
[2023-09-01] MEDS: IPRATROPIUM BROM 0.5MG/2.5ML NEB SCH (00:25)
[2023-09-01] MEDS: NEPRO 1,000 ML BOT FT SCH ×3 (02:22→14:22)
[2023-09-01] MEDS: SILDENAFIL CITRATE 20 MG TABLET PO SCH ×2 (02:40→09:33)
[2023-09-01 04:36] LABS: Hematocrit 27.7 % (36.0-45.0); MCV 79.4 fL (80-100); MPV 8.4 fL (7.6-11.3); Platelets 413 thou/uL (152-406); RBC Red Blood Cell Count 3.49 M/uL (3.86-4.86)
[2023-09-01 04:47] LABS: Magnesium 2.4 mg/dL (1.6-2.4); Potassium 3.7 mEq/L (3.5-5.1)
[2023-09-01] MEDS ORDERED: POTASSIUM 25 MEQ EFFERV TAB PO ONE (04:48)
[2023-09-01] MEDS: METOPROLOL TAR 50 MG TAB FT SCH ×2 (05:03→14:00)
[2023-09-01] MEDS: SOD FERRIC GLUC COMPLX/SUCROSE 125 MG in NA CHLORIDE 0.9% 100 ML IV SCH (08:59)
[2023-09-01] MEDS: COLLAGENASE 30 GM OINTMENT TOP SCH (09:00)
--- NOTE | 2023-09-01 09:03 | P.PN ---
Date of Service: 09/01/23 Chief Complaint: Sepsis, pneumonia, UTI, sacral bedsore Subjective: Patient seen and examined at bedside. In no apparent distress. Plan for discharge to [facility] today. Continue IV Vancomycin for 6 weeks Physical Examination Temp Pulse Resp BP Pulse Ox 98.4 F 82 20 153/81 H 95 09/01/23 07:34 09/01/23 07:34 09/01/23 07:34 09/01/23 07:34 09/01/23 07:34 General: In no apparent distress. HEENT: Normocephalic. Respiratory: Diminished at bases. 2L nasal cannula. No respiratory distress. Cardiovascular: Regular rate/rhythm. Generalized edema Gastrointestinal: PEG tube. Normoactive bowel sounds. Non-tender. Integumentary: Pressure ulcer sacrum stage IV. Neurological: Prior CVA. Aphasia. Urinary: Busby catheter noted Laboratory data -Reviewed Microbiology data -Reviewed Imagings Data: -Reviewed Medications List: Reviewed Assessment and Plan Problem list Sepsis secondary to pneumonia vs UTI Acute hypoxic respiratory failure Pressure injury stage IV sacrum Chronic diastolic congestive heart failure Atrial fibrillation History of CVA, Aphasia Pulmonary Hypertension Moderate protein calorie malnutrition Sepsis secondary Catheter-Associated Urinary Tract Infection (POA) -Urine culture 08/19: Enterococcus faecalis -Blood cultures 08/19: No growth to date - On vancomycin (started 08/21-) Pressure injury sacrum stage IV Osteomyelitis of Sacrum - s/p Excisional debridment necrotic infected stage 4 pressure ulcer [id number] on 08/[address] Tee. Sharp exicisional debridement going all the way to the bone, high likelihood of osteomyelitis. Recommend 6 weeks of antibiotic therapy. -Wound culture: Staphylococcus aureus (MRSA) and Enterococcus faecalis -On vancomycin IV (started 08/21) Recommendations - Osteomyelitis: Continue antibiotic therapy for 6 weeks duration (08/21 to 10/02) -> E.faecalis and MRSA wound culture. Continue with Vancomycin IV x 6 weeks. - PICC line placed 08/29 - Continue sacral wound care per Dr. Tee - Pressure offloading measures. Turn patient q2h, wedge pillow, low air-loss mattress. Offload pressure on heels / heel protectors. - Supplemental nutrition / PEG tube - renally dose medications. Patient to be discharged to [facility] today. Case discussed with Juan Carlos Troncoso
[2023-09-01] MEDS ORDERED: SPIRONOLACTONE 25 MG TABLET PO SCH (09:30)
[2023-09-01] MEDS: Mupirocin NASAL 2 APPL/1 GM TUBE NAS SCH (09:32)
[2023-09-01] MEDS: METOLAZONE 5 MG TABLET FT SCH (09:33)
[2023-09-01] MEDS: FAMOTIDINE 20 MG TAB FT SCH (09:34)
[2023-09-01] MEDS: MULTIVITAMINS 5 ML ORAL SYR FT SCH (09:36)
[2023-09-01] MEDS: APIXABAN 5 MG TABLET PO SCH (09:36)
[2023-09-01] MEDS: LACTOBACILLUS/ACIDOPHILUS TAB FT SCH (09:36)
--- NOTE | 2023-09-01 10:00 | P.DS ---
Admission Date: 08/20/23 Discharge Date: 09/01/23 Disposition: TRANSFER TO [facility] Discharge Condition: FAIR Reason for Admission: Pneumonia decubitus ulcer Consultations: ID - Dr. Parker General Surgery - Dr. Tee Nephrology - Dr. Laureano, Dr. Lozada Pulmonology - Dr. Del Valle Brief History of Present Illness: 73 yo F, PMH: CVA, aphasia,chf, afib, hypertension EMS brought the patient from the longterm shortness of breath and fever. EMS reports that patient had a temperature of 102, and oxygen was 80% on room air. Patient's oxygenation improved with oxygen supplementation. Patient awake opening the eyes positive for fever, cough and shortness of breath. Negative for vomiting or diarrhea. Most history from the longterm and the medical records ED course Vital signs blood pressure 125/73, pulse 101, respiration 32, temperature 99.3, pulse ox 90% on room air initial laboratory results significant for elevated BNP 49940, elevated BUN 127, creatinine 1.55, low GFR 35, blood glucose 165. Urine is extremely turbid. Chest x-ray negative for pneumothorax chest CT shows consolidative atelectasis in the left lower lobe, consider superimposed aspiration or pneumonia. Hospital Course: Problem List: Sepsis secondary to UTI and infected sacral ulcer with osteomyelitis Acute hypoxic respiratory failure UTI, secondary to chronic indwelling james catheter necrotic stage IV sacral decubitus ulcer, s/p I&D 08/22 Osteomyelitis of sacrum Iron deficiency anemia h/o prior CVA with Aphasia/Dysphagia Small remote infarct and Encephalomalacia of left occipital lobe and left cerebellum Moderate Protein calorie malnutrition chronic diastolic CHF Chronic a-fib, on anticoagulation Severe pulmonary hypertension Anasarca ELIE/nephrotic range proteinuria Hypertension Hyperlipidemia Hypothyroidism h/o seizure disorder h/o pulm hypertension Patient presented with shortness of breath, fever. She was found to have a UTI and an infected sacral decubitus ulcer with osteomyelitis On admission, CT chest/abd with findings consistent with LLL atelectasis vs possible superimposed aspiration / pneumonia. Urinalysis was noted to be +bacteria/WBCs, concerning for possible UTI. Pt also noted to have indwelling james catheter, supposedly since hospitalized ~1-2 months ago at [facility]. Urine cultures were obtained on 08/19 and 08/23 both grew Enterococcus faecalis. Blood cultures without growth. Pulm and ID were consulted. Patient completed course of IV merrem and continues on IV Vancomycin and had improvement of her symptoms. She reportedly has history of adrenal insufficiency so did receive stress dose steroids early in admission. Fludrocortisone had not been restarted, but given history, can restart on discharge. In regards to infected chronic sacral decubitus ulcer, CT abd noted full thickness of sacral ulcer without CT evidence of osteomyelitis. General surgery was consulted. Patient was taken to the OR on 08/22 for Excisional debridment necrotic infected stage 4 pressure ulcer [id number] with Dr. Tee. Wound was debrided to the bone per Dr. Tee, consistent with clinical osteomyelitis. Wound culture on 08/20 was noted to grow MRSA and Enterococcus faecalis. PICC line was placed on 08/29 as patient will require 6 weeks of IV vancomycin, to be completed on 10/02/22. (Started 08/21/23) Recommends continued pressure offloading measures. Turn patient q2h, Offload pressure on heels / heel protectors. Continue daily wound care by applying santyl and wet to dry dressing to Sacral wound, cover with dry gauze. Iron studies this hospitalization were consistent with iron deficiency anemia, felt secondary to anemia of chronic disease. Patients hgb was noted to drop from 8.9 to 6.9 on 08/20 and required 1 uPRBC. She also received 8 bags of IV iron while hospitalized. Patients hgb remained stable for rest of hospitalization with hgb in 8-9s and did not require any more transfusions. Recommend repeat blood work in ~1 week to monitor hemoglobin / renal function Patient was noted to appear volume overloaded on admission. BNP was 84k. She initially received IV lasix, however renal function started to decline. Nephrology was consulted and Lasix were held. She was started on sildenafil for her pulmonary hypertension. Markedly elevated BUN / Elevated serum osmolality indicating dehydration. Patient responded well to free water flushes through FT and was started on metolazone 2.5 mg and spironolactone 25 mg daily for gentle diuresis. Suspect ELIE secondary to Cardiorenal syndrome / free water defecit. Creatinine on discharge: 1.18. Nursing reports some slight loose stool, 2-3 episodes in the last 2-3 days of hospitalization. She was getting nepro tube feeds, and normally on jevity. Can trial imodium as needed, should improve getting back on Jevity. Otherwise she was slowly improving daily. Medications: Vancomycin to be completed on 10/02/22; check troughs and adjust as appropriate Metolazone 2.5 mg BID through feeding tube Spironolactone 25 mg daily Sildenafil Iron Santyl for wound care Follow up: PCP 3-5 days Pulmonology 1-[address] Tee / [facility] 1-2 weeks Imaging Findings: CT head on 08/20 without any acute intracranial abnormalities. Findings consistent with small remote infarct / Encephalomalacia of left occipital lobe and left cerebellum Nifedipine was held during admission. Monitor blood pressure and may need to restart as needed. Echo (08/23): normal LVEF: 55-60%, severely dilated right ventricle with moderate dysfunction, severe right atrium enlargement, moderated tricuspid regurgitation, moderate mitral regurgitation, severe pulmonary hypertension with RV systolic pressure > 110mmHg. Dr. Mckeon had discussion with family regarding goals of care but unable to get ahold of the patient's for further discussion. Family to further discuss goals of care for the patient and monitor how she does. Physical Exam: GEN: Alert, orientedx1, answers in short sentences HEENT: Normal conjunctiva, sclera anicteric CV: Regular rate and rhythm, b/l edema Pulm: Nonlabored respirations on 2L NC, diminished at bases b/l ABD: Soft, nontender, nondistended Integumentary: chronic sacral decubitus ulcer, Stage IV , dressing in place Neuro: Aphasia/Dysphagia, bedbound, opens eyes to stimuli indwelling james catheter in place PEG tube in place Vital Signs/Physical Exam: Temp Pulse Resp BP Pulse Ox 98.4 F 82 20 153/81 H 95 09/01/23 07:34 09/01/23 07:34 09/01/23 07:34 09/01/23 07:34 09/01/23 07:34 Laboratory Data at Discharge: WBC 13.70 thou/uL (4.3-10.9) H 09/01/23 04:18 Hgb 8.6 g/dL (12.0-15.0) L 09/01/23 04:18 Hct 27.7 % (36.0-45.0) L 09/01/23 04:18 Plt Count 413 thou/uL (152-406) H 09/01/23 04:18 PT 17.6 SECONDS (9.5-12.5) H 08/19/23 21:45 INR 1.60 08/19/23 21:45 APTT 33.7 SECONDS (24.3-36.9) 08/23/23 07:15 Sodium 140 mEq/L (136-145) 09/01/23 04:18 Potassium 3.7 mEq/L (3.5-5.1) 09/01/23 04:18 BUN 93 mg/dL (7-18) H 09/01/23 04:18 Creatinine 1.18 mg/dL (0.55-1.02) H 09/01/23 04:18 Glucose 182 mg/dL (74-106) H 09/01/23 04:18 Uric Acid 9.0 mg/dL (2.6-6.0) H 08/30/23 06:51 Phosphorus 3.0 mg/dL (2.5-4.9) 08/30/23 06:51 Magnesium 2.4 mg/dL (1.6-2.4) 09/01/23 04:18 Total Bilirubin 0.3 mg/dL (0.2-1.0) 08/26/23 07:42 AST 10 U/L (15-37) L 08/26/23 07:42 ALT < 10 U/L (13-56) L 08/26/23 07:42 Alkaline Phosphatase 111 U/L (45-117) 08/26/23 07:42 Triglycerides 91 mg/dL (<150) 08/21/23 06:42 Cholesterol 112 mg/dL (<200) 08/21/23 06:42 HDL Cholesterol 51 mg/dL (40-60) 08/21/23 06:42 Cholesterol/HDL Ratio 2.20 08/21/23 06:42 Home Medications: Apixaban [Eliquis] 5 mg PO BID 04/08/22 Carvedilol [Coreg] 25 mg PO BID 04/08/22 Acetaminophen [Tylenol] 650 mg FT Q4HP PRN 08/20/23 Ascorbic Acid [Vitamin C] 1 tab FT DAILY 08/20/23 Cholecalciferol (Vitamin D3) [Vitamin D3] 1 tab FT DAILY 08/20/23 Fludrocortisone [Florinef *] 1 tab FT DAILY 08/20/23 Folic Acid 1 tab FT DAILY 08/20/23 Gabapentin [Neurontin*] 300 mg FT BID 08/20/23 Hydrocodone 5/APAP 325 [[place] 5/325*] 1 tab FT Q6HP PRN 08/20/23 Jevity 1.2 Joaquín Liquid 300 ml FT Q6H 08/20/23 Lactobacill 46/B.animal/Inulin [Probiotic-10 10 Bill Cell Cap] 1 tab FT BID 08/20/23 Nifedipine Xl [Procardia Xl*] 20 mg PO Q8H 08/20/23 Pantoprazole [Protonix Tab*] 40 mg FT DAILYAC 08/20/23 Zinc Sulfate [Zinc Sulfate*] 1 tab FT DAILY 08/20/23 methIMAzole [Tapazole*] 5 mg FT DAILY 08/20/23 modafiniL [Modafinil] 1 tab FT DAILY 08/20/23 Collagenase [Santyl Ointment*] 1 appl TOP DAILY tube 09/01/23 Sildenafil Citrate [Revatio*] 20 mg PO Q8H 30 Days #90 tab 09/01/23 Spironolactone [Aldactone*] 25 mg PO DAILY tab 09/01/23 metOLazone [Zaroxolyn*] 2.5 mg FT DAILY tab 09/01/23 Physician Discharge Instructions: Patient presented with shortness of breath, fever. She was found to have a UTI and an infected sacral decubitus ulcer with osteomyelitis On admission, CT chest/abd with findings consistent with LLL atelectasis vs possible superimposed aspiration / pneumonia. Urinalysis was noted to be +bacteria/WBCs, concerning for possible UTI. Pt also noted to have indwelling james catheter, supposedly since hospitalized ~1-2 months ago at [facility]. Urine cultures were obtained on 08/19 and 08/23 both grew Enterococcus faecalis. Blood cultures without growth. Pulm and ID were consulted. Patient completed course of IV merrem and continues on IV Vancomycin and had improvement of her symptoms. She reportedly has history of adrenal insufficiency so did receive stress dose steroids early in admission. Fludrocortisone had not been restarted, but given history, can restart on discharge. In regards to infected chronic sacral decubitus ulcer, CT abd noted full thickness of sacral ulcer without CT evidence of osteomyelitis. General surgery was consulted. Patient was taken to the OR on 08/22 for Excisional debridment necrotic infected stage 4 pressure ulcer [id number] with Dr. Tee. Wound was debrided to the bone per Dr. Tee, consistent with clinical osteomyelitis. Wound culture on 08/20 was noted to grow MRSA and Enterococcus faecalis. PICC line was placed on 08/29 as patient will require 6 weeks of IV vancomycin, to be completed on 10/02/22. (Started 08/21/23) Recommends continued pressure offloading measures. Turn patient q2h, Offload pressure on heels / heel protectors. Continue daily wound care by applying michelle yl and wet to dry dressing to Sacral wound, cover with dry gauze. Iron studies this hospitalization were consistent with iron deficiency anemia, felt secondary to anemia of chronic disease. Patients hgb was noted to drop from 8.9 to 6.9 on 08/20 and required 1 uPRBC. She also received 8 bags of IV iron while hospitalized. Patients hgb remained stable for rest of hospitalization with hgb in 8-9s and did not require any more transfusions. Recommend repeat blood work in ~1 week to monitor hemoglobin / renal function Patient was noted to appear volume overloaded on admission. BNP was 84k. She i nitially received IV lasix, however renal function started to decline. Nephrology was consulted and Lasix were held. She was started on sildenafil for her pulmonary hypertension. Markedly elevated BUN / Elevated serum osmolality indicating dehydration. Patient responded well to free water flushes through FT and was started on metolazone 2.5 mg and spironolactone 25 mg daily for gentle diuresis. Suspect ELIE secondary to Cardiorenal syndrome / free water defecit. Creatinine on discharge: 1.18. Medications: Vancomycin to be completed on 10/02/22; check troughs and adjust as appropriate Metolazone 2.5 mg BID through feeding tube Spironolactone 25 mg daily Sildenafil Iron Santyl for wound care Follow up: PCP 3-5 days Pulmonology 1-[address] Tee / [facility] 1-2 weeks Imaging Findings: CT head on 08/20 without any acute intracranial abnormalities. Findings consistent with small remote infarct / Encephalomalacia of left occipital lobe and left cerebellum Nifedipine was held during admission. Monitor blood pressure and may need to restart as needed. Echo (08/23): normal LVEF: 55-60%, severely dilated right ventricle with moderate dysfunction, severe right atrium enlargement, moderated tricuspid regurgitation, moderate mitral regurgitation, severe pulmonary hypertension with RV systolic pressure > 110mmHg. Dr. Mckeon had discussion with family regarding goals of care but unable to get ahold of the patient's for further discussion. Family to further discuss goals of care for the patient and monitor how she does. Followup: NONE,NONE [Primary Care Provider] - Time spent managing pt's care (in minutes): 45
[2023-09-01 10:11] VITALS: O2SAT 98
[2023-09-01 11:11] VITALS: BP 127/69; TEMP 98
[2023-09-01 17:36] VITALS: BMI 36.7
--- NOTE | 2023-09-01 21:59 | P.PN ---
Date of Service: 09/01/23 Vital Signs Temp Pulse Resp BP Pulse Ox 98 F 73 20 127/69 95 09/01/23 11:09 09/01/23 11:09 09/01/23 11:09 09/01/23 11:09 09/01/23 11:09 Microbiology Results 08/19/23 22:00 Blood - Blood Aerobic Blood Culture - Final No growth in 5 days. 08/19/23 22:00 Blood - Blood Anaerobic Blood Culture - Final No growth in 5 days. 08/19/23 21:45 Blood - Blood Aerobic Blood Culture - Final No growth in 5 days. 08/19/23 21:45 Blood - Blood Anaerobic Blood Culture - Final No growth in 5 days. 08/19/23 21:40 Clean Catch Urine Saxon Count - Final >100,000 CFU/ML. 08/19/23 21:40 Clean Catch Urine - Final Enterococcus Faecalis 08/19/23 22:02 Nasopharnyx Influenza Type A Antigen Screen - Final 08/19/23 22:02 Nasopharnyx Influenza Type B Antigen Screen - Final Assessment/ Plan: Nephrology No dyspnea No chest pain No acute events overnight Limited IH/ ROS due to mental status Vitals, medications, blood work and imaging reviewed in the chart. NAD. Obese. NCAT. MMM. Neck supple. Normal respiratory effort. RRR. Abd ND. No C/C. LE Edema 2+. No rash. Awake. No speech. Busby Medium LEFT VENTRICULAR WALL MOTION: NORMAL DOPPLER/COLOR FLOW: SEE BELOW COMMENTS: 1. NORMAL LEFT VENTRICULAR EJECTION FRACTION 55-60% 2. SEVERELY DILATED RIGHT VENTRICLE WITH MODERATE DYSFUNCTION 3. SEVERE RIGHT ATRIUM ENLARGEMENT 4. MODERATE TRICUSPID REGURGITATION 5. MODERATE MITRAL REGURGITATION 6. SEVERE PULMONARY HYPERTENSION WITH RIGHT VENTRICULAR SYSTOLIC PRESSURE GREATER THAN 110 mmHg EXAM DESCRIPTION: CT CHEST ABDOMEN PELVIS WITHOUT IV CONTRAST CLINICAL HISTORY: Female, 73 years old, Sepsis, Deep sacral Decub COMPARISON: Same-day chest radiograph TECHNIQUE: CT acquisition of the chest, abdomen, and pelvis without contrast. Coronal and sagittal reformatted images provided. This exam was performed according to departmental dose-optimization program which includes automated exposure control, adjustment of the mA and/or kV according to patient size, and/or use of iterative reconstruction technique. FINDINGS: Lack of intravenous contrast limits evaluation of the cardiomediastinal and abdominopelvic viscera, as well as the vascular structures. Beam hardening from arms down positioning results in decreased [id number] and further limits interpretation. SUPPORTIVE DEVICES: Percutaneous gastrostomy tube and Busby catheter in place. LOWER NECK: Unremarkable. CHEST: Mediastinum/jonna: Aortic atherosclerosis without aneurysm. The central pulmonary vasculature is enlarged. No evident thoracic adenopathy. Unremarkable esophagus. Heart: Severe cardiomegaly. Small pericardial effusion. Mild coronary artery calcifications. Lungs: Low lung volumes. Left lower lobe basilar consolidative atelectasis. Diffuse peripheral pulmonary vascular prominence. The airway is near collapsed, reportedly due to nonbreath- hold technique. Pleural Space: No pleural effusion or pneumothorax. ABDOMEN AND PELVIS: Liver: Diffusely nodular contour. Gallbladder and bile ducts: Postcholecystectomy changes. Pancreas: Unremarkable. Spleen: Upper normal size. Adrenal glands: Unremarkable. Kidneys and ureters: No evidence of stone or obstruction. Bilateral renal hypodense lesions are suspected, without suspicious features. Bladder: Collapsed around a Busby catheter. No evident abnormality. Reproductive organs: Fibroid appearance of the uterus. GI tract: Normal caliber without wall thickening. No evidence of appendicitis. Lymph nodes: No obvious adenopathy. Peritoneum: Moderate volume 4 quadrant ascites. Abdominal wall: Ventral postsurgical change. Anasarca. Vessels: Atherosclerosis without evidence of aneurysm. MUSCULOSKELETAL: No acute osseous abnormality. Degenerative change of the spine, shoulders, and pelvis. Full-thickness sacral decubitus ulcer with deep gas along the posterior sacrum; no underlying sclerosis or erosion. IMPRESSION: 1. Full-thickness sacral decubitus ulcer without CT evidence of underlying ostial myelitis. 2. Cirrhotic hepatic morphology with mild sequela of portal hypertension. 3. Severe cardiomegaly with small pericardial effusion. 4. Consolidative atelectasis in the left lower lobe, consider superimposed aspiration or pneumonia. 5. Busby catheter and percutaneous gastrostomy tube in place. 6. Additional chronic and incidental findings above. No other acute finding within the exam limitations. A/P Stage I ELIE likely CRS CKD III with Proteinuria Nephrotic range proteinuria -No NSAIDs -Continue free water flushes through FT Hyperkalemia -Continue Nepro -Lokelma prn HTN with CKD/ CHF Tachycardia -Continue Metoprolol 100 q8h Diastolic CHF, A/C Moderate TR & MR Severe Pulmonary HTN, secondary Peripheral Edema -Continue Metoprolol -Continue Sildenafil q8h -Daily weight -CXR reviewed -Continue Metolazone 2.5mg daily -Start Spironolactone 25mg daily Severe Hypoalbuminemia PEG -Continue Nepro Anemia in chronic illness Iron Deficiency 6.3% -Monitor H&H -Continue IV iron Hospitalist note reviewed; case reviewed with Dr. Hart
== END 2023-09-01 15:40 | DRG 853 ==
LOC: ER 21:40 → 4TH 08-20 02:56
PROVIDERS: ADMIT Hospitalist; ATTEND Hospitalist
PROC: 30233N1 Transfusion of Nonautologous Red Blood Cells into Peripheral Vein, Percutaneous Approach (ICD-10-PCS; 2023-08-20)
PROC: 0QB10ZZ Excision of Sacrum, Open Approach (ICD-10-PCS; principal; 2023-08-22 12:45)
PROC: 02HV33Z Insertion of Infusion Device into Superior Vena Cava, Percutaneous Approach (ICD-10-PCS; 2023-08-29)
DX: A41.81 Sepsis due to Enterococcus (principal); I50.43 Acute on chronic combined systolic (congestive) and diastolic (congestive) heart failure; L89.154 Pressure ulcer of sacral region, stage 4; J96.01 Acute respiratory failure with hypoxia; J69.0 Pneumonitis due to inhalation of food and vomit; N39.0 Urinary tract infection, site not specified; T83.511A Infection and inflammatory reaction due to indwelling urethral catheter, initial encounter; I13.0 Hypertensive heart and chronic kidney disease with heart failure and stage 1 through stage 4 chronic kidney disease, or unspecified chronic kidney disease; I48.20 Chronic atrial fibrillation, unspecified; K76.6 Portal hypertension; N17.9 Acute kidney failure, unspecified; E44.0 Moderate protein-calorie malnutrition; M86.8X8 Other osteomyelitis, other site; A41.01 Sepsis due to Methicillin susceptible Staphylococcus aureus; R65.20 Severe sepsis without septic shock; N18.32 Chronic kidney disease, stage 3b; D63.1 Anemia in chronic kidney disease; D50.9 Iron deficiency anemia, unspecified; E03.9 Hypothyroidism, unspecified; E88.09 Other disorders of plasma-protein metabolism, not elsewhere classified; E11.69 Type 2 diabetes mellitus with other specified complication; E87.5 Hyperkalemia; I08.1 Rheumatic disorders of both mitral and tricuspid valves; G93.89 Other specified disorders of brain; E78.5 Hyperlipidemia, unspecified; I69.320 Aphasia following cerebral infarction; L89.616 Pressure-induced deep tissue damage of right heel; I27.20 Pulmonary hypertension, unspecified; I69.391 Dysphagia following cerebral infarction; R13.10 Dysphagia, unspecified; R31.29 Other microscopic hematuria; Z88.8 Allergy status to other drugs, medicaments and biological substances; Z79.01 Long term (current) use of anticoagulants; Z11.52 Encounter for screening for COVID-19; Z74.01 Bed confinement status; Z68.36 Body mass index [BMI] 36.0-36.9, adult; Z79.02 Long term (current) use of antithrombotics/antiplatelets; Z79.899 Other long term (current) drug therapy
CPT/HCPCS: 36415; 36430; 70450; 71045; 71250; 74176; 80048; 80053; 80061; 80069; 80202; 81001; 82043; 82435; 82436; 82533; 82570; 82728; 82947; 83540; 83605; 83735; 83880; 83930; 83935; 84100; 84132; 84133; 84145; 84156; 84165; 84300; 84439; 84443; 84466; 84550; 85014; 85018; 85025; 85027; 85610; 85730; 86038; 86160; 86225; 86335; 86704; 86706; 86803; 86850; 86900; 86901; 86920; 87040; 87070; 87077; 87086; 87088; 87186; 87205; 87340; 87635; 87804; 88304; 92610; 93005; 93306; 96365; 96366; 96375; 99285; A4216; C9113; J0692; J0696; J1720; J1940; J2001; J2185; J2405; J2704; J2916; J3010; J3590; J7030; J7040; J7050; J7613; J7644; P9016